=== PATIENT | male | born 1970 | race Caucasian/White ===

== ENCOUNTER 2016-09-15 01:56 | Inpatient (IN) | payer BC ==
[~2016-09-15] VITALS: Ht 177.8 cm; Wt 108.2 kg
[~2016-09-15 01:56] MED LIST: LISI1TAB5 PO; METF500T4 PO; OMEP20CA9 PO
[2016-09-15] MEDS ORDERED: FENTANYL PF 100 MCG/2 ML VIAL. IV PRN ×2 (02:30→05:15)
[2016-09-15] MEDS ORDERED: NITROGLYCERIN SUBLINGUAL 0.4 MG BOTTLE OF 25. SL PRN ×2 (02:30→05:15)
[2016-09-15 02:34] LABS: BASO # 0.1 x10^3/uL (0.0-0.2); BASO % 1 % (0-3); EOS % 3 % (0-3); HEMATOCRIT 46.3 % (39.0-53.0); HEMOGLOBIN 15.1 g/dL (13.0-17.5); LYMPH # 4.9 x10^3/uL (1.0-4.8); LYMPH % 37 % (24-48); MEAN CORPUSCULAR HEMOGLOBIN 28 pg (25-35); MEAN CORPUSCULAR HGB CONC 33 g/dL (31-37); MEAN CORPUSCULAR VOLUME 85 fL (79-100); MONO % 9 % (0-9); NEUT % 50 % (31-73); PLATELET COUNT 289 x10^3/uL (140-400); RED BLOOD COUNT 5.48 x10^6/uL (4.30-5.70); RED CELL DISTRIBUTION WIDTH 14.1 % (11.5-14.5); WHITE BLOOD COUNT 13.4 x10^3/uL (4.0-11.0)
[2016-09-15 02:46] LABS: CALCIUM 9.5 mg/dL (8.5-10.1); CREATININE 1.1 mg/dL (0.7-1.3); GFR 71.8; POTASSIUM 3.8 mmol/L (3.5-5.1)
[2016-09-15 02:47] LABS: INR 0.9 (0.8-1.1)
[2016-09-15] MEDS ORDERED: ASPIRIN 81 MG TAB.CHEW PO ONE (03:00)
[2016-09-15 04:13] LABS: BARBITURATES NEG (NEG); BENZODIAZEPINES NEG (NEG); CANNABINOIDS NEG (NEG); COCAINE NEG (NEG); METHADONE NEG (NEG); OPIATES NEG (NEG); PHENCYCLIDINE NEG (NEG)
[2016-09-15 04:19] LABS: ETHANOL, URINE NEG (NEG)
[2016-09-15] MEDS ORDERED: HEPARIN for IV BOLUS 10,000 UNIT/10 ML VIAL. IV ONE (05:00)
[2016-09-15] MEDS ORDERED: ONDANSETRON PF 4 MG/2 ML VIAL. IV PRN ×2 (05:15→10:30)
[2016-09-15] MEDS ORDERED: DEXTROSE 50% 25 GM / 50ML DISP.SYRIN. IV PRN (05:15)
[2016-09-15] MEDS ORDERED: ACETAMINOPHEN 325 MG TABLET. PO PRN ×2 (05:15→10:30)
[2016-09-15] MEDS: HEPARIN 25,000UTS/500ML PREMIX 500 ML IV PRN ×2 (05:17→23:29)
[2016-09-15 07:32] VITALS: BP 125/71
[2016-09-15] MEDS: INSULIN ASPART 300 UNITS/3 ML INSULN.PEN SQ SCH ×3 (07:38→18:11)
--- NOTE | 2016-09-15 07:48 | RAD ---
Exam: AP portable chest. History: Chest pain. Comparison: 03/20/2015. Findings: The heart and mediastinal structures are within normal limits for size. Lungs are without infiltrate. No pneumothorax or pleural effusion is appreciated. Impression: 1. No acute cardiopulmonary process.
--- NOTE | 2016-09-15 08:21 | ED.ADGEN ---
Past Medical History Past Medical History: Diabetes-Type II, GERD, High Cholesterol, Hypertension Past Surgical History: Other Additional Past Surgical Histo: SKIN GRAFT, KNEE SX, L5-S1 BACK SX Alcohol Use: None Drug Use: None Adult General Chief Complaint Chief Complaint: CHEST PAIN HPI HPI Patient is a 46 year old and, history of type 2 diabetes mellitus, hypertension , hyperlipidemia, GERD, who presents emergency Department with complaint of sudden onset of chest burning, with weakness in his bilateral upper extremities , that woke him from sleep this evening. Patient states he has been experiencing this burning sensation in the chest intermittently over the past several days, did not previously express his sensation, states he isn't having belching as well. Denies any radiation of the pain, states that he had weakness in both his upper extremities, which was very transient when he was woken from sleep tonight, which was a new sensation, he states the burning was intense, but does not describe it as a pain or pressure. He states that he has had no injuries, denies any drugs or alcohol, states he smokes cigarettes daily. No cough, no fevers, no chills, swelling extremities, no history of DVT or PE, no recent travel or surgery. Patient states he is compliant with his medications. He states he is a family history of heart disease, and his father, and his 60s. Has not previously had a cardiac evaluation. Patient states that the pain was subsiding by the time he arrived in the emergency department, and that began about an hour prior to his arrival. He is pain-free at this time, has received aspirin, and one nitroglycerin in the ED, Review of Systems Review of Systems Constitutional: Denies fever or chills. [] Eyes: Denies change in visual acuity. [] HENT: Denies nasal congestion or sore throat. [] Respiratory: Denies cough or shortness of breath. [] Cardiovascular: Burning chest pain, no edema. Associated with weakness in his bilateral upper extremities that was transient. Belching. GI: Denies abdominal pain, nausea, vomiting, bloody stools or diarrhea. [] : Denies dysuria. [] Musculoskeletal: Denies back pain or joint pain. [] Integument: Denies rash. [] Neurologic: Denies headache, focal weakness or sensory changes. [] Endocrine: Denies polyuria or polydipsia. [] Lymphatic: Denies swollen glands. [] Psychiatric: Denies depression or anxiety. [] Current Medications Current Medications Current Medications Medications (Trade) Dose Ordered Sig/Shiv Start Time Stop Time Status Last Admin Dose Admin Aspirin (Children'S Aspirin) 324 mg 1X ONCE 09/15/16 03:00 09/15/16 03:01 DC 09/15/16 02:36 324 MG Fentanyl Citrate 25 mcg 25 mcg PRN Q15MIN PRN 09/15/16 02:30 09/15/16 06:00 DC Heparin Sodium (Porcine) 2,850 unit PRN Q6HRS PRN 09/15/16 04:45 Heparin Sodium/ Dextrose 500 ml @ 0 mls/hr CONT PRN 09/15/16 04:45 09/15/16 05:17 20 MLS/HR Nitroglycerin (Nitrostat) 0.4 mg PRN Q5MIN PRN 09/15/16 02:30 09/15/16 05:18 DC 09/15/16 02:37 0.4 MG Allergies Allergies Allergies Coded Allergies Type Severity Reaction Last Updated Verified Iodinated Contrast Media - IV Dye Allergy Unknown 03/20/15 Yes Physical Exam Physical Exam Constitutional: Well developed, well nourished, no acute distress, non-toxic appearance. [] HENT: Normocephalic, atraumatic, bilateral external ears normal, oropharynx moist, no oral exudates, nose normal. [] Eyes: PERRLA, EOMI, conjunctiva normal, no discharge. [] Neck: Normal range of motion, no tenderness, supple, no stridor. [] Cardiovascular:Heart rate regular rhythm, no murmur [] Lungs & Thorax: Bilateral breath sounds clear to auscultation [] Abdomen: Bowel sounds normal, soft, no tenderness, no masses, no pulsatile masses. [] Skin: Warm, dry, no erythema, no rash. [] Back: No tenderness, no CVA tenderness. [] Extremities: No tenderness, no cyanosis, no clubbing, ROM intact, no edema. [] Neurologic: Alert and oriented X 3, normal motor function, normal sensory function, no focal deficits noted. [] Psychologic: Affect normal, judgement normal, mood normal. [] Current Patient Data Vital Signs Vital Signs Date Time Temp Pulse Resp B/P Pulse Ox O2 Delivery O2 Flow Rate FiO2 09/15/16 04:40 92 12 124/91 95 Room Air 09/15/16 02:22 97.9 97.9 Lab Values Laboratory Tests Test 09/15/16 02:20 09/15/16 04:01 09/15/16 04:11 White Blood Count 13.4x10^3/uL (4.0-11.0) H Red Blood Count 5.48x10^6/uL (4.30-5.70) Hemoglobin 15.1g/dL (13.0-17.5) Hematocrit 46.3% (39.0-53.0) Mean Corpuscular Volume 85fL (79-100) Mean Corpuscular Hemoglobin 28pg (25-35) Mean Corpuscular Hemoglobin Concent 33g/dL (31-37) Red Cell Distribution Width 14.1% (11.5-14.5) Platelet Count 289x10^3/uL (140-400) Neutrophils (%) (Auto) 50% (31-73) Lymphocytes (%) (Auto) 37% (24-48) Monocytes (%) (Auto) 9% (0-9) Eosinophils (%) (Auto) 3% (0-3) Basophils (%) (Auto) 1% (0-3) Neutrophils # (Auto) 6.7x10^3uL (1.8-7.7) Lymphocytes # (Auto) 4.9x10^3/uL (1.0-4.8) H Monocytes # (Auto) 1.2x10^3/uL (0.0-1.1) H Eosinophils # (Auto) 0.4x10^3/uL (0.0-0.7) Basophils # (Auto) 0.1x10^3/uL (0.0-0.2) Prothrombin Time 12.0SEC (11.7-14.0) Prothrombin Time INR 0.9 (0.8-1.1) PTT 27SEC (24-38) Sodium Level 140mmol/L (136-145) Potassium Level 3.8mmol/L (3.5-5.1) Chloride Level 101mmol/L (98-107) Carbon Dioxide Level 31mmol/L (21-32) Anion Gap 8 (6-14) Blood Urea Nitrogen 20mg/dL (8-26) Creatinine 1.1mg/dL (0.7-1.3) Estimated GFR (Cockcroft-Gault) 71.8 Glucose Level 184mg/dL (70-99) H Calcium Level 9.5mg/dL (8.5-10.1) Troponin I Quantitative 0.696ng/mL (0.000-0.055) HY-Ctf-Y-Type Natriuretic Peptide 190pg/mL (0-124) H Lipase 203U/L (73-393) Urine Opiates Screen Neg (NEG) Urine Methadone Screen Neg (NEG) Urine Barbiturates Neg (NEG) Urine Phencyclidine Screen Neg (NEG) Urine Amphetamine/Methamphetamine Neg (NEG) Urine Benzodiazepines Screen Neg (NEG) Urine Cocaine Screen Neg (NEG) Urine Cannabinoids Screen Neg (NEG) Urine Ethyl Alcohol Neg (NEG) POC Troponin I 0.47ng/ml (<0.08) Laboratory Tests 09/15/16 02:20 Laboratory Tests 09/15/16 02:20 EKG EKG EC: Sinus rhythm, heart rate 92 beats minute, left axis deviation, patient with [address] elevation noted in V2, no other ST elevations or depressions identified, QTC of 438, SC 170, QRS of 80, mild baseline artifact noted. This is a chest pain free ECG. As interpreted by me. No prior for comparison. EC: Sinus rhythm, heart rate 80 bpm, left axis deviation, QTC of 409, SC of 184, QRS of 80, contrary abnormalities noted in V1, with half millimeter elevation, and V2, with approximately 1 mm of elevation, no ST depressions, T- wave inversions noted in aVL which are consistent with patient's previous ECG. Baseline is improved. Abnormal ECG, does not meet STEMI criteria. As interpreted by me. Radiology/Procedures Radiology/Procedures Chest x-ray: One view: Normal cardiopulmonary silhouette, no infiltrates, no effusions, no pneumothorax, no soft tissue or bony abnormalities identified. As interpreted by me. [] Course & Med Decision Making Course & Med Decision Making Pertinent Labs and Imaging studies reviewed. (See chart for details) Patient's report is concerning for possible atypical chest pain, he is agreeable for receiving chest x-ray, ECG, and laboratory studies in the ED. X- rays unremarkable, ECG reveals 1 mm elevation in lateral leads, no significant reciprocal changes, no prior for comparison, and patient is chest pain-free in the emergency department recurrence of the symptoms which did resolve prior to his evaluation, the patient received aspirin and 1 nitroglycerin in the ED upon his arrival. Patient's troponin is positive at 0.96, did discuss these findings with the patient, he was agreeable for admission to the hospital, was initiated on heparin bolus and infusion. He remains asymptomatic in the emergency department, has not have recurrence of his symptoms during his ED course. Findings as above discussed with Dr. Uribe of cardiology, and evaluation is in place, he will evaluate the patient, with serial enzymes pending. Findings as above discussed with Dr. Carmona cardiology, patient accepted to his service as a full admission to the cardiac telemetry floor with plan for cardiac evaluation and close monitoring. Patient remained stable and comfortable , sinus rhythm on the monitor, without recurrence of symptoms, at time of transfer to the floor. Dragon Disclaimer Dragon Disclaimer This electronic medical record was generated, in whole or in part, using a voice recognition dictation system. Departure Impression: Primary Impression: NSTEMI (non-ST elevated myocardial infarction) Additional Impression: Chest pain Disposition: 09 ADMITTED INPATIENT Admitting Physician: Agus Carmona Condition: IMPROVED Problem Qualifiers Additional Impression: Chest pain Chest pain type: unspecified Qualified Code: R07.9 - Chest pain, unspecified AARON DAWSON DO Sep 15, 2016 08:20
[2016-09-15] MEDS ORDERED: METF10002 PO (09:18)
[2016-09-15] MEDS ORDERED: OMEP20TA PO (09:18)
[2016-09-15] MEDS ORDERED: GLIM2TAB2 PO (09:18)
[2016-09-15] MEDS ORDERED: ATOR10TA60 PO (09:18)
[2016-09-15] MEDS ORDERED: LOSA1TAB18 PO (09:18)
[2016-09-15 11:03] VITALS: BP 150/95
[2016-09-15 11:06] LABS: CHOLESTEROL/HDL RATIO 4.3
[2016-09-15] MEDS ORDERED: HYDROCHLOROTHIAZIDE 12.5 MG CAPSULE. PO SCH (11:30)
[2016-09-15] MEDS ORDERED: LOSARTAN POTASSIUM 50 MG TABLET. PO SCH (11:30)
[2016-09-15] MEDS: HEPARIN for IV BOLUS 10,000 UNIT/10 ML VIAL. IV PRN ×2 (12:20→18:22)
--- NOTE | 2016-09-15 12:39 | EKG ---
[facility] [address] [place] [address] Test Date: 2016-09-15 Test Time: 04:02:44 Pat Name: LIOR TONG Department: Room: Gender: [employer]: : 1970 Requested By: AARON DAWSON Order Number: [id number] Reading MD: Measurements Intervals [place] Rate: 80 P: 30 MS: 184 QRS: -21 QRSD: 80 T: 76 QT: 352 QTc: 409 Interpretive Statements SINUS RHYTHM LEFTWARD AXIS T ABNORMALITY IN HIGH LATERAL LEADS RI6.01 Unconfirmed report No previous ECG available for comparison
--- NOTE | 2016-09-15 12:39 | EKG ---
[facility] [address] [place] [address] Test Date: 2016-09-15 Test Time: 02:09:19 Pat Name: LIOR TONG Department: Room: Gender: M [employer]: : 1970 Requested By: AARON DAWSON Order Number: [id number] Reading MD: Measurements Intervals [place] Rate: 92 P: 60 ND: 178 QRS: -17 QRSD: 80 T: 62 QT: 350 QTc: 438 Interpretive Statements SINUS RHYTHM LEFT ATRIAL ABNORMALITY LEFTWARD AXIS T ABNORMALITY IN HIGH LATERAL LEADS RI6.01 Unconfirmed report No previous ECG available for comparison
--- NOTE | 2016-09-15 12:48 | PDOC1 ---
History and Physical Date of Admission Date of Admission 09/15/16 Identification/Chief Complaint Chief Complaint chest pain Problems: Source Source: Chart review, Patient History of Present Illness History of Present Illness HPI Patient is a 46 year old and, history of type 2 diabetes mellitus, hypertension , hyperlipidemia, GERD, who presents emergency Department with complaint of sudden onset of chest burning yesterday. He had similar pain intermittent for a few weeks. The pain was located substernal , radiating to bl shoulders, sharp like burning , with diphoresis, no N/V or sob. lasting 20-30min. mild chronic cough, no fevers, no chills, swelling extremities, no history of DVT or PE, no recent travel or surgery. Patient states he is compliant with his medications. He states he is a family history of heart disease, and his father, and his 60s. Has not previously had a cardiac evaluation. He is pain-free at this time, has received aspirin, and one nitroglycerin in the ED, high troponin, on heparin drip, EKG ok. Past Medical History Cardiovascular: HTN Endocrine: Diabetes Past Surgical History Past Surgical History: No pertinent history Family History Family History: Heart Disease Social History Smoke: 1 pack per day ALCOHOL: social Drugs: None Current Problem List Problem List Problems Medical Problems: (1) Chest pain Status: Acute (2) NSTEMI (non-ST elevated myocardial infarction) Status: Acute Current Medications Current Medications Current Medications Medications (Trade) Dose Ordered Sig/Shiv Start Time Stop Time Status Last Admin Dose Admin Acetaminophen (Tylenol) 650 mg PRN Q6HRS PRN 09/15/16 10:30 Aspirin (Children'S Aspirin) 324 mg 1X ONCE 09/15/16 03:00 09/15/16 03:01 DC 09/15/16 02:36 324 MG Atorvastatin Calcium (Lipitor) 20 mg QHS 09/15/16 21:00 Dextrose 12.5 gm PRN Q15MIN PRN 09/15/16 05:15 Fentanyl Citrate (Fentanyl 2ml Vial) 50 mcg PRN Q2HR PRN 09/15/16 05:15 09/16/16 05:14 Glimepiride (Amaryl) 2 mg DAILY 09/15/16 11:30 Heparin Sodium (Porcine) 2,850 unit PRN Q6HRS PRN 09/15/16 04:45 09/15/16 12:20 2,850 UNIT Heparin Sodium (Porcine) 4000 unit 4,000 unit 1X ONCE 09/15/16 05:00 09/15/16 05:02 DC 09/15/16 05:14 4,000 UNIT Heparin Sodium/ Dextrose 500 ml @ 0 mls/hr CONT PRN 09/15/16 04:45 09/15/16 05:17 20 MLS/HR Hydrochlorothiazide (Microzide) 12.5 mg DAILY 09/15/16 11:30 Info (Anti-Coagulation Monitoring By Pharmacy) 1 each PRN DAILY PRN 09/15/16 07:45 Insulin Aspart (Novolog) 0-5 UNITS TIDWMEALS 09/15/16 08:00 Losartan Potassium (Cozaar) 100 mg DAILY 09/15/16 11:30 Morphine Sulfate 4 mg PRN Q2HR PRN 09/15/16 10:30 Nitroglycerin (Nitrostat) 0.4 mg PRN Q5MIN PRN 09/15/16 05:15 09/16/16 05:14 Non-Formulary Medication 1 tab DAILY 09/16/16 09:00 UNV Ondansetron HCl (Zofran) 4 mg PRN Q6HRS PRN 09/15/16 10:30 Pantoprazole Sodium (Protonix) 40 mg DAILYAC 09/15/16 11:30 Allergies Allergies Allergies Coded Allergies Type Severity Reaction Last Updated Verified Iodinated Contrast Media - IV Dye Allergy Unknown 03/20/15 Yes ROS Review of System CONSTITUTIONAL: No fever or chills EYES: No recent changes SKIN: No rash or itching CARDIOVASCULAR: No chest pain, syncope, palpitations, or edema RESPIRATORY: No SOB or cough GASTROINTESTINAL: No nausea, vomiting or abdominal pain NEUROLOGICAL: No headaches or weakness ENDOCRINE: No cold or heat intolerance GENITOURINARY: No urgency or frequency of urination MUSCULOSKELETAL: No back pain or joint pain LYMPHATICS: No enlarged lymph nodes PSYCHIATRIC: No anxiety or depression Physical Exam Physical Exam GEN.: No apparent distress. Alert and oriented. HEENT: Head is normocephalic, atraumatic NECK: Supple. LUNGS: Clear to auscultation. HEART: RRR, S1, S2 present. Peripheral pulses intact ABDOMEN: Soft, nontender. Positive bowel sounds. EXTREMITIES: Without any cyanosis. NEUROLOGIC: Normal speech, normal tone PSYCHIATRIC: Normal affect, normal mood. SKIN: No ulcerations Vitals Vitals Vital Signs Date Time Temp Pulse Resp B/P Pulse Ox O2 Delivery O2 Flow Rate FiO2 09/15/16 11:03 98.1 84 18 150/95 98 Room Air 98.1 Labs Labs Laboratory Tests Test 09/15/16 02:20 09/15/16 04:01 09/15/16 04:11 09/15/16 08:05 White Blood Count 13.4x10^3/uL (4.0-11.0) Red Blood Count 5.48x10^6/uL (4.30-5.70) Hemoglobin 15.1g/dL (13.0-17.5) Hematocrit 46.3% (39.0-53.0) Mean Corpuscular Volume 85fL (79-100) Mean Corpuscular Hemoglobin 28pg (25-35) Mean Corpuscular Hemoglobin Concent 33g/dL (31-37) Red Cell Distribution Width 14.1% (11.5-14.5) Platelet Count 289x10^3/uL (140-400) Neutrophils (%) (Auto) 50% (31-73) Lymphocytes (%) (Auto) 37% (24-48) Monocytes (%) (Auto) 9% (0-9) Eosinophils (%) (Auto) 3% (0-3) Basophils (%) (Auto) 1% (0-3) Neutrophils # (Auto) 6.7x10^3uL (1.8-7.7) Lymphocytes # (Auto) 4.9x10^3/uL (1.0-4.8) Monocytes # (Auto) 1.2x10^3/uL (0.0-1.1) Eosinophils # (Auto) 0.4x10^3/uL (0.0-0.7) Basophils # (Auto) 0.1x10^3/uL (0.0-0.2) Prothrombin Time 12.0SEC (11.7-14.0) Prothromb Time International Ratio 0.9 (0.8-1.1) Activated Partial Thromboplast Time 27SEC (24-38) Sodium Level 140mmol/L (136-145) Potassium Level 3.8mmol/L (3.5-5.1) Chloride Level 101mmol/L (98-107) Carbon Dioxide Level 31mmol/L (21-32) Anion Gap 8 (6-14) Blood Urea Nitrogen 20mg/dL (8-26) Creatinine 1.1mg/dL (0.7-1.3) Estimated GFR (Cockcroft-Gault) 71.8 Glucose Level 184mg/dL (70-99) Calcium Level 9.5mg/dL (8.5-10.1) Troponin I Quantitative 0.696ng/mL (0.000-0.055) 1.251ng/mL (0.000-0.055) AM-Evx-D-Type Natriuretic Peptide 190pg/mL (0-124) Triglycerides Level 358mg/dL (0-150) Cholesterol Level 160mg/dL (0-200) LDL Cholesterol, Calculated 51mg/dL (0-100) VLDL Cholesterol, Calculated 72mg/dL (0-40) HDL Cholesterol 37mg/dL (40-60) Cholesterol/HDL Ratio 4.3 Lipase 203U/L (73-393) Thyroid Stimulating Hormone (TSH) 2.549uIU/mL (0.358-3.74) Urine Opiates Screen Neg (NEG) Urine Methadone Screen Neg (NEG) Urine Barbiturates Neg (NEG) Urine Phencyclidine Screen Neg (NEG) Urine Amphetamine/Methamphetamine Neg (NEG) Urine Benzodiazepines Screen Neg (NEG) Urine Cocaine Screen Neg (NEG) Urine Cannabinoids Screen Neg (NEG) Urine Ethyl Alcohol Neg (NEG) Bedside Troponin I 0.47ng/ml (<0.08) Test 09/15/16 11:30 Heparin Anti-Xa Act, Unfractionated < 0.10IU/mL (0.30-0.70) Laboratory Tests Test 09/15/16 02:20 09/15/16 04:01 09/15/16 04:11 09/15/16 08:05 White Blood Count 13.4x10^3/uL (4.0-11.0) Red Blood Count 5.48x10^6/uL (4.30-5.70) Hemoglobin 15.1g/dL (13.0-17.5) Hematocrit 46.3% (39.0-53.0) Mean Corpuscular Volume 85fL (79-100) Mean Corpuscular Hemoglobin 28pg (25-35) Mean Corpuscular Hemoglobin Concent 33g/dL (31-37) Red Cell Distribution Width 14.1% (11.5-14.5) Platelet Count 289x10^3/uL (140-400) Neutrophils (%) (Auto) 50% (31-73) Lymphocytes (%) (Auto) 37% (24-48) Monocytes (%) (Auto) 9% (0-9) Eosinophils (%) (Auto) 3% (0-3) Basophils (%) (Auto) 1% (0-3) Neutrophils # (Auto) 6.7x10^3uL (1.8-7.7) Lymphocytes # (Auto) 4.9x10^3/uL (1.0-4.8) Monocytes # (Auto) 1.2x10^3/uL (0.0-1.1) Eosinophils # (Auto) 0.4x10^3/uL (0.0-0.7) Basophils # (Auto) 0.1x10^3/uL (0.0-0.2) Prothrombin Time 12.0SEC (11.7-14.0) Prothromb Time International Ratio 0.9 (0.8-1.1) Activated Partial Thromboplast Time 27SEC (24-38) Sodium Level 140mmol/L (136-145) Potassium Level 3.8mmol/L (3.5-5.1) Chloride Level 101mmol/L (98-107) Carbon Dioxide Level 31mmol/L (21-32) Anion Gap 8 (6-14) Blood Urea Nitrogen 20mg/dL (8-26) Creatinine 1.1mg/dL (0.7-1.3) Estimated GFR (Cockcroft-Gault) 71.8 Glucose Level 184mg/dL (70-99) Calcium Level 9.5mg/dL (8.5-10.1) Troponin I Quantitative 0.696ng/mL (0.000-0.055) 1.251ng/mL (0.000-0.055) DY-Zgw-E-Type Natriuretic Peptide 190pg/mL (0-124) Triglycerides Level 358mg/dL (0-150) Cholesterol Level 160mg/dL (0-200) LDL Cholesterol, Calculated 51mg/dL (0-100) VLDL Cholesterol, Calculated 72mg/dL (0-40) HDL Cholesterol 37mg/dL (40-60) Cholesterol/HDL Ratio 4.3 Lipase 203U/L (73-393) Thyroid Stimulating Hormone (TSH) 2.549uIU/mL (0.358-3.74) Urine Opiates Screen Neg (NEG) Urine Methadone Screen Neg (NEG) Urine Barbiturates Neg (NEG) Urine Phencyclidine Screen Neg (NEG) Urine Amphetamine/Methamphetamine Neg (NEG) Urine Benzodiazepines Screen Neg (NEG) Urine Cocaine Screen Neg (NEG) Urine Cannabinoids Screen Neg (NEG) Urine Ethyl Alcohol Neg (NEG) Bedside Troponin I 0.47ng/ml (<0.08) Test 09/15/16 11:30 Heparin Anti-Xa Act, Unfractionated < 0.10IU/mL (0.30-0.70) VTE Prophylaxis Ordered VTE Prophylaxis Devices: Yes VTE Pharmacological Prophylaxi: No Assessment/Plan Assessment/Plan 1. chest pain, NSTEMI 2. hld 3. dm2 4. Htn 5. OBEsity 6. tobaccoism 7. SIRS wo infection plan: 1. fu with card 2. check echo tsh, lipid panel cycle CE 3. on heparin drip 4. check hba1c, cont glipizide, hold metformin, SSI 5. hold hctz gi ppx FABI BHATT MD Sep 15, 2016 12:48
[2016-09-15 14:38] VITALS: BP 125/74
[2016-09-15 14:55] LABS: CKMB INDEX 4.9 % (0-4); CKMB MASS 6.4 ng/mL (0.0-3.6)
[2016-09-15] MEDS: ANTI-COAG MONITOR BY PHARMACY. MC PRN (15:39)
--- NOTE | 2016-09-15 16:09 | PDOC2 ---
CONSULT Date of Consult Date of Consult DATE: 09/15/16 TIME: 16:02 Reason for Consult Reason for Consult: Chest pain Referring Physician Referring Physician: Dr. Hare Identification/Chief Complaint Chief Complaint Chest pain Source Source: Chart review, Patient History of Present Illness Reason for Visit: 46-year-old male without any previous cardiac history presented with sudden onset retrosternal chest pain that he described as burning and pressure-like sensation radiating to both arms, 7/10 severity. He stated that he had similar but milder pain a few times over the last few weeks. He is not sure about the exertional component to his pain. He did have mild shortness of breath during his recent episode. He denied any orthopnea/PND, palpitations or syncope. Past Medical History Cardiovascular: HTN Endocrine: Diabetes Past Surgical History Past Surgical History: No pertinent history Family History Family History: Heart Disease Social History 1 pack per day ALCOHOL: social Drugs: None Lives: Friends Current Problem List Problem List Problems Medical Problems: (1) Chest pain Status: Acute (2) NSTEMI (non-ST elevated myocardial infarction) Status: Acute Current Medications Current Medications Current Medications Aspirin (Children'S Aspirin) 324 mg 1X ONCE PO Last administered on at 02:36; Start 09/15/16 at 03:00; Stop 09/15/16 at 03:01; Status DC Nitroglycerin (Nitrostat) 0.4 mg PRN Q5MIN PRN SL CP RATING > 1/10 Last administered on 09/15/16at 02:37; Start 09/15/16 at 02:30; Stop 09/15/16 at 05 :18; Status DC Fentanyl Citrate (Fentanyl 2ml Vial) 25 mcg PRN Q15MIN PRN IV PAIN GREATER THAN 3/10; Start 09/15/16 at 02:30; Stop 09/15/16 at 06:00; Status DC Heparin Sodium (Porcine) 4000 unit 4,000 unit 1X ONCE IV Last administered on 09/15/16at 05:14; Start 09/15/16 at 05:00; Stop 09/15/16 at 05:02; Status DC Heparin Sodium/ Dextrose 500 ml @ 0 mls/hr CONT PRN IV SEE I/O RECORD Last administered on 09/15/16at 05:17; Start 09/15/16 at 04:45 Heparin Sodium (Porcine) 2,850 unit PRN Q6HRS PRN IV FOR UFH LEVEL LESS THAN 0.2 Last administered on 09/15/16at 12:20; Start 09/15/16 at 04:45 Ondansetron HCl (Zofran) 4 mg PRN Q8HRS PRN IV NAUSEA/VOMITING; Start at 05:15; Stop 09/16/16 at 05:14 Fentanyl Citrate (Fentanyl 2ml Vial) 50 mcg PRN Q2HR PRN IV SEVERE PAIN; Start 09/15/16 at 05:15; Stop 09/16/16 at 05:14 Acetaminophen (Tylenol) 650 mg PRN Q4HRS PRN PO FEVER; Start 09/15/16 at 05:15 ; Stop 09/16/16 at 05:14 Nitroglycerin (Nitrostat) 0.4 mg PRN Q5MIN PRN SL CHEST PAIN; Start 09/15/16 at 05:15; Stop 09/16/16 at 05:14 Insulin Aspart (Novolog) 0-5 UNITS TIDWMEALS SQ ; Start 09/15/16 at 08:00 Dextrose 12.5 gm PRN Q15MIN PRN IV SEE COMMENTS; Start 09/15/16 at 05:15 Info (Anti-Coagulation Monitoring By Pharmacy) 1 each PRN DAILY PRN MC SEE COMMENTS Last administered on 09/15/16at 15:39; Start 09/15/16 at 07:45 Atorvastatin Calcium (Lipitor) 20 mg QHS PO ; Start 09/15/16 at 21:00 Glimepiride (Amaryl) 2 mg DAILY PO ; Start 09/15/16 at 11:30 Non-Formulary Medication 1 tab DAILY PO ; Start 09/16/16 at 09:00; Status UNV Pantoprazole Sodium (Protonix) 40 mg DAILYAC PO ; Start 09/15/16 at 11:30 Acetaminophen (Tylenol) 650 mg PRN Q6HRS PRN PO MILD PAIN / TEMP; Start at 10:30 Ondansetron HCl (Zofran) 4 mg PRN Q6HRS PRN IV NAUSEA/VOMITING; Start at 10:30 Morphine Sulfate 2 mg PRN Q2HR PRN IV PAIN; Start 09/15/16 at 10:30 Morphine Sulfate 4 mg PRN Q2HR PRN IV PAIN; Start 09/15/16 at 10:30 Losartan Potassium (Cozaar) 100 mg DAILY PO ; Start 09/15/16 at 11:30; Stop at 12:48; Status DC Hydrochlorothiazide (Microzide) 12.5 mg DAILY PO ; Start 09/15/16 at 11:30; Stop 09/15/16 at 12:48; Status DC Active Scripts Active Reported Atorvastatin Calcium 10 Mg Tablet 1 Tab PO DAILY Losartan-Hctz 100-12.5 Mg Tab (Losartan/Hydrochlorothiazide) 1 Each Tablet 1 Tab PO DAILY Glimepiride 2 Mg Tablet 1 Tab PO DAILY Metformin Hcl 1,000 Mg Tablet 1 Tab PO BID Omeprazole 20 Mg Capsule.dr 1 Cap PO BID Allergies Allergies: Coded Allergies: Iodinated Contrast Media - IV Dye (Verified Allergy, Unknown, 03/20/15) ROS PSYCHOLOGICAL ROS: No: Hallucinations Eyes: No Loss of vision HEENT: No: Epistaxis Respiratory: YES: Shortness of breath, No: Hemoptysis Cardiovascular: yes Chest Pain, No Palpitations Gastrointestinal: No Nausea, No Vomiting Genitourinary: No Hematuria Neurological: No Seizures Skin: No Rash Physical Exam General: Alert, Oriented X3, No acute distress HEENT: PERRLA, Mucous membr. moist/pink Lungs: Clear to auscultation, Normal air movement Heart: Regular rate, Normal S1, Normal S2, No murmurs Abdomen: Normal bowel sounds, Soft, No tenderness, No hepatosplenomegaly, No masses Extremities: No clubbing, No edema Skin: No rashes, No breakdown Neuro: Normal gait, Normal speech, Normal tone Psych/Mental Status: Mental status NL, Mood NL Vitals VITALS Vital Signs Date Time Temp Pulse Resp B/P Pulse Ox O2 Delivery O2 Flow Rate FiO2 09/15/16 14:38 98.3 81 18 125/74 95 Room Air 98.3 Labs Labs Laboratory Tests Test 09/15/16 02:20 09/15/16 04:01 09/15/16 04:11 09/15/16 08:05 White Blood Count 13.4x10^3/uL (4.0-11.0) Red Blood Count 5.48x10^6/uL (4.30-5.70) Hemoglobin 15.1g/dL (13.0-17.5) Hematocrit 46.3% (39.0-53.0) Mean Corpuscular Volume 85fL (79-100) Mean Corpuscular Hemoglobin 28pg (25-35) Mean Corpuscular Hemoglobin Concent 33g/dL (31-37) Red Cell Distribution Width 14.1% (11.5-14.5) Platelet Count 289x10^3/uL (140-400) Neutrophils (%) (Auto) 50% (31-73) Lymphocytes (%) (Auto) 37% (24-48) Monocytes (%) (Auto) 9% (0-9) Eosinophils (%) (Auto) 3% (0-3) Basophils (%) (Auto) 1% (0-3) Neutrophils # (Auto) 6.7x10^3uL (1.8-7.7) Lymphocytes # (Auto) 4.9x10^3/uL (1.0-4.8) Monocytes # (Auto) 1.2x10^3/uL (0.0-1.1) Eosinophils # (Auto) 0.4x10^3/uL (0.0-0.7) Basophils # (Auto) 0.1x10^3/uL (0.0-0.2) Prothrombin Time 12.0SEC (11.7-14.0) Prothromb Time International Ratio 0.9 (0.8-1.1) Activated Partial Thromboplast Time 27SEC (24-38) Sodium Level 140mmol/L (136-145) Potassium Level 3.8mmol/L (3.5-5.1) Chloride Level 101mmol/L (98-107) Carbon Dioxide Level 31mmol/L (21-32) Anion Gap 8 (6-14) Blood Urea Nitrogen 20mg/dL (8-26) Creatinine 1.1mg/dL (0.7-1.3) Estimated GFR (Cockcroft-Gault) 71.8 Glucose Level 184mg/dL (70-99) Calcium Level 9.5mg/dL (8.5-10.1) Troponin I Quantitative 0.696ng/mL (0.000-0.055) 1.251ng/mL (0.000-0.055) EY-Qnl-S-Type Natriuretic Peptide 190pg/mL (0-124) Triglycerides Level 358mg/dL (0-150) Cholesterol Level 160mg/dL (0-200) LDL Cholesterol, Calculated 51mg/dL (0-100) VLDL Cholesterol, Calculated 72mg/dL (0-40) HDL Cholesterol 37mg/dL (40-60) Cholesterol/HDL Ratio 4.3 Lipase 203U/L (73-393) Thyroid Stimulating Hormone (TSH) 2.549uIU/mL (0.358-3.74) Urine Opiates Screen Neg (NEG) Urine Methadone Screen Neg (NEG) Urine Barbiturates Neg (NEG) Urine Phencyclidine Screen Neg (NEG) Urine Amphetamine/Methamphetamine Neg (NEG) Urine Benzodiazepines Screen Neg (NEG) Urine Cocaine Screen Neg (NEG) Urine Cannabinoids Screen Neg (NEG) Urine Ethyl Alcohol Neg (NEG) Bedside Troponin I 0.47ng/ml (<0.08) Test 09/15/16 11:01 09/15/16 11:30 09/15/16 13:45 Glucose (Fingerstick) 162mg/dL (70-99) Heparin Anti-Xa Act, Unfractionated < 0.10IU/mL (0.30-0.70) Creatine Kinase 131U/L (39-308) Creatine Kinase MB (Mass) 6.4ng/mL (0.0-3.6) Creatine Kinase MB Relative Index 4.9% (0-4) Troponin I Quantitative 1.754ng/mL (0.000-0.055) Laboratory Tests Test 09/15/16 02:20 09/15/16 04:01 09/15/16 04:11 09/15/16 08:05 White Blood Count 13.4x10^3/uL (4.0-11.0) Red Blood Count 5.48x10^6/uL (4.30-5.70) Hemoglobin 15.1g/dL (13.0-17.5) Hematocrit 46.3% (39.0-53.0) Mean Corpuscular Volume 85fL (79-100) Mean Corpuscular Hemoglobin 28pg (25-35) Mean Corpuscular Hemoglobin Concent 33g/dL (31-37) Red Cell Distribution Width 14.1% (11.5-14.5) Platelet Count 289x10^3/uL (140-400) Neutrophils (%) (Auto) 50% (31-73) Lymphocytes (%) (Auto) 37% (24-48) Monocytes (%) (Auto) 9% (0-9) Eosinophils (%) (Auto) 3% (0-3) Basophils (%) (Auto) 1% (0-3) Neutrophils # (Auto) 6.7x10^3uL (1.8-7.7) Lymphocytes # (Auto) 4.9x10^3/uL (1.0-4.8) Monocytes # (Auto) 1.2x10^3/uL (0.0-1.1) Eosinophils # (Auto) 0.4x10^3/uL (0.0-0.7) Basophils # (Auto) 0.1x10^3/uL (0.0-0.2) Prothrombin Time 12.0SEC (11.7-14.0) Prothromb Time International Ratio 0.9 (0.8-1.1) Activated Partial Thromboplast Time 27SEC (24-38) Sodium Level 140mmol/L (136-145) Potassium Level 3.8mmol/L (3.5-5.1) Chloride Level 101mmol/L (98-107) Carbon Dioxide Level 31mmol/L (21-32) Anion Gap 8 (6-14) Blood Urea Nitrogen 20mg/dL (8-26) Creatinine 1.1mg/dL (0.7-1.3) Estimated GFR (Cockcroft-Gault) 71.8 Glucose Level 184mg/dL (70-99) Calcium Level 9.5mg/dL (8.5-10.1) Troponin I Quantitative 0.696ng/mL (0.000-0.055) 1.251ng/mL (0.000-0.055) JO-Jks-N-Type Natriuretic Peptide 190pg/mL (0-124) Triglycerides Level 358mg/dL (0-150) Cholesterol Level 160mg/dL (0-200) LDL Cholesterol, Calculated 51mg/dL (0-100) VLDL Cholesterol, Calculated 72mg/dL (0-40) HDL Cholesterol 37mg/dL (40-60) Cholesterol/HDL Ratio 4.3 Lipase 203U/L (73-393) Thyroid Stimulating Hormone (TSH) 2.549uIU/mL (0.358-3.74) Urine Opiates Screen Neg (NEG) Urine Methadone Screen Neg (NEG) Urine Barbiturates Neg (NEG) Urine Phencyclidine Screen Neg (NEG) Urine Amphetamine/Methamphetamine Neg (NEG) Urine Benzodiazepines Screen Neg (NEG) Urine Cocaine Screen Neg (NEG) Urine Cannabinoids Screen Neg (NEG) Urine Ethyl Alcohol Neg (NEG) Bedside Troponin I 0.47ng/ml (<0.08) Test 09/15/16 11:01 09/15/16 11:30 09/15/16 13:45 Glucose (Fingerstick) 162mg/dL (70-99) Heparin Anti-Xa Act, Unfractionated < 0.10IU/mL (0.30-0.70) Creatine Kinase 131U/L (39-308) Creatine Kinase MB (Mass) 6.4ng/mL (0.0-3.6) Creatine Kinase MB Relative Index 4.9% (0-4) Troponin I Quantitative 1.754ng/mL (0.000-0.055) Assessment/Plan Assessment/Plan 1. Acute non-ST elevation myocardial infarction, based on clinical presentation and elevated troponin level. Patient presently chest pain-free. Continue heparin infusion per protocol and plan for cardiac catheterization possible angioplasty mon/. Risks and benefits were explained and he is agreeable. Start aspirin and beta blockers. 2. Hypertension: Well-controlled 3. Hyperlipidemia: Continue statin therapy 4. Diabetes mellitus type 2: Treat per IM Thank you for your consultation LOS DUNBAR MD Sep 15, 2016 16:09
[2016-09-15] MEDS: PANTOPRAZOLE 40 MG TABLET. PO SCH (18:05)
[2016-09-15] MEDS: GLIMEPIRIDE 2 MG TABLET PO SCH (18:05)
[2016-09-15 19:02] VITALS: BP 149/84
[2016-09-15] MEDS: ATORVASTATIN CALCIUM 20 MG TABLET PO SCH (20:47)
[2016-09-15] MEDS: METOPROLOL TART IMMED RELEASE 25 MG TABLET PO SCH (20:48)
[2016-09-15 22:27] VITALS: BP 146/96
[2016-09-15 22:35] VITALS: BP 142/74
[2016-09-16] VITALS (17 sets, daily range): BP systolic 114–165; BP diastolic 68–103
[2016-09-16] MEDS ORDERED: IOHEXOL 300 MG/ML 100ML VIAL. ONE (07:00)
[2016-09-16] MEDS ORDERED: LIDOCAINE 2% 20 ML VIAL. ONE (07:01)
[2016-09-16] MEDS: PANTOPRAZOLE 40 MG TABLET. PO SCH (07:22)
[2016-09-16] MEDS: ASPIRIN ENTERIC COATED 325 MG TABLET.DR. PO SCH (07:22)
[2016-09-16] MEDS: METOPROLOL TART IMMED RELEASE 25 MG TABLET PO SCH ×2 (07:23→21:00)
[2016-09-16] MEDS: INSULIN ASPART 300 UNITS/3 ML INSULN.PEN SQ SCH ×3 (07:30→17:26)
[2016-09-16] MEDS: GLIMEPIRIDE 2 MG TABLET PO SCH (07:31)
[2016-09-16] MEDS ORDERED: VERAPAMIL 5 MG/2 ML VIAL. ONE (07:45)
[2016-09-16] MEDS ORDERED: HEPARIN for IV BOLUS 10,000 UNIT/10 ML VIAL. ONE (07:45)
[2016-09-16] MEDS ORDERED: NITROGLYCERIN 200 MCG/2 ML SYRINGE FOR CATH/VASC LAB. ONE (07:45)
[2016-09-16] MEDS ORDERED: MIDAZOLAM HCL/PF 5 MG/5 ML VIAL ONE (07:45)
[2016-09-16] MEDS ORDERED: FENTANYL PF 250 MCG/5 ML VIAL. ONE (07:46)
--- NOTE | 2016-09-16 07:56 | PDOC ---
MODERATE SEDATION ASSESSMENT RISKS/ALTERNATIVES Risks/Alternatives Risks and alternatives of this type of sedation and procedure discussed with: RISK/ALTERNATIVES: Patient H & P ON CHART H & P H & P on chart and reviewed for co-morbid conditions and appropriate labs. H&P ON CHART: Yes STATUS PREG STATUS ASSESSED: N/A MEDS/ALLERGIES REVIEWED Meds/Allergies Reviewed Medications and Allergies including time and route of recently administered narcotics and sedatives. MEDS/ALLERGIES REVIEWED: Yes ASA RATING ASA RATING: II AIRWAY ASSESSMENT Airway Assessment Airway patency, oral function limitations, presence of caps, crowns, dentures, partials, and ability to extend neck assessed. AIRWAY ASSESSMENT: Yes MALLAMPATI SCORE MALLAMPATI SCORE: II PRE-SEDATION ASSESSMENT PRE-SEDATION ASSESSMENT: Yes LOS DUNBAR MD Sep 16, 2016 07:56
[2016-09-16] MEDS ORDERED: FAMOTIDINE 20 MG/2 ML VIAL IVP ONE (08:00)
[2016-09-16] MEDS ORDERED: DIPHENHYDRAMINE 50 MG/ML VIAL IVP ONE (08:00)
[2016-09-16] MEDS ORDERED: methylPREDNISolone SOD SUCC PF 125 MG/2 ML VIAL. IV ONE (08:00)
[2016-09-16] MEDS ORDERED: NITROGLYCERIN 200 MCG/2 ML SYRINGE FOR CATH/VASC LAB. IART ONE (08:15)
[2016-09-16] MEDS ORDERED: FENTANYL PF 250 MCG/5 ML VIAL. IV ONE (08:15)
[2016-09-16] MEDS ORDERED: VERAPAMIL 5 MG/2 ML VIAL. IART ONE (08:15)
[2016-09-16] MEDS ORDERED: IOHEXOL 300 MG/ML 100ML VIAL. IART ONE (08:15)
[2016-09-16] MEDS ORDERED: LIDOCAINE 2% 20 ML VIAL. IJ ONE (08:15)
[2016-09-16] MEDS ORDERED: HEPARIN for IV BOLUS 10,000 UNIT/10 ML VIAL. IART ONE (08:15)
[2016-09-16] MEDS ORDERED: MIDAZOLAM HCL/PF 5 MG/5 ML VIAL IV ONE (08:15)
[2016-09-16] MEDS ORDERED: CONTRAST GIVEN MC PRN (08:30)
--- NOTE | 2016-09-16 08:35 | CARD ---
APPROVED REPORT Procedure(s) performed: Left heart catheterization, selective coronary angiography and left ventricul ography via right transradial approach INDICATION The indication(s) include : non-STEMI . PROCEDURE NARRATIVE After explaining the risks, benefits and alternative options, informed consent was obtained from josesito ent. Patient was brought to the cardiac Junior Engineer and right wrist was prepped and draped in the usual fashion after confirming a positive modified Scott's test. Arterial access was obtained in the [facility] t radial artery and a 6 Uzbek sheath was inserted. 6 Uzbek Ahmet catheter was used to perform chloe ective angiography of the left and right coronary arteries. 6 Uzbek pigtail catheter was used to pe rform left ventriculography. Patient tolerated the procedure well. Hemostasis was achieved using TR band. There were no immediate complications. The following findings were noted. FINDINGS 1. Hemodynamics: Left ventricular end-diastolic pressure of 21 mmHg. No pullback gradient across th e aortic valve. 2. Left ventriculography: Normal left ventricle systolic function with ejection fraction estimated at 55-60%. No significant mitral regurgitation seen. 3. Coronary angiography: a. The left main coronary artery arose from the left sinus of Valsalva, gave rise to the left anteri or descending and left circumflex arteries and did not show any significant stenosis. b. The left anterior descending artery showed 90% stenosis in the midsegment. The first diagonal br anch showed 70% stenosis in the proximal segment. c. The left circumflex artery showed 40% stenosis in the midsegment. The second obtuse marginal bra nch which is a moderate caliber vessel showed 70% stenosis in the proximal to midsegment. d. The right coronary artery was a large and dominant vessel arising from the right sinus of Valsalv a that showed 90% stenosis in the proximal to midsegment, 90% stenosis in the midsegment and a critic al 95% stenosis in the distal segment. The posterior descending artery showed 60% stenosis in the pr oximal segment and the posterolateral branch showed 80% stenosis in the proximal to midsegment. Conclusion 1. Three-vessel coronary artery disease 2. Normal left ventricle systolic function with ejection fraction estimated at 55-60%. Recommendations Cardiothoracic surgery consultation for coronary artery bypass surgery.
[2016-09-16] MEDS ORDERED: IV 1/2 NORMAL SALINE 1,000 ML IV SCH (09:00)
[2016-09-16] MEDS ORDERED: DEXTROSE 50% 25 GM / 50ML DISP.SYRIN. IV PRN (09:00)
[2016-09-16] MEDS ORDERED: NON FORMULARY ITEM (Losartan/Hydrochlorothiazide (Losartan-Hctz 100-12.5 Mg Tab) 1 TAB) PO SCH (09:00)
[2016-09-16 10:15] LABS: BASO # 0.1 x10^3/uL (0.0-0.2); BASO % 1 % (0-3); EOS % 1 % (0-3); HEMATOCRIT 46.1 % (39.0-53.0); HEMOGLOBIN 15.1 g/dL (13.0-17.5); LYMPH # 1.4 x10^3/uL (1.0-4.8); LYMPH % 15 % (24-48); MEAN CORPUSCULAR HEMOGLOBIN 27 pg (25-35); MEAN CORPUSCULAR HGB CONC 33 g/dL (31-37); MEAN CORPUSCULAR VOLUME 83 fL (79-100); MONO % 3 % (0-9); NEUT % 81 % (31-73); PLATELET COUNT 294 x10^3/uL (140-400); RED BLOOD COUNT 5.56 x10^6/uL (4.30-5.70); RED CELL DISTRIBUTION WIDTH 14.1 % (11.5-14.5); WHITE BLOOD COUNT 9.8 x10^3/uL (4.0-11.0)
[2016-09-16 10:18] LABS: CALCIUM 9.3 mg/dL (8.5-10.1); CREATININE 1.2 mg/dL (0.7-1.3); GFR 64.9
--- NOTE | 2016-09-16 11:24 | PDOC ---
PROGRESS NOTES Chief Complaint Chief Complaint 1. 3 vessel dse by cardiac cath 09/16 2. hld 3. dm2 4. Htn 5. OBEsity 6. tobaccoism 7. SIRS wo infection History of Present Illness History of Present Illness No chest pain Disappointed that he needs CABG or at least TCVS consult VS stable Chart reviewed PLAN: TCVS consult [place] CPM Vitals Vitals Vital Signs Date Time Temp Pulse Resp B/P Pulse Ox O2 Delivery O2 Flow Rate FiO2 09/16/16 10:19 98.0 77 18 115/68 95 Nasal Cannula 2.0 98.0 Physical Exam General: Alert, Oriented X3, No acute distress Heart: Regular rate, Normal S1, Normal S2, No murmurs Abdomen: Normal bowel sounds, Soft, No tenderness, No hepatosplenomegaly, No masses Extremities: No clubbing, No edema Skin: No rashes, No breakdown Labs LABS Laboratory Tests Test 09/15/16 11:30 09/15/16 13:45 09/15/16 17:16 09/15/16 17:40 Heparin Anti-Xa Act, Unfractionated < 0.10IU/mL (0.30-0.70) 0.15IU/mL (0.30-0.70) Creatine Kinase 131U/L (39-308) Creatine Kinase MB (Mass) 6.4ng/mL (0.0-3.6) Creatine Kinase MB Relative Index 4.9% (0-4) Troponin I Quantitative 1.754ng/mL (0.000-0.055) Glucose (Fingerstick) 213mg/dL (70-99) Test 09/15/16 20:38 09/16/16 00:45 09/16/16 07:23 09/16/16 10:00 Glucose (Fingerstick) 242mg/dL (70-99) 187mg/dL (70-99) Heparin Anti-Xa Act, Unfractionated 0.26IU/mL (0.30-0.70) White Blood Count 9.8x10^3/uL (4.0-11.0) Red Blood Count 5.56x10^6/uL (4.30-5.70) Hemoglobin 15.1g/dL (13.0-17.5) Hematocrit 46.1% (39.0-53.0) Mean Corpuscular Volume 83fL (79-100) Mean Corpuscular Hemoglobin 27pg (25-35) Mean Corpuscular Hemoglobin Concent 33g/dL (31-37) Red Cell Distribution Width 14.1% (11.5-14.5) Platelet Count 294x10^3/uL (140-400) Neutrophils (%) (Auto) 81% (31-73) Lymphocytes (%) (Auto) 15% (24-48) Monocytes (%) (Auto) 3% (0-9) Eosinophils (%) (Auto) 1% (0-3) Basophils (%) (Auto) 1% (0-3) Neutrophils # (Auto) 8.0x10^3uL (1.8-7.7) Lymphocytes # (Auto) 1.4x10^3/uL (1.0-4.8) Monocytes # (Auto) 0.3x10^3/uL (0.0-1.1) Eosinophils # (Auto) 0.1x10^3/uL (0.0-0.7) Basophils # (Auto) 0.1x10^3/uL (0.0-0.2) Sodium Level 137mmol/L (136-145) Potassium Level 5.0mmol/L (3.5-5.1) Chloride Level 100mmol/L (98-107) Carbon Dioxide Level 26mmol/L (21-32) Anion Gap 11 (6-14) Blood Urea Nitrogen 19mg/dL (8-26) Creatinine 1.2mg/dL (0.7-1.3) Estimated GFR (Cockcroft-Gault) 64.9 Glucose Level 240mg/dL (70-99) Calcium Level 9.3mg/dL (8.5-10.1) Assessment and Plan Assessmemt and Plan Problems Medical Problems: (1) Chest pain Status: Acute (2) NSTEMI (non-ST elevated myocardial infarction) Status: Acute Problems: Comment Review of Relevant I have reviewed the following items amber (where applicable) has been applied. Labs Laboratory Tests Test 09/15/16 02:20 09/15/16 04:01 09/15/16 04:11 09/15/16 08:05 White Blood Count 13.4x10^3/uL (4.0-11.0) Red Blood Count 5.48x10^6/uL (4.30-5.70) Hemoglobin 15.1g/dL (13.0-17.5) Hematocrit 46.3% (39.0-53.0) Mean Corpuscular Volume 85fL (79-100) Mean Corpuscular Hemoglobin 28pg (25-35) Mean Corpuscular Hemoglobin Concent 33g/dL (31-37) Red Cell Distribution Width 14.1% (11.5-14.5) Platelet Count 289x10^3/uL (140-400) Neutrophils (%) (Auto) 50% (31-73) Lymphocytes (%) (Auto) 37% (24-48) Monocytes (%) (Auto) 9% (0-9) Eosinophils (%) (Auto) 3% (0-3) Basophils (%) (Auto) 1% (0-3) Neutrophils # (Auto) 6.7x10^3uL (1.8-7.7) Lymphocytes # (Auto) 4.9x10^3/uL (1.0-4.8) Monocytes # (Auto) 1.2x10^3/uL (0.0-1.1) Eosinophils # (Auto) 0.4x10^3/uL (0.0-0.7) Basophils # (Auto) 0.1x10^3/uL (0.0-0.2) Prothrombin Time 12.0SEC (11.7-14.0) Prothromb Time International Ratio 0.9 (0.8-1.1) Activated Partial Thromboplast Time 27SEC (24-38) Sodium Level 140mmol/L (136-145) Potassium Level 3.8mmol/L (3.5-5.1) Chloride Level 101mmol/L (98-107) Carbon Dioxide Level 31mmol/L (21-32) Anion Gap 8 (6-14) Blood Urea Nitrogen 20mg/dL (8-26) Creatinine 1.1mg/dL (0.7-1.3) Estimated GFR (Cockcroft-Gault) 71.8 Glucose Level 184mg/dL (70-99) Calcium Level 9.5mg/dL (8.5-10.1) Troponin I Quantitative 0.696ng/mL (0.000-0.055) 1.251ng/mL (0.000-0.055) YT-Wwm-J-Type Natriuretic Peptide 190pg/mL (0-124) Triglycerides Level 358mg/dL (0-150) Cholesterol Level 160mg/dL (0-200) LDL Cholesterol, Calculated 51mg/dL (0-100) VLDL Cholesterol, Calculated 72mg/dL (0-40) HDL Cholesterol 37mg/dL (40-60) Cholesterol/HDL Ratio 4.3 Lipase 203U/L (73-393) Thyroid Stimulating Hormone (TSH) 2.549uIU/mL (0.358-3.74) Urine Opiates Screen Neg (NEG) Urine Methadone Screen Neg (NEG) Urine Barbiturates Neg (NEG) Urine Phencyclidine Screen Neg (NEG) Urine Amphetamine/Methamphetamine Neg (NEG) Urine Benzodiazepines Screen Neg (NEG) Urine Cocaine Screen Neg (NEG) Urine Cannabinoids Screen Neg (NEG) Urine Ethyl Alcohol Neg (NEG) Bedside Troponin I 0.47ng/ml (<0.08) Test 09/15/16 11:01 09/15/16 11:30 09/15/16 13:45 09/15/16 17:16 Glucose (Fingerstick) 162mg/dL (70-99) 213mg/dL (70-99) Heparin Anti-Xa Act, Unfractionated < 0.10IU/mL (0.30-0.70) Creatine Kinase 131U/L (39-308) Creatine Kinase MB (Mass) 6.4ng/mL (0.0-3.6) Creatine Kinase MB Relative Index 4.9% (0-4) Troponin I Quantitative 1.754ng/mL (0.000-0.055) Test 09/15/16 17:40 09/15/16 20:38 09/16/16 00:45 09/16/16 07:23 Heparin Anti-Xa Act, Unfractionated 0.15IU/mL (0.30-0.70) 0.26IU/mL (0.30-0.70) Glucose (Fingerstick) 242mg/dL (70-99) 187mg/dL (70-99) Test 09/16/16 10:00 White Blood Count 9.8x10^3/uL (4.0-11.0) Red Blood Count 5.56x10^6/uL (4.30-5.70) Hemoglobin 15.1g/dL (13.0-17.5) Hematocrit 46.1% (39.0-53.0) Mean Corpuscular Volume 83fL (79-100) Mean Corpuscular Hemoglobin 27pg (25-35) Mean Corpuscular Hemoglobin Concent 33g/dL (31-37) Red Cell Distribution Width 14.1% (11.5-14.5) Platelet Count 294x10^3/uL (140-400) Neutrophils (%) (Auto) 81% (31-73) Lymphocytes (%) (Auto) 15% (24-48) Monocytes (%) (Auto) 3% (0-9) Eosinophils (%) (Auto) 1% (0-3) Basophils (%) (Auto) 1% (0-3) Neutrophils # (Auto) 8.0x10^3uL (1.8-7.7) Lymphocytes # (Auto) 1.4x10^3/uL (1.0-4.8) Monocytes # (Auto) 0.3x10^3/uL (0.0-1.1) Eosinophils # (Auto) 0.1x10^3/uL (0.0-0.7) Basophils # (Auto) 0.1x10^3/uL (0.0-0.2) Sodium Level 137mmol/L (136-145) Potassium Level 5.0mmol/L (3.5-5.1) Chloride Level 100mmol/L (98-107) Carbon Dioxide Level 26mmol/L (21-32) Anion Gap 11 (6-14) Blood Urea Nitrogen 19mg/dL (8-26) Creatinine 1.2mg/dL (0.7-1.3) Estimated GFR (Cockcroft-Gault) 64.9 Glucose Level 240mg/dL (70-99) Calcium Level 9.3mg/dL (8.5-10.1) Laboratory Tests Test 09/15/16 11:30 09/15/16 13:45 09/15/16 17:16 09/15/16 17:40 Heparin Anti-Xa Act, Unfractionated < 0.10IU/mL (0.30-0.70) 0.15IU/mL (0.30-0.70) Creatine Kinase 131U/L (39-308) Creatine Kinase MB (Mass) 6.4ng/mL (0.0-3.6) Creatine Kinase MB Relative Index 4.9% (0-4) Troponin I Quantitative 1.754ng/mL (0.000-0.055) Glucose (Fingerstick) 213mg/dL (70-99) Test 09/15/16 20:38 09/16/16 00:45 09/16/16 07:23 09/16/16 10:00 Glucose (Fingerstick) 242mg/dL (70-99) 187mg/dL (70-99) Heparin Anti-Xa Act, Unfractionated 0.26IU/mL (0.30-0.70) White Blood Count 9.8x10^3/uL (4.0-11.0) Red Blood Count 5.56x10^6/uL (4.30-5.70) Hemoglobin 15.1g/dL (13.0-17.5) Hematocrit 46.1% (39.0-53.0) Mean Corpuscular Volume 83fL (79-100) Mean Corpuscular Hemoglobin 27pg (25-35) Mean Corpuscular Hemoglobin Concent 33g/dL (31-37) Red Cell Distribution Width 14.1% (11.5-14.5) Platelet Count 294x10^3/uL (140-400) Neutrophils (%) (Auto) 81% (31-73) Lymphocytes (%) (Auto) 15% (24-48) Monocytes (%) (Auto) 3% (0-9) Eosinophils (%) (Auto) 1% (0-3) Basophils (%) (Auto) 1% (0-3) Neutrophils # (Auto) 8.0x10^3uL (1.8-7.7) Lymphocytes # (Auto) 1.4x10^3/uL (1.0-4.8) Monocytes # (Auto) 0.3x10^3/uL (0.0-1.1) Eosinophils # (Auto) 0.1x10^3/uL (0.0-0.7) Basophils # (Auto) 0.1x10^3/uL (0.0-0.2) Sodium Level 137mmol/L (136-145) Potassium Level 5.0mmol/L (3.5-5.1) Chloride Level 100mmol/L (98-107) Carbon Dioxide Level 26mmol/L (21-32) Anion Gap 11 (6-14) Blood Urea Nitrogen 19mg/dL (8-26) Creatinine 1.2mg/dL (0.7-1.3) Estimated GFR (Cockcroft-Gault) 64.9 Glucose Level 240mg/dL (70-99) Calcium Level 9.3mg/dL (8.5-10.1) Medications Current Medications Aspirin (Children'S Aspirin) 324 mg 1X ONCE PO Last administered on at 02:36; Start 09/15/16 at 03:00; Stop 09/15/16 at 03:01; Status DC Nitroglycerin (Nitrostat) 0.4 mg PRN Q5MIN PRN SL CP RATING > 1/10 Last administered on 09/15/16at 02:37; Start 09/15/16 at 02:30; Stop 09/15/16 at 05 :18; Status DC Fentanyl Citrate (Fentanyl 2ml Vial) 25 mcg PRN Q15MIN PRN IV PAIN GREATER THAN 3/10; Start 09/15/16 at 02:30; Stop 09/15/16 at 06:00; Status DC Heparin Sodium (Porcine) 4000 unit 4,000 unit 1X ONCE IV Last administered on 09/15/16at 05:14; Start 09/15/16 at 05:00; Stop 09/15/16 at 05:02; Status DC Heparin Sodium/ Dextrose 500 ml @ 0 mls/hr CONT PRN IV SEE I/O RECORD Last administered on 09/15/16at 23:29; Start 09/15/16 at 04:45 Heparin Sodium (Porcine) 2,850 unit PRN Q6HRS PRN IV FOR UFH LEVEL LESS THAN 0.2 Last administered on 09/15/16at 18:22; Start 09/15/16 at 04:45 Ondansetron HCl (Zofran) 4 mg PRN Q8HRS PRN IV NAUSEA/VOMITING; Start at 05:15; Stop 09/16/16 at 05:14; Status DC Fentanyl Citrate (Fentanyl 2ml Vial) 50 mcg PRN Q2HR PRN IV SEVERE PAIN; Start 09/15/16 at 05:15; Stop 09/16/16 at 05:14; Status DC Acetaminophen (Tylenol) 650 mg PRN Q4HRS PRN PO FEVER; Start 09/15/16 at 05:15 ; Stop 09/16/16 at 05:14; Status DC Nitroglycerin (Nitrostat) 0.4 mg PRN Q5MIN PRN SL CHEST PAIN; Start 09/15/16 at 05:15; Stop 09/16/16 at 05:14; Status DC Insulin Aspart (Novolog) 0-5 UNITS TIDWMEALS SQ Last administered on at 18:11; Start 09/15/16 at 08:00 Dextrose 12.5 gm PRN Q15MIN PRN IV SEE COMMENTS; Start 09/15/16 at 05:15 Info (Anti-Coagulation Monitoring By Pharmacy) 1 each PRN DAILY PRN MC SEE COMMENTS Last administered on 09/15/16at 15:39; Start 09/15/16 at 07:45 Atorvastatin Calcium (Lipitor) 20 mg QHS PO Last administered on 09/15/16at 20: 47; Start 09/15/16 at 21:00 Glimepiride (Amaryl) 2 mg DAILY PO Last administered on 09/15/16at 18:05; Start 09/15/16 at 11:30 Non-Formulary Medication 1 tab DAILY PO ; Start 09/16/16 at 09:00; Status UNV Pantoprazole Sodium (Protonix) 40 mg DAILYAC PO Last administered on at 07:22; Start 09/15/16 at 11:30 Acetaminophen (Tylenol) 650 mg PRN Q6HRS PRN PO MILD PAIN / TEMP; Start at 10:30 Ondansetron HCl (Zofran) 4 mg PRN Q6HRS PRN IV NAUSEA/VOMITING; Start at 10:30 Morphine Sulfate 2 mg PRN Q2HR PRN IV PAIN; Start 09/15/16 at 10:30 Morphine Sulfate 4 mg PRN Q2HR PRN IV PAIN; Start 09/15/16 at 10:30 Losartan Potassium (Cozaar) 100 mg DAILY PO ; Start 09/15/16 at 11:30; Stop at 12:48; Status DC Hydrochlorothiazide (Microzide) 12.5 mg DAILY PO ; Start 09/15/16 at 11:30; Stop 09/15/16 at 12:48; Status DC Aspirin (Ecotrin) 325 mg DAILYWBKFT PO Last administered on 09/16/16at 07:22; Start 09/16/16 at 08:00 Metoprolol Tartrate (Lopressor) 12.5 mg BID PO Last administered on 09/16/16at 07:23; Start 09/15/16 at 21:00 Influenza Virus Vaccine Quadrival (Fluarix Quad [id number] Syringe) 0.5 ml ONCE ONCE VAX IM ; Start 09/16/16 at 14:00; Stop 09/16/16 at 14:01 Pneumococcal Polyvalent Vaccine (Pneumovax 23) 0.5 ml ONCE ONCE VAX IM ; Start 09/16/16 at 14:00; Stop 09/16/16 at 14:01 Famotidine (Pepcid) 20 mg 1X ONCE IVP Last administered on 09/16/16at 07:24; Start 09/16/16 at 08:00; Stop 09/16/16 at 08:01; Status DC Diphenhydramine HCl (Benadryl) 25 mg 1X ONCE IVP Last administered on at 07:24; Start 09/16/16 at 08:00; Stop 09/16/16 at 08:01; Status DC Methylprednisolone Sodium Succinate (Solu-Medrol 125mg Vial) 125 mg 1X ONCE IV Last administered on 09/16/16at 07:24; Start 09/16/16 at 08:00; Stop at 08:01; Status DC Iohexol 100 ml 100 ml STK-MED ONCE .ROUTE ; Start 09/16/16 at 07:00; Stop at 07:01; Status DC Heparin Sodium/ Sodium Chloride 1,000 ml @ As Directed STK-MED ONCE .ROUTE ; Start 09/16/16 at 07:01; Stop 09/16/16 at 07:02; Status DC Lidocaine HCl 20 ml STK-MED ONCE .ROUTE ; Start 09/16/16 at 07:01; Stop at 07:02; Status DC Verapamil HCl (Verapamil) 5 mg STK-MED ONCE .ROUTE ; Start 09/16/16 at 07:45; Stop 09/16/16 at 07:46; Status DC Midazolam HCl (Versed) 5 mg STK-MED ONCE .ROUTE ; Start 09/16/16 at 07:45; Stop 09/16/16 at 07:46; Status DC Nitroglycerin (Nitroglycerin) 200 mcg STK-MED ONCE .ROUTE ; Start 09/16/16 at 07:45; Stop 09/16/16 at 07:46; Status DC Heparin Sodium (Porcine) 10,000 unit STK-MED ONCE .ROUTE ; Start 09/16/16 at 07 :45; Stop 09/16/16 at 07:46; Status DC Fentanyl Citrate (Fentanyl 5ml Vial) 250 mcg STK-MED ONCE .ROUTE ; Start at 07:46; Stop 09/16/16 at 07:47; Status DC Nitroglycerin (Nitroglycerin) 200 mcg 1X ONCE IART Last administered on at 08:21; Start 09/16/16 at 08:15; Stop 09/16/16 at 08:16; Status DC Verapamil HCl (Verapamil) 2.5 mg 1X ONCE IART Last administered on 09/16/16at 08:22; Start 09/16/16 at 08:15; Stop 09/16/16 at 08:16; Status DC Heparin Sodium (Porcine) 2,500 unit 1X ONCE IART Last administered on at 08:22; Start 09/16/16 at 08:15; Stop 09/16/16 at 08:16; Status DC Heparin Sodium/ Sodium Chloride 1,000 unit 1X ONCE IART Last administered on 09/16/16at 08:20; Start 09/16/16 at 08:15; Stop 09/16/16 at 08:16; Status DC Midazolam HCl (Versed) 2 mg 1X ONCE IV Last administered on 09/16/16at 08:21; Start 09/16/16 at 08:15; Stop 09/16/16 at 08:16; Status DC Fentanyl Citrate (Fentanyl 5ml Vial) 100 mcg 1X ONCE IV Last administered on 09/16/16at 08:22; Start 09/16/16 at 08:15; Stop 09/16/16 at 08:16; Status DC Iohexol (Omnipaque 300 Mg/ml) 131 ml 1X ONCE IART Last administered on at 08:21; Start 09/16/16 at 08:15; Stop 09/16/16 at 08:16; Status DC Lidocaine HCl 2 ml 1X ONCE IJ Last administered on 09/16/16at 08:21; Start at 08:15; Stop 09/16/16 at 08:16; Status DC Info 1 each 1 each PRN DAILY PRN MC SEE COMMENTS; Start 09/16/16 at 08:30; Stop 09/18/16 at 08:29 Sodium Chloride (Iv Sodium Chloride 0.45%) 1,000 ml @ 60 mls/hr [id number] IV ; Start 09/16/16 at 09:00 Insulin Aspart (Novolog) 0-9 UNITS TIDWMEALS SQ ; Start 09/16/16 at 12:00; Status UNV Dextrose 12.5 gm PRN Q15MIN PRN IV SEE COMMENTS; Start 09/16/16 at 09:00; Status UNV Active Scripts Active Reported Atorvastatin Calcium 10 Mg Tablet 1 Tab PO DAILY Losartan-Hctz 100-12.5 Mg Tab (Losartan/Hydrochlorothiazide) 1 Each Tablet 1 Tab PO DAILY Glimepiride 2 Mg Tablet 1 Tab PO DAILY Metformin Hcl 1,000 Mg Tablet 1 Tab PO BID Omeprazole 20 Mg Capsule. 1 Cap PO BID Vitals/I & O Vital Sign - Last 24 Hours 09/15/16 09/15/16 09/15/16 09/15/16 14:38 19:02 19:30 20:48 Temp 98.3 98.6 98.3 98.6 Pulse 81 96 96 Resp 18 18 B/P 125/74 149/84 149/84 Pulse Ox 95 95 O2 Delivery Room Air Room Air Room Air 09/15/16 09/16/16 09/16/16 09/16/16 22:27 03:05 07:20 07:23 Temp 98.1 98.4 97.8 98.1 98.4 97.8 Pulse 75 77 85 85 Resp 18 16 18 B/P 146/96 154/96 165/87 165/87 Pulse Ox 95 98 96 O2 Delivery Room Air Room Air Room Air 09/16/16 09/16/16 09/16/16 09/16/16 08:08 08:22 08:22 08:23 Pulse 99 88 Resp 9 9 Pulse Ox 99 99 O2 Delivery Room Air Nasal Cannula Nasal Cannula O2 Flow Rate 4.0 4.0 09/16/16 09/16/16 09/16/16 09/16/16 08:40 08:50 09:08 09:20 Pulse 82 74 72 72 Resp 16 16 B/P 151/92 149/95 132/95 114/85 O2 Delivery Room Air Nasal Cannula O2 Flow Rate 2.0 2.0 09/16/16 09/16/16 09:36 10:19 Temp 98.0 98.0 Pulse 86 77 Resp 18 18 B/P 146/93 115/68 Pulse Ox 95 O2 Delivery Nasal Cannula Nasal Cannula O2 Flow Rate 2.0 2.0 Intake and Output 09/15/16 09/15/16 09/16/16 14:59 22:59 06:59 Intake Total 263 ml 550 ml Output Total 500 ml 250 ml 1400 ml Balance -500 ml 13 ml -850 ml HO DELA CRUZ MD Sep 16, 2016 11:23
[2016-09-16] MEDS ORDERED: INSULIN ASPART 300 UNITS/3 ML INSULN.PEN SQ SCH (12:00)
--- NOTE | 2016-09-16 13:23 | PDOC ---
Provider Note Provider Note Will plan for CABG on , Decemebr 2015. Will obtain routine preoperative workup Full consult to follow NOHEMI WILSON MD Sep 16, 2016 13:23
[2016-09-16] MEDS ORDERED: PNEUMOC CONJ VACC 23-VALENT 0.5 ML VIAL. VAX IM ONE (14:00)
[2016-09-16] MEDS ORDERED: FLU VACC QUAD 2016-17 (36MOS+)/PF 0.5 ML SYRINGE. VAX IM ONE (14:00)
[2016-09-16] MEDS: MORPHINE SULFATE 2 MG/ML DISP.SYRIN. IV PRN (15:49)
[2016-09-16] MEDS ORDERED: NITROGLYCERIN PREMIX 250 ML IV PRN (16:00)
--- NOTE | 2016-09-16 17:33 | CARD ---
APPROVED REPORT EXAM: Two-dimensional and M-mode echocardiogram with Doppler and color Doppler. Other Information Quality : Fair Rhythm : NSRTechnically limited study due to smoking, body habitus. INDICATION CAD Non STEMI 2D DIMENSIONS RVDd2.9 (2.9-3.5cm)Left Atrium(2D)3.6 (1.6-4.0cm) IVSd1.2 (0.7-1.1cm)Aortic Root(2D)3.2 (2.0-3.7cm) LVDd5.3 (3.9-5.9cm)LVOT Diameter2.2 (1.8-2.4cm) PWd1.3 (0.7-1.1cm)LVDs3.4 (2.5-4.0cm) FS (%) 35.4 %SV87.2 ml LVEF(%)60.0 (>50%) Aortic Valve AoV Peak Marvin.127.9cm/sAoV VTI20.8cm AO Peak GR.6.5mmHgLVOT VTI 22.37cm AO Mean GR.3mmHg Mitral Valve MV E Ynugwcmw05.4cm/sMV E Peak Gr.3mmHg MV DECEL [id number] A Ytedhopd20.2cm/s MV E Mean Gr.1mmHgMV [id number] E/A Ratio1.0MV A [id number] MVA (PHT)4.58cm2 TDI Lateral E' P. V10.66cm/sMedial E' P. V5.33cm/s E/Lateral E'6.7E/Medial E'13.4 Pulmonary Vein S1 Dehexroe54.9cm/sS2 Tdhlthum18.49cm/s D2 Jffuissu77.5cm/s LEFT VENTRICLE The left ventricle is normal size. There is mild concentric left ventricular hypertrophy. The left ve ntricular systolic function is normal. The Ejection Fraction is 55-60%. There is normal LV segmental wall motion. Tissue Doppler imaging reveals mild left ventricular diastolic dysfunction. RIGHT VENTRICLE The right ventricle is normal size. The right ventricular systolic function is normal. ATRIA The left atrium size is normal. The right atrium size is normal. The interatrial septum is intact wit h no evidence for an atrial septal defect or patent foramen ovale as noted on 2-D or Doppler imaging. AORTIC VALVE The aortic valve is normal in structure and function. Doppler and Color Flow revealed no significant aortic regurgitation. There is no significant aortic valvular stenosis. MITRAL VALVE The mitral valve is normal in structure and function. There is no mitral valve stenosis. Doppler and Color Flow revealed trace mitral regurgitation. TRICUSPID VALVE The tricuspid valve is normal in structure and function. Doppler and Color Flow revealed no tricuspid valve regurgitation noted. There is no tricuspid valve stenosis. PULMONIC VALVE The pulmonic valve is not well visualized. Doppler and Color Flow revealed no pulmonic valvular regur gitation. There is no pulmonic valvular stenosis. GREAT VESSELS The aortic root is normal in size. Normal pulmonary venous flow (Doppler). The IVC is normal in size and collapses >50% with inspiration. PERICARDIAL EFFUSION There is no evidence of significant pericardial effusion. Critical Notification Critical Value: No <Conclusion> The left ventricular systolic function is normal. The Ejection Fraction is 55-60%. There is normal LV segmental wall motion. Trace mitral regurgitation. There is no evidence of significant pericardial effusion.
[2016-09-16] MEDS ORDERED: MAG HYDROX/AL HYDROX/SIMETH 30 ML ORAL.SUSP PO PRN (22:45)
[2016-09-16] MEDS: ATORVASTATIN CALCIUM 20 MG TABLET PO SCH (23:20)
[2016-09-16] MEDS: HEPARIN 25,000UTS/500ML PREMIX 500 ML IV PRN (23:25)
[2016-09-17 03:16] VITALS: BP 133/78
--- NOTE | 2016-09-17 06:28 | EKG ---
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
[2016-09-17 07:00] VITALS: BP 112/71
[2016-09-17] MEDS: ASPIRIN ENTERIC COATED 325 MG TABLET.DR. PO SCH (08:00)
[2016-09-17] MEDS ORDERED: DEXTROSE 50% 25 GM / 50ML DISP.SYRIN. IV PRN (08:30)
[2016-09-17] MEDS: PANTOPRAZOLE 40 MG TABLET. PO SCH (08:54)
[2016-09-17] MEDS: GLIMEPIRIDE 2 MG TABLET PO SCH (08:54)
[2016-09-17] MEDS: INSULIN ASPART 300 UNITS/3 ML INSULN.PEN SQ SCH ×3 (09:00→17:00)
[2016-09-17] MEDS: METOPROLOL TART IMMED RELEASE 25 MG TABLET PO SCH ×2 (09:00→21:39)
--- NOTE | 2016-09-17 09:33 | RAD ---
Chest, 2 views, 09/17/2016: History: Preop evaluation Comparison is made to a study from 09/15/2016. The heart size and pulmonary vascularity are normal. No pulmonary infiltrates are seen. There is no evidence of pleural fluid. Mild spurring is present in the spine. IMPRESSION: No acute cardiopulmonary abnormality is detected.
--- NOTE | 2016-09-17 10:08 | PDOC ---
PROGRESS NOTES Chief Complaint Chief Complaint 1. 3 vessel dse by cardiac cath 09/16 2. hld 3. dm2 with hgba1c 8 4. Htn 5. OBEsity 6. tobaccoism 7. SIRS wo infection History of Present Illness History of Present Illness No chest pain Planned for CABG 07/20 BS running high Hgba1c is 8, he claims few weeks ago was 7 Per family, last time he was in burn unit he also needed to be on some insulin in hospital PLAN: LEvemir 10 units daily first dose now SSI ACHS, high dose CABG 09/19 Dw RN and family Vitals Vitals Vital Signs Date Time Temp Pulse Resp B/P Pulse Ox O2 Delivery O2 Flow Rate FiO2 09/17/16 09:00 85 112/71 09/17/16 07:00 97.8 18 95 Room Air 97.8 09/16/16 16:38 2.0 Physical Exam General: Alert, Oriented X3, No acute distress Heart: Regular rate, Normal S1, Normal S2, No murmurs Abdomen: Normal bowel sounds, Soft, No tenderness, No hepatosplenomegaly, No masses Extremities: No clubbing, No edema Skin: No rashes, No breakdown Labs LABS Laboratory Tests Test 09/16/16 11:56 09/16/16 16:39 09/16/16 21:01 09/16/16 21:45 Glucose (Fingerstick) 265mg/dL (70-99) 308mg/dL (70-99) 312mg/dL (70-99) Heparin Anti-Xa Act, Unfractionated 0.31IU/mL (0.30-0.70) Test 09/17/16 04:05 09/17/16 07:19 Heparin Anti-Xa Act, Unfractionated 0.32IU/mL (0.30-0.70) Glucose (Fingerstick) 239mg/dL (70-99) Assessment and Plan Assessmemt and Plan Problems Medical Problems: (1) Chest pain Status: Acute (2) NSTEMI (non-ST elevated myocardial infarction) Status: Acute Problems: Comment Review of Relevant I have reviewed the following items amber (where applicable) has been applied. Labs Laboratory Tests Test 09/15/16 11:01 09/15/16 11:30 09/15/16 13:45 09/15/16 17:16 Glucose (Fingerstick) 162mg/dL (70-99) 213mg/dL (70-99) Heparin Anti-Xa Act, Unfractionated < 0.10IU/mL (0.30-0.70) Creatine Kinase 131U/L (39-308) Creatine Kinase MB (Mass) 6.4ng/mL (0.0-3.6) Creatine Kinase MB Relative Index 4.9% (0-4) Troponin I Quantitative 1.754ng/mL (0.000-0.055) Test 09/15/16 17:40 09/15/16 20:38 09/16/16 00:45 09/16/16 07:23 Heparin Anti-Xa Act, Unfractionated 0.15IU/mL (0.30-0.70) 0.26IU/mL (0.30-0.70) Glucose (Fingerstick) 242mg/dL (70-99) 187mg/dL (70-99) Test 09/16/16 10:00 09/16/16 11:56 09/16/16 16:39 09/16/16 21:01 White Blood Count 9.8x10^3/uL (4.0-11.0) Red Blood Count 5.56x10^6/uL (4.30-5.70) Hemoglobin 15.1g/dL (13.0-17.5) Hematocrit 46.1% (39.0-53.0) Mean Corpuscular Volume 83fL (79-100) Mean Corpuscular Hemoglobin 27pg (25-35) Mean Corpuscular Hemoglobin Concent 33g/dL (31-37) Red Cell Distribution Width 14.1% (11.5-14.5) Platelet Count 294x10^3/uL (140-400) Neutrophils (%) (Auto) 81% (31-73) Lymphocytes (%) (Auto) 15% (24-48) Monocytes (%) (Auto) 3% (0-9) Eosinophils (%) (Auto) 1% (0-3) Basophils (%) (Auto) 1% (0-3) Neutrophils # (Auto) 8.0x10^3uL (1.8-7.7) Lymphocytes # (Auto) 1.4x10^3/uL (1.0-4.8) Monocytes # (Auto) 0.3x10^3/uL (0.0-1.1) Eosinophils # (Auto) 0.1x10^3/uL (0.0-0.7) Basophils # (Auto) 0.1x10^3/uL (0.0-0.2) Sodium Level 137mmol/L (136-145) Potassium Level 5.0mmol/L (3.5-5.1) Chloride Level 100mmol/L (98-107) Carbon Dioxide Level 26mmol/L (21-32) Anion Gap 11 (6-14) Blood Urea Nitrogen 19mg/dL (8-26) Creatinine 1.2mg/dL (0.7-1.3) Estimated GFR (Cockcroft-Gault) 64.9 Glucose Level 240mg/dL (70-99) Hemoglobin A1c 8.2% (4.8-5.6) Calcium Level 9.3mg/dL (8.5-10.1) Glucose (Fingerstick) 265mg/dL (70-99) 308mg/dL (70-99) 312mg/dL (70-99) Test 09/16/16 21:45 09/17/16 04:05 09/17/16 07:19 Heparin Anti-Xa Act, Unfractionated 0.31IU/mL (0.30-0.70) 0.32IU/mL (0.30-0.70) Glucose (Fingerstick) 239mg/dL (70-99) Laboratory Tests Test 09/16/16 11:56 09/16/16 16:39 09/16/16 21:01 09/16/16 21:45 Glucose (Fingerstick) 265mg/dL (70-99) 308mg/dL (70-99) 312mg/dL (70-99) Heparin Anti-Xa Act, Unfractionated 0.31IU/mL (0.30-0.70) Test 09/17/16 04:05 09/17/16 07:19 Heparin Anti-Xa Act, Unfractionated 0.32IU/mL (0.30-0.70) Glucose (Fingerstick) 239mg/dL (70-99) Medications Current Medications Aspirin (Children'S Aspirin) 324 mg 1X ONCE PO Last administered on at 02:36; Start 09/15/16 at 03:00; Stop 09/15/16 at 03:01; Status DC Nitroglycerin (Nitrostat) 0.4 mg PRN Q5MIN PRN SL CP RATING > 1/10 Last administered on 09/15/16at 02:37; Start 09/15/16 at 02:30; Stop 09/15/16 at 05 :18; Status DC Fentanyl Citrate (Fentanyl 2ml Vial) 25 mcg PRN Q15MIN PRN IV PAIN GREATER THAN 3/10; Start 09/15/16 at 02:30; Stop 09/15/16 at 06:00; Status DC Heparin Sodium (Porcine) 4000 unit 4,000 unit 1X ONCE IV Last administered on 09/15/16at 05:14; Start 09/15/16 at 05:00; Stop 09/15/16 at 05:02; Status DC Heparin Sodium/ Dextrose 500 ml @ 0 mls/hr CONT PRN IV SEE I/O RECORD Last administered on 09/16/16at 23:25; Start 09/15/16 at 04:45 Heparin Sodium (Porcine) 2,850 unit PRN Q6HRS PRN IV FOR UFH LEVEL LESS THAN 0.2 Last administered on 09/15/16at 18:22; Start 09/15/16 at 04:45 Ondansetron HCl (Zofran) 4 mg PRN Q8HRS PRN IV NAUSEA/VOMITING; Start at 05:15; Stop 09/16/16 at 05:14; Status DC Fentanyl Citrate (Fentanyl 2ml Vial) 50 mcg PRN Q2HR PRN IV SEVERE PAIN; Start 09/15/16 at 05:15; Stop 09/16/16 at 05:14; Status DC Acetaminophen (Tylenol) 650 mg PRN Q4HRS PRN PO FEVER; Start 09/15/16 at 05:15 ; Stop 09/16/16 at 05:14; Status DC Nitroglycerin (Nitrostat) 0.4 mg PRN Q5MIN PRN SL CHEST PAIN; Start 09/15/16 at 05:15; Stop 09/16/16 at 05:14; Status DC Insulin Aspart (Novolog) 0-5 UNITS TIDWMEALS SQ Last administered on at 17:26; Start 09/15/16 at 08:00; Stop 09/17/16 at 08:23; Status DC Dextrose 12.5 gm PRN Q15MIN PRN IV SEE COMMENTS; Start 09/15/16 at 05:15; Status Cancel Info (Anti-Coagulation Monitoring By Pharmacy) 1 each PRN DAILY PRN MC SEE COMMENTS Last administered on 09/15/16at 15:39; Start 09/15/16 at 07:45 Atorvastatin Calcium (Lipitor) 20 mg QHS PO Last administered on 09/16/16at 23: 20; Start 09/15/16 at 21:00 Glimepiride (Amaryl) 2 mg DAILY PO Last administered on 09/17/16at 08:54; Start 09/15/16 at 11:30 Non-Formulary Medication 1 tab DAILY PO ; Start 09/16/16 at 09:00; Status UNV Pantoprazole Sodium (Protonix) 40 mg DAILYAC PO Last administered on at 08:54; Start 09/15/16 at 11:30 Acetaminophen (Tylenol) 650 mg PRN Q6HRS PRN PO MILD PAIN / TEMP; Start at 10:30 Ondansetron HCl (Zofran) 4 mg PRN Q6HRS PRN IV NAUSEA/VOMITING Last administered on 09/16/16at 15:49; Start 09/15/16 at 10:30 Morphine Sulfate 2 mg PRN Q2HR PRN IV PAIN Last administered on 09/16/16at 15: 49; Start 09/15/16 at 10:30 Morphine Sulfate 4 mg PRN Q2HR PRN IV PAIN; Start 09/15/16 at 10:30 Losartan Potassium (Cozaar) 100 mg DAILY PO ; Start 09/15/16 at 11:30; Stop at 12:48; Status DC Hydrochlorothiazide (Microzide) 12.5 mg DAILY PO ; Start 09/15/16 at 11:30; Stop 09/15/16 at 12:48; Status DC Aspirin (Ecotrin) 325 mg DAILYWBKFT PO Last administered on 09/16/16at 07:22; Start 09/16/16 at 08:00 Metoprolol Tartrate (Lopressor) 12.5 mg BID PO Last administered on 09/17/16at 09:00; Start 09/15/16 at 21:00 Influenza Virus Vaccine Quadrival (Fluarix Quad 1260-7562 Syringe) 0.5 ml ONCE ONCE VAX IM ; Start 09/16/16 at 14:00; Stop 09/16/16 at 14:01; Status DC Pneumococcal Polyvalent Vaccine (Pneumovax 23) 0.5 ml ONCE ONCE VAX IM ; Start 09/16/16 at 14:00; Stop 09/16/16 at 14:01; Status DC Famotidine (Pepcid) 20 mg 1X ONCE IVP Last administered on 09/16/16at 07:24; Start 09/16/16 at 08:00; Stop 09/16/16 at 08:01; Status DC Diphenhydramine HCl (Benadryl) 25 mg 1X ONCE IVP Last administered on at 07:24; Start 09/16/16 at 08:00; Stop 09/16/16 at 08:01; Status DC Methylprednisolone Sodium Succinate (Solu-Medrol 125mg Vial) 125 mg 1X ONCE IV Last administered on 09/16/16at 07:24; Start 09/16/16 at 08:00; Stop at 08:01; Status DC Iohexol 100 ml 100 ml STK-MED ONCE .ROUTE ; Start 09/16/16 at 07:00; Stop at 07:01; Status DC Heparin Sodium/ Sodium Chloride 1,000 ml @ As Directed STK-MED ONCE .ROUTE ; Start 09/16/16 at 07:01; Stop 09/16/16 at 07:02; Status DC Lidocaine HCl 20 ml STK-MED ONCE .ROUTE ; Start 09/16/16 at 07:01; Stop at 07:02; Status DC Verapamil HCl (Verapamil) 5 mg STK-MED ONCE .ROUTE ; Start 09/16/16 at 07:45; Stop 09/16/16 at 07:46; Status DC Midazolam HCl (Versed) 5 mg STK-MED ONCE .ROUTE ; Start 09/16/16 at 07:45; Stop 09/16/16 at 07:46; Status DC Nitroglycerin (Nitroglycerin) 200 mcg STK-MED ONCE .ROUTE ; Start 09/16/16 at 07:45; Stop 09/16/16 at 07:46; Status DC Heparin Sodium (Porcine) 10,000 unit STK-MED ONCE .ROUTE ; Start 09/16/16 at 07 :45; Stop 09/16/16 at 07:46; Status DC Fentanyl Citrate (Fentanyl 5ml Vial) 250 mcg STK-MED ONCE .ROUTE ; Start at 07:46; Stop 09/16/16 at 07:47; Status DC Nitroglycerin (Nitroglycerin) 200 mcg 1X ONCE IART Last administered on at 08:21; Start 09/16/16 at 08:15; Stop 09/16/16 at 08:16; Status DC Verapamil HCl (Verapamil) 2.5 mg 1X ONCE IART Last administered on 09/16/16at 08:22; Start 09/16/16 at 08:15; Stop 09/16/16 at 08:16; Status DC Heparin Sodium (Porcine) 2,500 unit 1X ONCE IART Last administered on at 08:22; Start 09/16/16 at 08:15; Stop 09/16/16 at 08:16; Status DC Heparin Sodium/ Sodium Chloride 1,000 unit 1X ONCE IART Last administered on 09/16/16at 08:20; Start 09/16/16 at 08:15; Stop 09/16/16 at 08:16; Status DC Midazolam HCl (Versed) 2 mg 1X ONCE IV Last administered on 09/16/16at 08:21; Start 09/16/16 at 08:15; Stop 09/16/16 at 08:16; Status DC Fentanyl Citrate (Fentanyl 5ml Vial) 100 mcg 1X ONCE IV Last administered on 09/16/16at 08:22; Start 09/16/16 at 08:15; Stop 09/16/16 at 08:16; Status DC Iohexol (Omnipaque 300 Mg/ml) 131 ml 1X ONCE IART Last administered on at 08:21; Start 09/16/16 at 08:15; Stop 09/16/16 at 08:16; Status DC Lidocaine HCl 2 ml 1X ONCE IJ Last administered on 09/16/16at 08:21; Start at 08:15; Stop 09/16/16 at 08:16; Status DC Info 1 each 1 each PRN DAILY PRN MC SEE COMMENTS; Start 09/16/16 at 08:30; Stop 09/18/16 at 08:29 Sodium Chloride (Iv Sodium Chloride 0.45%) 1,000 ml @ 60 mls/hr [id number] IV Last administered on 09/16/16at 09:00; Start 09/16/16 at 09:00 Insulin Aspart (Novolog) 0-9 UNITS TIDWMEALS SQ ; Start 09/16/16 at 12:00; Status UNV Dextrose 12.5 gm 12.5 gm PRN Q15MIN PRN IV SEE COMMENTS; Start 09/16/16 at 09: 00; Status UNV Nitroglycerin/ Dextrose (Nitroglycerin Drip) 250 ml @ 0 mls/hr CONT PRN IV SEE I/O RECORD Last administered on 09/16/16at 16:18; Start 09/16/16 at 16:00 Al Hydroxide/Mg Hydroxide (Mylanta Plus Xs) 30 ml PRN Q6HRS PRN PO DYSPEPSIA Last administered on 09/16/16at 23:20; Start 09/16/16 at 22:45 Insulin Aspart (Novolog) 0-9 UNITS TIDWMEALS SQ Last administered on at 09:00; Start 09/17/16 at 09:00 Dextrose 12.5 gm 12.5 gm PRN Q15MIN PRN IV SEE COMMENTS; Start 09/17/16 at 08: 30 Cefazolin Sodium/ Dextrose (Ancef 2gm Premix) 50 ml @ 100 mls/hr 1X ONCE IV ; Start 09/19/16 at 06:00; Stop 09/19/16 at 06:29 Insulin Detemir (Levemir) 10 units DAILY SQ ; Start 09/17/16 at 10:15; Status UNV Active Scripts Active Reported Atorvastatin Calcium 10 Mg Tablet 1 Tab PO DAILY Losartan-Hctz 100-12.5 Mg Tab (Losartan/Hydrochlorothiazide) 1 Each Tablet 1 Tab PO DAILY Glimepiride 2 Mg Tablet 1 Tab PO DAILY Metformin Hcl 1,000 Mg Tablet 1 Tab PO BID Omeprazole 20 Mg Capsule.dr 1 Cap PO BID Vitals/I & O Vital Sign - Last 24 Hours 09/16/16 09/16/16 09/16/16 09/16/16 10:19 11:00 12:00 12:36 Temp 98.0 98.0 Pulse 77 76 79 Resp 18 B/P 115/68 132/80 129/74 Pulse Ox 95 O2 Delivery Nasal Cannula Nasal Cannula O2 Flow Rate 2.0 2.0 09/16/16 09/16/16 09/16/16 09/16/16 13:00 14:30 15:49 16:00 Temp 98.8 98.8 Pulse 90 94 107 Resp 18 18 B/P 126/80 123/83 160/85 Pulse Ox 94 O2 Delivery Nasal Cannula Room Air O2 Flow Rate 2.0 2.0 09/16/16 09/16/16 09/16/16 09/16/16 16:38 17:00 19:28 20:00 Temp 97.9 97.9 Pulse 108 112 Resp 18 18 B/P 152/83 140/74 Pulse Ox 92 O2 Delivery Room Air Room Air O2 Flow Rate 2.0 09/16/16 09/16/16 09/17/16 09/17/16 23:20 23:27 03:16 07:00 Temp 97.8 98.7 97.8 97.8 98.7 97.8 Pulse 104 88 85 Resp 22 18 B/P 129/70 133/78 112/71 Pulse Ox 91 96 95 O2 Delivery Room Air Room Air Room Air Room Air 09/17/16 09:00 Pulse 85 B/P 112/71 Intake and Output 09/16/16 09/16/16 09/17/16 14:59 22:59 06:59 Intake Total 720.4 ml Output Total 2100 ml 300 ml Balance -1379.6 ml -300 ml HO DELA CRUZ MD Sep 17, 2016 10:08
[2016-09-17] MEDS: INSULIN DETEMIR 300 UNITS/3 ML INSULN.PEN. SQ SCH (10:30)
[2016-09-17 11:00] VITALS: BP 139/87
--- NOTE | 2016-09-17 12:24 | PDOC ---
SANCHEZSATNAM Madeleine OCEAN FREIGHT MANAGER 09/17/16 1224: CARDIO Progress Notes Date and Time Date of Service 09/17/2016 Time of Evaluation 1223 Subjective Subjective: No shortness of breath, No Palpitations, No Dizziness, Other ( episode of CP yesterday with initiation of NTG gtt) Vitals Vitals Vital Signs Date Time Temp Pulse Resp B/P Pulse Ox O2 Delivery O2 Flow Rate FiO2 09/17/16 11:00 97.8 88 18 139/87 95 Room Air 97.8 09/17/16 08:00 4.0 Weight Weight [ ] Input and Output Intake and Output Intake and Output 09/17/16 06:59 Intake Total 720.4 ml Output Total 2400 ml Balance -1679.6 ml Intake Oral 680 ml IV Total 40.4 ml Output Urine Total 2400 ml Laboratory Labs Laboratory Tests Test 09/16/16 16:39 09/16/16 21:01 09/16/16 21:45 09/17/16 04:05 Glucose (Fingerstick) 308mg/dL (70-99) 312mg/dL (70-99) Heparin Anti-Xa Act, Unfractionated 0.31IU/mL (0.30-0.70) 0.32IU/mL (0.30-0.70) Test 09/17/16 07:19 09/17/16 11:05 Glucose (Fingerstick) 239mg/dL (70-99) 195mg/dL (70-99) Physical Exam HEENT: NO Carotid Bruit Chest: Symmetric LUNGS: Clear to Auscultation Heart: S1S2, RRR, no murmurs, other (tele: SR) Abdomen: Soft N/T Extremities: No Edema, Other (right radial puncture site C/D/I; radial pulse 2 + with 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 NSTEMI troponin peaked at 1.754 cardiac cath with 3 v disease -- LAD 90% in midsegment with proximal 70% D1; RCA with 90% prox to mid; 90% mid and 95% distal seg; PDA prox 60%; PLB 80% prox to midsegment circ 40% mid with no significant stenosis in LM angina yesterday ~ 1600 resolved with IV NTG gtt which continues; no recurrence also remains on heparin gtt CTS evaluation in progress will remain hospitalized until CABG 09/19/2016 due to proximal lesions and CP continue ASA, beta-blockers and statin therapy 2. HTN, benign essential controlled with med 3. mixed hyperlipidemia TG = 358; HDLs = 37 continue statin therapy lifestyle modification and improved control of DM to address TG 4. DM, type II A1C= 8.2 defer management to primary service 5. tobacco abuse smokes and chews LOS DUNBAR MD 09/17/16 1615: CARDIO Progress Notes Assessment Assessment Patient seen and examined. Agree with SHEET METAL CONTRACTOR's assessment and plan. Patient presently chest pain-free and telemetry did not show any significant arrhythmias. Continue current medications including heparin infusion per protocol. Plan for coronary artery bypass surgery on 09/[address] surgery[address] SATNAM BRADFORD APRN Sep 17, 2016 12:24 LOS DUNBAR MD Sep 17, 2016 16:15
--- NOTE | 2016-09-17 12:39 | RAD ---
CT of the chest without contrast, 09/17/2016: History: Coronary artery disease, preop evaluation Noncontrast scans were obtained as requested. The thoracic aorta measures approximately 3.8 cm in width just proximal to the level of the take off the of the innominate artery. There are only minimal aortic and coronary artery calcifications evident. There are calcified lymph nodes along the left lateral aspect of the AP window compatible with old granulomatous disease. No mediastinal or hilar adenopathy is seen. No significant pulmonary infiltrate or mass is identified. There is no evidence of pleural fluid. There are mild scattered spurs in the spine. IMPRESSION: No acute abnormality is detected. PQRS Compliance Statement: One or more of the following individualized dose reduction techniques were utilized for this examination: 1. Automated exposure control 2. Adjustment of the mA and/or kV according to patient size 3. Use of iterative reconstruction technique
[2016-09-17] MEDS: ANTI-COAG MONITOR BY PHARMACY. MC PRN (13:25)
--- NOTE | 2016-09-17 14:24 | RAD ---
APPROVED REPORT Patient Location: IN-PATIENT Laterality:Bilateral Indications pre op bypass, htn, dm, smoker Doppler Spectral Velocity Analysis Right Left mCCA 64/15 cm/smCCA 44/11 cm/s ECA 149/ cm/sECA 153/ cm/s pICA 53/16 cm/spICA 48/19 cm/s Laurent 66/27 cm/smICA 36/11 cm/s dICA 57/19 cm/sdICA 61/23 cm/s ICA/CCA 1.03ICA/CCA 0.00 Findings On grayscale images of the bilateral common carotid artery there is mild intimal plaque without any s ignificant obstructive disease. The bilateral external carotid arteries did not reveal any objective disease but do demonstrate elevated velocities of approximately 150 cm/s. The right internal carotid artery does not have any significant objective disease. Normal velocities and spectral tracings are noted. Similarly on the left the internal carotid artery does not have an y significant obstructive disease with normal spectral waveforms and velocity profiles. Right ICA/CC A ratio 1.03, left ICA/CCA ratio 1.39. Critical Notification Critical Value: No <Conclusion> No evidence of significant obstructive carotid disease bilaterally.
--- NOTE | 2016-09-17 14:26 | RAD ---
APPROVED REPORT Patient Location: IN-PATIENT Indications pre op bypass, htn, dm, smoker Vein Measurements Great Saphenous Small Saphenous RightLeft RightLeft Saph-Fem. Junction 6.90mm5.80mmProximal 4.00mm2.60mm Mid Thigh 5.20mm4.90mmMid 2.90mm2.10mm Distal Thigh 4.60mm4.40mmDistal 3.40mm2.00mm Proximal Calf 3.10mm3.60mm Mid Calf 2.60mm3.40mm Distal Calf 2.80mm3.20mm Findings Bilateral grayscale images of the greater and lesser saphenous veins were obtained with measurements made as noted above. The great saphenous veins appear to be excellent conduits for vein grafting. T he right lesser saphenous vein is of adequate size. The left lesser saphenous vein is smaller in siz e measuring approximately 2-2.5 mm. Critical Notification Critical Value: No <Conclusion> Adequate conduit in the bilateral greater saphenous veins by ultrasonography.
[2016-09-17 15:00] VITALS: BP 158/97
[2016-09-17] MEDS: HEPARIN 25,000UTS/500ML PREMIX 500 ML IV PRN (15:00)
--- NOTE | 2016-09-17 16:48 | PDOC2 ---
CONSULT Date of Consult Date of Consult DATE: 09/17/16 TIME: 16:38 Reason for Consult Reason for Consult: Severe 3 vessel coronary artery disease Referring Physician Referring Physician: Dr Uribe Identification/Chief Complaint Chief Complaint Chest pain Source Source: Chart review, Patient History of Present Illness Reason for Visit: 46-year-old male without any previous cardiac history presented with sudden onset retrosternal chest pain that he described as burning and pressure-like sensation radiating to both arms, 7/10 severity. He stated that he had similar but milder pain a few times over the last few weeks. He is not sure about the exertional component to his pain. He did have mild shortness of breath during his recent episode. He denied any orthopnea/PND, palpitations or syncope. Upon admission he had a small troponin leak. This prompted a coronary angiogram, which demonstrated a proximal 90% LAD stenosis, a 70% stenosis of a large first diagonal, a 70% lesion stenosis of a modest sized obtuse marginal, a 90% mid RCA lesion with an additional ostial PDA lesion. The LV gram was normal. His echo showed normal LV function with no valvular disease. I was consulted to consider the patient for surgical coronary revascularization. Past Medical History Cardiovascular: HTN Endocrine: Diabetes Past Surgical History Past Surgical History: No pertinent history Family History Family History: Heart Disease Social History 1 pack per day ALCOHOL: social Drugs: None Lives: Friends Current Problem List Problem List Problems Medical Problems: (1) Chest pain Status: Acute (2) NSTEMI (non-ST elevated myocardial infarction) Status: Acute Current Medications Current Medications Current Medications Aspirin (Children'S Aspirin) 324 mg 1X ONCE PO Last administered on at 02:36; Start 09/15/16 at 03:00; Stop 09/15/16 at 03:01; Status DC Nitroglycerin (Nitrostat) 0.4 mg PRN Q5MIN PRN SL CP RATING > 1/10 Last administered on 09/15/16at 02:37; Start 09/15/16 at 02:30; Stop 09/15/16 at 05 :18; Status DC Fentanyl Citrate (Fentanyl 2ml Vial) 25 mcg PRN Q15MIN PRN IV PAIN GREATER THAN 3/10; Start 09/15/16 at 02:30; Stop 09/15/16 at 06:00; Status DC Heparin Sodium (Porcine) 4000 unit 4,000 unit 1X ONCE IV Last administered on 09/15/16at 05:14; Start 09/15/16 at 05:00; Stop 09/15/16 at 05:02; Status DC Heparin Sodium/ Dextrose 500 ml @ 0 mls/hr CONT PRN IV SEE I/O RECORD Last administered on 09/17/16at 15:00; Start 09/15/16 at 04:45 Heparin Sodium (Porcine) 2,850 unit PRN Q6HRS PRN IV FOR UFH LEVEL LESS THAN 0.2 Last administered on 09/15/16at 18:22; Start 09/15/16 at 04:45 Ondansetron HCl (Zofran) 4 mg PRN Q8HRS PRN IV NAUSEA/VOMITING; Start at 05:15; Stop 09/16/16 at 05:14; Status DC Fentanyl Citrate (Fentanyl 2ml Vial) 50 mcg PRN Q2HR PRN IV SEVERE PAIN; Start 09/15/16 at 05:15; Stop 09/16/16 at 05:14; Status DC Acetaminophen (Tylenol) 650 mg PRN Q4HRS PRN PO FEVER; Start 09/15/16 at 05:15 ; Stop 09/16/16 at 05:14; Status DC Nitroglycerin (Nitrostat) 0.4 mg PRN Q5MIN PRN SL CHEST PAIN; Start 09/15/16 at 05:15; Stop 09/16/16 at 05:14; Status DC Insulin Aspart (Novolog) 0-5 UNITS TIDWMEALS SQ Last administered on at 17:26; Start 09/15/16 at 08:00; Stop 09/17/16 at 08:23; Status DC Dextrose 12.5 gm PRN Q15MIN PRN IV SEE COMMENTS; Start 09/15/16 at 05:15; Status Cancel Info (Anti-Coagulation Monitoring By Pharmacy) 1 each PRN DAILY PRN MC SEE COMMENTS Last administered on 09/17/16at 13:25; Start 09/15/16 at 07:45 Atorvastatin Calcium (Lipitor) 20 mg QHS PO Last administered on 09/16/16at 23: 20; Start 09/15/16 at 21:00 Glimepiride (Amaryl) 2 mg DAILY PO Last administered on 09/17/16at 08:54; Start 09/15/16 at 11:30 Non-Formulary Medication 1 tab DAILY PO ; Start 09/16/16 at 09:00; Status UNV Pantoprazole Sodium (Protonix) 40 mg DAILYAC PO Last administered on at 08:54; Start 09/15/16 at 11:30 Acetaminophen (Tylenol) 650 mg PRN Q6HRS PRN PO MILD PAIN / TEMP; Start at 10:30 Ondansetron HCl (Zofran) 4 mg PRN Q6HRS PRN IV NAUSEA/VOMITING Last administered on 09/16/16at 15:49; Start 09/15/16 at 10:30 Morphine Sulfate 2 mg PRN Q2HR PRN IV PAIN Last administered on 09/16/16at 15: 49; Start 09/15/16 at 10:30 Morphine Sulfate 4 mg PRN Q2HR PRN IV PAIN; Start 09/15/16 at 10:30 Losartan Potassium (Cozaar) 100 mg DAILY PO ; Start 09/15/16 at 11:30; Stop at 12:48; Status DC Hydrochlorothiazide (Microzide) 12.5 mg DAILY PO ; Start 09/15/16 at 11:30; Stop 09/15/16 at 12:48; Status DC Aspirin (Ecotrin) 325 mg DAILYWBKFT PO Last administered on 09/16/16at 07:22; Start 09/16/16 at 08:00 Metoprolol Tartrate (Lopressor) 12.5 mg BID PO Last administered on 09/17/16at 09:00; Start 09/15/16 at 21:00 Influenza Virus Vaccine Quadrival (Fluarix Quad [id number] Syringe) 0.5 ml ONCE ONCE VAX IM ; Start 09/16/16 at 14:00; Stop 09/16/16 at 14:01; Status DC Pneumococcal Polyvalent Vaccine (Pneumovax 23) 0.5 ml ONCE ONCE VAX IM ; Start 09/16/16 at 14:00; Stop 09/16/16 at 14:01; Status DC Famotidine (Pepcid) 20 mg 1X ONCE IVP Last administered on 09/16/16at 07:24; Start 09/16/16 at 08:00; Stop 09/16/16 at 08:01; Status DC Diphenhydramine HCl (Benadryl) 25 mg 1X ONCE IVP Last administered on at 07:24; Start 09/16/16 at 08:00; Stop 09/16/16 at 08:01; Status DC Methylprednisolone Sodium Succinate (Solu-Medrol 125mg Vial) 125 mg 1X ONCE IV Last administered on 09/16/16at 07:24; Start 09/16/16 at 08:00; Stop at 08:01; Status DC Iohexol 100 ml 100 ml STK-MED ONCE .ROUTE ; Start 09/16/16 at 07:00; Stop at 07:01; Status DC Heparin Sodium/ Sodium Chloride 1,000 ml @ As Directed STK-MED ONCE .ROUTE ; Start 09/16/16 at 07:01; Stop 09/16/16 at 07:02; Status DC Lidocaine HCl 20 ml STK-MED ONCE .ROUTE ; Start 09/16/16 at 07:01; Stop at 07:02; Status DC Verapamil HCl (Verapamil) 5 mg STK-MED ONCE .ROUTE ; Start 09/16/16 at 07:45; Stop 09/16/16 at 07:46; Status DC Midazolam HCl (Versed) 5 mg STK-MED ONCE .ROUTE ; Start 09/16/16 at 07:45; Stop 09/16/16 at 07:46; Status DC Nitroglycerin (Nitroglycerin) 200 mcg STK-MED ONCE .ROUTE ; Start 09/16/16 at 07:45; Stop 09/16/16 at 07:46; Status DC Heparin Sodium (Porcine) 10,000 unit STK-MED ONCE .ROUTE ; Start 09/16/16 at 07 :45; Stop 09/16/16 at 07:46; Status DC Fentanyl Citrate (Fentanyl 5ml Vial) 250 mcg STK-MED ONCE .ROUTE ; Start at 07:46; Stop 09/16/16 at 07:47; Status DC Nitroglycerin (Nitroglycerin) 200 mcg 1X ONCE IART Last administered on at 08:21; Start 09/16/16 at 08:15; Stop 09/16/16 at 08:16; Status DC Verapamil HCl (Verapamil) 2.5 mg 1X ONCE IART Last administered on 09/16/16at 08:22; Start 09/16/16 at 08:15; Stop 09/16/16 at 08:16; Status DC Heparin Sodium (Porcine) 2,500 unit 1X ONCE IART Last administered on at 08:22; Start 09/16/16 at 08:15; Stop 09/16/16 at 08:16; Status DC Heparin Sodium/ Sodium Chloride 1,000 unit 1X ONCE IART Last administered on 09/16/16at 08:20; Start 09/16/16 at 08:15; Stop 09/16/16 at 08:16; Status DC Midazolam HCl (Versed) 2 mg 1X ONCE IV Last administered on 09/16/16at 08:21; Start 09/16/16 at 08:15; Stop 09/16/16 at 08:16; Status DC Fentanyl Citrate (Fentanyl 5ml Vial) 100 mcg 1X ONCE IV Last administered on 09/16/16at 08:22; Start 09/16/16 at 08:15; Stop 09/16/16 at 08:16; Status DC Iohexol (Omnipaque 300 Mg/ml) 131 ml 1X ONCE IART Last administered on at 08:21; Start 09/16/16 at 08:15; Stop 09/16/16 at 08:16; Status DC Lidocaine HCl 2 ml 1X ONCE IJ Last administered on 09/16/16at 08:21; Start at 08:15; Stop 09/16/16 at 08:16; Status DC Info 1 each 1 each PRN DAILY PRN MC SEE COMMENTS; Start 09/16/16 at 08:30; Stop 09/18/16 at 08:29 Sodium Chloride (Iv Sodium Chloride 0.45%) 1,000 ml @ 60 mls/hr [id number] IV Last administered on 09/16/16at 09:00; Start 09/16/16 at 09:00; Stop 09/17/16 at 12:32; Status DC Insulin Aspart (Novolog) 0-9 UNITS TIDWMEALS SQ ; Start 09/16/16 at 12:00; Status UNV Dextrose 12.5 gm 12.5 gm PRN Q15MIN PRN IV SEE COMMENTS; Start 09/16/16 at 09: 00; Status UNV Nitroglycerin/ Dextrose (Nitroglycerin Drip) 250 ml @ 0 mls/hr CONT PRN IV SEE I/O RECORD Last administered on 09/16/16at 16:18; Start 09/16/16 at 16:00 Al Hydroxide/Mg Hydroxide (Mylanta Plus Xs) 30 ml PRN Q6HRS PRN PO DYSPEPSIA Last administered on 09/16/16at 23:20; Start 09/16/16 at 22:45 Insulin Aspart (Novolog) 0-9 UNITS TIDWMEALS SQ Last administered on at 12:36; Start 09/17/16 at 09:00 Dextrose 12.5 gm 12.5 gm PRN Q15MIN PRN IV SEE COMMENTS; Start 09/17/16 at 08: 30 Cefazolin Sodium/ Dextrose (Ancef 2gm Premix) 50 ml @ 100 mls/hr 1X ONCE IV ; Start 09/19/16 at 06:00; Stop 09/19/16 at 06:29 Insulin Detemir (Levemir) 10 units DAILY SQ Last administered on 09/17/16at 10: 30; Start 09/17/16 at 10:30 Active Scripts Active Reported Atorvastatin Calcium 10 Mg Tablet 1 Tab PO DAILY Losartan-Hctz 100-12.5 Mg Tab (Losartan/Hydrochlorothiazide) 1 Each Tablet 1 Tab PO DAILY Glimepiride 2 Mg Tablet 1 Tab PO DAILY Metformin Hcl 1,000 Mg Tablet 1 Tab PO BID Omeprazole 20 Mg Capsule.dr 1 Cap PO BID Allergies Allergies: Coded Allergies: Iodinated Contrast Media - Oral and (Verified Allergy, Intermediate, 09/16) ROS General: No: Appetite, Chills, Fatigue, Malaise, Night Sweats PSYCHOLOGICAL ROS: No: Anxiety, Behavioral Disorder, Concentration difficultie , Decreased libido, Depression, Disorientation, Hallucinations, Hostility, Irritablity, Memory difficulties, Mood Swings, Obsessive thoughts, Physical abuse, Sexual abuse, Sleep disturbances, Suicidal ideation Eyes: No Blurry vision, No Decreased vision, No Double vision, No Dry eyes, No Excessive tearing, No Eye Pain, No Itchy Eyes, No Loss of vision, No Photophobia , No Scotomata, No Uses contacts, No Uses glasses HEENT: No: Epistaxis, Heacaches, Hearing change, Nasal congestion, Nasal discharge, Oral lesions, Sinus pain, Sneezing, Snoring, Sore Throat, Tinnitus, Vertigo, Visual Changes, Vocal changes ALLERGY AND IMMUNOLOGY: No: Hives, Insect Bite Sensitivity, Itchy/Watery Eyes, Nasal Congestion, Post Nasal Drip, Seasonal Allergies Hematological and Lymphatic: No: Bleeding Problems, Blood Clots, Blood Transfusions, Brusing, Night Sweats, Pallor, Swollen Lymph Nodes ENDOCRINE: No: Breast Changes, Galactorrhea, Hair Pattern Changes, Hot Flashes , Malaise/lethargy, Mood Swings, Palpitations, Polydipsia/polyuria, Skin Changes , Temperature Intolerance, Unexpected Weight Changes Respiratory: No: Cough, Hemoptysis, Orthopnea, Pleuritic Pain, SOB with excertion, Shortness of breath, Sputum Changes, Stridor, Tachypnea, Wheezing Cardiovascular: yes Chest Pain, No Edema, No Lt Headedness, No Orthopnea, No Palpitations, No Paroxysmal Noc. Dyspnea Gastrointestinal: No Abdominal Pain, No Constipation, No Diarrhea, No Hematochezia, No Melena, No Nausea, No Vomiting Genitourinary: No Discharge, No Dysuria, No Flank Pain, No Frequency, No Hematuria, No Incontinence, No Pain, No Retention, No Urgency Musculoskeletal: No Gait Disturbance, No Joint Pain, No Joint Stiffness, No Joint Swelling, No Muscle Pain, No Muscular Weakness, No Pain In:, No Swelling In: Neurological: No Behavorial Changes, No Bowel/Bladder ControlChng, No Confusion , No Dizziness, No Gait Disturbance, No Headaches, No Impaired Coord/balance, No Memory Loss, No Numbness/Tingling, No Seizures, No Speech Problems, No Tremors, No Visual Changes, No Weakness Skin: No Acne, No Dry Skin, No Eczema, No Hair Changes, No Lumps, No Mole Changes, No Mottling, No Nail Changes, No Pruritus, No Rash, No Skin Lesion Changes Physical Exam General: Alert, Oriented X3, No acute distress HEENT: Atraumatic, PERRLA Lungs: Clear to auscultation, Normal air movement Heart: Regular rate, Normal S1, Normal S2, No murmurs, Gallops Abdomen: Soft, No tenderness, No masses Extremities: Normal pulses Skin: No significant lesion Neuro: Normal gait, Normal speech, Strength at 5/5 X4 ext, Normal tone, Sensation intact, Cranial nerves 3-12 NL Psych/Mental Status: Mental status NL MUSCULOSKELETAL: No deformity Vitals VITALS Vital Signs Date Time Temp Pulse Resp B/P Pulse Ox O2 Delivery O2 Flow Rate FiO2 09/17/16 11:00 97.8 88 18 139/87 95 Room Air 97.8 09/17/16 08:00 4.0 Labs Labs Laboratory Tests Test 09/15/16 17:16 09/15/16 17:40 09/15/16 20:38 09/16/16 00:45 Glucose (Fingerstick) 213mg/dL (70-99) 242mg/dL (70-99) Heparin Anti-Xa Act, Unfractionated 0.15IU/mL (0.30-0.70) 0.26IU/mL (0.30-0.70) Test 09/16/16 07:23 09/16/16 10:00 09/16/16 11:56 09/16/16 16:39 Glucose (Fingerstick) 187mg/dL (70-99) 265mg/dL (70-99) 308mg/dL (70-99) White Blood Count 9.8x10^3/uL (4.0-11.0) Red Blood Count 5.56x10^6/uL (4.30-5.70) Hemoglobin 15.1g/dL (13.0-17.5) Hematocrit 46.1% (39.0-53.0) Mean Corpuscular Volume 83fL (79-100) Mean Corpuscular Hemoglobin 27pg (25-35) Mean Corpuscular Hemoglobin Concent 33g/dL (31-37) Red Cell Distribution Width 14.1% (11.5-14.5) Platelet Count 294x10^3/uL (140-400) Neutrophils (%) (Auto) 81% (31-73) Lymphocytes (%) (Auto) 15% (24-48) Monocytes (%) (Auto) 3% (0-9) Eosinophils (%) (Auto) 1% (0-3) Basophils (%) (Auto) 1% (0-3) Neutrophils # (Auto) 8.0x10^3uL (1.8-7.7) Lymphocytes # (Auto) 1.4x10^3/uL (1.0-4.8) Monocytes # (Auto) 0.3x10^3/uL (0.0-1.1) Eosinophils # (Auto) 0.1x10^3/uL (0.0-0.7) Basophils # (Auto) 0.1x10^3/uL (0.0-0.2) Sodium Level 137mmol/L (136-145) Potassium Level 5.0mmol/L (3.5-5.1) Chloride Level 100mmol/L (98-107) Carbon Dioxide Level 26mmol/L (21-32) Anion Gap 11 (6-14) Blood Urea Nitrogen 19mg/dL (8-26) Creatinine 1.2mg/dL (0.7-1.3) Estimated GFR (Cockcroft-Gault) 64.9 Glucose Level 240mg/dL (70-99) Hemoglobin A1c 8.2% (4.8-5.6) Calcium Level 9.3mg/dL (8.5-10.1) Test 09/16/16 21:01 09/16/16 21:45 09/17/16 04:05 09/17/16 07:19 Glucose (Fingerstick) 312mg/dL (70-99) 239mg/dL (70-99) Heparin Anti-Xa Act, Unfractionated 0.31IU/mL (0.30-0.70) 0.32IU/mL (0.30-0.70) Test 09/17/16 11:05 09/17/16 16:30 Glucose (Fingerstick) 195mg/dL (70-99) 144mg/dL (70-99) Laboratory Tests Test 09/16/16 16:39 09/16/16 21:01 09/16/16 21:45 09/17/16 04:05 Glucose (Fingerstick) 308mg/dL (70-99) 312mg/dL (70-99) Heparin Anti-Xa Act, Unfractionated 0.31IU/mL (0.30-0.70) 0.32IU/mL (0.30-0.70) Test 09/17/16 07:19 09/17/16 11:05 09/17/16 16:30 Glucose (Fingerstick) 239mg/dL (70-99) 195mg/dL (70-99) 144mg/dL (70-99) Assessment/Plan Assessment/Plan 46-year-old male with diabetes, severe three-vessel coronary artery disease and preserved LV function presented with non-STEMI. Coronary angiogram demonstrated a proximal 90% LAD stenosis, a 70% stenosis of a large first diagonal, a 70% lesion stenosis of a modest sized obtuse marginal, a 90% mid RCA lesion with an additional ostial PDA lesion. The LV gram was normal. His echo showed normal LV function with no valvular disease. The patient is an excellent candidate for CABG. He will need 3 or 4 grafts, and CHUA to the LAD, SVG to RPDA, SVG to D1 and possible SVG to OM depending on its size. I had a long discussion with the patient and his . I explained the benefits and limitations of a CABG. I quoted a mortality risk of 1-2%. I has explained that there is a 1-2% risk of stroke, myocardial infarction, wound infection, renal failure, pneumonia, VDRF, a 5% risk of re-sternotomy for hemorrhage and a 20-30% risk of arrhythmia. The patient accepts these risks and agrees to proceed. CABG on August. His preoperative workup is complete. He has normal carotid arteries, excellent greater saphenous veins, and a normal-looking CT of the chest. PFTs pending owing to the patient's chronic heavy smoking history. NOHEMI WILSON MD Sep 17, 2016 16:47
[2016-09-17 19:43] VITALS: BP 134/78
[2016-09-17] MEDS: ATORVASTATIN CALCIUM 20 MG TABLET PO SCH (21:38)
[2016-09-17 22:33] VITALS: BP 140/76
[2016-09-18 00:16] LABS: BILIRUBIN,URINE NEGATIVE (NEG); GLUCOSE,URINE NEGATIVE (NEG); NITRITE,URINE NEGATIVE (NEG); PROTEIN,URINE 100 mg/dL (NEG-TRACE); UROBILINOGEN,URINE 0.2 mg/dL (0.2 mg/dL)
[2016-09-18 00:48] LABS: BACTERIA,URINE 0 /HPF (0-FEW); SQUAMOUS EPITHELIAL CELL,UR FEW /LPF; WBC,URINE 0 /HPF (0-4)
[2016-09-18 02:45] VITALS: BP 146/87
[2016-09-18] MEDS: HEPARIN 25,000UTS/500ML PREMIX 500 ML IV PRN (04:00)
[2016-09-18 07:20] LABS: BASO # 0.1 x10^3/uL (0.0-0.2); BASO % 1 % (0-3); EOS % 1 % (0-3); HEMATOCRIT 42.2 % (39.0-53.0); HEMOGLOBIN 13.8 g/dL (13.0-17.5); LYMPH % 45 % (24-48); MEAN CORPUSCULAR HEMOGLOBIN 27 pg (25-35); MEAN CORPUSCULAR HGB CONC 33 g/dL (31-37); MEAN CORPUSCULAR VOLUME 84 fL (79-100); MONO % 7 % (0-9); NEUT % 46 % (31-73); PLATELET COUNT 277 x10^3/uL (140-400); RED BLOOD COUNT 5.04 x10^6/uL (4.30-5.70); RED CELL DISTRIBUTION WIDTH 14.1 % (11.5-14.5); WHITE BLOOD COUNT 13.4 x10^3/uL (4.0-11.0)
[2016-09-18 07:26] VITALS: BP 138/83
[2016-09-18 07:26] LABS: ALBUMIN 3.3 g/dL (3.4-5.0); CALCIUM 8.7 mg/dL (8.5-10.1); CREATININE 1.1 mg/dL (0.7-1.3); GFR 71.8; POTASSIUM 4.3 mmol/L (3.5-5.1); TOTAL BILIRUBIN 0.3 mg/dL (0.2-1.0); TOTAL PROTEIN 6.5 g/dL (6.4-8.2)
[2016-09-18 07:42] LABS: PROTHROMBIN TIME PATIENT 12.9 SEC (11.7-14.0)
[2016-09-18] MEDS: INSULIN ASPART 300 UNITS/3 ML INSULN.PEN SQ SCH ×3 (07:46→17:00)
[2016-09-18] MEDS: ASPIRIN ENTERIC COATED 325 MG TABLET.DR. PO SCH (09:01)
[2016-09-18] MEDS: METOPROLOL TART IMMED RELEASE 25 MG TABLET PO SCH ×2 (09:01→20:40)
[2016-09-18] MEDS: GLIMEPIRIDE 2 MG TABLET PO SCH (09:01)
[2016-09-18] MEDS: PANTOPRAZOLE 40 MG TABLET. PO SCH (09:01)
[2016-09-18] MEDS: INSULIN DETEMIR 300 UNITS/3 ML INSULN.PEN. SQ SCH (09:08)
[2016-09-18] MEDS: ANTI-COAG MONITOR BY PHARMACY. MC PRN (10:20)
[2016-09-18 10:25] VITALS: BP 154/95
--- NOTE | 2016-09-18 11:00 | PDOC ---
PROGRESS NOTES Chief Complaint Chief Complaint 1. 3 vessel dse by cardiac cath 09/16 2. hld 3. dm2 with hgba1c 8 4. Htn 5. OBEsity 6. tobaccoism 7. SIRS wo infection History of Present Illness History of Present Illness BS better since started on levemir 10 units SQ daily No inc in soa or cp PLanned for CABG renetta Plan: CABG renetta CPM NPO post mN Vitals Vitals Vital Signs Date Time Temp Pulse Resp B/P Pulse Ox O2 Delivery O2 Flow Rate FiO2 09/18/16 10:25 98.1 78 20 154/95 96 Room Air 98.1 09/17/16 08:00 4.0 Physical Exam General: Alert, Oriented X3, No acute distress Heart: Regular rate, Normal S1, Normal S2, No murmurs, Gallops Abdomen: Soft, No tenderness, No masses Extremities: Normal pulses Skin: No significant lesion Labs LABS Laboratory Tests Test 09/17/16 11:05 09/17/16 16:30 09/17/16 19:45 09/17/16 20:41 Glucose (Fingerstick) 195mg/dL (70-99) 144mg/dL (70-99) 208mg/dL (70-99) Urine Collection Type Unknown Urine Color Yellow Urine Clarity Clear Urine pH 6.0 Urine Specific [place] 1.025 Urine Protein 100mg/dL (NEG-TRACE) Urine Glucose (UA) Negativemg/dL (NEG) Urine Ketones (Stick) Negativemg/dL (NEG) Urine Blood Negative (NEG) Urine Nitrite Negative (NEG) Urine Bilirubin Negative (NEG) Urine Urobilinogen Dipstick 0.2mg/dL (0.2 mg/dL) Urine Leukocyte Esterase Negative (NEG) Urine RBC 3-5/HPF (0-2) Urine WBC 0/HPF (0-4) Urine Squamous Epithelial Cells Few/LPF Urine Bacteria 0/HPF (0-FEW) Urine Hyaline Casts Few/HPF Urine Mucus Slight/LPF Test 09/18/16 06:00 09/18/16 07:43 White Blood Count 13.4x10^3/uL (4.0-11.0) Red Blood Count 5.04x10^6/uL (4.30-5.70) Hemoglobin 13.8g/dL (13.0-17.5) Hematocrit 42.2% (39.0-53.0) Mean Corpuscular Volume 84fL (79-100) Mean Corpuscular Hemoglobin 27pg (25-35) Mean Corpuscular Hemoglobin Concent 33g/dL (31-37) Red Cell Distribution Width 14.1% (11.5-14.5) Platelet Count 277x10^3/uL (140-400) Neutrophils (%) (Auto) 46% (31-73) Lymphocytes (%) (Auto) 45% (24-48) Monocytes (%) (Auto) 7% (0-9) Eosinophils (%) (Auto) 1% (0-3) Basophils (%) (Auto) 1% (0-3) Neutrophils # (Auto) 6.2x10^3uL (1.8-7.7) Lymphocytes # (Auto) 6.0x10^3/uL (1.0-4.8) Monocytes # (Auto) 0.9x10^3/uL (0.0-1.1) Eosinophils # (Auto) 0.2x10^3/uL (0.0-0.7) Basophils # (Auto) 0.1x10^3/uL (0.0-0.2) Prothrombin Time 12.9SEC (11.7-14.0) Prothromb Time International Ratio 1.0 (0.8-1.1) Activated Partial Thromboplast Time 69SEC (24-38) Heparin Anti-Xa Act, Unfractionated 0.44IU/mL (0.30-0.70) Sodium Level 143mmol/L (136-145) Potassium Level 4.3mmol/L (3.5-5.1) Chloride Level 106mmol/L (98-107) Carbon Dioxide Level 29mmol/L (21-32) Anion Gap 8 (6-14) Blood Urea Nitrogen 22mg/dL (8-26) Creatinine 1.1mg/dL (0.7-1.3) Estimated GFR (Cockcroft-Gault) 71.8 BUN/Creatinine Ratio 20 (6-20) Glucose Level 138mg/dL (70-99) Calcium Level 8.7mg/dL (8.5-10.1) Total Bilirubin 0.3mg/dL (0.2-1.0) Aspartate Amino Transf (AST/SGOT) 22U/L (15-37) Alanine Aminotransferase (ALT/SGPT) 57U/L (16-63) Alkaline Phosphatase 67U/L (46-116) Total Protein 6.5g/dL (6.4-8.2) Albumin 3.3g/dL (3.4-5.0) Albumin/Globulin Ratio 1.0 (1.0-1.7) Glucose (Fingerstick) 146mg/dL (70-99) Assessment and Plan Assessmemt and Plan Problems Medical Problems: (1) Chest pain Status: Acute (2) NSTEMI (non-ST elevated myocardial infarction) Status: Acute Problems: Comment Review of Relevant I have reviewed the following items amber (where applicable) has been applied. Labs Laboratory Tests Test 09/16/16 11:56 09/16/16 16:39 09/16/16 21:01 09/16/16 21:45 Glucose (Fingerstick) 265mg/dL (70-99) 308mg/dL (70-99) 312mg/dL (70-99) Heparin Anti-Xa Act, Unfractionated 0.31IU/mL (0.30-0.70) Test 09/17/16 04:05 09/17/16 07:19 09/17/16 11:05 09/17/16 16:30 Heparin Anti-Xa Act, Unfractionated 0.32IU/mL (0.30-0.70) Glucose (Fingerstick) 239mg/dL (70-99) 195mg/dL (70-99) 144mg/dL (70-99) Test 09/17/16 19:45 09/17/16 20:41 09/18/16 06:00 09/18/16 07:43 Urine Collection Type Unknown Urine Color Yellow Urine Clarity Clear Urine pH 6.0 Urine Specific [place] 1.025 Urine Protein 100mg/dL (NEG-TRACE) Urine Glucose (UA) Negativemg/dL (NEG) Urine Ketones (Stick) Negativemg/dL (NEG) Urine Blood Negative (NEG) Urine Nitrite Negative (NEG) Urine Bilirubin Negative (NEG) Urine Urobilinogen Dipstick 0.2mg/dL (0.2 mg/dL) Urine Leukocyte Esterase Negative (NEG) Urine RBC 3-5/HPF (0-2) Urine WBC 0/HPF (0-4) Urine Squamous Epithelial Cells Few/LPF Urine Bacteria 0/HPF (0-FEW) Urine Hyaline Casts Few/HPF Urine Mucus Slight/LPF Glucose (Fingerstick) 208mg/dL (70-99) 146mg/dL (70-99) White Blood Count 13.4x10^3/uL (4.0-11.0) Red Blood Count 5.04x10^6/uL (4.30-5.70) Hemoglobin 13.8g/dL (13.0-17.5) Hematocrit 42.2% (39.0-53.0) Mean Corpuscular Volume 84fL (79-100) Mean Corpuscular Hemoglobin 27pg (25-35) Mean Corpuscular Hemoglobin Concent 33g/dL (31-37) Red Cell Distribution Width 14.1% (11.5-14.5) Platelet Count 277x10^3/uL (140-400) Neutrophils (%) (Auto) 46% (31-73) Lymphocytes (%) (Auto) 45% (24-48) Monocytes (%) (Auto) 7% (0-9) Eosinophils (%) (Auto) 1% (0-3) Basophils (%) (Auto) 1% (0-3) Neutrophils # (Auto) 6.2x10^3uL (1.8-7.7) Lymphocytes # (Auto) 6.0x10^3/uL (1.0-4.8) Monocytes # (Auto) 0.9x10^3/uL (0.0-1.1) Eosinophils # (Auto) 0.2x10^3/uL (0.0-0.7) Basophils # (Auto) 0.1x10^3/uL (0.0-0.2) Prothrombin Time 12.9SEC (11.7-14.0) Prothromb Time International Ratio 1.0 (0.8-1.1) Activated Partial Thromboplast Time 69SEC (24-38) Heparin Anti-Xa Act, Unfractionated 0.44IU/mL (0.30-0.70) Sodium Level 143mmol/L (136-145) Potassium Level 4.3mmol/L (3.5-5.1) Chloride Level 106mmol/L (98-107) Carbon Dioxide Level 29mmol/L (21-32) Anion Gap 8 (6-14) Blood Urea Nitrogen 22mg/dL (8-26) Creatinine 1.1mg/dL (0.7-1.3) Estimated GFR (Cockcroft-Gault) 71.8 BUN/Creatinine Ratio 20 (6-20) Glucose Level 138mg/dL (70-99) Calcium Level 8.7mg/dL (8.5-10.1) Total Bilirubin 0.3mg/dL (0.2-1.0) Aspartate Amino Transf (AST/SGOT) 22U/L (15-37) Alanine Aminotransferase (ALT/SGPT) 57U/L (16-63) Alkaline Phosphatase 67U/L (46-116) Total Protein 6.5g/dL (6.4-8.2) Albumin 3.3g/dL (3.4-5.0) Albumin/Globulin Ratio 1.0 (1.0-1.7) Laboratory Tests Test 09/17/16 11:05 09/17/16 16:30 09/17/16 19:45 09/17/16 20:41 Glucose (Fingerstick) 195mg/dL (70-99) 144mg/dL (70-99) 208mg/dL (70-99) Urine Collection Type Unknown Urine Color Yellow Urine Clarity Clear Urine pH 6.0 Urine Specific [place] 1.025 Urine Protein 100mg/dL (NEG-TRACE) Urine Glucose (UA) Negativemg/dL (NEG) Urine Ketones (Stick) Negativemg/dL (NEG) Urine Blood Negative (NEG) Urine Nitrite Negative (NEG) Urine Bilirubin Negative (NEG) Urine Urobilinogen Dipstick 0.2mg/dL (0.2 mg/dL) Urine Leukocyte Esterase Negative (NEG) Urine RBC 3-5/HPF (0-2) Urine WBC 0/HPF (0-4) Urine Squamous Epithelial Cells Few/LPF Urine Bacteria 0/HPF (0-FEW) Urine Hyaline Casts Few/HPF Urine Mucus Slight/LPF Test 09/18/16 06:00 09/18/16 07:43 White Blood Count 13.4x10^3/uL (4.0-11.0) Red Blood Count 5.04x10^6/uL (4.30-5.70) Hemoglobin 13.8g/dL (13.0-17.5) Hematocrit 42.2% (39.0-53.0) Mean Corpuscular Volume 84fL (79-100) Mean Corpuscular Hemoglobin 27pg (25-35) Mean Corpuscular Hemoglobin Concent 33g/dL (31-37) Red Cell Distribution Width 14.1% (11.5-14.5) Platelet Count 277x10^3/uL (140-400) Neutrophils (%) (Auto) 46% (31-73) Lymphocytes (%) (Auto) 45% (24-48) Monocytes (%) (Auto) 7% (0-9) Eosinophils (%) (Auto) 1% (0-3) Basophils (%) (Auto) 1% (0-3) Neutrophils # (Auto) 6.2x10^3uL (1.8-7.7) Lymphocytes # (Auto) 6.0x10^3/uL (1.0-4.8) Monocytes # (Auto) 0.9x10^3/uL (0.0-1.1) Eosinophils # (Auto) 0.2x10^3/uL (0.0-0.7) Basophils # (Auto) 0.1x10^3/uL (0.0-0.2) Prothrombin Time 12.9SEC (11.7-14.0) Prothromb Time International Ratio 1.0 (0.8-1.1) Activated Partial Thromboplast Time 69SEC (24-38) Heparin Anti-Xa Act, Unfractionated 0.44IU/mL (0.30-0.70) Sodium Level 143mmol/L (136-145) Potassium Level 4.3mmol/L (3.5-5.1) Chloride Level 106mmol/L (98-107) Carbon Dioxide Level 29mmol/L (21-32) Anion Gap 8 (6-14) Blood Urea Nitrogen 22mg/dL (8-26) Creatinine 1.1mg/dL (0.7-1.3) Estimated GFR (Cockcroft-Gault) 71.8 BUN/Creatinine Ratio 20 (6-20) Glucose Level 138mg/dL (70-99) Calcium Level 8.7mg/dL (8.5-10.1) Total Bilirubin 0.3mg/dL (0.2-1.0) Aspartate Amino Transf (AST/SGOT) 22U/L (15-37) Alanine Aminotransferase (ALT/SGPT) 57U/L (16-63) Alkaline Phosphatase 67U/L (46-116) Total Protein 6.5g/dL (6.4-8.2) Albumin 3.3g/dL (3.4-5.0) Albumin/Globulin Ratio 1.0 (1.0-1.7) Glucose (Fingerstick) 146mg/dL (70-99) Medications Current Medications Aspirin (Children'S Aspirin) 324 mg 1X ONCE PO Last administered on at 02:36; Start 09/15/16 at 03:00; Stop 09/15/16 at 03:01; Status DC Nitroglycerin (Nitrostat) 0.4 mg PRN Q5MIN PRN SL CP RATING > 1/10 Last administered on 09/15/16at 02:37; Start 09/15/16 at 02:30; Stop 09/15/16 at 05 :18; Status DC Fentanyl Citrate (Fentanyl 2ml Vial) 25 mcg PRN Q15MIN PRN IV PAIN GREATER THAN 3/10; Start 09/15/16 at 02:30; Stop 09/15/16 at 06:00; Status DC Heparin Sodium (Porcine) 4000 unit 4,000 unit 1X ONCE IV Last administered on 09/15/16at 05:14; Start 09/15/16 at 05:00; Stop 09/15/16 at 05:02; Status DC Heparin Sodium/ Dextrose 500 ml @ 0 mls/hr CONT PRN IV SEE I/O RECORD Last administered on 09/18/16at 04:00; Start 09/15/16 at 04:45 Heparin Sodium (Porcine) 2,850 unit PRN Q6HRS PRN IV FOR UFH LEVEL LESS THAN 0.2 Last administered on 09/15/16at 18:22; Start 09/15/16 at 04:45 Ondansetron HCl (Zofran) 4 mg PRN Q8HRS PRN IV NAUSEA/VOMITING; Start at 05:15; Stop 09/16/16 at 05:14; Status DC Fentanyl Citrate (Fentanyl 2ml Vial) 50 mcg PRN Q2HR PRN IV SEVERE PAIN; Start 09/15/16 at 05:15; Stop 09/16/16 at 05:14; Status DC Acetaminophen (Tylenol) 650 mg PRN Q4HRS PRN PO FEVER; Start 09/15/16 at 05:15 ; Stop 09/16/16 at 05:14; Status DC Nitroglycerin (Nitrostat) 0.4 mg PRN Q5MIN PRN SL CHEST PAIN; Start 09/15/16 at 05:15; Stop 09/16/16 at 05:14; Status DC Insulin Aspart (Novolog) 0-5 UNITS TIDWMEALS SQ Last administered on at 17:26; Start 09/15/16 at 08:00; Stop 09/17/16 at 08:23; Status DC Dextrose 12.5 gm PRN Q15MIN PRN IV SEE COMMENTS; Start 09/15/16 at 05:15; Status Cancel Info (Anti-Coagulation Monitoring By Pharmacy) 1 each PRN DAILY PRN MC SEE COMMENTS Last administered on 09/18/16at 10:20; Start 09/15/16 at 07:45 Atorvastatin Calcium (Lipitor) 20 mg QHS PO Last administered on 09/17/16at 21: 38; Start 09/15/16 at 21:00 Glimepiride (Amaryl) 2 mg DAILY PO Last administered on 09/18/16at 09:01; Start 09/15/16 at 11:30 Non-Formulary Medication 1 tab DAILY PO ; Start 09/16/16 at 09:00; Status UNV Pantoprazole Sodium (Protonix) 40 mg DAILYAC PO Last administered on at 09:01; Start 09/15/16 at 11:30 Acetaminophen (Tylenol) 650 mg PRN Q6HRS PRN PO MILD PAIN / TEMP; Start at 10:30 Ondansetron HCl (Zofran) 4 mg PRN Q6HRS PRN IV NAUSEA/VOMITING Last administered on 09/16/16at 15:49; Start 09/15/16 at 10:30 Morphine Sulfate 2 mg PRN Q2HR PRN IV PAIN Last administered on 09/16/16at 15: 49; Start 09/15/16 at 10:30 Morphine Sulfate 4 mg PRN Q2HR PRN IV PAIN; Start 09/15/16 at 10:30 Losartan Potassium (Cozaar) 100 mg DAILY PO ; Start 09/15/16 at 11:30; Stop at 12:48; Status DC Hydrochlorothiazide (Microzide) 12.5 mg DAILY PO ; Start 09/15/16 at 11:30; Stop 09/15/16 at 12:48; Status DC Aspirin (Ecotrin) 325 mg DAILYWBKFT PO Last administered on 09/18/16at 09:01; Start 09/16/16 at 08:00 Metoprolol Tartrate (Lopressor) 12.5 mg BID PO Last administered on 09/18/16at 09:01; Start 09/15/16 at 21:00 Influenza Virus Vaccine Quadrival (Fluarix Quad 3531-8440 Syringe) 0.5 ml ONCE ONCE VAX IM ; Start 09/16/16 at 14:00; Stop 09/16/16 at 14:01; Status DC Pneumococcal Polyvalent Vaccine (Pneumovax 23) 0.5 ml ONCE ONCE VAX IM ; Start 09/16/16 at 14:00; Stop 09/16/16 at 14:01; Status DC Famotidine (Pepcid) 20 mg 1X ONCE IVP Last administered on 09/16/16at 07:24; Start 09/16/16 at 08:00; Stop 09/16/16 at 08:01; Status DC Diphenhydramine HCl (Benadryl) 25 mg 1X ONCE IVP Last administered on at 07:24; Start 09/16/16 at 08:00; Stop 09/16/16 at 08:01; Status DC Methylprednisolone Sodium Succinate (Solu-Medrol 125mg Vial) 125 mg 1X ONCE IV Last administered on 09/16/16at 07:24; Start 09/16/16 at 08:00; Stop at 08:01; Status DC Iohexol 100 ml 100 ml STK-MED ONCE .ROUTE ; Start 09/16/16 at 07:00; Stop at 07:01; Status DC Heparin Sodium/ Sodium Chloride 1,000 ml @ As Directed STK-MED ONCE .ROUTE ; Start 09/16/16 at 07:01; Stop 09/16/16 at 07:02; Status DC Lidocaine HCl 20 ml STK-MED ONCE .ROUTE ; Start 09/16/16 at 07:01; Stop at 07:02; Status DC Verapamil HCl (Verapamil) 5 mg STK-MED ONCE .ROUTE ; Start 09/16/16 at 07:45; Stop 09/16/16 at 07:46; Status DC Midazolam HCl (Versed) 5 mg STK-MED ONCE .ROUTE ; Start 09/16/16 at 07:45; Stop 09/16/16 at 07:46; Status DC Nitroglycerin (Nitroglycerin) 200 mcg STK-MED ONCE .ROUTE ; Start 09/16/16 at 07:45; Stop 09/16/16 at 07:46; Status DC Heparin Sodium (Porcine) 10,000 unit STK-MED ONCE .ROUTE ; Start 09/16/16 at 07 :45; Stop 09/16/16 at 07:46; Status DC Fentanyl Citrate (Fentanyl 5ml Vial) 250 mcg STK-MED ONCE .ROUTE ; Start at 07:46; Stop 09/16/16 at 07:47; Status DC Nitroglycerin (Nitroglycerin) 200 mcg 1X ONCE IART Last administered on at 08:21; Start 09/16/16 at 08:15; Stop 09/16/16 at 08:16; Status DC Verapamil HCl (Verapamil) 2.5 mg 1X ONCE IART Last administered on 09/16/16at 08:22; Start 09/16/16 at 08:15; Stop 09/16/16 at 08:16; Status DC Heparin Sodium (Porcine) 2,500 unit 1X ONCE IART Last administered on at 08:22; Start 09/16/16 at 08:15; Stop 09/16/16 at 08:16; Status DC Heparin Sodium/ Sodium Chloride 1,000 unit 1X ONCE IART Last administered on 09/16/16at 08:20; Start 09/16/16 at 08:15; Stop 09/16/16 at 08:16; Status DC Midazolam HCl (Versed) 2 mg 1X ONCE IV Last administered on 09/16/16at 08:21; Start 09/16/16 at 08:15; Stop 09/16/16 at 08:16; Status DC Fentanyl Citrate (Fentanyl 5ml Vial) 100 mcg 1X ONCE IV Last administered on 09/16/16at 08:22; Start 09/16/16 at 08:15; Stop 09/16/16 at 08:16; Status DC Iohexol (Omnipaque 300 Mg/ml) 131 ml 1X ONCE IART Last administered on at 08:21; Start 09/16/16 at 08:15; Stop 09/16/16 at 08:16; Status DC Lidocaine HCl 2 ml 1X ONCE IJ Last administered on 09/16/16at 08:21; Start at 08:15; Stop 09/16/16 at 08:16; Status DC Info 1 each 1 each PRN DAILY PRN MC SEE COMMENTS; Start 09/16/16 at 08:30; Stop 09/18/16 at 08:29; Status DC Sodium Chloride (Iv Sodium Chloride 0.45%) 1,000 ml @ 60 mls/hr [id number] IV Last administered on 09/16/16at 09:00; Start 09/16/16 at 09:00; Stop 09/17/16 at 12:32; Status DC Insulin Aspart (Novolog) 0-9 UNITS TIDWMEALS SQ ; Start 09/16/16 at 12:00; Status UNV Dextrose 12.5 gm 12.5 gm PRN Q15MIN PRN IV SEE COMMENTS; Start 09/16/16 at 09: 00; Status UNV Nitroglycerin/ Dextrose (Nitroglycerin Drip) 250 ml @ 0 mls/hr CONT PRN IV SEE I/O RECORD Last administered on 09/16/16at 16:18; Start 09/16/16 at 16:00 Al Hydroxide/Mg Hydroxide (Mylanta Plus Xs) 30 ml PRN Q6HRS PRN PO DYSPEPSIA Last administered on 09/16/16at 23:20; Start 09/16/16 at 22:45 Insulin Aspart (Novolog) 0-9 UNITS TIDWMEALS SQ Last administered on at 12:36; Start 09/17/16 at 09:00 Dextrose 12.5 gm 12.5 gm PRN Q15MIN PRN IV SEE COMMENTS; Start 09/17/16 at 08: 30 Cefazolin Sodium/ Dextrose (Ancef 2gm Premix) 50 ml @ 100 mls/hr 1X ONCE IV ; Start 09/19/16 at 06:00; Stop 09/19/16 at 06:29 Insulin Detemir (Levemir) 10 units DAILY SQ Last administered on 09/18/16at 09: 08; Start 09/17/16 at 10:30 Active Scripts Active Reported Atorvastatin Calcium 10 Mg Tablet 1 Tab PO DAILY Losartan-Hctz 100-12.5 Mg Tab (Losartan/Hydrochlorothiazide) 1 Each Tablet 1 Tab PO DAILY Glimepiride 2 Mg Tablet 1 Tab PO DAILY Metformin Hcl 1,000 Mg Tablet 1 Tab PO BID Omeprazole 20 Mg Capsule. 1 Cap PO BID Vitals/I & O Vital Sign - Last 24 Hours 09/17/16 09/17/16 09/17/16 09/17/16 11:00 15:00 19:43 20:00 Temp 97.8 97.9 98.2 97.8 97.9 98.2 Pulse 88 89 88 Resp 18 18 18 B/P 139/87 158/97 134/78 Pulse Ox 95 97 96 O2 Delivery Room Air Room Air Room Air Room Air 09/17/16 09/17/16 09/18/16 09/18/16 21:39 22:33 02:45 07:26 Temp 97.7 97.3 97.4 97.7 97.3 97.4 Pulse 89 85 70 79 Resp 20 20 18 B/P 134/78 140/76 146/87 138/83 Pulse Ox 96 96 97 O2 Delivery Room Air Room Air Nasal Cannula 09/18/16 09/18/16 09/18/16 07:43 09:01 10:25 Temp 98.1 98.1 Pulse 79 78 Resp 20 B/P 138/83 154/95 Pulse Ox 96 O2 Delivery Room Air Room Air Intake and Output 09/17/16 09/17/16 09/18/16 14:59 22:59 06:59 Intake Total 200 ml 0 ml Output Total 725 ml 575 ml Balance -525 ml -575 ml HO DELA CRUZ MD Sep 18, 2016 11:00
[2016-09-18] MEDS ORDERED: HEPARIN 25,000UTS/500ML PREMIX 500 ML IV PRN (11:30)
--- NOTE | 2016-09-18 11:40 | PDOC ---
SANCHEZSATNAM Madeleine CAR HOSTLER 09/18/16 1140: CARDIO Progress Notes Date and Time Date of Service 09/18/2016 Time of Evaluation 1137 Subjective Subjective: No Chest Pain, No shortness of breath, No Palpitations, No Dizziness, Other (episode of CP yesterday with initiation of NTG gtt) Vitals Vitals Vital Signs Date Time Temp Pulse Resp B/P Pulse Ox O2 Delivery O2 Flow Rate FiO2 09/18/16 10:25 98.1 78 20 154/95 96 Room Air 98.1 09/17/16 08:00 4.0 Weight Weight [ ] Input and Output Intake and Output Intake and Output 09/18/16 06:59 Intake Total 200 ml Output Total 1300 ml Balance -1100 ml Intake Oral 200 ml Output Urine Total 1300 ml Laboratory Labs Laboratory Tests Test 09/17/16 16:30 09/17/16 19:45 09/17/16 20:41 09/18/16 06:00 Glucose (Fingerstick) 144mg/dL (70-99) 208mg/dL (70-99) Urine Collection Type Unknown Urine Color Yellow Urine Clarity Clear Urine pH 6.0 Urine Specific [place] 1.025 Urine Protein 100mg/dL (NEG-TRACE) Urine Glucose (UA) Negativemg/dL (NEG) Urine Ketones (Stick) Negativemg/dL (NEG) Urine Blood Negative (NEG) Urine Nitrite Negative (NEG) Urine Bilirubin Negative (NEG) Urine Urobilinogen Dipstick 0.2mg/dL (0.2 mg/dL) Urine Leukocyte Esterase Negative (NEG) Urine RBC 3-5/HPF (0-2) Urine WBC 0/HPF (0-4) Urine Squamous Epithelial Cells Few/LPF Urine Bacteria 0/HPF (0-FEW) Urine Hyaline Casts Few/HPF Urine Mucus Slight/LPF White Blood Count 13.4x10^3/uL (4.0-11.0) Red Blood Count 5.04x10^6/uL (4.30-5.70) Hemoglobin 13.8g/dL (13.0-17.5) Hematocrit 42.2% (39.0-53.0) Mean Corpuscular Volume 84fL (79-100) Mean Corpuscular Hemoglobin 27pg (25-35) Mean Corpuscular Hemoglobin Concent 33g/dL (31-37) Red Cell Distribution Width 14.1% (11.5-14.5) Platelet Count 277x10^3/uL (140-400) Neutrophils (%) (Auto) 46% (31-73) Lymphocytes (%) (Auto) 45% (24-48) Monocytes (%) (Auto) 7% (0-9) Eosinophils (%) (Auto) 1% (0-3) Basophils (%) (Auto) 1% (0-3) Neutrophils # (Auto) 6.2x10^3uL (1.8-7.7) Lymphocytes # (Auto) 6.0x10^3/uL (1.0-4.8) Monocytes # (Auto) 0.9x10^3/uL (0.0-1.1) Eosinophils # (Auto) 0.2x10^3/uL (0.0-0.7) Basophils # (Auto) 0.1x10^3/uL (0.0-0.2) Prothrombin Time 12.9SEC (11.7-14.0) Prothromb Time International Ratio 1.0 (0.8-1.1) Activated Partial Thromboplast Time 69SEC (24-38) Heparin Anti-Xa Act, Unfractionated 0.44IU/mL (0.30-0.70) Sodium Level 143mmol/L (136-145) Potassium Level 4.3mmol/L (3.5-5.1) Chloride Level 106mmol/L (98-107) Carbon Dioxide Level 29mmol/L (21-32) Anion Gap 8 (6-14) Blood Urea Nitrogen 22mg/dL (8-26) Creatinine 1.1mg/dL (0.7-1.3) Estimated GFR (Cockcroft-Gault) 71.8 BUN/Creatinine Ratio 20 (6-20) Glucose Level 138mg/dL (70-99) Calcium Level 8.7mg/dL (8.5-10.1) Total Bilirubin 0.3mg/dL (0.2-1.0) Aspartate Amino Transf (AST/SGOT) 22U/L (15-37) Alanine Aminotransferase (ALT/SGPT) 57U/L (16-63) Alkaline Phosphatase 67U/L (46-116) Total Protein 6.5g/dL (6.4-8.2) Albumin 3.3g/dL (3.4-5.0) Albumin/Globulin Ratio 1.0 (1.0-1.7) Test 09/18/16 07:43 Glucose (Fingerstick) 146mg/dL (70-99) Physical Exam HEENT: NO Carotid Bruit, Neck Supple W Full Motion Chest: Symmetric LUNGS: Clear to Auscultation Heart: S1S2, RRR, no murmurs, other (tele: SR) Abdomen: Soft N/T Extremities: No Edema Neurology: alert, oriented, follow commands Assessment Assessment 1. NSTEMI troponin peaked at 1.754 cardiac cath with 3 v disease -- LAD 90% in midsegment with proximal 70% D1; RCA with 90% prox to mid; 90% mid and 95% distal seg; PDA prox 60%; PLB 80% prox to midsegment circ 40% mid with no significant stenosis in LM no further angina on NTG gtt - will continue also remains on heparin gtt which is to stop at [place] per CTS will remain hospitalized until CABG 09/19/2016 due to proximal lesions and CP continue ASA, beta-blockers and statin therapy 2. HTN, benign essential elevated at times will increase metoprolol to 25 mg BID 3. mixed hyperlipidemia TG = 358; HDLs = 37 continue statin therapy lifestyle modification and improved control of DM to address TG 4. DM, type II A1C= 8.2 improving CBG with insulin adjustments per IPC defer management to primary service 5. tobacco abuse smokes and chews DEMI REVELES MD 09/18/162056: CARDIO Progress Notes Plan Plan Patient seen and examined. Agree with above nurse practitioner note. No acute events overnight. No chest pain. On exam he has normal heart tones. Lung samson are clear. No edema present. Reviewed coronary angiography films with CT surgery. Discussed operative intervention plans with patient and family as per CT surgery recommendations. We will follow along closely after his operative intervention tomorrow. Continue supportive care from a cardiovascular perspective. SATNAM BRADFORD APRN Sep 18, 2016 11:40 DEMI REVELES MD Sep 18, 2016 20:57
[2016-09-18 14:31] VITALS: BP_SYST 152; BP_SYST 153; BP_DIAS 82; BP_DIAS 95
[2016-09-18] MEDS ORDERED: ZOLPIDEM 5 MG TABLET. PO PRN (17:00)
[2016-09-18 19:10] VITALS: BP 139/86
[2016-09-18] MEDS: ATORVASTATIN CALCIUM 20 MG TABLET PO SCH (20:38)
[2016-09-18 23:21] VITALS: BP 156/77
[2016-09-19] VITALS (16 sets, daily range): BP systolic 72–163; BP diastolic 43–94
[2016-09-19] MEDS: METOPROLOL TART IMMED RELEASE 25 MG TABLET PO SCH ×2 (05:59→21:00)
[2016-09-19] MEDS ORDERED: POTASSIUM CHLORIDE 15 MEQ, SODIUM BICARBONATE VIAL 12.5 MEQ in IV ELECTROLYTE-S (PH 7.4... IRR ONE (06:00)
[2016-09-19] MEDS ORDERED: HEPARIN 20,000 UNIT in IV RINGERS,LACTATED 1000ML 1,000 ML IRR ONE (06:00)
[2016-09-19] MEDS ORDERED: CEFAZOLIN SODIUM 1 GM in IV NORMAL SALINE 500ML BAG 500 ML IRR ONE (06:00)
[2016-09-19] MEDS ORDERED: POTASSIUM CHLORIDE 70 MEQ, SODIUM BICARBONATE VIAL 12.5 MEQ, LIDOCAINE 2% 24 ML in IV E... IRR ONE (06:00)
[2016-09-19] MEDS ORDERED: CEFAZOLIN 2GM PREMIX 50 ML IV ONE (06:00)
[2016-09-19 06:24] LABS: BASO # 0.1 x10^3/uL (0.0-0.2); BASO % 1 % (0-3); EOS % 2 % (0-3); HEMATOCRIT 42.7 % (39.0-53.0); HEMOGLOBIN 13.9 g/dL (13.0-17.5); LYMPH # 3.9 x10^3/uL (1.0-4.8); LYMPH % 36 % (24-48); MEAN CORPUSCULAR HEMOGLOBIN 28 pg (25-35); MEAN CORPUSCULAR HGB CONC 33 g/dL (31-37); MEAN CORPUSCULAR VOLUME 85 fL (79-100); MONO % 10 % (0-9); NEUT % 52 % (31-73); PLATELET COUNT 288 x10^3/uL (140-400); RED BLOOD COUNT 5.03 x10^6/uL (4.30-5.70); RED CELL DISTRIBUTION WIDTH 14.4 % (11.5-14.5); WHITE BLOOD COUNT 10.8 x10^3/uL (4.0-11.0)
[2016-09-19 06:26] LABS: PROTHROMBIN TIME PATIENT 12.1 SEC (11.7-14.0)
[2016-09-19 06:37] LABS: CALCIUM 8.9 mg/dL (8.5-10.1); CREATININE 1.1 mg/dL (0.7-1.3); GFR 71.8; POTASSIUM 4.1 mmol/L (3.5-5.1)
[2016-09-19] MEDS ORDERED: ONDANSETRON PF 4 MG/2 ML VIAL. IV PRN (07:00)
[2016-09-19] MEDS ORDERED: HYDROMORPHONE 2 MG/ML VIAL. IV PRN (07:00)
[2016-09-19] MEDS ORDERED: MORPHINE SULFATE 2 MG/ML DISP.SYRIN. IV PRN (07:00)
[2016-09-19] MEDS ORDERED: PROCHLORPERAZINE 10 MG/2 ML VIAL. IV PRN (07:00)
[2016-09-19] MEDS ORDERED: IV RINGERS,LACTATED 1000ML 1,000 ML IV SCH (07:00)
[2016-09-19] MEDS ORDERED: FENTANYL PF 100 MCG/2 ML VIAL. IV PRN ×2 (07:00)
[2016-09-19] MEDS ORDERED: LIDOCAINE 1% 1 ML SYRINGE. ID PRN (07:00)
[2016-09-19] MEDS ORDERED: ETOMIDATE 20 MG/10 ML VIAL. IV ONE (07:03)
[2016-09-19] MEDS ORDERED: NICARDIPINE HCL 25 MG/10 ML VIAL. IV ONE (07:03)
[2016-09-19] MEDS ORDERED: HEPARIN for IV BOLUS 10,000 UNIT/10 ML VIAL. ONE ×3 (07:03→13:54)
[2016-09-19] MEDS ORDERED: SUFentanil 100 MCG/2 ML AMPUL. ONE (07:03)
[2016-09-19] MEDS ORDERED: PHENYLEPHRINE 10 MG/ML VIAL. ONE (07:03)
[2016-09-19] MEDS ORDERED: MIDAZOLAM HCL 2 MG/2 ML VIAL. ONE ×3 (07:03→12:22)
[2016-09-19] MEDS ORDERED: ROCURONIUM 50 MG/5 ML VIAL. ONE ×2 (07:03→14:46)
[2016-09-19] MEDS ORDERED: AMINOCAPROIC ACID 5,000 MG/20 ML VIAL IV ONE ×2 (07:03→09:16)
[2016-09-19] MEDS ORDERED: LIDOCAINE 2% 100 MG/5 ML DISP.SYRIN. ONE ×2 (07:03→13:54)
[2016-09-19] MEDS ORDERED: SUCCINYLCHOLINE 200 MG/10 ML VIAL. ONE (07:04)
[2016-09-19] MEDS ORDERED: ASPIRIN 300 MG SUPP.RECT ONE (07:10)
[2016-09-19] MEDS ORDERED: SURGICEL HEMOSTAT 4X8 EACH. ONE (07:10)
[2016-09-19] MEDS ORDERED: 0.9 % SODIUM CHLORIDE 50 ML VIAL. IJ ONE (07:10)
[2016-09-19] MEDS ORDERED: PAPAVERINE 60 MG/2 ML VIAL FOR OR ONLY. ONE (07:10)
[2016-09-19] MEDS ORDERED: VANCOMYCIN 10GM VIAL for OR. CEMENT ONE (07:15)
[2016-09-19] MEDS: INSULIN ASPART 300 UNITS/3 ML INSULN.PEN SQ SCH ×3 (08:00→17:00)
[2016-09-19] MEDS ORDERED: ISOFLURANE > 120 MINUTES. IH ONE (08:16)
[2016-09-19] MEDS: INSULIN DETEMIR 300 UNITS/3 ML INSULN.PEN. SQ SCH (09:00)
[2016-09-19] MEDS: GLIMEPIRIDE 2 MG TABLET PO SCH (09:00)
[2016-09-19] MEDS ORDERED: PROTAMINE 250 MG/25 ML VIAL IV ONE ×2 (10:36→12:49)
--- NOTE | 2016-09-19 10:40 | PDOC ---
PROGRESS NOTES Chief Complaint Chief Complaint 1. 3 vessel dse by cardiac cath 09/16 2. hld 3. dm2 with hgba1c 8 4. Htn 5. OBEsity 6. tobaccoism 7. SIRS wo infection History of Present Illness History of Present Illness Out having sx- CABG EARLIER ENTRY: BS better since started on levemir 10 units SQ daily No inc in soa or cp PLanned for CABG renetta Plan: Will await form CABG ICU after CABG Vitals Vitals Vital Signs Date Time Temp Pulse Resp B/P Pulse Ox O2 Delivery O2 Flow Rate FiO2 09/19/16 07:57 97.4 74 15 149/86 97 Room Air 97.4 Physical Exam General: Alert, Oriented X3, No acute distress Heart: Regular rate, Normal S1, Normal S2, No murmurs, Gallops Abdomen: Soft, No tenderness, No masses Extremities: Normal pulses Skin: No significant lesion Labs LABS Laboratory Tests Test 09/18/16 11:44 09/18/16 17:15 09/18/16 20:41 09/19/16 04:08 Glucose (Fingerstick) 150mg/dL (70-99) 101mg/dL (70-99) 146mg/dL (70-99) 133mg/dL (70-99) Test 09/19/16 04:47 White Blood Count 10.8x10^3/uL (4.0-11.0) Red Blood Count 5.03x10^6/uL (4.30-5.70) Hemoglobin 13.9g/dL (13.0-17.5) Hematocrit 42.7% (39.0-53.0) Mean Corpuscular Volume 85fL (79-100) Mean Corpuscular Hemoglobin 28pg (25-35) Mean Corpuscular Hemoglobin Concent 33g/dL (31-37) Red Cell Distribution Width 14.4% (11.5-14.5) Platelet Count 288x10^3/uL (140-400) Neutrophils (%) (Auto) 52% (31-73) Lymphocytes (%) (Auto) 36% (24-48) Monocytes (%) (Auto) 10% (0-9) Eosinophils (%) (Auto) 2% (0-3) Basophils (%) (Auto) 1% (0-3) Neutrophils # (Auto) 5.6x10^3uL (1.8-7.7) Lymphocytes # (Auto) 3.9x10^3/uL (1.0-4.8) Monocytes # (Auto) 1.0x10^3/uL (0.0-1.1) Eosinophils # (Auto) 0.2x10^3/uL (0.0-0.7) Basophils # (Auto) 0.1x10^3/uL (0.0-0.2) Prothrombin Time 12.1SEC (11.7-14.0) Prothromb Time International Ratio 1.0 (0.8-1.1) Heparin Anti-Xa Act, Unfractionated < 0.10IU/mL (0.30-0.70) Sodium Level 141mmol/L (136-145) Potassium Level 4.1mmol/L (3.5-5.1) Chloride Level 104mmol/L (98-107) Carbon Dioxide Level 29mmol/L (21-32) Anion Gap 8 (6-14) Blood Urea Nitrogen 19mg/dL (8-26) Creatinine 1.1mg/dL (0.7-1.3) Estimated GFR (Cockcroft-Gault) 71.8 Glucose Level 147mg/dL (70-99) Calcium Level 8.9mg/dL (8.5-10.1) Assessment and Plan Assessmemt and Plan Problems Medical Problems: (1) Chest pain Status: Acute (2) NSTEMI (non-ST elevated myocardial infarction) Status: Acute Problems: Comment Review of Relevant I have reviewed the following items amber (where applicable) has been applied. Labs Laboratory Tests Test 09/17/16 11:05 09/17/16 16:30 09/17/16 19:45 09/17/16 20:41 Glucose (Fingerstick) 195mg/dL (70-99) 144mg/dL (70-99) 208mg/dL (70-99) Urine Collection Type Unknown Urine Color Yellow Urine Clarity Clear Urine pH 6.0 Urine Specific [place] 1.025 Urine Protein 100mg/dL (NEG-TRACE) Urine Glucose (UA) Negativemg/dL (NEG) Urine Ketones (Stick) Negativemg/dL (NEG) Urine Blood Negative (NEG) Urine Nitrite Negative (NEG) Urine Bilirubin Negative (NEG) Urine Urobilinogen Dipstick 0.2mg/dL (0.2 mg/dL) Urine Leukocyte Esterase Negative (NEG) Urine RBC 3-5/HPF (0-2) Urine WBC 0/HPF (0-4) Urine Squamous Epithelial Cells Few/LPF Urine Bacteria 0/HPF (0-FEW) Urine Hyaline Casts Few/HPF Urine Mucus Slight/LPF Test 09/18/16 06:00 09/18/16 07:43 09/18/16 11:44 09/18/16 17:15 White Blood Count 13.4x10^3/uL (4.0-11.0) Red Blood Count 5.04x10^6/uL (4.30-5.70) Hemoglobin 13.8g/dL (13.0-17.5) Hematocrit 42.2% (39.0-53.0) Mean Corpuscular Volume 84fL (79-100) Mean Corpuscular Hemoglobin 27pg (25-35) Mean Corpuscular Hemoglobin Concent 33g/dL (31-37) Red Cell Distribution Width 14.1% (11.5-14.5) Platelet Count 277x10^3/uL (140-400) Neutrophils (%) (Auto) 46% (31-73) Lymphocytes (%) (Auto) 45% (24-48) Monocytes (%) (Auto) 7% (0-9) Eosinophils (%) (Auto) 1% (0-3) Basophils (%) (Auto) 1% (0-3) Neutrophils # (Auto) 6.2x10^3uL (1.8-7.7) Lymphocytes # (Auto) 6.0x10^3/uL (1.0-4.8) Monocytes # (Auto) 0.9x10^3/uL (0.0-1.1) Eosinophils # (Auto) 0.2x10^3/uL (0.0-0.7) Basophils # (Auto) 0.1x10^3/uL (0.0-0.2) Prothrombin Time 12.9SEC (11.7-14.0) Prothromb Time International Ratio 1.0 (0.8-1.1) Activated Partial Thromboplast Time 69SEC (24-38) Heparin Anti-Xa Act, Unfractionated 0.44IU/mL (0.30-0.70) Sodium Level 143mmol/L (136-145) Potassium Level 4.3mmol/L (3.5-5.1) Chloride Level 106mmol/L (98-107) Carbon Dioxide Level 29mmol/L (21-32) Anion Gap 8 (6-14) Blood Urea Nitrogen 22mg/dL (8-26) Creatinine 1.1mg/dL (0.7-1.3) Estimated GFR (Cockcroft-Gault) 71.8 BUN/Creatinine Ratio 20 (6-20) Glucose Level 138mg/dL (70-99) Calcium Level 8.7mg/dL (8.5-10.1) Total Bilirubin 0.3mg/dL (0.2-1.0) Aspartate Amino Transf (AST/SGOT) 22U/L (15-37) Alanine Aminotransferase (ALT/SGPT) 57U/L (16-63) Alkaline Phosphatase 67U/L (46-116) Total Protein 6.5g/dL (6.4-8.2) Albumin 3.3g/dL (3.4-5.0) Albumin/Globulin Ratio 1.0 (1.0-1.7) Glucose (Fingerstick) 146mg/dL (70-99) 150mg/dL (70-99) 101mg/dL (70-99) Test 09/18/16 20:41 09/19/16 04:08 09/19/16 04:47 Glucose (Fingerstick) 146mg/dL (70-99) 133mg/dL (70-99) White Blood Count 10.8x10^3/uL (4.0-11.0) Red Blood Count 5.03x10^6/uL (4.30-5.70) Hemoglobin 13.9g/dL (13.0-17.5) Hematocrit 42.7% (39.0-53.0) Mean Corpuscular Volume 85fL (79-100) Mean Corpuscular Hemoglobin 28pg (25-35) Mean Corpuscular Hemoglobin Concent 33g/dL (31-37) Red Cell Distribution Width 14.4% (11.5-14.5) Platelet Count 288x10^3/uL (140-400) Neutrophils (%) (Auto) 52% (31-73) Lymphocytes (%) (Auto) 36% (24-48) Monocytes (%) (Auto) 10% (0-9) Eosinophils (%) (Auto) 2% (0-3) Basophils (%) (Auto) 1% (0-3) Neutrophils # (Auto) 5.6x10^3uL (1.8-7.7) Lymphocytes # (Auto) 3.9x10^3/uL (1.0-4.8) Monocytes # (Auto) 1.0x10^3/uL (0.0-1.1) Eosinophils # (Auto) 0.2x10^3/uL (0.0-0.7) Basophils # (Auto) 0.1x10^3/uL (0.0-0.2) Prothrombin Time 12.1SEC (11.7-14.0) Prothromb Time International Ratio 1.0 (0.8-1.1) Heparin Anti-Xa Act, Unfractionated < 0.10IU/mL (0.30-0.70) Sodium Level 141mmol/L (136-145) Potassium Level 4.1mmol/L (3.5-5.1) Chloride Level 104mmol/L (98-107) Carbon Dioxide Level 29mmol/L (21-32) Anion Gap 8 (6-14) Blood Urea Nitrogen 19mg/dL (8-26) Creatinine 1.1mg/dL (0.7-1.3) Estimated GFR (Cockcroft-Gault) 71.8 Glucose Level 147mg/dL (70-99) Calcium Level 8.9mg/dL (8.5-10.1) Laboratory Tests Test 09/18/16 11:44 09/18/16 17:15 09/18/16 20:41 09/19/16 04:08 Glucose (Fingerstick) 150mg/dL (70-99) 101mg/dL (70-99) 146mg/dL (70-99) 133mg/dL (70-99) Test 09/19/16 04:47 White Blood Count 10.8x10^3/uL (4.0-11.0) Red Blood Count 5.03x10^6/uL (4.30-5.70) Hemoglobin 13.9g/dL (13.0-17.5) Hematocrit 42.7% (39.0-53.0) Mean Corpuscular Volume 85fL (79-100) Mean Corpuscular Hemoglobin 28pg (25-35) Mean Corpuscular Hemoglobin Concent 33g/dL (31-37) Red Cell Distribution Width 14.4% (11.5-14.5) Platelet Count 288x10^3/uL (140-400) Neutrophils (%) (Auto) 52% (31-73) Lymphocytes (%) (Auto) 36% (24-48) Monocytes (%) (Auto) 10% (0-9) Eosinophils (%) (Auto) 2% (0-3) Basophils (%) (Auto) 1% (0-3) Neutrophils # (Auto) 5.6x10^3uL (1.8-7.7) Lymphocytes # (Auto) 3.9x10^3/uL (1.0-4.8) Monocytes # (Auto) 1.0x10^3/uL (0.0-1.1) Eosinophils # (Auto) 0.2x10^3/uL (0.0-0.7) Basophils # (Auto) 0.1x10^3/uL (0.0-0.2) Prothrombin Time 12.1SEC (11.7-14.0) Prothromb Time International Ratio 1.0 (0.8-1.1) Heparin Anti-Xa Act, Unfractionated < 0.10IU/mL (0.30-0.70) Sodium Level 141mmol/L (136-145) Potassium Level 4.1mmol/L (3.5-5.1) Chloride Level 104mmol/L (98-107) Carbon Dioxide Level 29mmol/L (21-32) Anion Gap 8 (6-14) Blood Urea Nitrogen 19mg/dL (8-26) Creatinine 1.1mg/dL (0.7-1.3) Estimated GFR (Cockcroft-Gault) 71.8 Glucose Level 147mg/dL (70-99) Calcium Level 8.9mg/dL (8.5-10.1) Medications Current Medications Aspirin (Children'S Aspirin) 324 mg 1X ONCE PO Last administered on at 02:36; Start 09/15/16 at 03:00; Stop 09/15/16 at 03:01; Status DC Nitroglycerin (Nitrostat) 0.4 mg PRN Q5MIN PRN SL CP RATING > 1/10 Last administered on 09/15/16at 02:37; Start 09/15/16 at 02:30; Stop 09/15/16 at 05 :18; Status DC Fentanyl Citrate (Fentanyl 2ml Vial) 25 mcg PRN Q15MIN PRN IV PAIN GREATER THAN 3/10; Start 09/15/16 at 02:30; Stop 09/15/16 at 06:00; Status DC Heparin Sodium (Porcine) 4000 unit 4,000 unit 1X ONCE IV Last administered on 09/15/16at 05:14; Start 09/15/16 at 05:00; Stop 09/15/16 at 05:02; Status DC Heparin Sodium/ Dextrose 500 ml @ 0 mls/hr CONT PRN IV SEE I/O RECORD Last administered on 09/18/16at 04:00; Start 09/15/16 at 04:45; Stop 09/18/16 at 11 :33; Status DC Heparin Sodium (Porcine) 2,850 unit PRN Q6HRS PRN IV FOR UFH LEVEL LESS THAN 0.2 Last administered on 09/15/16at 18:22; Start 09/15/16 at 04:45 Ondansetron HCl (Zofran) 4 mg PRN Q8HRS PRN IV NAUSEA/VOMITING; Start at 05:15; Stop 09/16/16 at 05:14; Status DC Fentanyl Citrate (Fentanyl 2ml Vial) 50 mcg PRN Q2HR PRN IV SEVERE PAIN; Start 09/15/16 at 05:15; Stop 09/16/16 at 05:14; Status DC Acetaminophen (Tylenol) 650 mg PRN Q4HRS PRN PO FEVER; Start 09/15/16 at 05:15 ; Stop 09/16/16 at 05:14; Status DC Nitroglycerin (Nitrostat) 0.4 mg PRN Q5MIN PRN SL CHEST PAIN; Start 09/15/16 at 05:15; Stop 09/16/16 at 05:14; Status DC Insulin Aspart (Novolog) 0-5 UNITS TIDWMEALS SQ Last administered on at 17:26; Start 09/15/16 at 08:00; Stop 09/17/16 at 08:23; Status DC Dextrose 12.5 gm PRN Q15MIN PRN IV SEE COMMENTS; Start 09/15/16 at 05:15; Status Cancel Info (Anti-Coagulation Monitoring By Pharmacy) 1 each PRN DAILY PRN MC SEE COMMENTS Last administered on 09/18/16at 10:20; Start 09/15/16 at 07:45 Atorvastatin Calcium (Lipitor) 20 mg QHS PO Last administered on 09/18/16at 20: 38; Start 09/15/16 at 21:00 Glimepiride (Amaryl) 2 mg DAILY PO Last administered on 09/18/16 09:01; Start 09/15/16 at 11:30 Non-Formulary Medication 1 tab DAILY PO ; Start 09/16/16 at 09:00; Status UNV Pantoprazole Sodium (Protonix) 40 mg DAILYAC PO Last administered on 09:01; Start 09/15/16 at 11:30 Acetaminophen (Tylenol) 650 mg PRN Q6HRS PRN PO MILD PAIN / TEMP; Start at 10:30 Ondansetron HCl (Zofran) 4 mg PRN Q6HRS PRN IV NAUSEA/VOMITING Last administered on 09/16/16at 15:49; Start 09/15/16 at 10:30 Morphine Sulfate 2 mg PRN Q2HR PRN IV PAIN Last administered on 09/16/16at 15: 49; Start 09/15/16 at 10:30 Morphine Sulfate 4 mg PRN Q2HR PRN IV PAIN; Start 09/15/16 at 10:30 Losartan Potassium (Cozaar) 100 mg DAILY PO ; Start 09/15/16 at 11:30; Stop at 12:48; Status DC Hydrochlorothiazide (Microzide) 12.5 mg DAILY PO ; Start 09/15/16 at 11:30; Stop 09/15/16 at 12:48; Status DC Aspirin (Ecotrin) 325 mg DAILYWBKFT PO Last administered on 09/18/16at 09:01; Start 09/16/16 at 08:00 Metoprolol Tartrate (Lopressor) 12.5 mg BID PO Last administered on 12/28/16at 09:01; Start 09/15/16 at 21:00; Stop 09/18/16 at 11:41; Status DC Influenza Virus Vaccine Quadrival (Fluarix Quad 8042-3333 Syringe) 0.5 ml ONCE ONCE VAX IM ; Start 09/16/16 at 14:00; Stop 09/16/16 at 14:01; Status DC Pneumococcal Polyvalent Vaccine (Pneumovax 23) 0.5 ml ONCE ONCE VAX IM ; Start 09/16/16 at 14:00; Stop 09/16/16 at 14:01; Status DC Famotidine (Pepcid) 20 mg 1X ONCE IVP Last administered on 09/16/16at 07:24; Start 09/16/16 at 08:00; Stop 09/16/16 at 08:01; Status DC Diphenhydramine HCl (Benadryl) 25 mg 1X ONCE IVP Last administered on at 07:24; Start 09/16/16 at 08:00; Stop 09/16/16 at 08:01; Status DC Methylprednisolone Sodium Succinate (Solu-Medrol 125mg Vial) 125 mg 1X ONCE IV Last administered on 09/16/16at 07:24; Start 09/16/16 at 08:00; Stop at 08:01; Status DC Iohexol 100 ml 100 ml STK-MED ONCE .ROUTE ; Start 09/16/16 at 07:00; Stop at 07:01; Status DC Heparin Sodium/ Sodium Chloride 1,000 ml @ As Directed STK-MED ONCE .ROUTE ; Start 09/16/16 at 07:01; Stop 09/16/16 at 07:02; Status DC Lidocaine HCl 20 ml STK-MED ONCE .ROUTE ; Start 09/16/16 at 07:01; Stop at 07:02; Status DC Verapamil HCl (Verapamil) 5 mg STK-MED ONCE .ROUTE ; Start 09/16/16 at 07:45; Stop 09/16/16 at 07:46; Status DC Midazolam HCl (Versed) 5 mg STK-MED ONCE .ROUTE ; Start 09/16/16 at 07:45; Stop 09/16/16 at 07:46; Status DC Nitroglycerin (Nitroglycerin) 200 mcg STK-MED ONCE .ROUTE ; Start 09/16/16 at 07:45; Stop 09/16/16 at 07:46; Status DC Heparin Sodium (Porcine) 10,000 unit STK-MED ONCE .ROUTE ; Start 09/16/16 at 07 :45; Stop 09/16/16 at 07:46; Status DC Fentanyl Citrate (Fentanyl 5ml Vial) 250 mcg STK-MED ONCE .ROUTE ; Start at 07:46; Stop 09/16/16 at 07:47; Status DC Nitroglycerin (Nitroglycerin) 200 mcg 1X ONCE IART Last administered on at 08:21; Start 09/16/16 at 08:15; Stop 09/16/16 at 08:16; Status DC Verapamil HCl (Verapamil) 2.5 mg 1X ONCE IART Last administered on 09/16/16at 08:22; Start 09/16/16 at 08:15; Stop 09/16/16 at 08:16; Status DC Heparin Sodium (Porcine) 2,500 unit 1X ONCE IART Last administered on at 08:22; Start 09/16/16 at 08:15; Stop 09/16/16 at 08:16; Status DC Heparin Sodium/ Sodium Chloride 1,000 unit 1X ONCE IART Last administered on 09/16/16at 08:20; Start 09/16/16 at 08:15; Stop 09/16/16 at 08:16; Status DC Midazolam HCl (Versed) 2 mg 1X ONCE IV Last administered on 09/16/16at 08:21; Start 09/16/16 at 08:15; Stop 09/16/16 at 08:16; Status DC Fentanyl Citrate (Fentanyl 5ml Vial) 100 mcg 1X ONCE IV Last administered on 09/16/16at 08:22; Start 09/16/16 at 08:15; Stop 09/16/16 at 08:16; Status DC Iohexol (Omnipaque 300 Mg/ml) 131 ml 1X ONCE IART Last administered on at 08:21; Start 09/16/16 at 08:15; Stop 09/16/16 at 08:16; Status DC Lidocaine HCl 2 ml 1X ONCE IJ Last administered on 09/16/16at 08:21; Start at 08:15; Stop 09/16/16 at 08:16; Status DC Info 1 each 1 each PRN DAILY PRN MC SEE COMMENTS; Start 09/16/16 at 08:30; Stop 09/18/16 at 08:29; Status DC Sodium Chloride (Iv Sodium Chloride 0.45%) 1,000 ml @ 60 mls/hr [id number] IV Last administered on 09/16/16at 09:00; Start 09/16/16 at 09:00; Stop 09/17/16 at 12:32; Status DC Insulin Aspart (Novolog) 0-9 UNITS TIDWMEALS SQ ; Start 09/16/16 at 12:00; Status UNV Dextrose 12.5 gm 12.5 gm PRN Q15MIN PRN IV SEE COMMENTS; Start 09/16/16 at 09: 00; Status UNV Nitroglycerin/ Dextrose (Nitroglycerin Drip) 250 ml @ 0 mls/hr CONT PRN IV SEE I/O RECORD Last administered on 09/16/16at 16:18; Start 09/16/16 at 16:00 Al Hydroxide/Mg Hydroxide (Mylanta Plus Xs) 30 ml PRN Q6HRS PRN PO DYSPEPSIA Last administered on 09/16/16at 23:20; Start 09/16/16 at 22:45 Insulin Aspart (Novolog) 0-9 UNITS TIDWMEALS SQ Last administered on at 12:36; Start 09/17/16 at 09:00 Dextrose 12.5 gm 12.5 gm PRN Q15MIN PRN IV SEE COMMENTS; Start 09/17/16 at 08: 30 Cefazolin Sodium/ Dextrose (Ancef 2gm Premix) 50 ml @ 100 mls/hr 1X ONCE IV Last administered on 09/19/16at 08:00; Start 09/19/16 at 06:00; Stop 09/19/16 at 06:29; Status DC Insulin Detemir 10 units 10 units DAILY SQ Last administered on 09/18/16at 09: 08; Start 09/17/16 at 10:30 Heparin Sodium/ Dextrose 500 ml @ 0 mls/hr CONT PRN IV SEE I/O RECORD; Start 09/18/16 at 11:30; Stop 09/18/16 at 23:55; Status DC Metoprolol Tartrate 25 mg 25 mg BID PO Last administered on 09/19/16at 05:59; Start 09/18/16 at 21:00 Cefazolin Sodium 1 gm/Sodium Chloride 500 ml @ 500 mls/hr 1X PERIOP ONCE IRR ; Start 09/19/16 at 06:00; Stop 09/19/16 at 06:59; Status DC Heparin Sodium (Porcine) 79831 unit/Lactated Ringer's 1,020 ml @ 1,020 mls/hr 1X PERIOP ONCE IRR ; Start 09/19/16 at 06:00; Stop 09/19/16 at 06:59; Status DC Potassium Chloride 70 meq/ Sodium Bicarbonate 12.5 meq/Lidocaine HCl 24 ml/ Parenteral Electrolytes 571.5 ml @ 571.5 mls/ hr 1X PERIOP ONCE IRR ; Start 09/19/16 at 06:00; Stop 09/19/16 at 06:59; Status DC Potassium Chloride/Sodium Bicarbonate/ Parenteral Electrolytes (Isolyte S) 520 ml @ 520 mls/hr 1X PERIOP ONCE IRR ; Start 09/19/16 at 06:00; Stop 09/19/16 at 06:59; Status DC Ondansetron HCl (Zofran) 4 mg PRN Q6HRS PRN IV Nausea; Start 09/19/16 at 07:00 ; Stop 09/19/16 at 19:00 Fentanyl Citrate (Fentanyl 2ml Vial) 25 mcg PRN Q5MIN PRN IV MILD PAIN; Start 09/19/16 at 07:00; Stop 09/19/16 at 19:00 Fentanyl Citrate (Fentanyl 2ml Vial) 50 mcg PRN Q5MIN PRN IV MODERATE PAIN; Start 09/19/16 at 07:00; Stop 09/19/16 at 19:00 Morphine Sulfate 1 mg 1 mg PRN Q10MIN PRN IV SEVERE PAIN; Start 09/19/16 at 07 :00; Stop 09/19/16 at 19:00 Lactated Ringer's (Iv Lactated Ringers) 1,000 ml @ 30 mls/hr Q24H IV ; Start 09/19/16 at 07:00; Stop 09/19/16 at 18:59 Lidocaine HCl 2 ml 1X PRN PRN ID IV START; Start 09/19/16 at 07:00; Stop at 19:00 Hydromorphone HCl (Dilaudid) 0.5 mg PRN Q10MIN PRN IV SEVERE PAIN, Second choice; Start 09/19/16 at 07:00; Stop 09/19/16 at 19:00 Prochlorperazine Edisylate (Compazine) 5 mg PACU PRN PRN IV NAUSEA; Start at 07:00; Stop 09/19/16 at 19:00 Zolpidem Tartrate (Ambien) 5 mg PRN QHS PRN PO INSOMNIA; Start 09/18/16 at 17: 00; Stop 09/18/16 at 23:55; Status DC Etomidate (Amidate) 20 mg STK-MED ONCE IV ; Start 09/19/16 at 07:03; Stop at 07:04; Status DC Heparin Sodium (Porcine) 10,000 unit STK-MED ONCE .ROUTE ; Start 09/19/16 at 07 :03; Stop 09/19/16 at 07:04; Status DC Nicardipine HCl (Cardene) 25 mg STK-MED ONCE IV ; Start 09/19/16 at 07:03; Stop 09/19/16 at 07:04; Status DC Phenylephrine HCl (Joseph-Synephrine Inj) 10 mg STK-MED ONCE .ROUTE ; Start at 07:03; Stop 09/19/16 at 07:04; Status DC Rocuronium Mccormick (Zemuron) 50 mg STK-MED ONCE .ROUTE ; Start 09/19/16 at 07: 03; Stop 09/19/16 at 07:04; Status DC Lidocaine HCl 100 mg STK-MED ONCE .ROUTE ; Start 09/19/16 at 07:03; Stop 09/19 at 07:04; Status DC Aminocaproic Acid (Amicar) 5,000 mg STK-MED ONCE IV ; Start 09/19/16 at 07:03; Stop 09/19/16 at 07:04; Status DC Midazolam HCl (Versed) 2 mg STK-MED ONCE .ROUTE ; Start 09/19/16 at 07:03; Stop 09/19/16 at 07:04; Status DC Sufentanil Citrate (Sufenta) 100 mcg STK-MED ONCE .ROUTE ; Start 09/19/16 at 07 :03; Stop 09/19/16 at 07:04; Status DC Succinylcholine Chloride (Anectine) 200 mg STK-MED ONCE .ROUTE ; Start at 07:04; Stop 09/19/16 at 07:05; Status DC Vancomycin HCl (Vanco) 10 gm 1X ONCE CEMENT Last administered on 09/19/16at 08 :45; Start 09/19/16 at 07:15; Stop 09/19/16 at 07:16; Status DC Cellulose 1 each STK-MED ONCE .ROUTE Last administered on 09/19/16at 08:45; Start 09/19/16 at 07:10; Stop 09/19/16 at 07:11; Status DC Papaverine HCl 60 mg STK-MED ONCE .ROUTE Last administered on 09/19/16at 08:45 ; Start 09/19/16 at 07:10; Stop 09/19/16 at 07:11; Status DC Aspirin (Aspirin) 300 mg STK-MED ONCE .ROUTE Last administered on 09/19/16at 09 :44; Start 09/19/16 at 07:10; Stop 09/19/16 at 07:11; Status DC Sodium Chloride (Sodium Chloride) 50 ml STK-MED ONCE IJ Last administered on at 08:45; Start 09/19/16 at 07:10; Stop 09/19/16 at 07:11; Status DC Midazolam HCl (Versed) 2 mg STK-MED ONCE .ROUTE ; Start 09/19/16 at 07:26; Stop 09/19/16 at 07:27; Status DC Isoflurane (Isoflurane) 90 ml STK-MED ONCE IH ; Start 09/19/16 at 08:16; Stop 09/19/16 at 08:17; Status DC Heparin Sodium (Porcine) 10,000 unit STK-MED ONCE .ROUTE ; Start 09/19/16 at 08 :17; Stop 09/19/16 at 08:18; Status DC Aminocaproic Acid (Amicar) 5,000 mg STK-MED ONCE IV ; Start 09/19/16 at 09:16; Stop 09/19/16 at 09:17; Status DC Protamine Sulfate 250 mg STK-MED ONCE IV ; Start 09/19/16 at 10:36; Stop 09/19 at 10:37; Status DC Active Scripts Active Reported Atorvastatin Calcium 10 Mg Tablet 1 Tab PO DAILY Losartan-Hctz 100-12.5 Mg Tab (Losartan/Hydrochlorothiazide) 1 Each Tablet 1 Tab PO DAILY Glimepiride 2 Mg Tablet 1 Tab PO DAILY Metformin Hcl 1,000 Mg Tablet 1 Tab PO BID Omeprazole 20 Mg Capsule. 1 Cap PO BID Vitals/I & O Vital Sign - Last 24 Hours 09/18/16 09/18/16 09/18/16 09/18/16 14:31 19:10 20:00 20:40 Temp 97.9 98.0 97.9 98.0 Pulse 84 85 88 Resp 18 18 B/P 153/82 139/86 139/86 152/95 Pulse Ox 97 98 O2 Delivery Room Air Room Air 09/18/16 09/19/16 09/19/16 09/19/16 23:21 04:15 05:59 07:57 Temp 98.2 97.9 97.4 98.2 97.9 97.4 Pulse 73 74 74 Resp 16 15 B/P 156/77 161/91 149/86 149/86 152/94 Pulse Ox 96 97 97 O2 Delivery Room Air Room Air Room Air Intake and Output 09/18/16 09/18/16 09/19/16 14:59 22:59 06:59 Intake Total 120 ml 1200 ml 468 ml Output Total 700 ml 350 ml 850 ml Balance -580 ml 850 ml -382 ml HO DELA CRUZ MD Sep 19, 2016 10:40
[2016-09-19] MEDS ORDERED: INSULIN REGULAR VIAL 150 UNIT in 0.9 % SODIUM CHLORIDE 150ML 150 ML IV PRN ×2 (11:45→15:00)
[2016-09-19] MEDS ORDERED: CEFAZOLIN PREMIX 2 GM/50 ML BAG. IV ONE (12:00)
[2016-09-19] MEDS ORDERED: CLEVIDIPINE BUTYRATE 100 ML IV PRN ×2 (13:30→15:00)
[2016-09-19] MEDS ORDERED: SODIUM BICARB ADULT 8.4% 50 MEQ/50 ML DISP.SYRIN. ONE (13:54)
[2016-09-19] MEDS ORDERED: ALBUMIN HUMAN 25% 100 ML IV ONE (13:54)
[2016-09-19] MEDS ORDERED: HEPARIN 30,000 UNIT/30 ML VIAL. ONE (13:54)
[2016-09-19] MEDS ORDERED: CALCIUM CHLORIDE 1,000 MG/10 ML DISP.SYRIN IV ONE (13:54)
[2016-09-19] MEDS ORDERED: MAGNESIUM SULFATE 5 GM/10 ML VIAL. ONE (13:54)
[2016-09-19] MEDS ORDERED: MANNITOL 25% 12.5 G/50 ML VIAL FOR OR. ONE (13:54)
[2016-09-19 14:20] LABS: HEMATOCRIT 32.7 % (39.0-53.0); HEMOGLOBIN 10.7 g/dL (13.0-17.5)
[2016-09-19 14:24] LABS: WHITE BLOOD COUNT 16.3 x10^3/uL (4.0-11.0)
[2016-09-19 14:26] LABS: INR 1.4 (0.8-1.1)
[2016-09-19 14:28] LABS: PROTHROMBIN TIME PATIENT 16.4 SEC (11.7-14.0)
[2016-09-19 14:50] LABS: ART BE ISTAT 0 mmol/L (0-3); ART GLUC ISTAT 208 mg/dL (70-99); ART HCO3 ISTAT 25 mmol/L (21-28); ART HCT ISTAT 31 % (37-52); ART HGB ISTAT 10.5 g/dL (14-18); ART ION CA ISTAT 1.06 mmol/L (1.13-1.32); ART K ISTAT 4.4 mmol/L (3.5-5.0); ART NA ISTAT 141 mmol/L (135-145); ART PCO2 ISTAT 43 mmHg (35-45); ART PH ISTAT 7.37 (7.35-7.45); ART PO2 ISTAT 202 mmHg (75-100); ART SAT O2 SAT 100 % (95-99); ART TCO2 ISTAT 26 mmol/L (21-32); TOSPEC ART
[2016-09-19 14:50] LABS: ART BE ISTAT -2 mmol/L (0-3); ART GLUC ISTAT 200 mg/dL (70-99); ART HCO3 ISTAT 24 mmol/L (21-28); ART HCT ISTAT 31 % (37-52); ART HGB ISTAT 10.5 g/dL (14-18); ART ION CA ISTAT 1.06 mmol/L (1.13-1.32); ART K ISTAT 4.3 mmol/L (3.5-5.0); ART NA ISTAT 141 mmol/L (135-145); ART PCO2 ISTAT 42 mmHg (35-45); ART PH ISTAT 7.36 (7.35-7.45); ART PO2 ISTAT 206 mmHg (75-100); ART SAT O2 SAT 100 % (95-99); ART TCO2 ISTAT 25 mmol/L (21-32); TOSPEC ART
[2016-09-19 14:50] LABS: ART BE ISTAT 1 mmol/L (0-3); ART GLUC ISTAT 176 mg/dL (70-99); ART HCO3 ISTAT 26 mmol/L (21-28); ART HCT ISTAT 28 % (37-52); ART HGB ISTAT 9.5 g/dL (14-18); ART ION CA ISTAT 1.36 mmol/L (1.13-1.32); ART K ISTAT 4.2 mmol/L (3.5-5.0); ART NA ISTAT 140 mmol/L (135-145); ART PCO2 ISTAT 42 mmHg (35-45); ART PH ISTAT 7.39 (7.35-7.45); ART PO2 ISTAT 229 mmHg (75-100); ART SAT O2 SAT 100 % (95-99); ART TCO2 ISTAT 27 mmol/L (21-32); TOSPEC ART
[2016-09-19 14:50] LABS: ART BE ISTAT 1 mmol/L (0-3); ART GLUC ISTAT 166 mg/dL (70-99); ART HCO3 ISTAT 26 mmol/L (21-28); ART HCT ISTAT 28 % (37-52); ART HGB ISTAT 9.5 g/dL (14-18); ART ION CA ISTAT 1.61 mmol/L (1.13-1.32); ART K ISTAT 4.1 mmol/L (3.5-5.0); ART NA ISTAT 141 mmol/L (135-145); ART PCO2 ISTAT 45 mmHg (35-45); ART PH ISTAT 7.37 (7.35-7.45); ART PO2 ISTAT 213 mmHg (75-100); ART SAT O2 SAT 100 % (95-99); ART TCO2 ISTAT 27 mmol/L (21-32); TOSPEC ART
[2016-09-19 14:50] LABS: ART BE ISTAT -2 mmol/L (0-3); ART GLUC ISTAT 151 mg/dL (70-99); ART HCO3 ISTAT 24 mmol/L (21-28); ART HCT ISTAT 29 % (37-52); ART HGB ISTAT 9.9 g/dL (14-18); ART ION CA ISTAT 1.48 mmol/L (1.13-1.32); ART K ISTAT 3.7 mmol/L (3.5-5.0); ART NA ISTAT 142 mmol/L (135-145); ART PCO2 ISTAT 44 mmHg (35-45); ART PH ISTAT 7.34 (7.35-7.45); ART PO2 ISTAT 55 mmHg (75-100); ART SAT O2 SAT 86 % (95-99); ART TCO2 ISTAT 25 mmol/L (21-32); TOSPEC ART
[2016-09-19 14:50] LABS: ART BE ISTAT -3 mmol/L (0-3); ART GLUC ISTAT 194 mg/dL (70-99); ART HCO3 ISTAT 24 mmol/L (21-28); ART HCT ISTAT 31 % (37-52); ART HGB ISTAT 10.5 g/dL (14-18); ART ION CA ISTAT 1.05 mmol/L (1.13-1.32); ART K ISTAT 5.8 mmol/L (3.5-5.0); ART NA ISTAT 138 mmol/L (135-145); ART PCO2 ISTAT 46 mmHg (35-45); ART PH ISTAT 7.32 (7.35-7.45); ART PO2 ISTAT 156 mmHg (75-100); ART SAT O2 SAT 99 % (95-99); ART TCO2 ISTAT 25 mmol/L (21-32); TOSPEC ART
[2016-09-19 14:50] LABS: FIO2 ISTAT 100; TOSPEC VEN; VEN BASE EXCESS ISTAT -1 mmol/L (0-3); VEN GLUC ISTAT 176 mg/dL (70-99); VEN HCO3 ISTAT 25 mmol/L (24-28); VEN HCT ISTAT 36 % (37-52); VEN HGB ISTAT 12.2 g/dL (14-18); VEN ION CA ISTAT 1.12 mmol/L (1.13-1.32); VEN K ISTAT 4.8 mmol/L (3.5-5.0); VEN NA ISTAT 140 mmol/L (135-145); VEN O2 ISTAT 36 mmHg (20-40); VEN PCO2 ISTAT 49 mmHg (41-51); VEN PH ISTAT 7.32 (7.32-7.42); VEN SO2 ISTAT 63 %; VEN TCO2 ISTAT 26 mmol/L (21-32)
[2016-09-19 14:50] LABS: ART BE ISTAT 2 mmol/L (0-3); ART GLUC ISTAT 166 mg/dL (70-99); ART HCO3 ISTAT 27 mmol/L (21-28); ART HCT ISTAT 38 % (37-52); ART HGB ISTAT 12.9 g/dL (14-18); ART ION CA ISTAT 1.19 mmol/L (1.13-1.32); ART K ISTAT 4.5 mmol/L (3.5-5.0); ART NA ISTAT 140 mmol/L (135-145); ART PCO2 ISTAT 43 mmHg (35-45); ART PO2 ISTAT 197 mmHg (75-100); ART SAT O2 SAT 100 % (95-99); ART TCO2 ISTAT 28 mmol/L (21-32); TOSPEC ART
[2016-09-19] MEDS ORDERED: ACETAMINOPHEN 650 MG SUPP.RECT. PR PRN (15:00)
[2016-09-19] MEDS ORDERED: KCL PER PROTOCOL MC PRN (15:00)
[2016-09-19] MEDS ORDERED: MAGNESIUM SULFATE 1GM 100 ML IV PRN (15:00)
[2016-09-19] MEDS ORDERED: AMIODARONE 150 MG in IV DEXTROSE 5% 100 ML IV ONE ×4 (15:00)
[2016-09-19] MEDS ORDERED: ACETAMINOPHEN 325 MG TABLET. PO PRN (15:00)
[2016-09-19] MEDS ORDERED: METOCLOPRAMIDE HCL 10 MG/2 ML VIAL. IV PRN (15:00)
[2016-09-19] MEDS ORDERED: DEXTROSE 50% 25 GM / 50ML DISP.SYRIN. IV PRN (15:00)
[2016-09-19] MEDS ORDERED: 0.9 % SODIUM CHLORIDE 10 ML DISP.SYRIN. IV PRN (15:00)
[2016-09-19] MEDS ORDERED: PROPOFOL 100 ML IV PRN (15:00)
[2016-09-19] MEDS ORDERED: ELECTROLYTE (ICU) PROTOCOL. MC PRN (15:00)
[2016-09-19] MEDS ORDERED: OXYCODONE/APAP 5/325 TABLET. PO PRN (15:00)
[2016-09-19] MEDS ORDERED: MEPERIDINE PF 25 MG/ML VIAL. IV PRN (15:00)
[2016-09-19] MEDS ORDERED: AMIODARONE 900 MG in IV DEXTROSE 5% 500 ML IV PRN ×4 (15:00)
[2016-09-19] MEDS ORDERED: EPINEPHRINE VIAL 4 MG in IV NORMAL SALINE 250ML 250 ML IV PRN (15:00)
--- NOTE | 2016-09-19 15:12 | PDOC ---
BRIEF OPERATIVE NOTE Date: Sep 19, 2016 Pre-Op Diagnosis NSTEMI Coronary artery disease Diabetes type 2 Hypertension Hyperlipidemia Morbid obesity Post-Op Diagnosis NSTEMI Coronary artery disease Diabetes type 2 Hypertension Hyperlipidemia Morbid obesity Procedure Performed CABG 3 (CHUA to LAD, SVG to RPDA, SVG to OM 2) Endoscopic left greater saphenous vein harvesting Surgeon Nohemi Roach MD Gleason Operator HUANG Muniz Anesthesia Type: General Blood Loss Cellsaver IV Fluid 3000 mls Cellsaver: 795 mls Urine Output 1000 mls Specimens Obtained None Findings Moderate size 1.5 mm LAD target, small 1-1.5 mm OM 2 target, good 2 mm RPDA target The OM 2 and had significant backbleeding, consistent with moderate disease which was my preoperative assessment rather than 80% proximal OM 2. The first diagonal was not grafted, as this disease was only mild approximately 50%. The right posterolateral branch was small and very calcified and was not grafted. Complications None Additional Remarks Cardiopulmonary bypass time: 129 min x clamp time: 64 min NOHEMI ROACH MD Sep 19, 2016 15:12
--- NOTE | 2016-09-19 15:14 | PDOC4 ---
Operative Note Operative Note Date: Sep 19, 2016 Preoperative diagnosis NSTEMI Coronary artery disease Diabetes type 2 Hypertension Hyperlipidemia Morbid obesity Postoperative Diagnosis NSTEMI Coronary artery disease Diabetes type 2 Hypertension Hyperlipidemia Morbid obesity Procedure Coronary artery bypass grafting 3 (left internal mammary arteries to left anterior descending artery, saphenous vein graft to right posterior descending artery, saphenous vein graft to obtuse marginal 2 artery) Endoscopic left greater saphenous vein harvesting Surgeon Nohemi Wilson MD Med Aide HUANG Muniz Anesthesia Type: General Blood Loss Cellsaver IV Fluid 3000 mls Cellsaver: 795 mls Urine Output 1000 mls Specimens Obtained None Findings Moderate size 1.5 mm LAD target, small 1-1.5 mm OM 2 target, good 2 mm RPDA target The OM 2 and had significant backbleeding, consistent with moderate disease which was my preoperative assessment rather than 80% proximal OM 2. The first diagonal was not grafted, as this disease was only mild approximately 50%. The right posterolateral branch was small and very calcified and was not grafted. Complications None Additional Remarks Cardiopulmonary bypass time: 129 min x clamp time: 64 min Indication 46-year-old male without any previous cardiac history presented with sudden onset retrosternal chest pain that he described as burning and pressure-like sensation radiating to both arms, 7/10 severity. He stated that he had similar but milder pain a few times over the last few weeks. He is not sure about the exertional component to his pain. He did have mild shortness of breath during his recent episode. He denied any orthopnea/PND, palpitations or syncope. Upon admission he had a small troponin leak. This prompted a coronary angiogram, which demonstrated a proximal 90% LAD stenosis, a 50% stenosis of a irst diagonal, a 70% lesion stenosis of a modest sized obtuse marginal, a 90% mid RCA lesion with an additional ostial PDA lesion. The LV gram was normal. His echo showed normal LV function with no valvular disease. CABG was indicated. The risks, benefits and limitations of procedure explained to the patient who agreed to proceed. Informed consent was obtained. Operation After appropriate identification the patient was brought to the operating room and placed supine on the operating table. Anesthesia was induced and the airway was secured with an endotracheal tube. Monitoring lines were placed with a significant difficulty. It was difficult to insert the [place]-Kate catheter was likely from the patient's previous central venous cannulation when he sustained extensive full-thickness pate. Placing an arterial line was even more challenging. We eventually managed to place an arterial line in the right radial artery, but this failed as prior to commencing cardiopulmonary bypass. As result attempts were made to insert a an arterial line in the femoral artery. I managed to cannulate the femoral artery and then advanced the wire but was not able to advance the arterial line over the guidewire. The catheter appeared to get caught in the thick groin tissue. After attempting for list and now to place an arterial line A then did a femoral cutdown with a small 2 cm transverse groin incision. The patient is a morbid obesity and the groin layers were extremely thick. I was unable to clearly palpate the artery which I think went to spasm. After long attempts anesthesia did manage to place a functioning arterial line in the left radial artery. Antibiotics were delivered and the patient was preped in the usual standard sterile surgical fashion. A timeout was then performed. A median sternotomy was performed and the internal mammary artery was harvested. Simultaneously the left greater saphenous vein was harvested endoscopically. Both conduits were of moderate caliber. The pericardium was incised. The patient was heparinized. Cardiopulmonary bypass was established through the ascending aorta and the right atrium. The patient was cooled to 32 . Myocardial protection was achieved with antegrade blood cardioplegia. The cross-clamp was applied and diastolic arrest was achieved. Intermittent dosages of cardioplegia were given. The OM 2 and had significant backbleeding, consistent with moderate disease which was my preoperative assessment rather than 80% proximal OM 2. The first diagonal was not grafted, as this disease was only mild approximately 50%. The right posterolateral branch was small and very calcified and was not grafted. Grafts: Saphenous vein graft to right posterior descending coronary artery, end to side anastomosis with 7-0 Prolene. 2 mm vessel. Saphenous vein graft to obtuse marginal 2 coronary artery, end to side anastomosis with 7-0 Prolene. small 1-1.5 mm vessel Left internal mammary artery to left anterior descending cparonary artery, end to side anastomosis with 7-0 Prolene. 1.5 mm vessel. The cross-clamp was removed. The heart was allowed to rewarm and reperfuse. A side biting clamp was then applied to the ascending aorta. Two proximal were performed using a 6-0 Prolene running suture. The grafts were de-aired. I brought the marginal graft anterior to the pulmonary artery and posterior to the CHUA. The RPDA graft traveled anterior to the right ventricle. Ventricular pacing wire was placed. The patient recovered sinus rhythm. He was from cardiopulmonary bypass without inotropic support. Heparin was reversed with protamine. An angled 32 [place] chest tube was placed in the left pleural space, a 32Fr angled in the posterior pericardium and a 32 straight in the anterior pericardium. Hemostasis was achieved and confirmed. The sternotomy was closed with #7 steel wires. The incision was closed with a layer of 0 Vicryl followed by 2-0 Vicryl and then 4-0 Monocryl for the epidermis. The groin incision was closed with 2 layers of 2-0 Vicryl, and 4-0 Monocryl for the epidermis. Sterile dressings were applied. The instrument, sponge and needle counts were correct. The patient was then transferred to the ICU in critical condition. NOHEMI WILSON MD Sep 19, 2016 15:14
[2016-09-19] MEDS: IV RINGERS,LACTATED 1000ML 1,000 ML IV SCH (15:30)
--- NOTE | 2016-09-19 15:44 | RAD ---
Indication post open heart. A single view of the chest was obtained and is compared to an examination 2 days previously. The patient is now postoperative. There is some minimal volume loss in the upper lobes likely reflecting atelectasis. Mediastinal and chest tubes are noted. [place]-Kate catheter has its tip in the pulmonary outflow tract. Endotracheal tube is appropriately positioned above the soheila. IMPRESSION: Postoperative chest. Minimal volume loss in the upper lobes likely reflecting atelectasis.. Various tubes and catheter appear appropriately positioned
[2016-09-19 15:57] LABS: BASE EXCESS COOX -1 mmol/L (-3-3); CARBON MONOXIDE 0.3 % (0.0-1.9); HCO3 COOX 25 mmol/L (21-28); METHEMOGLOBIN 0.3 % (0.0-1.9); OXYHEMOGLOBIN 95.9 %; PCO2 COOX 49 mmHg (35-46); PH COOX 7.33 (7.35-7.45); PO2 COOX 97 mmHg (75-108); SAT O2 COOX 97 % (92-99); TOTAL HEMOGLOBIN 12.7 g/dL
[2016-09-19 15:58] LABS: FIO2 COOX 100
[2016-09-19] MEDS ORDERED: NOREPINEPHRINE PREMIX 8 MG/250 ML BAG. IV ONE (16:00)
[2016-09-19] MEDS: MORPHINE SULFATE 2 MG/ML DISP.SYRIN. IV PRN ×2 (16:00→17:27)
[2016-09-19 16:01] LABS: HEMOGLOBIN 11.8 g/dL (13.0-17.5); RED BLOOD COUNT 4.27 x10^6/uL (4.30-5.70); RED CELL DISTRIBUTION WIDTH 14.3 % (11.5-14.5); WHITE BLOOD COUNT 17.6 x10^3/uL (4.0-11.0)
[2016-09-19 16:10] LABS: CALCIUM 9.1 mg/dL (8.5-10.1); CREATININE 1.2 mg/dL (0.7-1.3); GFR 64.9
[2016-09-19 16:11] LABS: INR 1.3 (0.8-1.1); MAGNESIUM 2.2 mg/dL (1.8-2.4); PROTHROMBIN TIME PATIENT 15.4 SEC (11.7-14.0)
[2016-09-19] MEDS: ALBUMIN HUMAN 5% 250 ML IV PRN ×4 (16:12→20:34)
[2016-09-19] MEDS ORDERED: NOREPINEPHRIN PREMIX 250 ML IV ONE (16:19)
--- NOTE | 2016-09-19 16:20 | EKG ---
[facility] [address] [place] [address] Test Date: 2016-09-19 Test Time: 16:19:26 Pat Name: LIOR TONG Department: Room: 103 1 Gender: M Rn Placement: FLORA : 1970 Requested By: SATNAM BRADFORD Order Number: [id number] Reading MD: Measurements Intervals Wilson Rate: 91 P: 56 ME: 196 QRS: -11 QRSD: 88 T: -13 QT: 348 QTc: 430 Interpretive Statements SINUS RHYTHM LEFTWARD AXIS INCOMPLETE RIGHT BUNDLE BRANCH BLOCK T ABNORMALITY IN INFERIOR LEADS ABNORMAL ECG RI6.01 Compared to ECG 04/21/2016 16:26:57 Left-axis deviation now present Incomplete right bundle-branch block now present T-wave abnormality now present ST (T wave) deviation no longer present
[2016-09-19] MEDS ORDERED: NOREPINEPHRIN PREMIX 250 ML IV PRN (16:30)
[2016-09-19] MEDS ORDERED: POTASSIUM CHLORIDE 20MEQ 50 ML IV ONE (16:45)
[2016-09-19 16:53] LABS: HCO3 ABG 23 mmol/L (21-28); PCO2 ABG 47 mmHg (35-46); PH ABG 7.31 (7.35-7.45); PO2 ABG 63 mmHg (75-108); SAT O2 ABG 89 % (92-99)
[2016-09-19 17:01] LABS: FIO2 ABG 40
[2016-09-19] MEDS ORDERED: KETOROLAC TROMETHAMINE 30 MG/ML SYRINGE. IV ONE ×2 (17:15→22:45)
[2016-09-19] MEDS: MORPHINE SULFATE 4 MG/ML DISP.SYRIN. IV PRN ×2 (18:05→19:43)
[2016-09-19 19:58] LABS: HEMATOCRIT 33.3 % (39.0-53.0); HEMOGLOBIN 10.8 g/dL (13.0-17.5)
[2016-09-19] MEDS: ALBUTEROL SULFATE 2.5 MG/3 ML NEBU. NEB PRN ×2 (20:33→23:53)
[2016-09-19] MEDS: CEFAZOLIN 2GM PREMIX 50 ML IV SCH (20:35)
[2016-09-19] MEDS: ONDANSETRON PF 4 MG/2 ML VIAL. IV PRN ×2 (20:40→21:01)
[2016-09-19] MEDS: SENNOSIDES/DOCUSATE 8.6/50MG TABLET. PO SCH (21:00)
[2016-09-19] MEDS: ATORVASTATIN CALCIUM 20 MG TABLET PO SCH (21:00)
[2016-09-19] MEDS: OXYCODONE/APAP 5/325 TABLET. PO PRN (21:07)
[2016-09-19] MEDS ORDERED: FUROSEMIDE 40 MG/4 ML VIAL IVP PRN (22:15)
[2016-09-20] VITALS (16 sets, daily range): BP systolic 93–139; BP diastolic 58–88
[2016-09-20] MEDS: MORPHINE SULFATE 2 MG/ML DISP.SYRIN. IV PRN ×2 (00:05→12:02)
[2016-09-20] MEDS: OXYCODONE/APAP 5/325 TABLET. PO PRN ×5 (03:19→21:00)
[2016-09-20] MEDS: CEFAZOLIN 2GM PREMIX 50 ML IV SCH ×3 (03:30→20:59)
--- NOTE | 2016-09-20 03:44 | EKG ---
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
[2016-09-20] MEDS ORDERED: KETOROLAC TROMETHAMINE 30 MG/ML SYRINGE. IV ONE (06:00)
[2016-09-20 06:13] LABS: CALCIUM 8.5 mg/dL (8.5-10.1); CREATININE 1.3 mg/dL (0.7-1.3); GFR 59.2; MAGNESIUM 2.3 mg/dL (1.8-2.4); POTASSIUM 5.2 mmol/L (3.5-5.1)
[2016-09-20 07:14] LABS: INR 1.2 (0.8-1.1); PROTHROMBIN TIME PATIENT 14.1 SEC (11.7-14.0)
[2016-09-20] MEDS: ASPIRIN ENTERIC COATED 325 MG TABLET.DR. PO SCH (07:51)
[2016-09-20 07:52] LABS: HEMATOCRIT 33.4 % (39.0-53.0); HEMOGLOBIN 10.7 g/dL (13.0-17.5); RED BLOOD COUNT 3.9 x10^6/uL (4.30-5.70); RED CELL DISTRIBUTION WIDTH 14.3 % (11.5-14.5); WHITE BLOOD COUNT 14.3 x10^3/uL (4.0-11.0)
[2016-09-20] MEDS: INSULIN ASPART 300 UNITS/3 ML INSULN.PEN SQ SCH ×3 (08:00→17:00)
--- NOTE | 2016-09-20 08:46 | PDOC ---
PROGRESS NOTES Chief Complaint Chief Complaint 1. 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 hld 3. dm2 with hgba1c 8 4. Htn 5. OBEsity 6. tobaccoism 7. SIRS wo infection History of Present Illness History of Present Illness Seen in ICU POD # 1 CABG Insulin gtt running chest tubes, orosco in h adq UO LAbs reviewed, ok PLAN: CPM Add PT/OT MOnitor reactive leukocytosis Monitor anemia LAbs renetta AM Vitals Vitals Vital Signs Date Time Temp Pulse Resp B/P Pulse Ox O2 Delivery O2 Flow Rate FiO2 09/20/16 08:00 Nasal Cannula 5.0 09/20/16 07:51 17 98 09/20/16 07:00 86 107/71 09/20/16 04:00 98.0 98.0 Physical Exam General: Alert, Oriented X3, No acute distress Heart: Regular rate, Normal S1, Normal S2, No murmurs, Gallops Abdomen: Soft, No tenderness, No masses Extremities: Normal pulses Skin: No significant lesion Labs LABS Laboratory Tests Test 09/19/16 09:30 09/19/16 09:50 09/19/16 10:15 09/19/16 10:52 Bedside Hemoglobin (Calculated) 12.9g/dL (14-18) Bedside Hematocrit 38% (37-52) 36% (37-52) Bedside Arterial pH 7.40 (7.35-7.45) Bedside Arterial pCO2 43mmHg (35-45) Bedside Arterial pO2 197mmHg (75-100) Bedside Arterial HCO3 27mmol/L (21-28) Bedside Arterial Total CO2 28mmol/L (21-32) Arterial Bld O2 Saturation (Measur) 100% (95-99) Bedside Arterial Blood Base Excess 2mmol/L (0-3) Bedside FiO2 100.0 100 Bedside Sodium 140mmol/L (135-145) 140mmol/L (135-145) Bedside Potassium 4.5mmol/L (3.5-5.0) 4.8mmol/L (3.5-5.0) Glucose Level 166mg/dL (70-99) 176mg/dL (70-99) Bedside Ionized Calcium (Yakov) 1.19mmol/L (1.13-1.32) 1.12mmol/L (1.13-1.32) Activated Clotting Time 418SEC (90-125) 452SEC (90-125) Bedside Venous pH 7.32 (7.32-7.42) Bedside Venous pCO2 49mmHg (41-51) Bedside Venous pO2 36mmHg (20-40) Bedside Venous HCO3 25mmol/L (24-28) Bedside Venous Blood Total CO2 26mmol/L (21-32) Bedside Venous Blood O2 Saturation 63% Bedside Venous Blood Base Excess -1mmol/L (0-3) POC Venous Hemoglobin (Calc) 12.2g/dL (14-18) Test 09/19/16 11:35 09/19/16 12:00 09/19/16 12:30 09/19/16 12:37 Activated Clotting Time 453SEC (90-125) 425SEC (90-125) 429SEC (90-125) Bedside Hemoglobin (Calculated) 10.5g/dL (14-18) Bedside Hematocrit 31% (37-52) Bedside Arterial pH 7.32 (7.35-7.45) Bedside Arterial pCO2 46mmHg (35-45) Bedside Arterial pO2 156mmHg (75-100) Bedside Arterial HCO3 24mmol/L (21-28) Bedside Arterial Total CO2 25mmol/L (21-32) Arterial Bld O2 Saturation (Measur) 99% (95-99) Bedside Arterial Blood Base Excess -3mmol/L (0-3) Bedside FiO2 70.0 Bedside Sodium 138mmol/L (135-145) Bedside Potassium 5.8mmol/L (3.5-5.0) Glucose Level 194mg/dL (70-99) Bedside Ionized Calcium (Yakov) 1.05mmol/L (1.13-1.32) Test 09/19/16 13:00 09/19/16 13:03 09/19/16 13:29 09/19/16 13:30 Activated Clotting Time 404SEC (90-125) 410SEC (90-125) Bedside Hemoglobin (Calculated) 10.5g/dL (14-18) 10.5g/dL (14-18) Bedside Hematocrit 31% (37-52) 31% (37-52) Bedside Arterial pH 7.37 (7.35-7.45) 7.36 (7.35-7.45) Bedside Arterial pCO2 43mmHg (35-45) 42mmHg (35-45) Bedside Arterial pO2 202mmHg (75-100) 206mmHg (75-100) Bedside Arterial HCO3 25mmol/L (21-28) 24mmol/L (21-28) Bedside Arterial Total CO2 26mmol/L (21-32) 25mmol/L (21-32) Arterial Bld O2 Saturation (Measur) 100% (95-99) 100% (95-99) Bedside Arterial Blood Base Excess 0mmol/L (0-3) -2mmol/L (0-3) Bedside FiO2 70.0 80.0 Bedside Sodium 141mmol/L (135-145) 141mmol/L (135-145) Bedside Potassium 4.4mmol/L (3.5-5.0) 4.3mmol/L (3.5-5.0) Glucose Level 208mg/dL (70-99) 200mg/dL (70-99) Bedside Ionized Calcium (Yakov) 1.06mmol/L (1.13-1.32) 1.06mmol/L (1.13-1.32) Test 09/19/16 13:47 09/19/16 14:05 09/19/16 14:07 09/19/16 14:31 Activated Clotting Time 126SEC (90-125) White Blood Count 16.3x10^3/uL (4.0-11.0) Hemoglobin 10.7g/dL (13.0-17.5) Hematocrit 32.7% (39.0-53.0) Platelet Count 174x10^3/uL (140-400) Prothrombin Time 16.4SEC (11.7-14.0) Prothromb Time International Ratio 1.4 (0.8-1.1) Activated Partial Thromboplast Time 29SEC (24-38) Fibrinogen 252mg/dL (200-440) Bedside Hemoglobin (Calculated) 9.5g/dL (14-18) 9.5g/dL (14-18) Bedside Hematocrit 28% (37-52) 28% (37-52) Bedside Arterial pH 7.39 (7.35-7.45) 7.37 (7.35-7.45) Bedside Arterial pCO2 42mmHg (35-45) 45mmHg (35-45) Bedside Arterial pO2 229mmHg (75-100) 213mmHg (75-100) Bedside Arterial HCO3 26mmol/L (21-28) 26mmol/L (21-28) Bedside Arterial Total CO2 27mmol/L (21-32) 27mmol/L (21-32) Arterial Bld O2 Saturation (Measur) 100% (95-99) 100% (95-99) Bedside Arterial Blood Base Excess 1mmol/L (0-3) 1mmol/L (0-3) Bedside FiO2 85.0 85.0 Bedside Sodium 140mmol/L (135-145) 141mmol/L (135-145) Bedside Potassium 4.2mmol/L (3.5-5.0) 4.1mmol/L (3.5-5.0) Glucose Level 176mg/dL (70-99) 166mg/dL (70-99) Bedside Ionized Calcium (Yakov) 1.36mmol/L (1.13-1.32) 1.61mmol/L (1.13-1.32) Test 09/19/16 14:46 09/19/16 14:48 09/19/16 15:38 09/19/16 15:50 O2 Saturation 97% (92-99) Arterial Blood pH 7.33 (7.35-7.45) Arterial Blood pCO2 at Patient Temp 49mmHg (35-46) Arterial Blood pO2 at Patient Temp 97mmHg (75-108) Arterial Blood HCO3 25mmol/L (21-28) Arterial Blood Base Excess -1mmol/L (-3-3) Oxyhemoglobin 95.9% Methemoglobin 0.3% (0.0-1.9) Carbon Monoxide, Quantitative 0.3% (0.0-1.9) FiO2 100 Bedside Hemoglobin (Calculated) 9.9g/dL (14-18) Bedside Hematocrit 29% (37-52) Bedside Arterial pH 7.34 (7.35-7.45) Bedside Arterial pCO2 44mmHg (35-45) Bedside Arterial pO2 55mmHg (75-100) Bedside Arterial HCO3 24mmol/L (21-28) Bedside Arterial Total CO2 25mmol/L (21-32) Arterial Bld O2 Saturation (Measur) 86% (95-99) Bedside Arterial Blood Base Excess -2mmol/L (0-3) Bedside FiO2 100.0 Bedside Sodium 142mmol/L (135-145) Bedside Potassium 3.7mmol/L (3.5-5.0) Glucose Level 151mg/dL (70-99) 123mg/dL (70-99) Bedside Ionized Calcium (Yakov) 1.48mmol/L (1.13-1.32) Glucose (Fingerstick) 103mg/dL (70-99) White Blood Count 17.6x10^3/uL (4.0-11.0) Red Blood Count 4.27x10^6/uL (4.30-5.70) Hemoglobin 11.8g/dL (13.0-17.5) Hematocrit 36.0% (39.0-53.0) Mean Corpuscular Volume 84fL (79-100) Mean Corpuscular Hemoglobin 28pg (25-35) Mean Corpuscular Hemoglobin Concent 33g/dL (31-37) Red Cell Distribution Width 14.3% (11.5-14.5) Platelet Count 206x10^3/uL (140-400) Prothrombin Time 15.4SEC (11.7-14.0) Prothromb Time International Ratio 1.3 (0.8-1.1) Activated Partial Thromboplast Time 31SEC (24-38) Sodium Level 144mmol/L (136-145) Potassium Level 4.0mmol/L (3.5-5.1) Chloride Level 109mmol/L (98-107) Carbon Dioxide Level 27mmol/L (21-32) Anion Gap 8 (6-14) Blood Urea Nitrogen 21mg/dL (8-26) Creatinine 1.2mg/dL (0.7-1.3) Estimated GFR (Cockcroft-Gault) 64.9 Calcium Level 9.1mg/dL (8.5-10.1) Ionized Calcium 1.37mmol/L (1.13-1.32) Magnesium Level 2.2mg/dL (1.8-2.4) Test 09/19/16 16:46 09/19/16 16:50 09/19/16 17:39 09/19/16 19:07 Glucose (Fingerstick) 131mg/dL (70-99) 153mg/dL (70-99) 149mg/dL (70-99) O2 Saturation 89% (92-99) Arterial Blood pH 7.31 (7.35-7.45) Arterial Blood pCO2 at Patient Temp 47mmHg (35-46) Arterial Blood pO2 at Patient Temp 63mmHg (75-108) Arterial Blood HCO3 23mmol/L (21-28) Arterial Blood Base Excess -3mmol/L (-3-3) FiO2 40 Test 09/19/16 19:50 09/19/16 20:21 09/19/16 21:26 09/19/16 23:24 Hemoglobin 10.8g/dL (13.0-17.5) Hematocrit 33.3% (39.0-53.0) Mean Corpuscular Hemoglobin Concent 32g/dL (31-37) Potassium Level 5.3mmol/L (3.5-5.1) Glucose (Fingerstick) 150mg/dL (70-99) 159mg/dL (70-99) 162mg/dL (70-99) Test 09/20/16 01:27 09/20/16 02:34 09/20/16 03:27 09/20/16 04:30 Glucose (Fingerstick) 164mg/dL (70-99) 157mg/dL (70-99) 153mg/dL (70-99) 152mg/dL (70-99) Test 09/20/16 05:30 09/20/16 05:32 09/20/16 06:33 09/20/16 08:36 White Blood Count 14.3x10^3/uL (4.0-11.0) Red Blood Count 3.90x10^6/uL (4.30-5.70) Hemoglobin 10.7g/dL (13.0-17.5) Hematocrit 33.4% (39.0-53.0) Mean Corpuscular Volume 86fL (79-100) Mean Corpuscular Hemoglobin 27pg (25-35) Mean Corpuscular Hemoglobin Concent 32g/dL (31-37) Red Cell Distribution Width 14.3% (11.5-14.5) Platelet Count 189x10^3/uL (140-400) Prothrombin Time 14.1SEC (11.7-14.0) Prothromb Time International Ratio 1.2 (0.8-1.1) Sodium Level 141mmol/L (136-145) Potassium Level 5.2mmol/L (3.5-5.1) Chloride Level 107mmol/L (98-107) Carbon Dioxide Level 26mmol/L (21-32) Anion Gap 8 (6-14) Blood Urea Nitrogen 22mg/dL (8-26) Creatinine 1.3mg/dL (0.7-1.3) Estimated GFR (Cockcroft-Gault) 59.2 Glucose Level 170mg/dL (70-99) Calcium Level 8.5mg/dL (8.5-10.1) Magnesium Level 2.3mg/dL (1.8-2.4) Glucose (Fingerstick) 149mg/dL (70-99) 154mg/dL (70-99) 174mg/dL (70-99) Assessment and Plan Assessmemt and Plan Problems Medical Problems: (1) Chest pain Status: Acute (2) NSTEMI (non-ST elevated myocardial infarction) Status: Acute Problems: Comment Review of Relevant I have reviewed the following items amber (where applicable) has been applied. Labs Laboratory Tests Test 09/18/16 11:44 09/18/16 17:15 09/18/16 20:41 09/19/16 04:08 Glucose (Fingerstick) 150mg/dL (70-99) 101mg/dL (70-99) 146mg/dL (70-99) 133mg/dL (70-99) Test 09/19/16 04:12 09/19/16 04:47 09/19/16 08:29 09/19/16 09:30 Nasal Screen MRSA (PCR) Negative (Negative) White Blood Count 10.8x10^3/uL (4.0-11.0) Red Blood Count 5.03x10^6/uL (4.30-5.70) Hemoglobin 13.9g/dL (13.0-17.5) Hematocrit 42.7% (39.0-53.0) Mean Corpuscular Volume 85fL (79-100) Mean Corpuscular Hemoglobin 28pg (25-35) Mean Corpuscular Hemoglobin Concent 33g/dL (31-37) Red Cell Distribution Width 14.4% (11.5-14.5) Platelet Count 288x10^3/uL (140-400) Neutrophils (%) (Auto) 52% (31-73) Lymphocytes (%) (Auto) 36% (24-48) Monocytes (%) (Auto) 10% (0-9) Eosinophils (%) (Auto) 2% (0-3) Basophils (%) (Auto) 1% (0-3) Neutrophils # (Auto) 5.6x10^3uL (1.8-7.7) Lymphocytes # (Auto) 3.9x10^3/uL (1.0-4.8) Monocytes # (Auto) 1.0x10^3/uL (0.0-1.1) Eosinophils # (Auto) 0.2x10^3/uL (0.0-0.7) Basophils # (Auto) 0.1x10^3/uL (0.0-0.2) Prothrombin Time 12.1SEC (11.7-14.0) Prothromb Time International Ratio 1.0 (0.8-1.1) Heparin Anti-Xa Act, Unfractionated < 0.10IU/mL (0.30-0.70) Sodium Level 141mmol/L (136-145) Potassium Level 4.1mmol/L (3.5-5.1) Chloride Level 104mmol/L (98-107) Carbon Dioxide Level 29mmol/L (21-32) Anion Gap 8 (6-14) Blood Urea Nitrogen 19mg/dL (8-26) Creatinine 1.1mg/dL (0.7-1.3) Estimated GFR (Cockcroft-Gault) 71.8 Glucose Level 147mg/dL (70-99) 166mg/dL (70-99) Calcium Level 8.9mg/dL (8.5-10.1) Activated Clotting Time 117SEC (90-125) Bedside Hemoglobin (Calculated) 12.9g/dL (14-18) Bedside Hematocrit 38% (37-52) Bedside Arterial pH 7.40 (7.35-7.45) Bedside Arterial pCO2 43mmHg (35-45) Bedside Arterial pO2 197mmHg (75-100) Bedside Arterial HCO3 27mmol/L (21-28) Bedside Arterial Total CO2 28mmol/L (21-32) Arterial Bld O2 Saturation (Measur) 100% (95-99) Bedside Arterial Blood Base Excess 2mmol/L (0-3) Bedside FiO2 100.0 Bedside Sodium 140mmol/L (135-145) Bedside Potassium 4.5mmol/L (3.5-5.0) Bedside Ionized Calcium (Yakov) 1.19mmol/L (1.13-1.32) Test 09/19/16 09:50 09/19/16 10:15 09/19/16 10:52 09/19/16 11:35 Activated Clotting Time 418SEC (90-125) 452SEC (90-125) 453SEC (90-125) Bedside Hematocrit 36% (37-52) Bedside Venous pH 7.32 (7.32-7.42) Bedside Venous pCO2 49mmHg (41-51) Bedside Venous pO2 36mmHg (20-40) Bedside Venous HCO3 25mmol/L (24-28) Bedside Venous Blood Total CO2 26mmol/L (21-32) Bedside Venous Blood O2 Saturation 63% Bedside Venous Blood Base Excess -1mmol/L (0-3) POC Venous Hemoglobin (Calc) 12.2g/dL (14-18) Bedside FiO2 100 Bedside Sodium 140mmol/L (135-145) Bedside Potassium 4.8mmol/L (3.5-5.0) Glucose Level 176mg/dL (70-99) Bedside Ionized Calcium (Yakov) 1.12mmol/L (1.13-1.32) Test 09/19/16 12:00 09/19/16 12:30 09/19/16 12:37 09/19/16 13:00 Activated Clotting Time 425SEC (90-125) 429SEC (90-125) 404SEC (90-125) Bedside Hemoglobin (Calculated) 10.5g/dL (14-18) Bedside Hematocrit 31% (37-52) Bedside Arterial pH 7.32 (7.35-7.45) Bedside Arterial pCO2 46mmHg (35-45) Bedside Arterial pO2 156mmHg (75-100) Bedside Arterial HCO3 24mmol/L (21-28) Bedside Arterial Total CO2 25mmol/L (21-32) Arterial Bld O2 Saturation (Measur) 99% (95-99) Bedside Arterial Blood Base Excess -3mmol/L (0-3) Bedside FiO2 70.0 Bedside Sodium 138mmol/L (135-145) Bedside Potassium 5.8mmol/L (3.5-5.0) Glucose Level 194mg/dL (70-99) Bedside Ionized Calcium (Yakov) 1.05mmol/L (1.13-1.32) Test 09/19/16 13:03 09/19/16 13:29 09/19/16 13:30 09/19/16 13:47 Bedside Hemoglobin (Calculated) 10.5g/dL (14-18) 10.5g/dL (14-18) Bedside Hematocrit 31% (37-52) 31% (37-52) Bedside Arterial pH 7.37 (7.35-7.45) 7.36 (7.35-7.45) Bedside Arterial pCO2 43mmHg (35-45) 42mmHg (35-45) Bedside Arterial pO2 202mmHg (75-100) 206mmHg (75-100) Bedside Arterial HCO3 25mmol/L (21-28) 24mmol/L (21-28) Bedside Arterial Total CO2 26mmol/L (21-32) 25mmol/L (21-32) Arterial Bld O2 Saturation (Measur) 100% (95-99) 100% (95-99) Bedside Arterial Blood Base Excess 0mmol/L (0-3) -2mmol/L (0-3) Bedside FiO2 70.0 80.0 Bedside Sodium 141mmol/L (135-145) 141mmol/L (135-145) Bedside Potassium 4.4mmol/L (3.5-5.0) 4.3mmol/L (3.5-5.0) Glucose Level 208mg/dL (70-99) 200mg/dL (70-99) Bedside Ionized Calcium (Yakov) 1.06mmol/L (1.13-1.32) 1.06mmol/L (1.13-1.32) Activated Clotting Time 410SEC (90-125) 126SEC (90-125) Test 09/19/16 14:05 09/19/16 14:07 09/19/16 14:31 09/19/16 14:46 White Blood Count 16.3x10^3/uL (4.0-11.0) Hemoglobin 10.7g/dL (13.0-17.5) Hematocrit 32.7% (39.0-53.0) Platelet Count 174x10^3/uL (140-400) Prothrombin Time 16.4SEC (11.7-14.0) Prothromb Time International Ratio 1.4 (0.8-1.1) Activated Partial Thromboplast Time 29SEC (24-38) Fibrinogen 252mg/dL (200-440) Bedside Hemoglobin (Calculated) 9.5g/dL (14-18) 9.5g/dL (14-18) Bedside Hematocrit 28% (37-52) 28% (37-52) Bedside Arterial pH 7.39 (7.35-7.45) 7.37 (7.35-7.45) Bedside Arterial pCO2 42mmHg (35-45) 45mmHg (35-45) Bedside Arterial pO2 229mmHg (75-100) 213mmHg (75-100) Bedside Arterial HCO3 26mmol/L (21-28) 26mmol/L (21-28) Bedside Arterial Total CO2 27mmol/L (21-32) 27mmol/L (21-32) Arterial Bld O2 Saturation (Measur) 100% (95-99) 100% (95-99) Bedside Arterial Blood Base Excess 1mmol/L (0-3) 1mmol/L (0-3) Bedside FiO2 85.0 85.0 Bedside Sodium 140mmol/L (135-145) 141mmol/L (135-145) Bedside Potassium 4.2mmol/L (3.5-5.0) 4.1mmol/L (3.5-5.0) Glucose Level 176mg/dL (70-99) 166mg/dL (70-99) Bedside Ionized Calcium (Yakov) 1.36mmol/L (1.13-1.32) 1.61mmol/L (1.13-1.32) O2 Saturation 97% (92-99) Arterial Blood pH 7.33 (7.35-7.45) Arterial Blood pCO2 at Patient Temp 49mmHg (35-46) Arterial Blood pO2 at Patient Temp 97mmHg (75-108) Arterial Blood HCO3 25mmol/L (21-28) Arterial Blood Base Excess -1mmol/L (-3-3) Oxyhemoglobin 95.9% Methemoglobin 0.3% (0.0-1.9) Carbon Monoxide, Quantitative 0.3% (0.0-1.9) FiO2 100 Test 09/19/16 14:48 09/19/16 15:38 09/19/16 15:50 09/19/16 16:46 Bedside Hemoglobin (Calculated) 9.9g/dL (14-18) Bedside Hematocrit 29% (37-52) Bedside Arterial pH 7.34 (7.35-7.45) Bedside Arterial pCO2 44mmHg (35-45) Bedside Arterial pO2 55mmHg (75-100) Bedside Arterial HCO3 24mmol/L (21-28) Bedside Arterial Total CO2 25mmol/L (21-32) Arterial Bld O2 Saturation (Measur) 86% (95-99) Bedside Arterial Blood Base Excess -2mmol/L (0-3) Bedside FiO2 100.0 Bedside Sodium 142mmol/L (135-145) Bedside Potassium 3.7mmol/L (3.5-5.0) Glucose Level 151mg/dL (70-99) 123mg/dL (70-99) Bedside Ionized Calcium (Yakov) 1.48mmol/L (1.13-1.32) Glucose (Fingerstick) 103mg/dL (70-99) 131mg/dL (70-99) White Blood Count 17.6x10^3/uL (4.0-11.0) Red Blood Count 4.27x10^6/uL (4.30-5.70) Hemoglobin 11.8g/dL (13.0-17.5) Hematocrit 36.0% (39.0-53.0) Mean Corpuscular Volume 84fL (79-100) Mean Corpuscular Hemoglobin 28pg (25-35) Mean Corpuscular Hemoglobin Concent 33g/dL (31-37) Red Cell Distribution Width 14.3% (11.5-14.5) Platelet Count 206x10^3/uL (140-400) Prothrombin Time 15.4SEC (11.7-14.0) Prothromb Time International Ratio 1.3 (0.8-1.1) Activated Partial Thromboplast Time 31SEC (24-38) Sodium Level 144mmol/L (136-145) Potassium Level 4.0mmol/L (3.5-5.1) Chloride Level 109mmol/L (98-107) Carbon Dioxide Level 27mmol/L (21-32) Anion Gap 8 (6-14) Blood Urea Nitrogen 21mg/dL (8-26) Creatinine 1.2mg/dL (0.7-1.3) Estimated GFR (Cockcroft-Gault) 64.9 Calcium Level 9.1mg/dL (8.5-10.1) Ionized Calcium 1.37mmol/L (1.13-1.32) Magnesium Level 2.2mg/dL (1.8-2.4) Test 09/19/16 16:50 09/19/16 17:39 09/19/16 19:07 09/19/16 19:50 O2 Saturation 89% (92-99) Arterial Blood pH 7.31 (7.35-7.45) Arterial Blood pCO2 at Patient Temp 47mmHg (35-46) Arterial Blood pO2 at Patient Temp 63mmHg (75-108) Arterial Blood HCO3 23mmol/L (21-28) Arterial Blood Base Excess -3mmol/L (-3-3) FiO2 40 Glucose (Fingerstick) 153mg/dL (70-99) 149mg/dL (70-99) Hemoglobin 10.8g/dL (13.0-17.5) Hematocrit 33.3% (39.0-53.0) Mean Corpuscular Hemoglobin Concent 32g/dL (31-37) Potassium Level 5.3mmol/L (3.5-5.1) Test 09/19/16 20:21 09/19/16 21:26 09/19/16 23:24 09/20/16 01:27 Glucose (Fingerstick) 150mg/dL (70-99) 159mg/dL (70-99) 162mg/dL (70-99) 164mg/dL (70-99) Test 09/20/16 02:34 09/20/16 03:27 09/20/16 04:30 09/20/16 05:30 Glucose (Fingerstick) 157mg/dL (70-99) 153mg/dL (70-99) 152mg/dL (70-99) White Blood Count 14.3x10^3/uL (4.0-11.0) Red Blood Count 3.90x10^6/uL (4.30-5.70) Hemoglobin 10.7g/dL (13.0-17.5) Hematocrit 33.4% (39.0-53.0) Mean Corpuscular Volume 86fL (79-100) Mean Corpuscular Hemoglobin 27pg (25-35) Mean Corpuscular Hemoglobin Concent 32g/dL (31-37) Red Cell Distribution Width 14.3% (11.5-14.5) Platelet Count 189x10^3/uL (140-400) Prothrombin Time 14.1SEC (11.7-14.0) Prothromb Time International Ratio 1.2 (0.8-1.1) Sodium Level 141mmol/L (136-145) Potassium Level 5.2mmol/L (3.5-5.1) Chloride Level 107mmol/L (98-107) Carbon Dioxide Level 26mmol/L (21-32) Anion Gap 8 (6-14) Blood Urea Nitrogen 22mg/dL (8-26) Creatinine 1.3mg/dL (0.7-1.3) Estimated GFR (Cockcroft-Gault) 59.2 Glucose Level 170mg/dL (70-99) Calcium Level 8.5mg/dL (8.5-10.1) Magnesium Level 2.3mg/dL (1.8-2.4) Test 09/20/16 05:32 09/20/16 06:33 09/20/16 08:36 Glucose (Fingerstick) 149mg/dL (70-99) 154mg/dL (70-99) 174mg/dL (70-99) Laboratory Tests Test 09/19/16 09:30 09/19/16 09:50 09/19/16 10:15 09/19/16 10:52 Bedside Hemoglobin (Calculated) 12.9g/dL (14-18) Bedside Hematocrit 38% (37-52) 36% (37-52) Bedside Arterial pH 7.40 (7.35-7.45) Bedside Arterial pCO2 43mmHg (35-45) Bedside Arterial pO2 197mmHg (75-100) Bedside Arterial HCO3 27mmol/L (21-28) Bedside Arterial Total CO2 28mmol/L (21-32) Arterial Bld O2 Saturation (Measur) 100% (95-99) Bedside Arterial Blood Base Excess 2mmol/L (0-3) Bedside FiO2 100.0 100 Bedside Sodium 140mmol/L (135-145) 140mmol/L (135-145) Bedside Potassium 4.5mmol/L (3.5-5.0) 4.8mmol/L (3.5-5.0) Glucose Level 166mg/dL (70-99) 176mg/dL (70-99) Bedside Ionized Calcium (Yakov) 1.19mmol/L (1.13-1.32) 1.12mmol/L (1.13-1.32) Activated Clotting Time 418SEC (90-125) 452SEC (90-125) Bedside Venous pH 7.32 (7.32-7.42) Bedside Venous pCO2 49mmHg (41-51) Bedside Venous pO2 36mmHg (20-40) Bedside Venous HCO3 25mmol/L (24-28) Bedside Venous Blood Total CO2 26mmol/L (21-32) Bedside Venous Blood O2 Saturation 63% Bedside Venous Blood Base Excess -1mmol/L (0-3) POC Venous Hemoglobin (Calc) 12.2g/dL (14-18) Test 09/19/16 11:35 09/19/16 12:00 09/19/16 12:30 09/19/16 12:37 Activated Clotting Time 453SEC (90-125) 425SEC (90-125) 429SEC (90-125) Bedside Hemoglobin (Calculated) 10.5g/dL (14-18) Bedside Hematocrit 31% (37-52) Bedside Arterial pH 7.32 (7.35-7.45) Bedside Arterial pCO2 46mmHg (35-45) Bedside Arterial pO2 156mmHg (75-100) Bedside Arterial HCO3 24mmol/L (21-28) Bedside Arterial Total CO2 25mmol/L (21-32) Arterial Bld O2 Saturation (Measur) 99% (95-99) Bedside Arterial Blood Base Excess -3mmol/L (0-3) Bedside FiO2 70.0 Bedside Sodium 138mmol/L (135-145) Bedside Potassium 5.8mmol/L (3.5-5.0) Glucose Level 194mg/dL (70-99) Bedside Ionized Calcium (Yakov) 1.05mmol/L (1.13-1.32) Test 09/19/16 13:00 09/19/16 13:03 09/19/16 13:29 09/19/16 13:30 Activated Clotting Time 404SEC (90-125) 410SEC (90-125) Bedside Hemoglobin (Calculated) 10.5g/dL (14-18) 10.5g/dL (14-18) Bedside Hematocrit 31% (37-52) 31% (37-52) Bedside Arterial pH 7.37 (7.35-7.45) 7.36 (7.35-7.45) Bedside Arterial pCO2 43mmHg (35-45) 42mmHg (35-45) Bedside Arterial pO2 202mmHg (75-100) 206mmHg (75-100) Bedside Arterial HCO3 25mmol/L (21-28) 24mmol/L (21-28) Bedside Arterial Total CO2 26mmol/L (21-32) 25mmol/L (21-32) Arterial Bld O2 Saturation (Measur) 100% (95-99) 100% (95-99) Bedside Arterial Blood Base Excess 0mmol/L (0-3) -2mmol/L (0-3) Bedside FiO2 70.0 80.0 Bedside Sodium 141mmol/L (135-145) 141mmol/L (135-145) Bedside Potassium 4.4mmol/L (3.5-5.0) 4.3mmol/L (3.5-5.0) Glucose Level 208mg/dL (70-99) 200mg/dL (70-99) Bedside Ionized Calcium (Yakov) 1.06mmol/L (1.13-1.32) 1.06mmol/L (1.13-1.32) Test 09/19/16 13:47 09/19/16 14:05 09/19/16 14:07 09/19/16 14:31 Activated Clotting Time 126SEC (90-125) White Blood Count 16.3x10^3/uL (4.0-11.0) Hemoglobin 10.7g/dL (13.0-17.5) Hematocrit 32.7% (39.0-53.0) Platelet Count 174x10^3/uL (140-400) Prothrombin Time 16.4SEC (11.7-14.0) Prothromb Time International Ratio 1.4 (0.8-1.1) Activated Partial Thromboplast Time 29SEC (24-38) Fibrinogen 252mg/dL (200-440) Bedside Hemoglobin (Calculated) 9.5g/dL (14-18) 9.5g/dL (14-18) Bedside Hematocrit 28% (37-52) 28% (37-52) Bedside Arterial pH 7.39 (7.35-7.45) 7.37 (7.35-7.45) Bedside Arterial pCO2 42mmHg (35-45) 45mmHg (35-45) Bedside Arterial pO2 229mmHg (75-100) 213mmHg (75-100) Bedside Arterial HCO3 26mmol/L (21-28) 26mmol/L (21-28) Bedside Arterial Total CO2 27mmol/L (21-32) 27mmol/L (21-32) Arterial Bld O2 Saturation (Measur) 100% (95-99) 100% (95-99) Bedside Arterial Blood Base Excess 1mmol/L (0-3) 1mmol/L (0-3) Bedside FiO2 85.0 85.0 Bedside Sodium 140mmol/L (135-145) 141mmol/L (135-145) Bedside Potassium 4.2mmol/L (3.5-5.0) 4.1mmol/L (3.5-5.0) Glucose Level 176mg/dL (70-99) 166mg/dL (70-99) Bedside Ionized Calcium (Yakov) 1.36mmol/L (1.13-1.32) 1.61mmol/L (1.13-1.32) Test 09/19/16 14:46 09/19/16 14:48 09/19/16 15:38 09/19/16 15:50 O2 Saturation 97% (92-99) Arterial Blood pH 7.33 (7.35-7.45) Arterial Blood pCO2 at Patient Temp 49mmHg (35-46) Arterial Blood pO2 at Patient Temp 97mmHg (75-108) Arterial Blood HCO3 25mmol/L (21-28) Arterial Blood Base Excess -1mmol/L (-3-3) Oxyhemoglobin 95.9% Methemoglobin 0.3% (0.0-1.9) Carbon Monoxide, Quantitative 0.3% (0.0-1.9) FiO2 100 Bedside Hemoglobin (Calculated) 9.9g/dL (14-18) Bedside Hematocrit 29% (37-52) Bedside Arterial pH 7.34 (7.35-7.45) Bedside Arterial pCO2 44mmHg (35-45) Bedside Arterial pO2 55mmHg (75-100) Bedside Arterial HCO3 24mmol/L (21-28) Bedside Arterial Total CO2 25mmol/L (21-32) Arterial Bld O2 Saturation (Measur) 86% (95-99) Bedside Arterial Blood Base Excess -2mmol/L (0-3) Bedside FiO2 100.0 Bedside Sodium 142mmol/L (135-145) Bedside Potassium 3.7mmol/L (3.5-5.0) Glucose Level 151mg/dL (70-99) 123mg/dL (70-99) Bedside Ionized Calcium (Yakov) 1.48mmol/L (1.13-1.32) Glucose (Fingerstick) 103mg/dL (70-99) White Blood Count 17.6x10^3/uL (4.0-11.0) Red Blood Count 4.27x10^6/uL (4.30-5.70) Hemoglobin 11.8g/dL (13.0-17.5) Hematocrit 36.0% (39.0-53.0) Mean Corpuscular Volume 84fL (79-100) Mean Corpuscular Hemoglobin 28pg (25-35) Mean Corpuscular Hemoglobin Concent 33g/dL (31-37) Red Cell Distribution Width 14.3% (11.5-14.5) Platelet Count 206x10^3/uL (140-400) Prothrombin Time 15.4SEC (11.7-14.0) Prothromb Time International Ratio 1.3 (0.8-1.1) Activated Partial Thromboplast Time 31SEC (24-38) Sodium Level 144mmol/L (136-145) Potassium Level 4.0mmol/L (3.5-5.1) Chloride Level 109mmol/L (98-107) Carbon Dioxide Level 27mmol/L (21-32) Anion Gap 8 (6-14) Blood Urea Nitrogen 21mg/dL (8-26) Creatinine 1.2mg/dL (0.7-1.3) Estimated GFR (Cockcroft-Gault) 64.9 Calcium Level 9.1mg/dL (8.5-10.1) Ionized Calcium 1.37mmol/L (1.13-1.32) Magnesium Level 2.2mg/dL (1.8-2.4) Test 09/19/16 16:46 09/19/16 16:50 09/19/16 17:39 09/19/16 19:07 Glucose (Fingerstick) 131mg/dL (70-99) 153mg/dL (70-99) 149mg/dL (70-99) O2 Saturation 89% (92-99) Arterial Blood pH 7.31 (7.35-7.45) Arterial Blood pCO2 at Patient Temp 47mmHg (35-46) Arterial Blood pO2 at Patient Temp 63mmHg (75-108) Arterial Blood HCO3 23mmol/L (21-28) Arterial Blood Base Excess -3mmol/L (-3-3) FiO2 40 Test 09/19/16 19:50 09/19/16 20:21 09/19/16 21:26 09/19/16 23:24 Hemoglobin 10.8g/dL (13.0-17.5) Hematocrit 33.3% (39.0-53.0) Mean Corpuscular Hemoglobin Concent 32g/dL (31-37) Potassium Level 5.3mmol/L (3.5-5.1) Glucose (Fingerstick) 150mg/dL (70-99) 159mg/dL (70-99) 162mg/dL (70-99) Test 09/20/16 01:27 09/20/16 02:34 09/20/16 03:27 09/20/16 04:30 Glucose (Fingerstick) 164mg/dL (70-99) 157mg/dL (70-99) 153mg/dL (70-99) 152mg/dL (70-99) Test 09/20/16 05:30 09/20/16 05:32 09/20/16 06:33 09/20/16 08:36 White Blood Count 14.3x10^3/uL (4.0-11.0) Red Blood Count 3.90x10^6/uL (4.30-5.70) Hemoglobin 10.7g/dL (13.0-17.5) Hematocrit 33.4% (39.0-53.0) Mean Corpuscular Volume 86fL (79-100) Mean Corpuscular Hemoglobin 27pg (25-35) Mean Corpuscular Hemoglobin Concent 32g/dL (31-37) Red Cell Distribution Width 14.3% (11.5-14.5) Platelet Count 189x10^3/uL (140-400) Prothrombin Time 14.1SEC (11.7-14.0) Prothromb Time International Ratio 1.2 (0.8-1.1) Sodium Level 141mmol/L (136-145) Potassium Level 5.2mmol/L (3.5-5.1) Chloride Level 107mmol/L (98-107) Carbon Dioxide Level 26mmol/L (21-32) Anion Gap 8 (6-14) Blood Urea Nitrogen 22mg/dL (8-26) Creatinine 1.3mg/dL (0.7-1.3) Estimated GFR (Cockcroft-Gault) 59.2 Glucose Level 170mg/dL (70-99) Calcium Level 8.5mg/dL (8.5-10.1) Magnesium Level 2.3mg/dL (1.8-2.4) Glucose (Fingerstick) 149mg/dL (70-99) 154mg/dL (70-99) 174mg/dL (70-99) Medications Current Medications Aspirin (Children'S Aspirin) 324 mg 1X ONCE PO Last administered on at 02:36; Start 09/15/16 at 03:00; Stop 09/15/16 at 03:01; Status DC Nitroglycerin (Nitrostat) 0.4 mg PRN Q5MIN PRN SL CP RATING > 1/10 Last administered on 09/15/16at 02:37; Start 09/15/16 at 02:30; Stop 09/15/16 at 05 :18; Status DC Fentanyl Citrate (Fentanyl 2ml Vial) 25 mcg PRN Q15MIN PRN IV PAIN GREATER THAN 3/10; Start 09/15/16 at 02:30; Stop 09/15/16 at 06:00; Status DC Heparin Sodium (Porcine) 4000 unit 4,000 unit 1X ONCE IV Last administered on 09/15/16at 05:14; Start 09/15/16 at 05:00; Stop 09/15/16 at 05:02; Status DC Heparin Sodium/ Dextrose 500 ml @ 0 mls/hr CONT PRN IV SEE I/O RECORD Last administered on 09/18/16at 04:00; Start 09/15/16 at 04:45; Stop 09/18/16 at 11 :33; Status DC Heparin Sodium (Porcine) 2,850 unit PRN Q6HRS PRN IV FOR UFH LEVEL LESS THAN 0.2 Last administered on 09/15/16at 18:22; Start 09/15/16 at 04:45; Stop 09/19 at 12:55; Status DC Ondansetron HCl (Zofran) 4 mg PRN Q8HRS PRN IV NAUSEA/VOMITING; Start at 05:15; Stop 09/16/16 at 05:14; Status DC Fentanyl Citrate (Fentanyl 2ml Vial) 50 mcg PRN Q2HR PRN IV SEVERE PAIN; Start 09/15/16 at 05:15; Stop 09/16/16 at 05:14; Status DC Acetaminophen (Tylenol) 650 mg PRN Q4HRS PRN PO FEVER; Start 09/15/16 at 05:15 ; Stop 09/16/16 at 05:14; Status DC Nitroglycerin (Nitrostat) 0.4 mg PRN Q5MIN PRN SL CHEST PAIN; Start 09/15/16 at 05:15; Stop 09/16/16 at 05:14; Status DC Insulin Aspart (Novolog) 0-5 UNITS TIDWMEALS SQ Last administered on at 17:26; Start 09/15/16 at 08:00; Stop 09/17/16 at 08:23; Status DC Dextrose 12.5 gm PRN Q15MIN PRN IV SEE COMMENTS; Start 09/15/16 at 05:15; Status Cancel Info (Anti-Coagulation Monitoring By Pharmacy) 1 each PRN DAILY PRN MC SEE COMMENTS Last administered on 09/18/16at 10:20; Start 09/15/16 at 07:45; Stop 09/19/16 at 12:56; Status DC Atorvastatin Calcium (Lipitor) 20 mg QHS PO Last administered on 09/18/16at 20: 38; Start 09/15/16 at 21:00 Glimepiride (Amaryl) 2 mg DAILY PO Last administered on 09/18/16at 09:01; Start 09/15/16 at 11:30; Status Future Hold Non-Formulary Medication 1 tab DAILY PO ; Start 09/16/16 at 09:00; Status UNV Pantoprazole Sodium (Protonix) 40 mg DAILYAC PO Last administered on at 09:01; Start 09/15/16 at 11:30; Stop 09/19/16 at 15:10; Status DC Acetaminophen (Tylenol) 650 mg PRN Q6HRS PRN PO MILD PAIN / TEMP; Start at 10:30; Stop 09/19/16 at 15:32; Status DC Ondansetron HCl (Zofran) 4 mg PRN Q6HRS PRN IV NAUSEA/VOMITING Last administered on 09/16/16at 15:49; Start 09/15/16 at 10:30; Stop 09/19/16 at 15 :36; Status DC Morphine Sulfate 2 mg PRN Q2HR PRN IV PAIN Last administered on 09/19/16at 17: 27; Start 09/15/16 at 10:30 Morphine Sulfate 4 mg PRN Q2HR PRN IV PAIN Last administered on 09/19/16at 19: 43; Start 09/15/16 at 10:30 Losartan Potassium (Cozaar) 100 mg DAILY PO ; Start 09/15/16 at 11:30; Stop at 12:48; Status DC Hydrochlorothiazide (Microzide) 12.5 mg DAILY PO ; Start 09/15/16 at 11:30; Stop 09/15/16 at 12:48; Status DC Aspirin (Ecotrin) 325 mg DAILYWBKFT PO Last administered on 09/18/16at 09:01; Start 09/16/16 at 08:00; Stop 09/19/16 at 15:32; Status DC Metoprolol Tartrate (Lopressor) 12.5 mg BID PO Last administered on 09/18/16at 09:01; Start 09/15/16 at 21:00; Stop 09/18/16 at 11:41; Status DC Influenza Virus Vaccine Quadrival (Fluarix Quad 4951-1947 Syringe) 0.5 ml ONCE ONCE VAX IM ; Start 09/16/16 at 14:00; Stop 09/16/16 at 14:01; Status DC Pneumococcal Polyvalent Vaccine (Pneumovax 23) 0.5 ml ONCE ONCE VAX IM ; Start 09/16/16 at 14:00; Stop 09/16/16 at 14:01; Status DC Famotidine (Pepcid) 20 mg 1X ONCE IVP Last administered on 09/16/16at 07:24; Start 09/16/16 at 08:00; Stop 09/16/16 at 08:01; Status DC Diphenhydramine HCl (Benadryl) 25 mg 1X ONCE IVP Last administered on at 07:24; Start 09/16/16 at 08:00; Stop 09/16/16 at 08:01; Status DC Methylprednisolone Sodium Succinate (Solu-Medrol 125mg Vial) 125 mg 1X ONCE IV Last administered on 09/16/16at 07:24; Start 09/16/16 at 08:00; Stop at 08:01; Status DC Iohexol 100 ml 100 ml STK-MED ONCE .ROUTE ; Start 09/16/16 at 07:00; Stop at 07:01; Status DC Heparin Sodium/ Sodium Chloride 1,000 ml @ As Directed STK-MED ONCE .ROUTE ; Start 09/16/16 at 07:01; Stop 09/16/16 at 07:02; Status DC Lidocaine HCl 20 ml STK-MED ONCE .ROUTE ; Start 09/16/16 at 07:01; Stop at 07:02; Status DC Verapamil HCl (Verapamil) 5 mg STK-MED ONCE .ROUTE ; Start 09/16/16 at 07:45; Stop 09/16/16 at 07:46; Status DC Midazolam HCl (Versed) 5 mg STK-MED ONCE .ROUTE ; Start 09/16/16 at 07:45; Stop 09/16/16 at 07:46; Status DC Nitroglycerin (Nitroglycerin) 200 mcg STK-MED ONCE .ROUTE ; Start 09/16/16 at 07:45; Stop 09/16/16 at 07:46; Status DC Heparin Sodium (Porcine) 10,000 unit STK-MED ONCE .ROUTE ; Start 09/16/16 at 07 :45; Stop 09/16/16 at 07:46; Status DC Fentanyl Citrate (Fentanyl 5ml Vial) 250 mcg STK-MED ONCE .ROUTE ; Start at 07:46; Stop 09/16/16 at 07:47; Status DC Nitroglycerin (Nitroglycerin) 200 mcg 1X ONCE IART Last administered on at 08:21; Start 09/16/16 at 08:15; Stop 09/16/16 at 08:16; Status DC Verapamil HCl (Verapamil) 2.5 mg 1X ONCE IART Last administered on 09/16/16at 08:22; Start 09/16/16 at 08:15; Stop 09/16/16 at 08:16; Status DC Heparin Sodium (Porcine) 2,500 unit 1X ONCE IART Last administered on at 08:22; Start 09/16/16 at 08:15; Stop 09/16/16 at 08:16; Status DC Heparin Sodium/ Sodium Chloride 1,000 unit 1X ONCE IART Last administered on 09/16/16at 08:20; Start 09/16/16 at 08:15; Stop 09/16/16 at 08:16; Status DC Midazolam HCl (Versed) 2 mg 1X ONCE IV Last administered on 09/16/16at 08:21; Start 09/16/16 at 08:15; Stop 09/16/16 at 08:16; Status DC Fentanyl Citrate (Fentanyl 5ml Vial) 100 mcg 1X ONCE IV Last administered on 09/16/16at 08:22; Start 09/16/16 at 08:15; Stop 09/16/16 at 08:16; Status DC Iohexol (Omnipaque 300 Mg/ml) 131 ml 1X ONCE IART Last administered on at 08:21; Start 09/16/16 at 08:15; Stop 09/16/16 at 08:16; Status DC Lidocaine HCl 2 ml 1X ONCE IJ Last administered on 09/16/16at 08:21; Start at 08:15; Stop 09/16/16 at 08:16; Status DC Info 1 each 1 each PRN DAILY PRN MC SEE COMMENTS; Start 09/16/16 at 08:30; Stop 09/18/16 at 08:29; Status DC Sodium Chloride (Iv Sodium Chloride 0.45%) 1,000 ml @ 60 mls/hr [id number] IV Last administered on 09/16/16at 09:00; Start 09/16/16 at 09:00; Stop 09/17/16 at 12:32; Status DC Insulin Aspart (Novolog) 0-9 UNITS TIDWMEALS SQ ; Start 09/16/16 at 12:00; Status UNV Dextrose 12.5 gm 12.5 gm PRN Q15MIN PRN IV SEE COMMENTS; Start 09/16/16 at 09: 00; Status UNV Nitroglycerin/ Dextrose (Nitroglycerin Drip) 250 ml @ 0 mls/hr CONT PRN IV SEE I/O RECORD Last administered on 09/16/16at 16:18; Start 09/16/16 at 16:00; Stop 09/19/16 at 15:10; Status DC Al Hydroxide/Mg Hydroxide (Mylanta Plus Xs) 30 ml PRN Q6HRS PRN PO DYSPEPSIA Last administered on 09/16/16at 23:20; Start 09/16/16 at 22:45 Insulin Aspart (Novolog) 0-9 UNITS TIDWMEALS SQ Last administered on at 12:36; Start 09/17/16 at 09:00 Dextrose 12.5 gm 12.5 gm PRN Q15MIN PRN IV SEE COMMENTS; Start 09/17/16 at 08: 30; Stop 09/19/16 at 15:33; Status DC Cefazolin Sodium/ Dextrose (Ancef 2gm Premix) 50 ml @ 100 mls/hr 1X ONCE IV Last administered on 09/19/16at 08:00; Start 09/19/16 at 06:00; Stop 09/19/16 at 06:29; Status DC Insulin Detemir 10 units 10 units DAILY SQ Last administered on 09/18/16at 09: 08; Start 09/17/16 at 10:30 Heparin Sodium/ Dextrose 500 ml @ 0 mls/hr CONT PRN IV SEE I/O RECORD; Start 09/18/16 at 11:30; Stop 09/18/16 at 23:55; Status DC Metoprolol Tartrate 25 mg 25 mg BID PO Last administered on 09/19/16at 05:59; Start 09/18/16 at 21:00 Cefazolin Sodium 1 gm/Sodium Chloride 500 ml @ 500 mls/hr 1X PERIOP ONCE IRR Last administered on 09/19/16at 08:45; Start 09/19/16 at 06:00; Stop 09/19/16 at 06:59; Status DC Heparin Sodium (Porcine) 16223 unit/Lactated Ringer's 1,020 ml @ 1,020 mls/hr 1X PERIOP ONCE IRR Last administered on 09/19/16at 08:45; Start 09/19/16 at 06:00; Stop 09/19/16 at 06:59; Status DC Potassium Chloride 70 meq/ Sodium Bicarbonate 12.5 meq/Lidocaine HCl 24 ml/ Parenteral Electrolytes 571.5 ml @ 571.5 mls/ hr 1X PERIOP ONCE IRR Last administered on 09/19/16at 11:25; Start 09/19/16 at 06:00; Stop 09/19/16 at 06 :59; Status DC Potassium Chloride/Sodium Bicarbonate/ Parenteral Electrolytes (Isolyte S) 520 ml @ 520 mls/hr 1X PERIOP ONCE IRR Last administered on 09/19/16at 11:25; Start 09/19/16 at 06:00; Stop 09/19/16 at 06:59; Status DC Ondansetron HCl (Zofran) 4 mg PRN Q6HRS PRN IV Nausea; Start 09/19/16 at 07:00 ; Stop 09/19/16 at 19:00; Status DC Fentanyl Citrate (Fentanyl 2ml Vial) 25 mcg PRN Q5MIN PRN IV MILD PAIN; Start 09/19/16 at 07:00; Stop 09/19/16 at 19:00; Status DC Fentanyl Citrate (Fentanyl 2ml Vial) 50 mcg PRN Q5MIN PRN IV MODERATE PAIN; Start 09/19/16 at 07:00; Stop 09/19/16 at 19:00; Status DC Morphine Sulfate 1 mg 1 mg PRN Q10MIN PRN IV SEVERE PAIN; Start 09/19/16 at 07 :00; Stop 09/19/16 at 19:00; Status DC Lactated Ringer's (Iv Lactated Ringers) 1,000 ml @ 30 mls/hr Q24H IV ; Start 09/19/16 at 07:00; Stop 09/19/16 at 15:35; Status DC Lidocaine HCl 2 ml 1X PRN PRN ID IV START; Start 09/19/16 at 07:00; Stop at 19:00; Status DC Hydromorphone HCl (Dilaudid) 0.5 mg PRN Q10MIN PRN IV SEVERE PAIN, Second choice; Start 09/19/16 at 07:00; Stop 09/19/16 at 19:00; Status DC Prochlorperazine Edisylate (Compazine) 5 mg PACU PRN PRN IV NAUSEA; Start at 07:00; Stop 09/19/16 at 19:00; Status DC Zolpidem Tartrate (Ambien) 5 mg PRN QHS PRN PO INSOMNIA; Start 09/18/16 at 17: 00; Stop 09/18/16 at 23:55; Status DC Etomidate (Amidate) 20 mg STK-MED ONCE IV ; Start 09/19/16 at 07:03; Stop at 07:04; Status DC Heparin Sodium (Porcine) 10,000 unit STK-MED ONCE .ROUTE ; Start 09/19/16 at 07 :03; Stop 09/19/16 at 07:04; Status DC Nicardipine HCl (Cardene) 25 mg STK-MED ONCE IV ; Start 09/19/16 at 07:03; Stop 09/19/16 at 07:04; Status DC Phenylephrine HCl (Joseph-Synephrine Inj) 10 mg STK-MED ONCE .ROUTE ; Start at 07:03; Stop 09/19/16 at 07:04; Status DC Rocuronium Glade (Zemuron) 50 mg STK-MED ONCE .ROUTE ; Start 09/19/16 at 07: 03; Stop 09/19/16 at 07:04; Status DC Lidocaine HCl 100 mg STK-MED ONCE .ROUTE ; Start 09/19/16 at 07:03; Stop 09/19 at 07:04; Status DC Aminocaproic Acid (Amicar) 5,000 mg STK-MED ONCE IV ; Start 09/19/16 at 07:03; Stop 09/19/16 at 07:04; Status DC Midazolam HCl (Versed) 2 mg STK-MED ONCE .ROUTE ; Start 09/19/16 at 07:03; Stop 09/19/16 at 07:04; Status DC Sufentanil Citrate (Sufenta) 100 mcg STK-MED ONCE .ROUTE ; Start 09/19/16 at 07 :03; Stop 09/19/16 at 07:04; Status DC Succinylcholine Chloride (Anectine) 200 mg STK-MED ONCE .ROUTE ; Start at 07:04; Stop 09/19/16 at 07:05; Status DC Vancomycin HCl (Vanco) 10 gm 1X ONCE CEMENT Last administered on 09/19/16at 08 :45; Start 09/19/16 at 07:15; Stop 09/19/16 at 07:16; Status DC Cellulose 1 each STK-MED ONCE .ROUTE Last administered on 09/19/16at 08:45; Start 09/19/16 at 07:10; Stop 09/19/16 at 07:11; Status DC Papaverine HCl 60 mg STK-MED ONCE .ROUTE Last administered on 09/19/16at 08:45 ; Start 09/19/16 at 07:10; Stop 09/19/16 at 07:11; Status DC Aspirin (Aspirin) 300 mg STK-MED ONCE .ROUTE Last administered on 09/19/16at 14 :54; Start 09/19/16 at 07:10; Stop 09/19/16 at 07:11; Status DC Sodium Chloride (Sodium Chloride) 50 ml STK-MED ONCE IJ Last administered on at 08:45; Start 09/19/16 at 07:10; Stop 09/19/16 at 07:11; Status DC Midazolam HCl (Versed) 2 mg STK-MED ONCE .ROUTE ; Start 09/19/16 at 07:26; Stop 09/19/16 at 07:27; Status DC Isoflurane (Isoflurane) 90 ml STK-MED ONCE IH ; Start 09/19/16 at 08:16; Stop 09/19/16 at 08:17; Status DC Heparin Sodium (Porcine) 10,000 unit STK-MED ONCE .ROUTE ; Start 09/19/16 at 08 :17; Stop 09/19/16 at 08:18; Status DC Aminocaproic Acid (Amicar) 5,000 mg STK-MED ONCE IV ; Start 09/19/16 at 09:16; Stop 09/19/16 at 09:17; Status DC Protamine Sulfate 250 mg 250 mg STK-MED ONCE IV ; Start 09/19/16 at 10:36; Stop 09/19/16 at 10:37; Status DC Insulin Human Regular/Sodium Chloride (Novolin R Vial/ Iv Normal Saline 150ml) 151.5 ml @ 11.38 mls/ hr CONT PRN IV SEE I/O RECORD; Start 09/19/16 at 11:45 Midazolam HCl (Versed) 2 mg STK-MED ONCE .ROUTE ; Start 09/19/16 at 12:22; Stop 09/19/16 at 12:23; Status DC Protamine Sulfate 250 mg 250 mg STK-MED ONCE IV ; Start 09/19/16 at 12:49; Stop 09/19/16 at 12:50; Status DC Clevidipine (Cleviprex) 100 ml @ 0 mls/hr CONT PRN IV PER PROTOCOL; Start at 13:30; Stop 09/19/16 at 15:33; Status DC Heparin Sodium (Porcine) 10,000 unit STK-MED ONCE .ROUTE ; Start 09/19/16 at 13 :54; Stop 09/19/16 at 13:55; Status DC Lidocaine HCl 100 mg STK-MED ONCE .ROUTE ; Start 09/19/16 at 13:54; Stop 09/19 at 13:55; Status DC Mannitol (Mannitol) 12.5 g STK-MED ONCE .ROUTE ; Start 09/19/16 at 13:54; Stop 09/19/16 at 13:55; Status DC Calcium Chloride 1,000 mg STK-MED ONCE IV ; Start 09/19/16 at 13:54; Stop at 13:55; Status DC Sodium Bicarbonate 50 meq 50 meq STK-MED ONCE .ROUTE ; Start 09/19/16 at 13:54 ; Stop 09/19/16 at 13:55; Status DC Albumin Human (Albuminar) 100 ml @ As Directed STK-MED ONCE IV ; Start at 13:54; Stop 09/19/16 at 13:55; Status DC Heparin Sodium (Porcine) 30,000 unit STK-MED ONCE .ROUTE ; Start 09/19/16 at 13 :54; Stop 09/19/16 at 13:55; Status DC Magnesium Sulfate 5 gm STK-MED ONCE .ROUTE ; Start 09/19/16 at 13:54; Stop at 13:55; Status DC Rocuronium Glade (Zemuron) 50 mg STK-MED ONCE .ROUTE ; Start 09/19/16 at 14: 46; Stop 09/19/16 at 14:47; Status DC Sodium Chloride 3 ml 3 ml PRN Q12HR PRN IV AFTER MEDS AND BLOOD DRAWS; Start 09/19/16 at 15:00 Lactated Ringer's 1,000 ml @ 30 mls/hr Q24H IV Last administered on at 15:30; Start 09/19/16 at 14:46 Albumin Human 250 ml @ 60 mls/hr PRN Q4HRS PRN IV SEE I/O RECORD Last administered on 09/19/16at 18:00; Start 09/19/16 at 15:00 Insulin Human Regular/Sodium Chloride (Novolin R Vial/ Iv Normal Saline 150ml) 151.5 ml @ 0 mls/hr CONT PRN PRN IV SEE I/O RECORD; Start 09/19/16 at 15:00; Stop 09/19/16 at 15:34; Status DC Dextrose 25 gm 25 gm PRN Q15MIN PRN IV LOW BLOOD SUGAR; Start 09/19/16 at 15: 00 Epinephrine HCl 4 mg/Sodium Chloride 254 ml @ 0 mls/hr CONT PRN PRN IV POST CV SURGERY; Start 09/19/16 at 15:00 Amiodarone HCl 150 mg/Dextrose 103 ml @ 0 mls/hr 1X ONCE IV ; Start 09/19/16 at 15:00; Stop 09/19/16 at 15:01; Status UNV Amiodarone HCl/ Dextrose (Cordarone) 518 ml @ 33.33 mls/ hr CONT PRN PRN IV SEE COMMENTS; Start 09/19/16 at 15:00; Status UNV Info 1 ea CONT PRN PRN MC SEE COMMENTS; Start 09/19/16 at 15:00 Info 1 ea 1 ea CONT PRN PRN MC SEE COMMENTS; Start 09/19/16 at 15:00 Magnesium Sulfate/ Dextrose (Magnesium Sulfate PREMIX 1GM) 100 ml @ 100 mls/hr PRN DAILY PRN IV FOR MAG < 2.2; Start 09/19/16 at 15:00 Ondansetron HCl (Zofran) 4 mg PRN Q4HRS PRN IV NAUSEA/VOMITING Last administered on 09/19/16at 21:01; Start 09/19/16 at 15:00 Metoclopramide HCl (Reglan) 10 mg PRN Q6HRS PRN IV NAUSEA/VOMITING; Start at 15:00 Morphine Sulfate 2 mg PRN Q1HR PRN IV PAIN Last administered on 09/20/16at 00: 05; Start 09/19/16 at 15:00 Acetaminophen (Tylenol) 650 mg PRN Q4HRS PRN PO MILD PAIN / TEMP; Start at 15:00 Acetaminophen (Tylenol) 650 mg PRN Q4HRS PRN IN MILD PAIN / TEMP; Start at 15:00 Meperidine HCl 12.5 mg 12.5 mg PRN Q15MIN PRN IV SHIVERING; Start 09/19/16 at 15:00; Stop 09/20/16 at 07:00; Status DC Propofol (Diprivan) 100 ml @ 0 mls/hr CONT PRN PRN IV POSTOP SEDATION UNTIL EXTUBATE Last administered on 09/19/16at 16:13; Start 09/19/16 at 15:00 Senna/Docusate Sodium (Senna Plus) 1 tab BID PO ; Start 09/19/16 at 21:00 Aspirin (Ecotrin) 325 mg DAILYWBKFT PO Last administered on 09/20/16at 07:51; Start 09/20/16 at 08:00 Albuterol Sulfate (Ventolin Neb Soln) 2.5 mg PRN Q4HRS PRN NEB SHORTNESS OF BREATH Last administered on 09/19/16at 23:53; Start 09/19/16 at 15:00 Metoprolol Tartrate 25 mg 25 mg BID PO ; Start 09/20/16 at 09:00; Stop at 09:00; Status DC Clevidipine (Cleviprex) 100 ml @ 0 mls/hr CONT PRN IV PER PROTOCOL; Start at 15:00 Oxycodone/ Acetaminophen (Percocet 5/325) 1 tab PRN Q4HRS PRN PO MILD PAIN; Start 09/19/16 at 15:00 Oxycodone/ Acetaminophen 2 tab 2 tab PRN Q4HRS PRN PO MODERATE PAIN, SEVERE PAIN Last administered on 09/20/16at 07:51; Start 09/19/16 at 15:00 Cefazolin Sodium/ Dextrose 50 ml @ 100 mls/hr Q8H IV Last administered on at 03:30; Start 09/19/16 at 20:00; Stop 09/21/16 at 04:29 Amiodarone HCl 150 mg/Dextrose 103 ml @ 618 mls/hr 1X ONCE IV Last administered on 09/19/16at 16:16; Start 09/19/16 at 15:00; Stop 09/19/16 at 15 :13; Status DC Amiodarone HCl/ Dextrose (Cordarone) 518 ml @ 0 mls/hr CONT PRN IV SEE I/O RECORD; Start 09/19/16 at 15:00 Polyethylene Glycol 17 gm 17 gm PRN BID PRN PO CONSTIPATION; Start 09/20/16 at 17:00 Norepinephrine Bitartrate 250 ml @ 0 mls/hr CONT PRN IV SEE I/O RECORD; Start 09/19/16 at 16:30 Norepinephrine Bitartrate 250 ml @ As Directed STK-MED ONCE IV ; Start at 16:19; Stop 09/19/16 at 16:20; Status DC Potassium Chloride (KCl Premix 20meq) 50 ml @ 50 mls/hr 1X ONCE IV ; Start at 16:45; Stop 09/19/16 at 17:44; Status DC Ketorolac Tromethamine (Toradol) 30 mg 1X ONCE IV Last administered on at 17:15; Start 09/19/16 at 17:15; Stop 09/19/16 at 17:16; Status DC Furosemide (Lasix) 40 mg PRN 1X PRN IVP SEE COMMENTS; Start 09/19/16 at 22:15 ; Stop 09/19/16 at 23:59; Status DC Ketorolac Tromethamine (Toradol) 30 mg 1X ONCE IV Last administered on 12/29/ 16at 22:45; Start 09/19/16 at 22:45; Stop 09/19/16 at 22:46; Status DC Ketorolac Tromethamine (Toradol) 30 mg 1X ONCE IV Last administered on at 06:23; Start 09/20/16 at 06:00; Stop 09/20/16 at 06:01; Status DC Cefazolin Sodium/ Dextrose (Ancef 2gm Premix) 2 gm STK-MED ONCE IV ; Start at 12:00; Stop 09/20/16 at 08:28; Status DC Active Scripts Active Reported Atorvastatin Calcium 10 Mg Tablet 1 Tab PO DAILY Losartan-Hctz 100-12.5 Mg Tab (Losartan/Hydrochlorothiazide) 1 Each Tablet 1 Tab PO DAILY Glimepiride 2 Mg Tablet 1 Tab PO DAILY Metformin Hcl 1,000 Mg Tablet 1 Tab PO BID Omeprazole 20 Mg Capsule.dr Vickers Cap PO BID Vitals/I & O Vital Sign - Last 24 Hours 09/19/16 09/19/16 09/19/16 09/19/16 13:30 14:30 15:20 15:30 Pulse 104 B/P 163/90 Pulse Ox 99 93 98 O2 Delivery Ventilator Ventilator 09/19/16 09/19/16 09/19/16 09/19/16 15:30 15:30 15:45 16:00 Temp 99.0 99.0 Pulse 97 B/P 99/79 72/85 O2 Delivery Mechanical Ventilator 09/19/16 09/19/16 09/19/16 09/19/16 16:00 16:15 16:16 16:30 Temp 99.3 99.3 Pulse 97 104 98 B/P 79/43 92/69 163/90 09/19/16 09/19/16 09/19/16 09/19/16 16:30 16:31 16:45 17:00 Pulse 99 104 100 B/P 95/73 87/65 107/65 Pulse Ox 98 09/19/16 09/19/16 09/19/16 09/19/16 17:00 17:30 17:30 17:35 Temp 100.6 100.6 Pulse 99 B/P 104/62 Pulse Ox 93 91 O2 Delivery Venturi Mask Venturi Mask 09/19/16 09/19/16 09/19/16 09/19/16 18:00 18:00 19:00 19:00 Temp 100.5 100.5 Pulse 100 98 B/P 85/45 89/49 Pulse Ox 92 09/19/16 09/19/16 09/19/16 09/19/16 19:00 20:00 20:00 20:06 Temp 100.5 99.0 100.5 99.0 Pulse Ox 94 95 09/19/16 09/19/16 09/19/16 09/19/16 20:13 20:13 20:30 21:00 Pulse 97 B/P 103/58 Pulse Ox 98 95 O2 Delivery Venturi Mask Nasal Cannula O2 Flow Rate 5.0 09/19/16 09/19/16 09/19/16 09/19/16 21:00 21:00 21:09 21:30 Temp 100.8 100.6 100.8 100.6 Pulse 101 B/P 99/60 O2 Delivery Nasal Cannula O2 Flow Rate 5.0 09/19/16 09/19/16 09/19/16 09/19/16 22:00 22:00 23:00 23:00 Temp 100.8 100.8 Pulse 98 B/P 91/54 100/71 Pulse Ox 93 96 09/19/16 09/19/16 09/19/16 09/19/16 23:00 23:52 23:59 23:59 Temp 98.9 98.9 Pulse 101 101 Resp 16 B/P 116/72 117/70 Pulse Ox 98 98 O2 Delivery Nasal Cannula Nasal Cannula Nasal Cannula O2 Flow Rate 5.0 5.0 5.0 09/19/16 09/20/16 09/20/16 09/20/16 23:59 00:05 00:35 01:00 Pulse 101 107 Resp 16 18 B/P 117/70 128/80 Pulse Ox 98 98 96 O2 Delivery Nasal Cannula Venturi Mask Nasal Cannula O2 Flow Rate 5.0 5.0 5.0 09/20/16 09/20/16 09/20/16 09/20/16 02:00 03:00 03:19 04:00 Temp 98.0 98.0 Pulse 96 95 91 Resp 16 18 16 16 B/P 123/75 128/78 129/74 Pulse Ox 97 97 97 97 O2 Delivery Nasal Cannula Nasal Cannula Nasal Cannula Nasal Cannula O2 Flow Rate 5.0 5.0 4.0 5.0 09/20/16 09/20/16 09/20/16 09/20/16 04:00 04:00 04:15 05:00 Pulse 91 96 Resp 16 14 B/P 129/74 136/76 Pulse Ox 97 96 O2 Delivery Nasal Cannula Nasal Cannula Nasal Cannula O2 Flow Rate 5.0 5.0 5.0 09/20/16 09/20/16 09/20/16 09/20/16 06:00 07:00 07:51 08:00 Pulse 95 86 Resp 18 24 17 B/P 139/79 107/71 Pulse Ox 97 98 98 O2 Delivery Nasal Cannula Nasal Cannula Nasal Cannula O2 Flow Rate 5.0 5.0 5.0 5.0 Intake and Output 09/19/16 09/19/16 09/20/16 15:00 23:00 07:00 Intake Total 50 ml 628 ml Output Total 1447 ml 735 ml Balance -1397 ml -107 ml HO DELA CRUZ MD Sep 20, 2016 08:46
[2016-09-20] MEDS: METOPROLOL TART IMMED RELEASE 25 MG TABLET PO SCH ×2 (09:00→21:00)
[2016-09-20] MEDS: SENNOSIDES/DOCUSATE 8.6/50MG TABLET. PO SCH ×2 (09:00→21:00)
[2016-09-20] MEDS: INSULIN DETEMIR 300 UNITS/3 ML INSULN.PEN. SQ SCH (09:00)
[2016-09-20] MEDS ORDERED: METOPROLOL TART IMMED RELEASE 25 MG TABLET PO SCH (09:00)
--- NOTE | 2016-09-20 09:01 | RAD ---
Portable chest, 09/20/2016: History: Postop shortness of breath Comparison is made to yesterday's study. The ET tube and right jugular Deport-Kate catheter have been removed. Two mediastinal drains and a left chest tube remain in place. The heart size is unchanged. The pulmonary vascularity is within normal limits. There is mild ongoing streaky parahilar atelectasis, left greater than right. There is no evidence of pneumothorax or significant pleural fluid. IMPRESSION: 1. Mild ongoing bilateral parahilar atelectasis. 2. The postoperative chest is otherwise unremarkable.
[2016-09-20] MEDS: ALBUTEROL SULFATE 2.5 MG/3 ML NEBU. NEB PRN ×5 (10:04→23:41)
[2016-09-20] MEDS: FUROSEMIDE 40 MG/4 ML VIAL IVP SCH ×2 (12:02→19:05)
--- NOTE | 2016-09-20 12:02 | PDOC ---
CARDIO Progress Notes Date and Time Date of Service 09/20/2016 Time of Evaluation 1159 Subjective Subjective: No shortness of breath, No Palpitations, No Dizziness, Other ( incisional discomfort) Vitals Vitals Vital Signs Date Time Temp Pulse Resp B/P Pulse Ox O2 Delivery O2 Flow Rate FiO2 09/20/16 10:04 88 Nasal Cannula 7.0 09/20/16 10:00 79 24 98/61 09/20/16 04:00 98.0 98.0 Weight Weight [ ] Input and Output Intake and Output Intake and Output 09/20/16 07:00 Intake Total 678 ml Output Total 2182 ml Balance -1504 ml Intake Oral 300 ml IV Total 378 ml Output Urine Total 1665 ml Chest Tube Drainage Total 517 ml Laboratory Labs Laboratory Tests Test 09/19/16 12:00 09/19/16 12:30 09/19/16 12:37 09/19/16 13:00 Activated Clotting Time 425SEC (90-125) 429SEC (90-125) 404SEC (90-125) Bedside Hemoglobin (Calculated) 10.5g/dL (14-18) Bedside Hematocrit 31% (37-52) Bedside Arterial pH 7.32 (7.35-7.45) Bedside Arterial pCO2 46mmHg (35-45) Bedside Arterial pO2 156mmHg (75-100) Bedside Arterial HCO3 24mmol/L (21-28) Bedside Arterial Total CO2 25mmol/L (21-32) Arterial Bld O2 Saturation (Measur) 99% (95-99) Bedside Arterial Blood Base Excess -3mmol/L (0-3) Bedside FiO2 70.0 Bedside Sodium 138mmol/L (135-145) Bedside Potassium 5.8mmol/L (3.5-5.0) Glucose Level 194mg/dL (70-99) Bedside Ionized Calcium (Yakov) 1.05mmol/L (1.13-1.32) Test 09/19/16 13:03 09/19/16 13:29 09/19/16 13:30 09/19/16 13:47 Bedside Hemoglobin (Calculated) 10.5g/dL (14-18) 10.5g/dL (14-18) Bedside Hematocrit 31% (37-52) 31% (37-52) Bedside Arterial pH 7.37 (7.35-7.45) 7.36 (7.35-7.45) Bedside Arterial pCO2 43mmHg (35-45) 42mmHg (35-45) Bedside Arterial pO2 202mmHg (75-100) 206mmHg (75-100) Bedside Arterial HCO3 25mmol/L (21-28) 24mmol/L (21-28) Bedside Arterial Total CO2 26mmol/L (21-32) 25mmol/L (21-32) Arterial Bld O2 Saturation (Measur) 100% (95-99) 100% (95-99) Bedside Arterial Blood Base Excess 0mmol/L (0-3) -2mmol/L (0-3) Bedside FiO2 70.0 80.0 Bedside Sodium 141mmol/L (135-145) 141mmol/L (135-145) Bedside Potassium 4.4mmol/L (3.5-5.0) 4.3mmol/L (3.5-5.0) Glucose Level 208mg/dL (70-99) 200mg/dL (70-99) Bedside Ionized Calcium (Yakov) 1.06mmol/L (1.13-1.32) 1.06mmol/L (1.13-1.32) Activated Clotting Time 410SEC (90-125) 126SEC (90-125) Test 09/19/16 14:05 09/19/16 14:07 09/19/16 14:31 09/19/16 14:46 White Blood Count 16.3x10^3/uL (4.0-11.0) Hemoglobin 10.7g/dL (13.0-17.5) Hematocrit 32.7% (39.0-53.0) Platelet Count 174x10^3/uL (140-400) Prothrombin Time 16.4SEC (11.7-14.0) Prothromb Time International Ratio 1.4 (0.8-1.1) Activated Partial Thromboplast Time 29SEC (24-38) Fibrinogen 252mg/dL (200-440) Bedside Hemoglobin (Calculated) 9.5g/dL (14-18) 9.5g/dL (14-18) Bedside Hematocrit 28% (37-52) 28% (37-52) Bedside Arterial pH 7.39 (7.35-7.45) 7.37 (7.35-7.45) Bedside Arterial pCO2 42mmHg (35-45) 45mmHg (35-45) Bedside Arterial pO2 229mmHg (75-100) 213mmHg (75-100) Bedside Arterial HCO3 26mmol/L (21-28) 26mmol/L (21-28) Bedside Arterial Total CO2 27mmol/L (21-32) 27mmol/L (21-32) Arterial Bld O2 Saturation (Measur) 100% (95-99) 100% (95-99) Bedside Arterial Blood Base Excess 1mmol/L (0-3) 1mmol/L (0-3) Bedside FiO2 85.0 85.0 Bedside Sodium 140mmol/L (135-145) 141mmol/L (135-145) Bedside Potassium 4.2mmol/L (3.5-5.0) 4.1mmol/L (3.5-5.0) Glucose Level 176mg/dL (70-99) 166mg/dL (70-99) Bedside Ionized Calcium (Yakov) 1.36mmol/L (1.13-1.32) 1.61mmol/L (1.13-1.32) O2 Saturation 97% (92-99) Arterial Blood pH 7.33 (7.35-7.45) Arterial Blood pCO2 at Patient Temp 49mmHg (35-46) Arterial Blood pO2 at Patient Temp 97mmHg (75-108) Arterial Blood HCO3 25mmol/L (21-28) Arterial Blood Base Excess -1mmol/L (-3-3) Oxyhemoglobin 95.9% Methemoglobin 0.3% (0.0-1.9) Carbon Monoxide, Quantitative 0.3% (0.0-1.9) FiO2 100 Test 09/19/16 14:48 09/19/16 15:38 09/19/16 15:50 09/19/16 16:46 Bedside Hemoglobin (Calculated) 9.9g/dL (14-18) Bedside Hematocrit 29% (37-52) Bedside Arterial pH 7.34 (7.35-7.45) Bedside Arterial pCO2 44mmHg (35-45) Bedside Arterial pO2 55mmHg (75-100) Bedside Arterial HCO3 24mmol/L (21-28) Bedside Arterial Total CO2 25mmol/L (21-32) Arterial Bld O2 Saturation (Measur) 86% (95-99) Bedside Arterial Blood Base Excess -2mmol/L (0-3) Bedside FiO2 100.0 Bedside Sodium 142mmol/L (135-145) Bedside Potassium 3.7mmol/L (3.5-5.0) Glucose Level 151mg/dL (70-99) 123mg/dL (70-99) Bedside Ionized Calcium (Yakov) 1.48mmol/L (1.13-1.32) Glucose (Fingerstick) 103mg/dL (70-99) 131mg/dL (70-99) White Blood Count 17.6x10^3/uL (4.0-11.0) Red Blood Count 4.27x10^6/uL (4.30-5.70) Hemoglobin 11.8g/dL (13.0-17.5) Hematocrit 36.0% (39.0-53.0) Mean Corpuscular Volume 84fL (79-100) Mean Corpuscular Hemoglobin 28pg (25-35) Mean Corpuscular Hemoglobin Concent 33g/dL (31-37) Red Cell Distribution Width 14.3% (11.5-14.5) Platelet Count 206x10^3/uL (140-400) Prothrombin Time 15.4SEC (11.7-14.0) Prothromb Time International Ratio 1.3 (0.8-1.1) Activated Partial Thromboplast Time 31SEC (24-38) Sodium Level 144mmol/L (136-145) Potassium Level 4.0mmol/L (3.5-5.1) Chloride Level 109mmol/L (98-107) Carbon Dioxide Level 27mmol/L (21-32) Anion Gap 8 (6-14) Blood Urea Nitrogen 21mg/dL (8-26) Creatinine 1.2mg/dL (0.7-1.3) Estimated GFR (Cockcroft-Gault) 64.9 Calcium Level 9.1mg/dL (8.5-10.1) Ionized Calcium 1.37mmol/L (1.13-1.32) Magnesium Level 2.2mg/dL (1.8-2.4) Test 09/19/16 16:50 09/19/16 17:39 09/19/16 19:07 09/19/16 19:50 O2 Saturation 89% (92-99) Arterial Blood pH 7.31 (7.35-7.45) Arterial Blood pCO2 at Patient Temp 47mmHg (35-46) Arterial Blood pO2 at Patient Temp 63mmHg (75-108) Arterial Blood HCO3 23mmol/L (21-28) Arterial Blood Base Excess -3mmol/L (-3-3) FiO2 40 Glucose (Fingerstick) 153mg/dL (70-99) 149mg/dL (70-99) Hemoglobin 10.8g/dL (13.0-17.5) Hematocrit 33.3% (39.0-53.0) Mean Corpuscular Hemoglobin Concent 32g/dL (31-37) Potassium Level 5.3mmol/L (3.5-5.1) Test 09/19/16 20:21 09/19/16 21:26 09/19/16 23:24 09/20/16 01:27 Glucose (Fingerstick) 150mg/dL (70-99) 159mg/dL (70-99) 162mg/dL (70-99) 164mg/dL (70-99) Test 09/20/16 02:34 09/20/16 03:27 09/20/16 04:30 09/20/16 05:30 Glucose (Fingerstick) 157mg/dL (70-99) 153mg/dL (70-99) 152mg/dL (70-99) White Blood Count 14.3x10^3/uL (4.0-11.0) Red Blood Count 3.90x10^6/uL (4.30-5.70) Hemoglobin 10.7g/dL (13.0-17.5) Hematocrit 33.4% (39.0-53.0) Mean Corpuscular Volume 86fL (79-100) Mean Corpuscular Hemoglobin 27pg (25-35) Mean Corpuscular Hemoglobin Concent 32g/dL (31-37) Red Cell Distribution Width 14.3% (11.5-14.5) Platelet Count 189x10^3/uL (140-400) Prothrombin Time 14.1SEC (11.7-14.0) Prothromb Time International Ratio 1.2 (0.8-1.1) Sodium Level 141mmol/L (136-145) Potassium Level 5.2mmol/L (3.5-5.1) Chloride Level 107mmol/L (98-107) Carbon Dioxide Level 26mmol/L (21-32) Anion Gap 8 (6-14) Blood Urea Nitrogen 22mg/dL (8-26) Creatinine 1.3mg/dL (0.7-1.3) Estimated GFR (Cockcroft-Gault) 59.2 Glucose Level 170mg/dL (70-99) Calcium Level 8.5mg/dL (8.5-10.1) Magnesium Level 2.3mg/dL (1.8-2.4) Test 09/20/16 05:32 09/20/16 06:33 09/20/16 08:36 09/20/16 09:52 Glucose (Fingerstick) 149mg/dL (70-99) 154mg/dL (70-99) 174mg/dL (70-99) 166mg/dL (70-99) Test 09/20/16 10:55 Glucose (Fingerstick) 142mg/dL (70-99) Radiology Rad Impression Comparison is made to yesterday's study. The ET tube and right jugular Ossian-Kate catheter have been removed. Two mediastinal drains and a left chest tube remain in place. The heart size is unchanged. The pulmonary vascularity is within normal limits. There is mild ongoing streaky parahilar atelectasis, left greater than right. There is no evidence of pneumothorax or significant pleural fluid. IMPRESSION: 1. Mild ongoing bilateral parahilar atelectasis. 2. The postoperative chest is otherwise unremarkable. Case Discussion Case Discussed with: Other (RN) Physical Exam HEENT: NO Carotid Bruit, Neck Supple W Full Motion Chest: Symmetric LUNGS: Clear to Auscultation Heart: S1S2, RRR, no murmurs, other (tele: SR) Abdomen: Soft N/T Extremities: No Edema Neurology: alert, oriented, follow commands Assessment Assessment 1. NSTEMI troponin peaked at 1.754 s/p CABG with CHUA to LAD; SVG to RPDA; SVG to OM2; POD#1 management per CTS continue beat-blockers, ASA, statin therapy 2. HTN, benign essential controlled restarting BB 3. mixed hyperlipidemia TG = 358; HDLs = 37 continue statin therapy lifestyle modification and improved control of DM to address TG 4. DM, type II A1C= 8.2 currently with insulin gtt per CTS/IPC 5. tobacco abuse smokes and chews SATNAM BRADFORD APRN Sep 20, 2016 12:02
--- NOTE | 2016-09-20 13:42 | PDOC ---
Progress Note Subjective Subjective Fast track extubation yesterday. Doing very well this morning sitting out of bed to chair. Complains of incisional discomfort and pain around the tube sites. Normotensive and in sinus rhythm. Minimal tube output. Chest x-ray shows small lung volumes. Cardiac index >2.5 ROS ROS No nausea No vomiting No pain No rash Vital Sign Vital Signs Vital Signs Date Time Temp Pulse Resp B/P Pulse Ox O2 Delivery O2 Flow Rate FiO2 09/20/16 12:55 96 Nasal Cannula 5.0 09/20/16 10:00 79 24 98/61 09/20/16 04:00 98.0 98.0 Physical Exam PHYSICAL EXAM GENERAL: NAD, Alert HEENT: PERRL, OC/OP NECK: Supple, no JVD, no LN LUNGS: Clear HEART: S1S2, no gallop, no murmur ABD: Soft, NT, no organomegaly, no rebound EXT: No edema, no cyanosis [employer]: Alert, oriented x 3, no focal neurologic deficit SKIN: No rash IV: ok Labs Lab Laboratory Tests Test 09/19/16 13:47 09/19/16 14:05 09/19/16 14:07 09/19/16 14:31 Activated Clotting Time 126SEC (90-125) White Blood Count 16.3x10^3/uL (4.0-11.0) Hemoglobin 10.7g/dL (13.0-17.5) Hematocrit 32.7% (39.0-53.0) Platelet Count 174x10^3/uL (140-400) Prothrombin Time 16.4SEC (11.7-14.0) Prothromb Time International Ratio 1.4 (0.8-1.1) Activated Partial Thromboplast Time 29SEC (24-38) Fibrinogen 252mg/dL (200-440) Bedside Hemoglobin (Calculated) 9.5g/dL (14-18) 9.5g/dL (14-18) Bedside Hematocrit 28% (37-52) 28% (37-52) Bedside Arterial pH 7.39 (7.35-7.45) 7.37 (7.35-7.45) Bedside Arterial pCO2 42mmHg (35-45) 45mmHg (35-45) Bedside Arterial pO2 229mmHg (75-100) 213mmHg (75-100) Bedside Arterial HCO3 26mmol/L (21-28) 26mmol/L (21-28) Bedside Arterial Total CO2 27mmol/L (21-32) 27mmol/L (21-32) Arterial Bld O2 Saturation (Measur) 100% (95-99) 100% (95-99) Bedside Arterial Blood Base Excess 1mmol/L (0-3) 1mmol/L (0-3) Bedside FiO2 85.0 85.0 Bedside Sodium 140mmol/L (135-145) 141mmol/L (135-145) Bedside Potassium 4.2mmol/L (3.5-5.0) 4.1mmol/L (3.5-5.0) Glucose Level 176mg/dL (70-99) 166mg/dL (70-99) Bedside Ionized Calcium (Yakov) 1.36mmol/L (1.13-1.32) 1.61mmol/L (1.13-1.32) Test 09/19/16 14:46 09/19/16 14:48 09/19/16 15:38 09/19/16 15:50 O2 Saturation 97% (92-99) Arterial Blood pH 7.33 (7.35-7.45) Arterial Blood pCO2 at Patient Temp 49mmHg (35-46) Arterial Blood pO2 at Patient Temp 97mmHg (75-108) Arterial Blood HCO3 25mmol/L (21-28) Arterial Blood Base Excess -1mmol/L (-3-3) Oxyhemoglobin 95.9% Methemoglobin 0.3% (0.0-1.9) Carbon Monoxide, Quantitative 0.3% (0.0-1.9) FiO2 100 Bedside Hemoglobin (Calculated) 9.9g/dL (14-18) Bedside Hematocrit 29% (37-52) Bedside Arterial pH 7.34 (7.35-7.45) Bedside Arterial pCO2 44mmHg (35-45) Bedside Arterial pO2 55mmHg (75-100) Bedside Arterial HCO3 24mmol/L (21-28) Bedside Arterial Total CO2 25mmol/L (21-32) Arterial Bld O2 Saturation (Measur) 86% (95-99) Bedside Arterial Blood Base Excess -2mmol/L (0-3) Bedside FiO2 100.0 Bedside Sodium 142mmol/L (135-145) Bedside Potassium 3.7mmol/L (3.5-5.0) Glucose Level 151mg/dL (70-99) 123mg/dL (70-99) Bedside Ionized Calcium (Yakov) 1.48mmol/L (1.13-1.32) Glucose (Fingerstick) 103mg/dL (70-99) White Blood Count 17.6x10^3/uL (4.0-11.0) Red Blood Count 4.27x10^6/uL (4.30-5.70) Hemoglobin 11.8g/dL (13.0-17.5) Hematocrit 36.0% (39.0-53.0) Mean Corpuscular Volume 84fL (79-100) Mean Corpuscular Hemoglobin 28pg (25-35) Mean Corpuscular Hemoglobin Concent 33g/dL (31-37) Red Cell Distribution Width 14.3% (11.5-14.5) Platelet Count 206x10^3/uL (140-400) Prothrombin Time 15.4SEC (11.7-14.0) Prothromb Time International Ratio 1.3 (0.8-1.1) Activated Partial Thromboplast Time 31SEC (24-38) Sodium Level 144mmol/L (136-145) Potassium Level 4.0mmol/L (3.5-5.1) Chloride Level 109mmol/L (98-107) Carbon Dioxide Level 27mmol/L (21-32) Anion Gap 8 (6-14) Blood Urea Nitrogen 21mg/dL (8-26) Creatinine 1.2mg/dL (0.7-1.3) Estimated GFR (Cockcroft-Gault) 64.9 Calcium Level 9.1mg/dL (8.5-10.1) Ionized Calcium 1.37mmol/L (1.13-1.32) Magnesium Level 2.2mg/dL (1.8-2.4) Test 09/19/16 16:46 09/19/16 16:50 09/19/16 17:39 09/19/16 19:07 Glucose (Fingerstick) 131mg/dL (70-99) 153mg/dL (70-99) 149mg/dL (70-99) O2 Saturation 89% (92-99) Arterial Blood pH 7.31 (7.35-7.45) Arterial Blood pCO2 at Patient Temp 47mmHg (35-46) Arterial Blood pO2 at Patient Temp 63mmHg (75-108) Arterial Blood HCO3 23mmol/L (21-28) Arterial Blood Base Excess -3mmol/L (-3-3) FiO2 40 Test 09/19/16 19:50 09/19/16 20:21 09/19/16 21:26 09/19/16 23:24 Hemoglobin 10.8g/dL (13.0-17.5) Hematocrit 33.3% (39.0-53.0) Mean Corpuscular Hemoglobin Concent 32g/dL (31-37) Potassium Level 5.3mmol/L (3.5-5.1) Glucose (Fingerstick) 150mg/dL (70-99) 159mg/dL (70-99) 162mg/dL (70-99) Test 09/20/16 01:27 09/20/16 02:34 09/20/16 03:27 09/20/16 04:30 Glucose (Fingerstick) 164mg/dL (70-99) 157mg/dL (70-99) 153mg/dL (70-99) 152mg/dL (70-99) Test 09/20/16 05:30 09/20/16 05:32 09/20/16 06:33 09/20/16 08:36 White Blood Count 14.3x10^3/uL (4.0-11.0) Red Blood Count 3.90x10^6/uL (4.30-5.70) Hemoglobin 10.7g/dL (13.0-17.5) Hematocrit 33.4% (39.0-53.0) Mean Corpuscular Volume 86fL (79-100) Mean Corpuscular Hemoglobin 27pg (25-35) Mean Corpuscular Hemoglobin Concent 32g/dL (31-37) Red Cell Distribution Width 14.3% (11.5-14.5) Platelet Count 189x10^3/uL (140-400) Prothrombin Time 14.1SEC (11.7-14.0) Prothromb Time International Ratio 1.2 (0.8-1.1) Sodium Level 141mmol/L (136-145) Potassium Level 5.2mmol/L (3.5-5.1) Chloride Level 107mmol/L (98-107) Carbon Dioxide Level 26mmol/L (21-32) Anion Gap 8 (6-14) Blood Urea Nitrogen 22mg/dL (8-26) Creatinine 1.3mg/dL (0.7-1.3) Estimated GFR (Cockcroft-Gault) 59.2 Glucose Level 170mg/dL (70-99) Calcium Level 8.5mg/dL (8.5-10.1) Magnesium Level 2.3mg/dL (1.8-2.4) Glucose (Fingerstick) 149mg/dL (70-99) 154mg/dL (70-99) 174mg/dL (70-99) Test 09/20/16 09:52 09/20/16 10:55 09/20/16 12:09 Glucose (Fingerstick) 166mg/dL (70-99) 142mg/dL (70-99) 108mg/dL (70-99) Objective Assessment POD#1 s/p CABG x 3 (CHUA to LAD, SVG to RPDA, SVG to OM2). Doing very well. Cardiac index >2.5. Normotensive and in sinus rhythm. Complains of pain. Minimal tube output. Excellent urine output. Chest x-ray shows small lung volumes. Plan Plan of Care D/c Donner D/c cordis D/c a-line D/c mediastinal and pleural tubes Start diuresis with 40 mg Lasix IV ASA, b uzair, statin Amiodarone for A. fib prophylaxis Aggressive pulmonary toilet and ambulation Okay to downgrade to stepdown this evening. NOHEMI WILSON MD Sep 20, 2016 13:42
--- NOTE | 2016-09-20 14:18 | PDOC ---
Provider Note Provider Note left pleural tube discontinued without difficulty. PCXR pending to evaluate for ptx. SATNAM BRADFORD SPEECH CORRECTION CONSULTANT Sep 20, 2016 14:18
[2016-09-20] MEDS: IV RINGERS,LACTATED 1000ML 1,000 ML IV SCH (14:46)
--- NOTE | 2016-09-20 14:53 | RAD ---
Portable chest, 09/20/2016: History: Follow-up pleural tube removal Comparison is made to a study from early the same day. Mediastinal drains and the left chest tube have been removed. The heart size is unchanged. There is mild persistent left parahilar atelectasis. There is no evidence of pneumothorax or significant pleural fluid. No new abnormality is detected. IMPRESSION: Mild ongoing left perihilar atelectasis.
[2016-09-20] MEDS: AMIODARONE HCL 200 MG TABLET PO SCH ×2 (16:48→21:00)
[2016-09-20] MEDS: ATORVASTATIN CALCIUM 20 MG TABLET PO SCH (21:00)
[2016-09-21] MEDS: OXYCODONE/APAP 5/325 TABLET. PO PRN ×3 (01:02→16:53)
[2016-09-21 04:00] VITALS: BP 115/76
[2016-09-21] MEDS: ALBUTEROL SULFATE 2.5 MG/3 ML NEBU. NEB PRN (04:04)
[2016-09-21] MEDS: CEFAZOLIN 2GM PREMIX 50 ML IV SCH (04:14)
[2016-09-21] MEDS: FUROSEMIDE 40 MG/4 ML VIAL IVP SCH ×2 (06:33→08:55)
[2016-09-21] MEDS: INSULIN ASPART 300 UNITS/3 ML INSULN.PEN SQ SCH ×3 (08:00→17:47)
[2016-09-21 08:15] VITALS: BP 113/75
--- NOTE | 2016-09-21 08:27 | RAD ---
Indication: Postoperative evaluation. Technique: AP portable chest radiograph was obtained. Comparison is from one day earlier. Findings: There is increased opacity in the left upper lung field. Left perihilar opacity is similar. Right lung is relatively clear. The heart is not enlarged. Median sternotomy wires are noted. Leads overlie the patient. Impression: Left perihilar opacity again noted with increasing left upper lung field opacity, this may represent atelectasis or developing pneumonia.
[2016-09-21] MEDS: SENNOSIDES/DOCUSATE 8.6/50MG TABLET. PO SCH ×2 (08:53→20:57)
[2016-09-21] MEDS: AMIODARONE HCL 200 MG TABLET PO SCH ×2 (08:53→20:58)
[2016-09-21] MEDS: METOPROLOL TART IMMED RELEASE 25 MG TABLET PO SCH ×2 (08:54→20:57)
[2016-09-21] MEDS: ASPIRIN ENTERIC COATED 325 MG TABLET.DR. PO SCH (08:54)
[2016-09-21] MEDS: INSULIN DETEMIR 300 UNITS/3 ML INSULN.PEN. SQ SCH (09:00)
[2016-09-21 09:29] LABS: CALCIUM 8.8 mg/dL (8.5-10.1); CREATININE 1.2 mg/dL (0.7-1.3); GFR 64.9; POTASSIUM 3.8 mmol/L (3.5-5.1)
[2016-09-21 10:19] LABS: BASO # 0.1 x10^3/uL (0.0-0.2); BASO % 0 % (0-3); EOS % 1 % (0-3); HEMATOCRIT 34.9 % (39.0-53.0); HEMOGLOBIN 11.4 g/dL (13.0-17.5); LYMPH # 1.8 x10^3/uL (1.0-4.8); LYMPH % 10 % (24-48); MEAN CORPUSCULAR HEMOGLOBIN 27 pg (25-35); MEAN CORPUSCULAR HGB CONC 33 g/dL (31-37); MEAN CORPUSCULAR VOLUME 84 fL (79-100); MONO % 9 % (0-9); NEUT % 81 % (31-73); PLATELET COUNT 206 x10^3/uL (140-400); RED BLOOD COUNT 4.16 x10^6/uL (4.30-5.70); WHITE BLOOD COUNT 18.5 x10^3/uL (4.0-11.0)
[2016-09-21 10:49] VITALS: BP 94/62
--- NOTE | 2016-09-21 11:27 | PDOC ---
PROGRESS NOTES Chief Complaint Chief Complaint 1. 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 hld 3. dm2 with hgba1c 8 4. Htn 5. OBEsity 6. tobaccoism 7. SIRS wo infection History of Present Illness History of Present Illness t/o of ICU on POD # 1 post CABG POD # 2 CABG off insulin gtt No more chest tubes Still has orosco Blood tinged urine LAbs reviewed, WBC 14, Hgb 11 CXR shows atelectasis Winded - tired, just worked with PT PLAN: Monitor leukocytosis - cbc renetta IS encouraged Dc orosco Cont PT Cardiac meds per cards Monitor hematuria Dw family and RN Vitals Vitals Vital Signs Date Time Temp Pulse Resp B/P Pulse Ox O2 Delivery O2 Flow Rate FiO2 09/21/16 10:49 98.6 79 20 94/62 98 Nasal Cannula 4.0 98.6 Physical Exam Physical Exam GENERAL: NAD, Alert HEENT: PERRL, OC/OP NECK: Supple, no JVD, no LN LUNGS: Clear HEART: S1S2, no gallop, no murmur ABD: Soft, NT, no organomegaly, no rebound EXT: No edema, no cyanosis PANEL INSTALLER: Alert, oriented x 3, no focal neurologic deficit SKIN: No rash IV: ok General: Alert, Oriented X3, No acute distress Heart: Regular rate, Normal S1, Normal S2, No murmurs, Gallops Abdomen: Soft, No tenderness, No masses Extremities: Normal pulses Skin: No significant lesion Labs LABS Laboratory Tests Test 09/20/16 12:09 09/20/16 16:53 09/20/16 20:51 09/21/16 08:20 Glucose (Fingerstick) 108mg/dL (70-99) 130mg/dL (70-99) 254mg/dL (70-99) 198mg/dL (70-99) Test 09/21/16 08:51 White Blood Count 18.5x10^3/uL (4.0-11.0) Red Blood Count 4.16x10^6/uL (4.30-5.70) Hemoglobin 11.4g/dL (13.0-17.5) Hematocrit 34.9% (39.0-53.0) Mean Corpuscular Volume 84fL (79-100) Mean Corpuscular Hemoglobin 27pg (25-35) Mean Corpuscular Hemoglobin Concent 33g/dL (31-37) Red Cell Distribution Width 14.0% (11.5-14.5) Platelet Count 206x10^3/uL (140-400) Neutrophils (%) (Auto) 81% (31-73) Lymphocytes (%) (Auto) 10% (24-48) Monocytes (%) (Auto) 9% (0-9) Eosinophils (%) (Auto) 1% (0-3) Basophils (%) (Auto) 0% (0-3) Neutrophils # (Auto) 14.9x10^3uL (1.8-7.7) Lymphocytes # (Auto) 1.8x10^3/uL (1.0-4.8) Monocytes # (Auto) 1.6x10^3/uL (0.0-1.1) Eosinophils # (Auto) 0.1x10^3/uL (0.0-0.7) Basophils # (Auto) 0.1x10^3/uL (0.0-0.2) Sodium Level 135mmol/L (136-145) Potassium Level 3.8mmol/L (3.5-5.1) Chloride Level 97mmol/L (98-107) Carbon Dioxide Level 29mmol/L (21-32) Anion Gap 9 (6-14) Blood Urea Nitrogen 16mg/dL (8-26) Creatinine 1.2mg/dL (0.7-1.3) Estimated GFR (Cockcroft-Gault) 64.9 Glucose Level 319mg/dL (70-99) Calcium Level 8.8mg/dL (8.5-10.1) Assessment and Plan Assessmemt and Plan Problems Medical Problems: (1) Chest pain Status: Acute (2) NSTEMI (non-ST elevated myocardial infarction) Status: Acute Problems: Comment Review of Relevant I have reviewed the following items amber (where applicable) has been applied. Labs Laboratory Tests Test 09/19/16 11:35 09/19/16 12:00 09/19/16 12:30 09/19/16 12:37 Activated Clotting Time 453SEC (90-125) 425SEC (90-125) 429SEC (90-125) Bedside Hemoglobin (Calculated) 10.5g/dL (14-18) Bedside Hematocrit 31% (37-52) Bedside Arterial pH 7.32 (7.35-7.45) Bedside Arterial pCO2 46mmHg (35-45) Bedside Arterial pO2 156mmHg (75-100) Bedside Arterial HCO3 24mmol/L (21-28) Bedside Arterial Total CO2 25mmol/L (21-32) Arterial Bld O2 Saturation (Measur) 99% (95-99) Bedside Arterial Blood Base Excess -3mmol/L (0-3) Bedside FiO2 70.0 Bedside Sodium 138mmol/L (135-145) Bedside Potassium 5.8mmol/L (3.5-5.0) Glucose Level 194mg/dL (70-99) Bedside Ionized Calcium (Yakov) 1.05mmol/L (1.13-1.32) Test 09/19/16 13:00 09/19/16 13:03 09/19/16 13:29 09/19/16 13:30 Activated Clotting Time 404SEC (90-125) 410SEC (90-125) Bedside Hemoglobin (Calculated) 10.5g/dL (14-18) 10.5g/dL (14-18) Bedside Hematocrit 31% (37-52) 31% (37-52) Bedside Arterial pH 7.37 (7.35-7.45) 7.36 (7.35-7.45) Bedside Arterial pCO2 43mmHg (35-45) 42mmHg (35-45) Bedside Arterial pO2 202mmHg (75-100) 206mmHg (75-100) Bedside Arterial HCO3 25mmol/L (21-28) 24mmol/L (21-28) Bedside Arterial Total CO2 26mmol/L (21-32) 25mmol/L (21-32) Arterial Bld O2 Saturation (Measur) 100% (95-99) 100% (95-99) Bedside Arterial Blood Base Excess 0mmol/L (0-3) -2mmol/L (0-3) Bedside FiO2 70.0 80.0 Bedside Sodium 141mmol/L (135-145) 141mmol/L (135-145) Bedside Potassium 4.4mmol/L (3.5-5.0) 4.3mmol/L (3.5-5.0) Glucose Level 208mg/dL (70-99) 200mg/dL (70-99) Bedside Ionized Calcium (Yakov) 1.06mmol/L (1.13-1.32) 1.06mmol/L (1.13-1.32) Test 09/19/16 13:47 09/19/16 14:05 09/19/16 14:07 09/19/16 14:31 Activated Clotting Time 126SEC (90-125) White Blood Count 16.3x10^3/uL (4.0-11.0) Hemoglobin 10.7g/dL (13.0-17.5) Hematocrit 32.7% (39.0-53.0) Platelet Count 174x10^3/uL (140-400) Prothrombin Time 16.4SEC (11.7-14.0) Prothromb Time International Ratio 1.4 (0.8-1.1) Activated Partial Thromboplast Time 29SEC (24-38) Fibrinogen 252mg/dL (200-440) Bedside Hemoglobin (Calculated) 9.5g/dL (14-18) 9.5g/dL (14-18) Bedside Hematocrit 28% (37-52) 28% (37-52) Bedside Arterial pH 7.39 (7.35-7.45) 7.37 (7.35-7.45) Bedside Arterial pCO2 42mmHg (35-45) 45mmHg (35-45) Bedside Arterial pO2 229mmHg (75-100) 213mmHg (75-100) Bedside Arterial HCO3 26mmol/L (21-28) 26mmol/L (21-28) Bedside Arterial Total CO2 27mmol/L (21-32) 27mmol/L (21-32) Arterial Bld O2 Saturation (Measur) 100% (95-99) 100% (95-99) Bedside Arterial Blood Base Excess 1mmol/L (0-3) 1mmol/L (0-3) Bedside FiO2 85.0 85.0 Bedside Sodium 140mmol/L (135-145) 141mmol/L (135-145) Bedside Potassium 4.2mmol/L (3.5-5.0) 4.1mmol/L (3.5-5.0) Glucose Level 176mg/dL (70-99) 166mg/dL (70-99) Bedside Ionized Calcium (Yakov) 1.36mmol/L (1.13-1.32) 1.61mmol/L (1.13-1.32) Test 09/19/16 14:46 09/19/16 14:48 09/19/16 15:38 09/19/16 15:50 O2 Saturation 97% (92-99) Arterial Blood pH 7.33 (7.35-7.45) Arterial Blood pCO2 at Patient Temp 49mmHg (35-46) Arterial Blood pO2 at Patient Temp 97mmHg (75-108) Arterial Blood HCO3 25mmol/L (21-28) Arterial Blood Base Excess -1mmol/L (-3-3) Oxyhemoglobin 95.9% Methemoglobin 0.3% (0.0-1.9) Carbon Monoxide, Quantitative 0.3% (0.0-1.9) FiO2 100 Bedside Hemoglobin (Calculated) 9.9g/dL (14-18) Bedside Hematocrit 29% (37-52) Bedside Arterial pH 7.34 (7.35-7.45) Bedside Arterial pCO2 44mmHg (35-45) Bedside Arterial pO2 55mmHg (75-100) Bedside Arterial HCO3 24mmol/L (21-28) Bedside Arterial Total CO2 25mmol/L (21-32) Arterial Bld O2 Saturation (Measur) 86% (95-99) Bedside Arterial Blood Base Excess -2mmol/L (0-3) Bedside FiO2 100.0 Bedside Sodium 142mmol/L (135-145) Bedside Potassium 3.7mmol/L (3.5-5.0) Glucose Level 151mg/dL (70-99) 123mg/dL (70-99) Bedside Ionized Calcium (Yakov) 1.48mmol/L (1.13-1.32) Glucose (Fingerstick) 103mg/dL (70-99) White Blood Count 17.6x10^3/uL (4.0-11.0) Red Blood Count 4.27x10^6/uL (4.30-5.70) Hemoglobin 11.8g/dL (13.0-17.5) Hematocrit 36.0% (39.0-53.0) Mean Corpuscular Volume 84fL (79-100) Mean Corpuscular Hemoglobin 28pg (25-35) Mean Corpuscular Hemoglobin Concent 33g/dL (31-37) Red Cell Distribution Width 14.3% (11.5-14.5) Platelet Count 206x10^3/uL (140-400) Prothrombin Time 15.4SEC (11.7-14.0) Prothromb Time International Ratio 1.3 (0.8-1.1) Activated Partial Thromboplast Time 31SEC (24-38) Sodium Level 144mmol/L (136-145) Potassium Level 4.0mmol/L (3.5-5.1) Chloride Level 109mmol/L (98-107) Carbon Dioxide Level 27mmol/L (21-32) Anion Gap 8 (6-14) Blood Urea Nitrogen 21mg/dL (8-26) Creatinine 1.2mg/dL (0.7-1.3) Estimated GFR (Cockcroft-Gault) 64.9 Calcium Level 9.1mg/dL (8.5-10.1) Ionized Calcium 1.37mmol/L (1.13-1.32) Magnesium Level 2.2mg/dL (1.8-2.4) Test 09/19/16 16:46 09/19/16 16:50 09/19/16 17:39 09/19/16 19:07 Glucose (Fingerstick) 131mg/dL (70-99) 153mg/dL (70-99) 149mg/dL (70-99) O2 Saturation 89% (92-99) Arterial Blood pH 7.31 (7.35-7.45) Arterial Blood pCO2 at Patient Temp 47mmHg (35-46) Arterial Blood pO2 at Patient Temp 63mmHg (75-108) Arterial Blood HCO3 23mmol/L (21-28) Arterial Blood Base Excess -3mmol/L (-3-3) FiO2 40 Test 09/19/16 19:50 09/19/16 20:21 09/19/16 21:26 09/19/16 23:24 Hemoglobin 10.8g/dL (13.0-17.5) Hematocrit 33.3% (39.0-53.0) Mean Corpuscular Hemoglobin Concent 32g/dL (31-37) Potassium Level 5.3mmol/L (3.5-5.1) Glucose (Fingerstick) 150mg/dL (70-99) 159mg/dL (70-99) 162mg/dL (70-99) Test 09/20/16 01:27 09/20/16 02:34 09/20/16 03:27 09/20/16 04:30 Glucose (Fingerstick) 164mg/dL (70-99) 157mg/dL (70-99) 153mg/dL (70-99) 152mg/dL (70-99) Test 09/20/16 05:30 09/20/16 05:32 09/20/16 06:33 09/20/16 08:36 White Blood Count 14.3x10^3/uL (4.0-11.0) Red Blood Count 3.90x10^6/uL (4.30-5.70) Hemoglobin 10.7g/dL (13.0-17.5) Hematocrit 33.4% (39.0-53.0) Mean Corpuscular Volume 86fL (79-100) Mean Corpuscular Hemoglobin 27pg (25-35) Mean Corpuscular Hemoglobin Concent 32g/dL (31-37) Red Cell Distribution Width 14.3% (11.5-14.5) Platelet Count 189x10^3/uL (140-400) Prothrombin Time 14.1SEC (11.7-14.0) Prothromb Time International Ratio 1.2 (0.8-1.1) Sodium Level 141mmol/L (136-145) Potassium Level 5.2mmol/L (3.5-5.1) Chloride Level 107mmol/L (98-107) Carbon Dioxide Level 26mmol/L (21-32) Anion Gap 8 (6-14) Blood Urea Nitrogen 22mg/dL (8-26) Creatinine 1.3mg/dL (0.7-1.3) Estimated GFR (Cockcroft-Gault) 59.2 Glucose Level 170mg/dL (70-99) Calcium Level 8.5mg/dL (8.5-10.1) Magnesium Level 2.3mg/dL (1.8-2.4) Glucose (Fingerstick) 149mg/dL (70-99) 154mg/dL (70-99) 174mg/dL (70-99) Test 09/20/16 09:52 09/20/16 10:55 09/20/16 12:09 09/20/16 16:53 Glucose (Fingerstick) 166mg/dL (70-99) 142mg/dL (70-99) 108mg/dL (70-99) 130mg/dL (70-99) Test 09/20/16 20:51 09/21/16 08:20 09/21/16 08:51 Glucose (Fingerstick) 254mg/dL (70-99) 198mg/dL (70-99) White Blood Count 18.5x10^3/uL (4.0-11.0) Red Blood Count 4.16x10^6/uL (4.30-5.70) Hemoglobin 11.4g/dL (13.0-17.5) Hematocrit 34.9% (39.0-53.0) Mean Corpuscular Volume 84fL (79-100) Mean Corpuscular Hemoglobin 27pg (25-35) Mean Corpuscular Hemoglobin Concent 33g/dL (31-37) Red Cell Distribution Width 14.0% (11.5-14.5) Platelet Count 206x10^3/uL (140-400) Neutrophils (%) (Auto) 81% (31-73) Lymphocytes (%) (Auto) 10% (24-48) Monocytes (%) (Auto) 9% (0-9) Eosinophils (%) (Auto) 1% (0-3) Basophils (%) (Auto) 0% (0-3) Neutrophils # (Auto) 14.9x10^3uL (1.8-7.7) Lymphocytes # (Auto) 1.8x10^3/uL (1.0-4.8) Monocytes # (Auto) 1.6x10^3/uL (0.0-1.1) Eosinophils # (Auto) 0.1x10^3/uL (0.0-0.7) Basophils # (Auto) 0.1x10^3/uL (0.0-0.2) Sodium Level 135mmol/L (136-145) Potassium Level 3.8mmol/L (3.5-5.1) Chloride Level 97mmol/L (98-107) Carbon Dioxide Level 29mmol/L (21-32) Anion Gap 9 (6-14) Blood Urea Nitrogen 16mg/dL (8-26) Creatinine 1.2mg/dL (0.7-1.3) Estimated GFR (Cockcroft-Gault) 64.9 Glucose Level 319mg/dL (70-99) Calcium Level 8.8mg/dL (8.5-10.1) Laboratory Tests Test 09/20/16 12:09 09/20/16 16:53 09/20/16 20:51 09/21/16 08:20 Glucose (Fingerstick) 108mg/dL (70-99) 130mg/dL (70-99) 254mg/dL (70-99) 198mg/dL (70-99) Test 09/21/16 08:51 White Blood Count 18.5x10^3/uL (4.0-11.0) Red Blood Count 4.16x10^6/uL (4.30-5.70) Hemoglobin 11.4g/dL (13.0-17.5) Hematocrit 34.9% (39.0-53.0) Mean Corpuscular Volume 84fL (79-100) Mean Corpuscular Hemoglobin 27pg (25-35) Mean Corpuscular Hemoglobin Concent 33g/dL (31-37) Red Cell Distribution Width 14.0% (11.5-14.5) Platelet Count 206x10^3/uL (140-400) Neutrophils (%) (Auto) 81% (31-73) Lymphocytes (%) (Auto) 10% (24-48) Monocytes (%) (Auto) 9% (0-9) Eosinophils (%) (Auto) 1% (0-3) Basophils (%) (Auto) 0% (0-3) Neutrophils # (Auto) 14.9x10^3uL (1.8-7.7) Lymphocytes # (Auto) 1.8x10^3/uL (1.0-4.8) Monocytes # (Auto) 1.6x10^3/uL (0.0-1.1) Eosinophils # (Auto) 0.1x10^3/uL (0.0-0.7) Basophils # (Auto) 0.1x10^3/uL (0.0-0.2) Sodium Level 135mmol/L (136-145) Potassium Level 3.8mmol/L (3.5-5.1) Chloride Level 97mmol/L (98-107) Carbon Dioxide Level 29mmol/L (21-32) Anion Gap 9 (6-14) Blood Urea Nitrogen 16mg/dL (8-26) Creatinine 1.2mg/dL (0.7-1.3) Estimated GFR (Cockcroft-Gault) 64.9 Glucose Level 319mg/dL (70-99) Calcium Level 8.8mg/dL (8.5-10.1) Medications Current Medications Aspirin (Children'S Aspirin) 324 mg 1X ONCE PO Last administered on at 02:36; Start 09/15/16 at 03:00; Stop 09/15/16 at 03:01; Status DC Nitroglycerin (Nitrostat) 0.4 mg PRN Q5MIN PRN SL CP RATING > 1/10 Last administered on 09/15/16at 02:37; Start 09/15/16 at 02:30; Stop 09/15/16 at 05 :18; Status DC Fentanyl Citrate (Fentanyl 2ml Vial) 25 mcg PRN Q15MIN PRN IV PAIN GREATER THAN 3/10; Start 09/15/16 at 02:30; Stop 09/15/16 at 06:00; Status DC Heparin Sodium (Porcine) 4000 unit 4,000 unit 1X ONCE IV Last administered on 09/15/16at 05:14; Start 09/15/16 at 05:00; Stop 09/15/16 at 05:02; Status DC Heparin Sodium/ Dextrose 500 ml @ 0 mls/hr CONT PRN IV SEE I/O RECORD Last administered on 09/18/16at 04:00; Start 09/15/16 at 04:45; Stop 09/18/16 at 11 :33; Status DC Heparin Sodium (Porcine) 2,850 unit PRN Q6HRS PRN IV FOR UFH LEVEL LESS THAN 0.2 Last administered on 09/15/16at 18:22; Start 09/15/16 at 04:45; Stop 09/19 at 12:55; Status DC Ondansetron HCl (Zofran) 4 mg PRN Q8HRS PRN IV NAUSEA/VOMITING; Start at 05:15; Stop 09/16/16 at 05:14; Status DC Fentanyl Citrate (Fentanyl 2ml Vial) 50 mcg PRN Q2HR PRN IV SEVERE PAIN; Start 09/15/16 at 05:15; Stop 09/16/16 at 05:14; Status DC Acetaminophen (Tylenol) 650 mg PRN Q4HRS PRN PO FEVER; Start 09/15/16 at 05:15 ; Stop 09/16/16 at 05:14; Status DC Nitroglycerin (Nitrostat) 0.4 mg PRN Q5MIN PRN SL CHEST PAIN; Start 09/15/16 at 05:15; Stop 09/16/16 at 05:14; Status DC Insulin Aspart (Novolog) 0-5 UNITS TIDWMEALS SQ Last administered on at 17:26; Start 09/15/16 at 08:00; Stop 09/17/16 at 08:23; Status DC Dextrose 12.5 gm PRN Q15MIN PRN IV SEE COMMENTS; Start 09/15/16 at 05:15; Status Cancel Info (Anti-Coagulation Monitoring By Pharmacy) 1 each PRN DAILY PRN MC SEE COMMENTS Last administered on 09/18/16at 10:20; Start 09/15/16 at 07:45; Stop 09/19/16 at 12:56; Status DC Atorvastatin Calcium (Lipitor) 20 mg QHS PO Last administered on 09/20/16at 21: 00; Start 09/15/16 at 21:00 Glimepiride (Amaryl) 2 mg DAILY PO Last administered on 09/18/16at 09:01; Start 09/15/16 at 11:30; Stop 09/20/16 at 21:29; Status DC Non-Formulary Medication 1 tab DAILY PO ; Start 09/16/16 at 09:00; Status UNV Pantoprazole Sodium (Protonix) 40 mg DAILYAC PO Last administered on at 09:01; Start 09/15/16 at 11:30; Stop 09/19/16 at 15:10; Status DC Acetaminophen (Tylenol) 650 mg PRN Q6HRS PRN PO MILD PAIN / TEMP; Start at 10:30; Stop 09/19/16 at 15:32; Status DC Ondansetron HCl (Zofran) 4 mg PRN Q6HRS PRN IV NAUSEA/VOMITING Last administered on 09/16/16at 15:49; Start 09/15/16 at 10:30; Stop 09/19/16 at 15 :36; Status DC Morphine Sulfate 2 mg PRN Q2HR PRN IV PAIN Last administered on 09/19/16at 17: 27; Start 09/15/16 at 10:30 Morphine Sulfate 4 mg PRN Q2HR PRN IV PAIN Last administered on 09/19/16at 19: 43; Start 09/15/16 at 10:30 Losartan Potassium (Cozaar) 100 mg DAILY PO ; Start 09/15/16 at 11:30; Stop at 12:48; Status DC Hydrochlorothiazide (Microzide) 12.5 mg DAILY PO ; Start 09/15/16 at 11:30; Stop 09/15/16 at 12:48; Status DC Aspirin (Ecotrin) 325 mg DAILYWBKFT PO Last administered on 09/18/16at 09:01; Start 09/16/16 at 08:00; Stop 09/19/16 at 15:32; Status DC Metoprolol Tartrate (Lopressor) 12.5 mg BID PO Last administered on 09/18/16at 09:01; Start 09/15/16 at 21:00; Stop 09/18/16 at 11:41; Status DC Influenza Virus Vaccine Quadrival (Fluarix Quad 7543-1851 Syringe) 0.5 ml ONCE ONCE VAX IM ; Start 09/16/16 at 14:00; Stop 09/16/16 at 14:01; Status DC Pneumococcal Polyvalent Vaccine (Pneumovax 23) 0.5 ml ONCE ONCE VAX IM ; Start 09/16/16 at 14:00; Stop 09/16/16 at 14:01; Status DC Famotidine (Pepcid) 20 mg 1X ONCE IVP Last administered on 09/16/16at 07:24; Start 09/16/16 at 08:00; Stop 09/16/16 at 08:01; Status DC Diphenhydramine HCl (Benadryl) 25 mg 1X ONCE IVP Last administered on at 07:24; Start 09/16/16 at 08:00; Stop 09/16/16 at 08:01; Status DC Methylprednisolone Sodium Succinate (Solu-Medrol 125mg Vial) 125 mg 1X ONCE IV Last administered on 09/16/16at 07:24; Start 09/16/16 at 08:00; Stop at 08:01; Status DC Iohexol 100 ml 100 ml STK-MED ONCE .ROUTE ; Start 09/16/16 at 07:00; Stop at 07:01; Status DC Heparin Sodium/ Sodium Chloride 1,000 ml @ As Directed STK-MED ONCE .ROUTE ; Start 09/16/16 at 07:01; Stop 09/16/16 at 07:02; Status DC Lidocaine HCl 20 ml STK-MED ONCE .ROUTE ; Start 09/16/16 at 07:01; Stop at 07:02; Status DC Verapamil HCl (Verapamil) 5 mg STK-MED ONCE .ROUTE ; Start 09/16/16 at 07:45; Stop 09/16/16 at 07:46; Status DC Midazolam HCl (Versed) 5 mg STK-MED ONCE .ROUTE ; Start 09/16/16 at 07:45; Stop 09/16/16 at 07:46; Status DC Nitroglycerin (Nitroglycerin) 200 mcg STK-MED ONCE .ROUTE ; Start 09/16/16 at 07:45; Stop 09/16/16 at 07:46; Status DC Heparin Sodium (Porcine) 10,000 unit STK-MED ONCE .ROUTE ; Start 09/16/16 at 07 :45; Stop 09/16/16 at 07:46; Status DC Fentanyl Citrate (Fentanyl 5ml Vial) 250 mcg STK-MED ONCE .ROUTE ; Start at 07:46; Stop 09/16/16 at 07:47; Status DC Nitroglycerin (Nitroglycerin) 200 mcg 1X ONCE IART Last administered on at 08:21; Start 09/16/16 at 08:15; Stop 09/16/16 at 08:16; Status DC Verapamil HCl (Verapamil) 2.5 mg 1X ONCE IART Last administered on 09/16/16at 08:22; Start 09/16/16 at 08:15; Stop 09/16/16 at 08:16; Status DC Heparin Sodium (Porcine) 2,500 unit 1X ONCE IART Last administered on at 08:22; Start 09/16/16 at 08:15; Stop 09/16/16 at 08:16; Status DC Heparin Sodium/ Sodium Chloride 1,000 unit 1X ONCE IART Last administered on 09/16/16at 08:20; Start 09/16/16 at 08:15; Stop 09/16/16 at 08:16; Status DC Midazolam HCl (Versed) 2 mg 1X ONCE IV Last administered on 09/16/16at 08:21; Start 09/16/16 at 08:15; Stop 09/16/16 at 08:16; Status DC Fentanyl Citrate (Fentanyl 5ml Vial) 100 mcg 1X ONCE IV Last administered on 09/16/16at 08:22; Start 09/16/16 at 08:15; Stop 09/16/16 at 08:16; Status DC Iohexol (Omnipaque 300 Mg/ml) 131 ml 1X ONCE IART Last administered on at 08:21; Start 09/16/16 at 08:15; Stop 09/16/16 at 08:16; Status DC Lidocaine HCl 2 ml 1X ONCE IJ Last administered on 09/16/16at 08:21; Start at 08:15; Stop 09/16/16 at 08:16; Status DC Info 1 each 1 each PRN DAILY PRN MC SEE COMMENTS; Start 09/16/16 at 08:30; Stop 09/18/16 at 08:29; Status DC Sodium Chloride (Iv Sodium Chloride 0.45%) 1,000 ml @ 60 mls/hr [id number] IV Last administered on 09/16/16at 09:00; Start 09/16/16 at 09:00; Stop 09/17/16 at 12:32; Status DC Insulin Aspart (Novolog) 0-9 UNITS TIDWMEALS SQ ; Start 09/16/16 at 12:00; Status UNV Dextrose 12.5 gm 12.5 gm PRN Q15MIN PRN IV SEE COMMENTS; Start 09/16/16 at 09: 00; Status UNV Nitroglycerin/ Dextrose (Nitroglycerin Drip) 250 ml @ 0 mls/hr CONT PRN IV SEE I/O RECORD Last administered on 09/16/16at 16:18; Start 09/16/16 at 16:00; Stop 09/19/16 at 15:10; Status DC Al Hydroxide/Mg Hydroxide (Mylanta Plus Xs) 30 ml PRN Q6HRS PRN PO DYSPEPSIA Last administered on 09/16/16at 23:20; Start 09/16/16 at 22:45 Insulin Aspart (Novolog) 0-9 UNITS TIDWMEALS SQ Last administered on at 12:36; Start 09/17/16 at 09:00 Dextrose 12.5 gm 12.5 gm PRN Q15MIN PRN IV SEE COMMENTS; Start 09/17/16 at 08: 30; Stop 09/19/16 at 15:33; Status DC Cefazolin Sodium/ Dextrose (Ancef 2gm Premix) 50 ml @ 100 mls/hr 1X ONCE IV Last administered on 09/19/16at 08:00; Start 09/19/16 at 06:00; Stop 09/19/16 at 06:29; Status DC Insulin Detemir 10 units 10 units DAILY SQ Last administered on 09/18/16at 09: 08; Start 09/17/16 at 10:30 Heparin Sodium/ Dextrose 500 ml @ 0 mls/hr CONT PRN IV SEE I/O RECORD; Start 09/18/16 at 11:30; Stop 09/18/16 at 23:55; Status DC Metoprolol Tartrate 25 mg 25 mg BID PO Last administered on 09/21/16at 08:54; Start 09/18/16 at 21:00 Cefazolin Sodium 1 gm/Sodium Chloride 500 ml @ 500 mls/hr 1X PERIOP ONCE IRR Last administered on 09/19/16at 08:45; Start 09/19/16 at 06:00; Stop 09/19/16 at 06:59; Status DC Heparin Sodium (Porcine) 91144 unit/Lactated Ringer's 1,020 ml @ 1,020 mls/hr 1X PERIOP ONCE IRR Last administered on 09/19/16at 08:45; Start 09/19/16 at 06:00; Stop 09/19/16 at 06:59; Status DC Potassium Chloride 70 meq/ Sodium Bicarbonate 12.5 meq/Lidocaine HCl 24 ml/ Parenteral Electrolytes 571.5 ml @ 571.5 mls/ hr 1X PERIOP ONCE IRR Last administered on 09/19/16at 11:25; Start 09/19/16 at 06:00; Stop 09/19/16 at 06 :59; Status DC Potassium Chloride/Sodium Bicarbonate/ Parenteral Electrolytes (Isolyte S) 520 ml @ 520 mls/hr 1X PERIOP ONCE IRR Last administered on 09/19/16at 11:25; Start 09/19/16 at 06:00; Stop 09/19/16 at 06:59; Status DC Ondansetron HCl (Zofran) 4 mg PRN Q6HRS PRN IV Nausea; Start 09/19/16 at 07:00 ; Stop 09/19/16 at 19:00; Status DC Fentanyl Citrate (Fentanyl 2ml Vial) 25 mcg PRN Q5MIN PRN IV MILD PAIN; Start 09/19/16 at 07:00; Stop 09/19/16 at 19:00; Status DC Fentanyl Citrate (Fentanyl 2ml Vial) 50 mcg PRN Q5MIN PRN IV MODERATE PAIN; Start 09/19/16 at 07:00; Stop 09/19/16 at 19:00; Status DC Morphine Sulfate 1 mg 1 mg PRN Q10MIN PRN IV SEVERE PAIN; Start 09/19/16 at 07 :00; Stop 09/19/16 at 19:00; Status DC Lactated Ringer's (Iv Lactated Ringers) 1,000 ml @ 30 mls/hr Q24H IV ; Start 09/19/16 at 07:00; Stop 09/19/16 at 15:35; Status DC Lidocaine HCl 2 ml 1X PRN PRN ID IV START; Start 09/19/16 at 07:00; Stop at 19:00; Status DC Hydromorphone HCl (Dilaudid) 0.5 mg PRN Q10MIN PRN IV SEVERE PAIN, Second choice; Start 09/19/16 at 07:00; Stop 09/19/16 at 19:00; Status DC Prochlorperazine Edisylate (Compazine) 5 mg PACU PRN PRN IV NAUSEA; Start at 07:00; Stop 09/19/16 at 19:00; Status DC Zolpidem Tartrate (Ambien) 5 mg PRN QHS PRN PO INSOMNIA; Start 09/18/16 at 17: 00; Stop 09/18/16 at 23:55; Status DC Etomidate (Amidate) 20 mg STK-MED ONCE IV ; Start 09/19/16 at 07:03; Stop at 07:04; Status DC Heparin Sodium (Porcine) 10,000 unit STK-MED ONCE .ROUTE ; Start 09/19/16 at 07 :03; Stop 09/19/16 at 07:04; Status DC Nicardipine HCl (Cardene) 25 mg STK-MED ONCE IV ; Start 09/19/16 at 07:03; Stop 09/19/16 at 07:04; Status DC Phenylephrine HCl (Joseph-Synephrine Inj) 10 mg STK-MED ONCE .ROUTE ; Start at 07:03; Stop 09/19/16 at 07:04; Status DC Rocuronium [place] (Zemuron) 50 mg STK-MED ONCE .ROUTE ; Start 09/19/16 at 07: 03; Stop 09/19/16 at 07:04; Status DC Lidocaine HCl 100 mg STK-MED ONCE .ROUTE ; Start 09/19/16 at 07:03; Stop 09/19 at 07:04; Status DC Aminocaproic Acid (Amicar) 5,000 mg STK-MED ONCE IV ; Start 09/19/16 at 07:03; Stop 09/19/16 at 07:04; Status DC Midazolam HCl (Versed) 2 mg STK-MED ONCE .ROUTE ; Start 09/19/16 at 07:03; Stop 09/19/16 at 07:04; Status DC Sufentanil Citrate (Sufenta) 100 mcg STK-MED ONCE .ROUTE ; Start 09/19/16 at 07 :03; Stop 09/19/16 at 07:04; Status DC Succinylcholine Chloride (Anectine) 200 mg STK-MED ONCE .ROUTE ; Start at 07:04; Stop 09/19/16 at 07:05; Status DC Vancomycin HCl (Vanco) 10 gm 1X ONCE CEMENT Last administered on 09/19/16at 08 :45; Start 09/19/16 at 07:15; Stop 09/19/16 at 07:16; Status DC Cellulose 1 each STK-MED ONCE .ROUTE Last administered on 09/19/16at 08:45; Start 09/19/16 at 07:10; Stop 09/19/16 at 07:11; Status DC Papaverine HCl 60 mg STK-MED ONCE .ROUTE Last administered on 09/19/16at 08:45 ; Start 09/19/16 at 07:10; Stop 09/19/16 at 07:11; Status DC Aspirin (Aspirin) 300 mg STK-MED ONCE .ROUTE Last administered on 09/19/16at 14 :54; Start 09/19/16 at 07:10; Stop 09/19/16 at 07:11; Status DC Sodium Chloride (Sodium Chloride) 50 ml STK-MED ONCE IJ Last administered on at 08:45; Start 09/19/16 at 07:10; Stop 09/19/16 at 07:11; Status DC Midazolam HCl (Versed) 2 mg STK-MED ONCE .ROUTE ; Start 09/19/16 at 07:26; Stop 09/19/16 at 07:27; Status DC Isoflurane (Isoflurane) 90 ml STK-MED ONCE IH ; Start 09/19/16 at 08:16; Stop 09/19/16 at 08:17; Status DC Heparin Sodium (Porcine) 10,000 unit STK-MED ONCE .ROUTE ; Start 09/19/16 at 08 :17; Stop 09/19/16 at 08:18; Status DC Aminocaproic Acid (Amicar) 5,000 mg STK-MED ONCE IV ; Start 09/19/16 at 09:16; Stop 09/19/16 at 09:17; Status DC Protamine Sulfate 250 mg 250 mg STK-MED ONCE IV ; Start 09/19/16 at 10:36; Stop 09/19/16 at 10:37; Status DC Insulin Human Regular/Sodium Chloride (Novolin R Vial/ Iv Normal Saline 150ml) 151.5 ml @ 11.38 mls/ hr CONT PRN IV SEE I/O RECORD; Start 09/19/16 at 11:45 Midazolam HCl (Versed) 2 mg STK-MED ONCE .ROUTE ; Start 09/19/16 at 12:22; Stop 09/19/16 at 12:23; Status DC Protamine Sulfate 250 mg 250 mg STK-MED ONCE IV ; Start 09/19/16 at 12:49; Stop 09/19/16 at 12:50; Status DC Clevidipine (Cleviprex) 100 ml @ 0 mls/hr CONT PRN IV PER PROTOCOL; Start at 13:30; Stop 09/19/16 at 15:33; Status DC Heparin Sodium (Porcine) 10,000 unit STK-MED ONCE .ROUTE ; Start 09/19/16 at 13 :54; Stop 09/19/16 at 13:55; Status DC Lidocaine HCl 100 mg STK-MED ONCE .ROUTE ; Start 09/19/16 at 13:54; Stop 09/19 at 13:55; Status DC Mannitol (Mannitol) 12.5 g STK-MED ONCE .ROUTE ; Start 09/19/16 at 13:54; Stop 09/19/16 at 13:55; Status DC Calcium Chloride 1,000 mg STK-MED ONCE IV ; Start 09/19/16 at 13:54; Stop at 13:55; Status DC Sodium Bicarbonate 50 meq 50 meq STK-MED ONCE .ROUTE ; Start 09/19/16 at 13:54 ; Stop 09/19/16 at 13:55; Status DC Albumin Human (Albuminar) 100 ml @ As Directed STK-MED ONCE IV ; Start at 13:54; Stop 09/19/16 at 13:55; Status DC Heparin Sodium (Porcine) 30,000 unit STK-MED ONCE .ROUTE ; Start 09/19/16 at 13 :54; Stop 09/19/16 at 13:55; Status DC Magnesium Sulfate 5 gm STK-MED ONCE .ROUTE ; Start 09/19/16 at 13:54; Stop at 13:55; Status DC Rocuronium [place] (Zemuron) 50 mg STK-MED ONCE .ROUTE ; Start 09/19/16 at 14: 46; Stop 09/19/16 at 14:47; Status DC Sodium Chloride 3 ml 3 ml PRN Q12HR PRN IV AFTER MEDS AND BLOOD DRAWS; Start 09/19/16 at 15:00 Lactated Ringer's 1,000 ml @ 30 mls/hr Q24H IV Last administered on at 15:30; Start 09/19/16 at 14:46 Albumin Human 250 ml @ 60 mls/hr PRN Q4HRS PRN IV SEE I/O RECORD Last administered on 09/19/16at 18:00; Start 09/19/16 at 15:00 Insulin Human Regular/Sodium Chloride (Novolin R Vial/ Iv Normal Saline 150ml) 151.5 ml @ 0 mls/hr CONT PRN PRN IV SEE I/O RECORD; Start 09/19/16 at 15:00; Stop 09/19/16 at 15:34; Status DC Dextrose 25 gm 25 gm PRN Q15MIN PRN IV LOW BLOOD SUGAR; Start 09/19/16 at 15: 00 Epinephrine HCl 4 mg/Sodium Chloride 254 ml @ 0 mls/hr CONT PRN PRN IV POST CV SURGERY; Start 09/19/16 at 15:00 Amiodarone HCl 150 mg/Dextrose 103 ml @ 0 mls/hr 1X ONCE IV ; Start 09/19/16 at 15:00; Stop 09/19/16 at 15:01; Status UNV Amiodarone HCl/ Dextrose (Cordarone) 518 ml @ 33.33 mls/ hr CONT PRN PRN IV SEE COMMENTS; Start 09/19/16 at 15:00; Status UNV Info 1 ea CONT PRN PRN MC SEE COMMENTS; Start 09/19/16 at 15:00 Info 1 ea 1 ea CONT PRN PRN MC SEE COMMENTS; Start 09/19/16 at 15:00; Stop at 20:06; Status DC Magnesium Sulfate/ Dextrose (Magnesium Sulfate PREMIX 1GM) 100 ml @ 100 mls/hr PRN DAILY PRN IV FOR MAG < 2.2; Start 09/19/16 at 15:00 Ondansetron HCl (Zofran) 4 mg PRN Q4HRS PRN IV NAUSEA/VOMITING Last administered on 09/19/16at 21:01; Start 09/19/16 at 15:00 Metoclopramide HCl (Reglan) 10 mg PRN Q6HRS PRN IV NAUSEA/VOMITING; Start at 15:00 Morphine Sulfate 2 mg PRN Q1HR PRN IV PAIN Last administered on 09/20/16at 12: 02; Start 09/19/16 at 15:00 Acetaminophen (Tylenol) 650 mg PRN Q4HRS PRN PO MILD PAIN / TEMP; Start at 15:00 Acetaminophen (Tylenol) 650 mg PRN Q4HRS PRN MT MILD PAIN / TEMP; Start at 15:00 Meperidine HCl 12.5 mg 12.5 mg PRN Q15MIN PRN IV SHIVERING; Start 09/19/16 at 15:00; Stop 09/20/16 at 07:00; Status DC Propofol (Diprivan) 100 ml @ 0 mls/hr CONT PRN PRN IV POSTOP SEDATION UNTIL EXTUBATE Last administered on 09/19/16at 16:13; Start 09/19/16 at 15:00 Senna/Docusate Sodium (Senna Plus) 1 tab BID PO Last administered on at 08:53; Start 09/19/16 at 21:00 Aspirin (Ecotrin) 325 mg DAILYWBKFT PO Last administered on 09/21/16at 08:54; Start 09/20/16 at 08:00 Albuterol Sulfate (Ventolin Neb Soln) 2.5 mg PRN Q4HRS PRN NEB SHORTNESS OF BREATH Last administered on 09/21/16at 04:04; Start 09/19/16 at 15:00 Metoprolol Tartrate 25 mg 25 mg BID PO ; Start 09/20/16 at 09:00; Stop at 09:00; Status DC Clevidipine (Cleviprex) 100 ml @ 0 mls/hr CONT PRN IV PER PROTOCOL; Start at 15:00 Oxycodone/ Acetaminophen (Percocet 5/325) 1 tab PRN Q4HRS PRN PO MILD PAIN; Start 09/19/16 at 15:00 Oxycodone/ Acetaminophen 2 tab 2 tab PRN Q4HRS PRN PO MODERATE PAIN, SEVERE PAIN Last administered on 09/21/16at 08:52; Start 09/19/16 at 15:00 Cefazolin Sodium/ Dextrose 50 ml @ 100 mls/hr Q8H IV Last administered on at 04:14; Start 09/19/16 at 20:00; Stop 09/21/16 at 04:29; Status DC Amiodarone HCl 150 mg/Dextrose 103 ml @ 618 mls/hr 1X ONCE IV Last administered on 09/19/16at 16:16; Start 09/19/16 at 15:00; Stop 12/29/16 at 15 :13; Status DC Amiodarone HCl/ Dextrose (Cordarone) 518 ml @ 0 mls/hr CONT PRN IV SEE I/O RECORD; Start 09/19/16 at 15:00 Polyethylene Glycol 17 gm 17 gm PRN BID PRN PO CONSTIPATION; Start 09/20/16 at 17:00 Norepinephrine Bitartrate 250 ml @ 0 mls/hr CONT PRN IV SEE I/O RECORD; Start 09/19/16 at 16:30; Status Cancel Norepinephrine Bitartrate 250 ml @ As Directed STK-MED ONCE IV ; Start at 16:19; Stop 09/19/16 at 16:20; Status DC Potassium Chloride (KCl Premix 20meq) 50 ml @ 50 mls/hr 1X ONCE IV ; Start at 16:45; Stop 09/19/16 at 17:44; Status DC Ketorolac Tromethamine (Toradol) 30 mg 1X ONCE IV Last administered on at 17:15; Start 09/19/16 at 17:15; Stop 09/19/16 at 17:16; Status DC Furosemide (Lasix) 40 mg PRN 1X PRN IVP SEE COMMENTS; Start 09/19/16 at 22:15 ; Stop 09/19/16 at 23:59; Status DC Ketorolac Tromethamine (Toradol) 30 mg 1X ONCE IV Last administered on at 22:45; Start 09/19/16 at 22:45; Stop 09/19/16 at 22:46; Status DC Ketorolac Tromethamine (Toradol) 30 mg 1X ONCE IV Last administered on at 06:23; Start 09/20/16 at 06:00; Stop 09/20/16 at 06:01; Status DC Cefazolin Sodium/ Dextrose (Ancef 2gm Premix) 2 gm STK-MED ONCE IV ; Start at 12:00; Stop 09/20/16 at 08:28; Status DC Norepinephrine Bitartrate (Levophed 8mg/ 250ml Premix Drip) 8 mg STK-MED ONCE IV ; Start 09/19/16 at 16:00; Stop 09/20/16 at 08:46; Status DC Furosemide (Lasix) 40 mg [id number] IVP Last administered on 09/21/16at 08:55; Start 09/20/16 at 11:45 Amiodarone HCl (Cordarone) 400 mg BID PO Last administered on 09/21/16at 08:53 ; Start 09/20/16 at 13:00 Active Scripts Active Reported Atorvastatin Calcium 10 Mg Tablet 1 Tab PO DAILY Losartan-Hctz 100-12.5 Mg Tab (Losartan/Hydrochlorothiazide) 1 Each Tablet 1 Tab PO DAILY Glimepiride 2 Mg Tablet 1 Tab PO DAILY Metformin Hcl 1,000 Mg Tablet 1 Tab PO BID Omeprazole 20 Mg Capsule. 1 Cap PO BID Vitals/I & O Vital Sign - Last 24 Hours 09/20/16 09/20/16 09/20/16 09/20/16 12:00 12:00 12:02 12:03 Pulse 77 Resp 24 B/P 93/63 Pulse Ox 97 97 97 O2 Delivery Nasal Cannula Nasal Cannula Nasal Cannula Nasal Cannula O2 Flow Rate 5.0 5.0 5.0 5.0 09/20/16 09/20/16 09/20/16 09/20/16 12:32 12:55 13:00 14:00 Pulse 77 77 Resp 24 24 B/P 100/65 97/58 Pulse Ox 94 96 97 97 O2 Delivery Nasal Cannula Nasal Cannula Nasal Cannula Nasal Cannula O2 Flow Rate 5.0 5.0 5.0 5.0 09/20/16 09/20/16 09/20/16 09/20/16 15:00 16:31 16:47 16:48 Pulse 77 97 Resp 24 17 B/P 103/65 115/67 Pulse Ox 97 97 94 O2 Delivery Nasal Cannula Nasal Cannula Nasal Cannula O2 Flow Rate 5.0 7.0 5.0 09/20/16 09/20/16 09/20/16 09/20/16 20:00 20:06 20:53 21:00 Temp 98.1 98.1 Pulse 89 89 Resp 24 B/P 138/88 138/88 Pulse Ox 86 96 O2 Delivery Nasal Cannula Nasal Cannula Nasal Cannula O2 Flow Rate 5.0 5.0 5.0 09/20/16 09/20/16 09/20/16 09/20/16 21:00 21:00 23:13 23:42 Temp 98.5 98.5 Pulse 89 76 Resp 22 B/P 138/88 104/64 Pulse Ox 96 96 97 O2 Delivery Nasal Cannula Nasal Cannula Nasal Cannula O2 Flow Rate 5.0 5.0 5.0 09/21/16 09/21/16 09/21/16 09/21/16 01:02 02:01 04:00 04:05 Temp 98.7 98.7 Pulse 81 Resp 20 16 20 B/P 115/76 Pulse Ox 95 98 97 96 O2 Delivery Nasal Cannula Nasal Cannula Nasal Cannula Nasal Cannula O2 Flow Rate 5.0 5.0 5.0 5.0 09/21/16 09/21/16 09/21/16 09/21/16 08:15 08:52 08:53 08:54 Pulse 89 89 89 Resp 20 18 B/P 113/75 113/75 113/75 Pulse Ox 95 O2 Delivery Nasal Cannula Nasal Cannula O2 Flow Rate 4.0 4.0 09/21/16 10:49 Temp 98.6 98.6 Pulse 79 Resp 20 B/P 94/62 Pulse Ox 98 O2 Delivery Nasal Cannula O2 Flow Rate 4.0 Intake and Output 09/20/16 09/20/16 09/21/16 15:00 23:00 07:00 Intake Total 50 ml Output Total 1660 ml 1750 ml 700 ml Balance -1660 ml -1700 ml -700 ml HO DELA CRUZ MD Sep 21, 2016 11:27
[2016-09-21] MEDS: OXYCODONE/APAP 7.5/325 TABLET. PO PRN ×2 (12:37→20:58)
--- NOTE | 2016-09-21 12:37 | PDOC ---
Progress Note Subjective Subjective Doing very well. Transferred to stepdown yesterday, POD#1. Normotensive and in sinus rhythm. Incisional discomfort. CXR shows small lung volumes. Mild hematuria ROS ROS No nausea No vomiting Moderate pain No rash Vital Sign Vital Signs Vital Signs Date Time Temp Pulse Resp B/P Pulse Ox O2 Delivery O2 Flow Rate FiO2 09/21/16 10:49 98.6 79 20 94/62 98 Nasal Cannula 4.0 98.6 Physical Exam PHYSICAL EXAM GENERAL: NAD, Alert HEENT: PERRL, OC/OP NECK: Supple, no JVD, no LN LUNGS: Clear HEART: S1S2, no gallop, no murmur ABD: Soft, NT, no organomegaly, no rebound EXT: No edema, no cyanosis ELEVATOR RUNNER: Alert, oriented x 3, no focal neurologic deficit SKIN: No rash IV: ok Labs Lab Laboratory Tests Test 09/20/16 16:53 09/20/16 20:51 09/21/16 08:20 09/21/16 08:51 Glucose (Fingerstick) 130mg/dL (70-99) 254mg/dL (70-99) 198mg/dL (70-99) White Blood Count 18.5x10^3/uL (4.0-11.0) Red Blood Count 4.16x10^6/uL (4.30-5.70) Hemoglobin 11.4g/dL (13.0-17.5) Hematocrit 34.9% (39.0-53.0) Mean Corpuscular Volume 84fL (79-100) Mean Corpuscular Hemoglobin 27pg (25-35) Mean Corpuscular Hemoglobin Concent 33g/dL (31-37) Red Cell Distribution Width 14.0% (11.5-14.5) Platelet Count 206x10^3/uL (140-400) Neutrophils (%) (Auto) 81% (31-73) Lymphocytes (%) (Auto) 10% (24-48) Monocytes (%) (Auto) 9% (0-9) Eosinophils (%) (Auto) 1% (0-3) Basophils (%) (Auto) 0% (0-3) Neutrophils # (Auto) 14.9x10^3uL (1.8-7.7) Lymphocytes # (Auto) 1.8x10^3/uL (1.0-4.8) Monocytes # (Auto) 1.6x10^3/uL (0.0-1.1) Eosinophils # (Auto) 0.1x10^3/uL (0.0-0.7) Basophils # (Auto) 0.1x10^3/uL (0.0-0.2) Sodium Level 135mmol/L (136-145) Potassium Level 3.8mmol/L (3.5-5.1) Chloride Level 97mmol/L (98-107) Carbon Dioxide Level 29mmol/L (21-32) Anion Gap 9 (6-14) Blood Urea Nitrogen 16mg/dL (8-26) Creatinine 1.2mg/dL (0.7-1.3) Estimated GFR (Cockcroft-Gault) 64.9 Glucose Level 319mg/dL (70-99) Calcium Level 8.8mg/dL (8.5-10.1) Test 09/21/16 11:45 Glucose (Fingerstick) 238mg/dL (70-99) Objective Assessment POD#2 s/p CABG x 3 (CHUA to LAD, SVG to RPDA, SVG to OM2). Doing very well. Normotensive and in sinus rhythm. Complains of pain. Chest x-ray shows small lung volumes. Orosco removed, has some hematuria-most likely traumatic, will resolve Plan Plan of Care Send UA / orosco d/c'd Diuresis, lasix 40mg iv Q12 Aggressive pulmonary toilet and ambulation Analgesia NOHEMI WILSON MD Sep 21, 2016 12:37
[2016-09-21 14:40] VITALS: BP 106/59
[2016-09-21] MEDS: IV RINGERS,LACTATED 1000ML 1,000 ML IV SCH (14:46)
[2016-09-21 19:12] VITALS: BP 127/65
[2016-09-21] MEDS: ATORVASTATIN CALCIUM 20 MG TABLET PO SCH (20:56)
[2016-09-21 21:00] LABS: BILIRUBIN,URINE NEGATIVE (NEG); GLUCOSE,URINE NEGATIVE (NEG); NITRITE,URINE NEGATIVE (NEG); PH,URINE 5.5; UROBILINOGEN,URINE 0.2 mg/dL (0.2 mg/dL)
[2016-09-21 21:04] LABS: PROTEIN,URINE 30 mg/dL (NEG-TRACE)
[2016-09-21 21:05] LABS: BACTERIA,URINE FEW /HPF (0-FEW); RBC,URINE TNTC /HPF (0-2)
[2016-09-21 21:06] LABS: SQUAMOUS EPITHELIAL CELL,UR FEW /LPF
[2016-09-21 22:39] VITALS: BP 104/71
[2016-09-22] MEDS: OXYCODONE/APAP 7.5/325 TABLET. PO PRN ×5 (01:26→20:46)
[2016-09-22 03:13] VITALS: BP 106/65
[2016-09-22] MEDS: FUROSEMIDE 40 MG/4 ML VIAL IVP SCH ×2 (06:11→18:07)
[2016-09-22 06:46] LABS: BASO # 0.1 x10^3/uL (0.0-0.2); BASO % 1 % (0-3); EOS % 3 % (0-3); HEMATOCRIT 32.9 % (39.0-53.0); LYMPH # 2.8 x10^3/uL (1.0-4.8); LYMPH % 16 % (24-48); MEAN CORPUSCULAR HEMOGLOBIN 28 pg (25-35); MEAN CORPUSCULAR HGB CONC 34 g/dL (31-37); MEAN CORPUSCULAR VOLUME 83 fL (79-100); MONO % 12 % (0-9); NEUT % 69 % (31-73); PLATELET COUNT 226 x10^3/uL (140-400); RED BLOOD COUNT 3.96 x10^6/uL (4.30-5.70); RED CELL DISTRIBUTION WIDTH 14.3 % (11.5-14.5)
[2016-09-22 07:03] LABS: CALCIUM 9.1 mg/dL (8.5-10.1); GFR 80.1; POTASSIUM 3.9 mmol/L (3.5-5.1)
[2016-09-22 07:26] VITALS: BP 115/79
[2016-09-22] MEDS: INSULIN ASPART 300 UNITS/3 ML INSULN.PEN SQ SCH ×3 (08:00→17:00)
--- NOTE | 2016-09-22 08:05 | RAD ---
Indication: Post CABG. Technique: Upright portable chest radiograph was obtained. Comparison is from one day earlier. Findings: Left-sided opacities persist although are slightly improved. Heart is not enlarged. There is no definite heart failure. Median sternotomy wires are noted. Leads overlie the patient. Impression: Decreasing opacities on the left, likely improving atelectasis.
[2016-09-22] MEDS: SENNOSIDES/DOCUSATE 8.6/50MG TABLET. PO SCH ×2 (08:23→21:42)
[2016-09-22] MEDS: METOPROLOL TART IMMED RELEASE 25 MG TABLET PO SCH ×2 (08:23→21:42)
[2016-09-22] MEDS: AMIODARONE HCL 200 MG TABLET PO SCH ×2 (08:24→21:42)
[2016-09-22] MEDS: ASPIRIN ENTERIC COATED 325 MG TABLET.DR. PO SCH (08:24)
[2016-09-22] MEDS: INSULIN DETEMIR 300 UNITS/3 ML INSULN.PEN. SQ SCH (08:28)
--- NOTE | 2016-09-22 09:53 | PDOC ---
PROGRESS NOTES Chief Complaint Chief Complaint 1. 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 hld 3. dm2 with hgba1c 8 4. Htn 5. OBEsity 6. tobaccoism 7. SIRS wo infection 8. Leukocytosis, likely reactive 9. Traumatic orosco - hematuria, resolved 10. Improving atelectasis History of Present Illness History of Present Illness POD # 3 post CABG t/o ICU POD # 1 Extubated pOD # 1 cabg WBC 17, (18 yesterday) not onsteroids NO fevers CXR today shows improving atelectasis \UA shows no UTI at bedside GEts tired with PT PLAn: MOnitor leukocytosis off insulin gtt No more chest tubes Planned for home on Friday (POD # 5) Start bowel regimen ROS: NO inc in SOA, no CP no abd pain NO BM yest but has not been eating too like baseline Vitals Vitals Vital Signs Date Time Temp Pulse Resp B/P Pulse Ox O2 Delivery O2 Flow Rate FiO2 09/22/16 08:24 91 115/79 09/22/16 07:26 98.1 20 97 Nasal Cannula 5.0 98.1 Physical Exam Physical Exam GENERAL: NAD, Alert HEENT: PERRL, OC/OP NECK: Supple, no JVD, no LN LUNGS: Clear HEART: S1S2, no gallop, no murmur ABD: Soft, NT, no organomegaly, no rebound EXT: No edema, no cyanosis [employer]ER: Alert, oriented x 3, no focal neurologic deficit SKIN: No rash IV: ok General: Alert, Oriented X3, No acute distress Heart: Regular rate, Normal S1, Normal S2, No murmurs, Gallops Abdomen: Soft, No tenderness, No masses Extremities: Normal pulses Skin: No significant lesion Labs LABS Laboratory Tests Test 09/21/16 11:45 09/21/16 16:57 09/21/16 20:14 09/21/16 20:27 Glucose (Fingerstick) 238mg/dL (70-99) 153mg/dL (70-99) 174mg/dL (70-99) Urine Collection Type Unknown Urine Color Karol Urine Clarity Turbid Urine pH 5.5 Urine Specific Folcroft >=1.030 Urine Protein 30mg/dL (NEG-TRACE) Urine Glucose (UA) Negativemg/dL (NEG) Urine Ketones (Stick) Negativemg/dL (NEG) Urine Blood Large (NEG) Urine Nitrite Negative (NEG) Urine Bilirubin Negative (NEG) Urine Urobilinogen Dipstick 0.2mg/dL (0.2 mg/dL) Urine Leukocyte Esterase Small (NEG) Urine RBC Tntc/HPF (0-2) Urine WBC 1-4/HPF (0-4) Urine Squamous Epithelial Cells Few/LPF Urine Bacteria Few/HPF (0-FEW) Urine Mucus Mod/LPF Test 09/22/16 04:45 09/22/16 07:29 White Blood Count 17.0x10^3/uL (4.0-11.0) Red Blood Count 3.96x10^6/uL (4.30-5.70) Hemoglobin 11.0g/dL (13.0-17.5) Hematocrit 32.9% (39.0-53.0) Mean Corpuscular Volume 83fL (79-100) Mean Corpuscular Hemoglobin 28pg (25-35) Mean Corpuscular Hemoglobin Concent 34g/dL (31-37) Red Cell Distribution Width 14.3% (11.5-14.5) Platelet Count 226x10^3/uL (140-400) Neutrophils (%) (Auto) 69% (31-73) Lymphocytes (%) (Auto) 16% (24-48) Monocytes (%) (Auto) 12% (0-9) Eosinophils (%) (Auto) 3% (0-3) Basophils (%) (Auto) 1% (0-3) Neutrophils # (Auto) 11.7x10^3uL (1.8-7.7) Lymphocytes # (Auto) 2.8x10^3/uL (1.0-4.8) Monocytes # (Auto) 1.9x10^3/uL (0.0-1.1) Eosinophils # (Auto) 0.4x10^3/uL (0.0-0.7) Basophils # (Auto) 0.1x10^3/uL (0.0-0.2) Sodium Level 140mmol/L (136-145) Potassium Level 3.9mmol/L (3.5-5.1) Chloride Level 100mmol/L (98-107) Carbon Dioxide Level 32mmol/L (21-32) Anion Gap 8 (6-14) Blood Urea Nitrogen 23mg/dL (8-26) Creatinine 1.0mg/dL (0.7-1.3) Estimated GFR (Cockcroft-Gault) 80.1 Glucose Level 163mg/dL (70-99) Calcium Level 9.1mg/dL (8.5-10.1) Glucose (Fingerstick) 166mg/dL (70-99) Assessment and Plan Assessmemt and Plan Problems Medical Problems: (1) Chest pain Status: Acute (2) NSTEMI (non-ST elevated myocardial infarction) Status: Acute Problems: Comment Review of Relevant I have reviewed the following items amber (where applicable) has been applied. Labs Laboratory Tests Test 09/20/16 09:52 09/20/16 10:55 09/20/16 12:09 09/20/16 16:53 Glucose (Fingerstick) 166mg/dL (70-99) 142mg/dL (70-99) 108mg/dL (70-99) 130mg/dL (70-99) Test 09/20/16 20:51 09/21/16 08:20 09/21/16 08:51 09/21/16 11:45 Glucose (Fingerstick) 254mg/dL (70-99) 198mg/dL (70-99) 238mg/dL (70-99) White Blood Count 18.5x10^3/uL (4.0-11.0) Red Blood Count 4.16x10^6/uL (4.30-5.70) Hemoglobin 11.4g/dL (13.0-17.5) Hematocrit 34.9% (39.0-53.0) Mean Corpuscular Volume 84fL (79-100) Mean Corpuscular Hemoglobin 27pg (25-35) Mean Corpuscular Hemoglobin Concent 33g/dL (31-37) Red Cell Distribution Width 14.0% (11.5-14.5) Platelet Count 206x10^3/uL (140-400) Neutrophils (%) (Auto) 81% (31-73) Lymphocytes (%) (Auto) 10% (24-48) Monocytes (%) (Auto) 9% (0-9) Eosinophils (%) (Auto) 1% (0-3) Basophils (%) (Auto) 0% (0-3) Neutrophils # (Auto) 14.9x10^3uL (1.8-7.7) Lymphocytes # (Auto) 1.8x10^3/uL (1.0-4.8) Monocytes # (Auto) 1.6x10^3/uL (0.0-1.1) Eosinophils # (Auto) 0.1x10^3/uL (0.0-0.7) Basophils # (Auto) 0.1x10^3/uL (0.0-0.2) Sodium Level 135mmol/L (136-145) Potassium Level 3.8mmol/L (3.5-5.1) Chloride Level 97mmol/L (98-107) Carbon Dioxide Level 29mmol/L (21-32) Anion Gap 9 (6-14) Blood Urea Nitrogen 16mg/dL (8-26) Creatinine 1.2mg/dL (0.7-1.3) Estimated GFR (Cockcroft-Gault) 64.9 Glucose Level 319mg/dL (70-99) Calcium Level 8.8mg/dL (8.5-10.1) Test 09/21/16 16:57 09/21/16 20:14 09/21/16 20:27 09/22/16 04:45 Glucose (Fingerstick) 153mg/dL (70-99) 174mg/dL (70-99) Urine Collection Type Unknown Urine Color Karol Urine Clarity Turbid Urine pH 5.5 Urine Specific Folcroft >=1.030 Urine Protein 30mg/dL (NEG-TRACE) Urine Glucose (UA) Negativemg/dL (NEG) Urine Ketones (Stick) Negativemg/dL (NEG) Urine Blood Large (NEG) Urine Nitrite Negative (NEG) Urine Bilirubin Negative (NEG) Urine Urobilinogen Dipstick 0.2mg/dL (0.2 mg/dL) Urine Leukocyte Esterase Small (NEG) Urine RBC Tntc/HPF (0-2) Urine WBC 1-4/HPF (0-4) Urine Squamous Epithelial Cells Few/LPF Urine Bacteria Few/HPF (0-FEW) Urine Mucus Mod/LPF White Blood Count 17.0x10^3/uL (4.0-11.0) Red Blood Count 3.96x10^6/uL (4.30-5.70) Hemoglobin 11.0g/dL (13.0-17.5) Hematocrit 32.9% (39.0-53.0) Mean Corpuscular Volume 83fL (79-100) Mean Corpuscular Hemoglobin 28pg (25-35) Mean Corpuscular Hemoglobin Concent 34g/dL (31-37) Red Cell Distribution Width 14.3% (11.5-14.5) Platelet Count 226x10^3/uL (140-400) Neutrophils (%) (Auto) 69% (31-73) Lymphocytes (%) (Auto) 16% (24-48) Monocytes (%) (Auto) 12% (0-9) Eosinophils (%) (Auto) 3% (0-3) Basophils (%) (Auto) 1% (0-3) Neutrophils # (Auto) 11.7x10^3uL (1.8-7.7) Lymphocytes # (Auto) 2.8x10^3/uL (1.0-4.8) Monocytes # (Auto) 1.9x10^3/uL (0.0-1.1) Eosinophils # (Auto) 0.4x10^3/uL (0.0-0.7) Basophils # (Auto) 0.1x10^3/uL (0.0-0.2) Sodium Level 140mmol/L (136-145) Potassium Level 3.9mmol/L (3.5-5.1) Chloride Level 100mmol/L (98-107) Carbon Dioxide Level 32mmol/L (21-32) Anion Gap 8 (6-14) Blood Urea Nitrogen 23mg/dL (8-26) Creatinine 1.0mg/dL (0.7-1.3) Estimated GFR (Cockcroft-Gault) 80.1 Glucose Level 163mg/dL (70-99) Calcium Level 9.1mg/dL (8.5-10.1) Test 09/22/16 07:29 Glucose (Fingerstick) 166mg/dL (70-99) Laboratory Tests Test 09/21/16 11:45 09/21/16 16:57 09/21/16 20:14 09/21/16 20:27 Glucose (Fingerstick) 238mg/dL (70-99) 153mg/dL (70-99) 174mg/dL (70-99) Urine Collection Type Unknown Urine Color Karol Urine Clarity Turbid Urine pH 5.5 Urine Specific Folcroft >=1.030 Urine Protein 30mg/dL (NEG-TRACE) Urine Glucose (UA) Negativemg/dL (NEG) Urine Ketones (Stick) Negativemg/dL (NEG) Urine Blood Large (NEG) Urine Nitrite Negative (NEG) Urine Bilirubin Negative (NEG) Urine Urobilinogen Dipstick 0.2mg/dL (0.2 mg/dL) Urine Leukocyte Esterase Small (NEG) Urine RBC Tntc/HPF (0-2) Urine WBC 1-4/HPF (0-4) Urine Squamous Epithelial Cells Few/LPF Urine Bacteria Few/HPF (0-FEW) Urine Mucus Mod/LPF Test 09/22/16 04:45 09/22/16 07:29 White Blood Count 17.0x10^3/uL (4.0-11.0) Red Blood Count 3.96x10^6/uL (4.30-5.70) Hemoglobin 11.0g/dL (13.0-17.5) Hematocrit 32.9% (39.0-53.0) Mean Corpuscular Volume 83fL (79-100) Mean Corpuscular Hemoglobin 28pg (25-35) Mean Corpuscular Hemoglobin Concent 34g/dL (31-37) Red Cell Distribution Width 14.3% (11.5-14.5) Platelet Count 226x10^3/uL (140-400) Neutrophils (%) (Auto) 69% (31-73) Lymphocytes (%) (Auto) 16% (24-48) Monocytes (%) (Auto) 12% (0-9) Eosinophils (%) (Auto) 3% (0-3) Basophils (%) (Auto) 1% (0-3) Neutrophils # (Auto) 11.7x10^3uL (1.8-7.7) Lymphocytes # (Auto) 2.8x10^3/uL (1.0-4.8) Monocytes # (Auto) 1.9x10^3/uL (0.0-1.1) Eosinophils # (Auto) 0.4x10^3/uL (0.0-0.7) Basophils # (Auto) 0.1x10^3/uL (0.0-0.2) Sodium Level 140mmol/L (136-145) Potassium Level 3.9mmol/L (3.5-5.1) Chloride Level 100mmol/L (98-107) Carbon Dioxide Level 32mmol/L (21-32) Anion Gap 8 (6-14) Blood Urea Nitrogen 23mg/dL (8-26) Creatinine 1.0mg/dL (0.7-1.3) Estimated GFR (Cockcroft-Gault) 80.1 Glucose Level 163mg/dL (70-99) Calcium Level 9.1mg/dL (8.5-10.1) Glucose (Fingerstick) 166mg/dL (70-99) Medications Current Medications Aspirin (Children'S Aspirin) 324 mg 1X ONCE PO Last administered on at 02:36; Start 09/15/16 at 03:00; Stop 09/15/16 at 03:01; Status DC Nitroglycerin (Nitrostat) 0.4 mg PRN Q5MIN PRN SL CP RATING > 1/10 Last administered on 09/15/16at 02:37; Start 09/15/16 at 02:30; Stop 09/15/16 at 05 :18; Status DC Fentanyl Citrate (Fentanyl 2ml Vial) 25 mcg PRN Q15MIN PRN IV PAIN GREATER THAN 3/10; Start 09/15/16 at 02:30; Stop 09/15/16 at 06:00; Status DC Heparin Sodium (Porcine) 4000 unit 4,000 unit 1X ONCE IV Last administered on 09/15/16at 05:14; Start 09/15/16 at 05:00; Stop 09/15/16 at 05:02; Status DC Heparin Sodium/ Dextrose 500 ml @ 0 mls/hr CONT PRN IV SEE I/O RECORD Last administered on 09/18/16at 04:00; Start 09/15/16 at 04:45; Stop 09/18/16 at 11 :33; Status DC Heparin Sodium (Porcine) 2,850 unit PRN Q6HRS PRN IV FOR UFH LEVEL LESS THAN 0.2 Last administered on 09/15/16at 18:22; Start 09/15/16 at 04:45; Stop 09/19 at 12:55; Status DC Ondansetron HCl (Zofran) 4 mg PRN Q8HRS PRN IV NAUSEA/VOMITING; Start at 05:15; Stop 09/16/16 at 05:14; Status DC Fentanyl Citrate (Fentanyl 2ml Vial) 50 mcg PRN Q2HR PRN IV SEVERE PAIN; Start 09/15/16 at 05:15; Stop 09/16/16 at 05:14; Status DC Acetaminophen (Tylenol) 650 mg PRN Q4HRS PRN PO FEVER; Start 09/15/16 at 05:15 ; Stop 09/16/16 at 05:14; Status DC Nitroglycerin (Nitrostat) 0.4 mg PRN Q5MIN PRN SL CHEST PAIN; Start 09/15/16 at 05:15; Stop 09/16/16 at 05:14; Status DC Insulin Aspart (Novolog) 0-5 UNITS TIDWMEALS SQ Last administered on at 17:26; Start 09/15/16 at 08:00; Stop 09/17/16 at 08:23; Status DC Dextrose 12.5 gm PRN Q15MIN PRN IV SEE COMMENTS; Start 09/15/16 at 05:15; Status Cancel Info (Anti-Coagulation Monitoring By Pharmacy) 1 each PRN DAILY PRN MC SEE COMMENTS Last administered on 09/18/16at 10:20; Start 09/15/16 at 07:45; Stop 09/19/16 at 12:56; Status DC Atorvastatin Calcium (Lipitor) 20 mg QHS PO Last administered on 09/21/16at 20: 56; Start 09/15/16 at 21:00 Glimepiride (Amaryl) 2 mg DAILY PO Last administered on 09/18/16at 09:01; Start 09/15/16 at 11:30; Stop 09/20/16 at 21:29; Status DC Non-Formulary Medication 1 tab DAILY PO ; Start 09/16/16 at 09:00; Status UNV Pantoprazole Sodium (Protonix) 40 mg DAILYAC PO Last administered on at 09:01; Start 09/15/16 at 11:30; Stop 09/19/16 at 15:10; Status DC Acetaminophen (Tylenol) 650 mg PRN Q6HRS PRN PO MILD PAIN / TEMP; Start at 10:30; Stop 09/19/16 at 15:32; Status DC Ondansetron HCl (Zofran) 4 mg PRN Q6HRS PRN IV NAUSEA/VOMITING Last administered on 09/16/16at 15:49; Start 09/15/16 at 10:30; Stop 09/19/16 at 15 :36; Status DC Morphine Sulfate 2 mg PRN Q2HR PRN IV PAIN Last administered on 09/19/16at 17: 27; Start 09/15/16 at 10:30 Morphine Sulfate 4 mg PRN Q2HR PRN IV PAIN Last administered on 09/19/16at 19: 43; Start 09/15/16 at 10:30 Losartan Potassium (Cozaar) 100 mg DAILY PO ; Start 09/15/16 at 11:30; Stop at 12:48; Status DC Hydrochlorothiazide (Microzide) 12.5 mg DAILY PO ; Start 09/15/16 at 11:30; Stop 09/15/16 at 12:48; Status DC Aspirin (Ecotrin) 325 mg [id number] PO Last administered on 09/18/16at 09:01; Start 09/16/16 at 08:00; Stop 09/19/16 at 15:32; Status DC Metoprolol Tartrate (Lopressor) 12.5 mg BID PO Last administered on 09/18/16at 09:01; Start 09/15/16 at 21:00; Stop 09/18/16 at 11:41; Status DC Influenza Virus Vaccine Quadrival (Fluarix Quad 1022-2206 Syringe) 0.5 ml ONCE ONCE VAX IM ; Start 09/16/16 at 14:00; Stop 09/16/16 at 14:01; Status DC Pneumococcal Polyvalent Vaccine (Pneumovax 23) 0.5 ml ONCE ONCE VAX IM ; Start 09/16/16 at 14:00; Stop 09/16/16 at 14:01; Status DC Famotidine (Pepcid) 20 mg 1X ONCE IVP Last administered on 09/16/16at 07:24; Start 09/16/16 at 08:00; Stop 09/16/16 at 08:01; Status DC Diphenhydramine HCl (Benadryl) 25 mg 1X ONCE IVP Last administered on at 07:24; Start 09/16/16 at 08:00; Stop 09/16/16 at 08:01; Status DC Methylprednisolone Sodium Succinate (Solu-Medrol 125mg Vial) 125 mg 1X ONCE IV Last administered on 09/16/16at 07:24; Start 09/16/16 at 08:00; Stop at 08:01; Status DC Iohexol 100 ml 100 ml STK-MED ONCE .ROUTE ; Start 09/16/16 at 07:00; Stop at 07:01; Status DC Heparin Sodium/ Sodium Chloride 1,000 ml @ As Directed STK-MED ONCE .ROUTE ; Start 09/16/16 at 07:01; Stop 09/16/16 at 07:02; Status DC Lidocaine HCl 20 ml STK-MED ONCE .ROUTE ; Start 09/16/16 at 07:01; Stop at 07:02; Status DC Verapamil HCl (Verapamil) 5 mg STK-MED ONCE .ROUTE ; Start 09/16/16 at 07:45; Stop 09/16/16 at 07:46; Status DC Midazolam HCl (Versed) 5 mg STK-MED ONCE .ROUTE ; Start 09/16/16 at 07:45; Stop 09/16/16 at 07:46; Status DC Nitroglycerin (Nitroglycerin) 200 mcg STK-MED ONCE .ROUTE ; Start 09/16/16 at 07:45; Stop 09/16/16 at 07:46; Status DC Heparin Sodium (Porcine) 10,000 unit STK-MED ONCE .ROUTE ; Start 09/16/16 at 07 :45; Stop 09/16/16 at 07:46; Status DC Fentanyl Citrate (Fentanyl 5ml Vial) 250 mcg STK-MED ONCE .ROUTE ; Start at 07:46; Stop 09/16/16 at 07:47; Status DC Nitroglycerin (Nitroglycerin) 200 mcg 1X ONCE IART Last administered on at 08:21; Start 09/16/16 at 08:15; Stop 09/16/16 at 08:16; Status DC Verapamil HCl (Verapamil) 2.5 mg 1X ONCE IART Last administered on 09/16/16at 08:22; Start 09/16/16 at 08:15; Stop 09/16/16 at 08:16; Status DC Heparin Sodium (Porcine) 2,500 unit 1X ONCE IART Last administered on at 08:22; Start 09/16/16 at 08:15; Stop 09/16/16 at 08:16; Status DC Heparin Sodium/ Sodium Chloride 1,000 unit 1X ONCE IART Last administered on 09/16/16at 08:20; Start 09/16/16 at 08:15; Stop 09/16/16 at 08:16; Status DC Midazolam HCl (Versed) 2 mg 1X ONCE IV Last administered on 09/16/16at 08:21; Start 09/16/16 at 08:15; Stop 09/16/16 at 08:16; Status DC Fentanyl Citrate (Fentanyl 5ml Vial) 100 mcg 1X ONCE IV Last administered on 09/16/16at 08:22; Start 09/16/16 at 08:15; Stop 09/16/16 at 08:16; Status DC Iohexol (Omnipaque 300 Mg/ml) 131 ml 1X ONCE IART Last administered on at 08:21; Start 09/16/16 at 08:15; Stop 09/16/16 at 08:16; Status DC Lidocaine HCl 2 ml 1X ONCE IJ Last administered on 09/16/16at 08:21; Start at 08:15; Stop 09/16/16 at 08:16; Status DC Info 1 each 1 each PRN DAILY PRN MC SEE COMMENTS; Start 09/16/16 at 08:30; Stop 09/18/16 at 08:29; Status DC Sodium Chloride (Iv Sodium Chloride 0.45%) 1,000 ml @ 60 mls/hr [id number] IV Last administered on 09/16/16at 09:00; Start 09/16/16 at 09:00; Stop 09/17/16 at 12:32; Status DC Insulin Aspart (Novolog) 0-9 UNITS TIDWMEALS SQ ; Start 09/16/16 at 12:00; Status UNV Dextrose 12.5 gm 12.5 gm PRN Q15MIN PRN IV SEE COMMENTS; Start 09/16/16 at 09: 00; Status UNV Nitroglycerin/ Dextrose (Nitroglycerin Drip) 250 ml @ 0 mls/hr CONT PRN IV SEE I/O RECORD Last administered on 09/16/16at 16:18; Start 09/16/16 at 16:00; Stop 09/19/16 at 15:10; Status DC Al Hydroxide/Mg Hydroxide (Mylanta Plus Xs) 30 ml PRN Q6HRS PRN PO DYSPEPSIA Last administered on 09/16/16at 23:20; Start 09/16/16 at 22:45 Insulin Aspart (Novolog) 0-9 UNITS TIDWMEALS SQ Last administered on 09/22/16 08:00; Start 09/17/16 at 09:00 Dextrose 12.5 gm 12.5 gm PRN Q15MIN PRN IV SEE COMMENTS; Start 09/17/16 at 08: 30; Stop 09/19/16 at 15:33; Status DC Cefazolin Sodium/ Dextrose (Ancef 2gm Premix) 50 ml @ 100 mls/hr 1X ONCE IV Last administered on 09/19/16at 08:00; Start 09/19/16 at 06:00; Stop 09/19/16 at 06:29; Status DC Insulin Detemir 10 units 10 units DAILY SQ Last administered on 09/22/16 08:28 ; Start 09/17/16 at 10:30 Heparin Sodium/ Dextrose 500 ml @ 0 mls/hr CONT PRN IV SEE I/O RECORD; Start 09/18/16 at 11:30; Stop 09/18/16 at 23:55; Status DC Metoprolol Tartrate 25 mg 25 mg BID PO Last administered on 09/22/16 08:23; Start 09/18/16 at 21:00 Cefazolin Sodium 1 gm/Sodium Chloride 500 ml @ 500 mls/hr 1X PERIOP ONCE IRR Last administered on 09/19/16at 08:45; Start 09/19/16 at 06:00; Stop 09/19/16 at 06:59; Status DC Heparin Sodium (Porcine) 03778 unit/Lactated Ringer's 1,020 ml @ 1,020 mls/hr 1X PERIOP ONCE IRR Last administered on 09/19/16at 08:45; Start 09/19/16 at 06:00; Stop 09/19/16 at 06:59; Status DC Potassium Chloride 70 meq/ Sodium Bicarbonate 12.5 meq/Lidocaine HCl 24 ml/ Parenteral Electrolytes 571.5 ml @ 571.5 mls/ hr 1X PERIOP ONCE IRR Last administered on 09/19/16at 11:25; Start 09/19/16 at 06:00; Stop 09/19/16 at 06 :59; Status DC Potassium Chloride/Sodium Bicarbonate/ Parenteral Electrolytes (Isolyte S) 520 ml @ 520 mls/hr 1X PERIOP ONCE IRR Last administered on 09/19/16at 11:25; Start 09/19/16 at 06:00; Stop 09/19/16 at 06:59; Status DC Ondansetron HCl (Zofran) 4 mg PRN Q6HRS PRN IV Nausea; Start 09/19/16 at 07:00 ; Stop 09/19/16 at 19:00; Status DC Fentanyl Citrate (Fentanyl 2ml Vial) 25 mcg PRN Q5MIN PRN IV MILD PAIN; Start 09/19/16 at 07:00; Stop 09/19/16 at 19:00; Status DC Fentanyl Citrate (Fentanyl 2ml Vial) 50 mcg PRN Q5MIN PRN IV MODERATE PAIN; Start 09/19/16 at 07:00; Stop 09/19/16 at 19:00; Status DC Morphine Sulfate 1 mg 1 mg PRN Q10MIN PRN IV SEVERE PAIN; Start 09/19/16 at 07 :00; Stop 09/19/16 at 19:00; Status DC Lactated Ringer's (Iv Lactated Ringers) 1,000 ml @ 30 mls/hr Q24H IV ; Start 09/19/16 at 07:00; Stop 09/19/16 at 15:35; Status DC Lidocaine HCl 2 ml 1X PRN PRN ID IV START; Start 09/19/16 at 07:00; Stop at 19:00; Status DC Hydromorphone HCl (Dilaudid) 0.5 mg PRN Q10MIN PRN IV SEVERE PAIN, Second choice; Start 09/19/16 at 07:00; Stop 09/19/16 at 19:00; Status DC Prochlorperazine Edisylate (Compazine) 5 mg PACU PRN PRN IV NAUSEA; Start at 07:00; Stop 09/19/16 at 19:00; Status DC Zolpidem Tartrate (Ambien) 5 mg PRN QHS PRN PO INSOMNIA; Start 09/18/16 at 17: 00; Stop 09/18/16 at 23:55; Status DC Etomidate (Amidate) 20 mg STK-MED ONCE IV ; Start 09/19/16 at 07:03; Stop at 07:04; Status DC Heparin Sodium (Porcine) 10,000 unit STK-MED ONCE .ROUTE ; Start 09/19/16 at 07 :03; Stop 09/19/16 at 07:04; Status DC Nicardipine HCl (Cardene) 25 mg STK-MED ONCE IV ; Start 09/19/16 at 07:03; Stop 09/19/16 at 07:04; Status DC Phenylephrine HCl (Joseph-Synephrine Inj) 10 mg STK-MED ONCE .ROUTE ; Start at 07:03; Stop 09/19/16 at 07:04; Status DC Rocuronium [place] (Zemuron) 50 mg STK-MED ONCE .ROUTE ; Start 09/19/16 at 07: 03; Stop 09/19/16 at 07:04; Status DC Lidocaine HCl 100 mg STK-MED ONCE .ROUTE ; Start 09/19/16 at 07:03; Stop 09/19 at 07:04; Status DC Aminocaproic Acid (Amicar) 5,000 mg STK-MED ONCE IV ; Start 09/19/16 at 07:03; Stop 09/19/16 at 07:04; Status DC Midazolam HCl (Versed) 2 mg STK-MED ONCE .ROUTE ; Start 09/19/16 at 07:03; Stop 09/19/16 at 07:04; Status DC Sufentanil Citrate (Sufenta) 100 mcg STK-MED ONCE .ROUTE ; Start 09/19/16 at 07 :03; Stop 09/19/16 at 07:04; Status DC Succinylcholine Chloride (Anectine) 200 mg STK-MED ONCE .ROUTE ; Start at 07:04; Stop 09/19/16 at 07:05; Status DC Vancomycin HCl (Vanco) 10 gm 1X ONCE CEMENT Last administered on 09/19/16at 08 :45; Start 09/19/16 at 07:15; Stop 09/19/16 at 07:16; Status DC Cellulose 1 each STK-MED ONCE .ROUTE Last administered on 09/19/16at 08:45; Start 09/19/16 at 07:10; Stop 09/19/16 at 07:11; Status DC Papaverine HCl 60 mg STK-MED ONCE .ROUTE Last administered on 09/19/16at 08:45 ; Start 09/19/16 at 07:10; Stop 09/19/16 at 07:11; Status DC Aspirin (Aspirin) 300 mg STK-MED ONCE .ROUTE Last administered on 09/19/16at 14 :54; Start 09/19/16 at 07:10; Stop 09/19/16 at 07:11; Status DC Sodium Chloride (Sodium Chloride) 50 ml STK-MED ONCE IJ Last administered on at 08:45; Start 09/19/16 at 07:10; Stop 09/19/16 at 07:11; Status DC Midazolam HCl (Versed) 2 mg STK-MED ONCE .ROUTE ; Start 09/19/16 at 07:26; Stop 09/19/16 at 07:27; Status DC Isoflurane (Isoflurane) 90 ml STK-MED ONCE IH ; Start 09/19/16 at 08:16; Stop 09/19/16 at 08:17; Status DC Heparin Sodium (Porcine) 10,000 unit STK-MED ONCE .ROUTE ; Start 09/19/16 at 08 :17; Stop 09/19/16 at 08:18; Status DC Aminocaproic Acid (Amicar) 5,000 mg STK-MED ONCE IV ; Start 09/19/16 at 09:16; Stop 09/19/16 at 09:17; Status DC Protamine Sulfate 250 mg 250 mg STK-MED ONCE IV ; Start 09/19/16 at 10:36; Stop 09/19/16 at 10:37; Status DC Insulin Human Regular/Sodium Chloride (Novolin R Vial/ Iv Normal Saline 150ml) 151.5 ml @ 11.38 mls/ hr CONT PRN IV SEE I/O RECORD; Start 09/19/16 at 11:45 ; Stop 09/21/16 at 17:28; Status DC Midazolam HCl (Versed) 2 mg STK-MED ONCE .ROUTE ; Start 09/19/16 at 12:22; Stop 09/19/16 at 12:23; Status DC Protamine Sulfate 250 mg 250 mg STK-MED ONCE IV ; Start 09/19/16 at 12:49; Stop 09/19/16 at 12:50; Status DC Clevidipine (Cleviprex) 100 ml @ 0 mls/hr CONT PRN IV PER PROTOCOL; Start at 13:30; Stop 09/19/16 at 15:33; Status DC Heparin Sodium (Porcine) 10,000 unit STK-MED ONCE .ROUTE ; Start 09/19/16 at 13 :54; Stop 09/19/16 at 13:55; Status DC Lidocaine HCl 100 mg STK-MED ONCE .ROUTE ; Start 09/19/16 at 13:54; Stop 09/19 at 13:55; Status DC Mannitol (Mannitol) 12.5 g STK-MED ONCE .ROUTE ; Start 09/19/16 at 13:54; Stop 09/19/16 at 13:55; Status DC Calcium Chloride 1,000 mg STK-MED ONCE IV ; Start 09/19/16 at 13:54; Stop at 13:55; Status DC Sodium Bicarbonate 50 meq 50 meq STK-MED ONCE .ROUTE ; Start 09/19/16 at 13:54 ; Stop 09/19/16 at 13:55; Status DC Albumin Human (Albuminar) 100 ml @ As Directed STK-MED ONCE IV ; Start at 13:54; Stop 09/19/16 at 13:55; Status DC Heparin Sodium (Porcine) 30,000 unit STK-MED ONCE .ROUTE ; Start 09/19/16 at 13 :54; Stop 09/19/16 at 13:55; Status DC Magnesium Sulfate 5 gm STK-MED ONCE .ROUTE ; Start 09/19/16 at 13:54; Stop at 13:55; Status DC Rocuronium [place] (Zemuron) 50 mg STK-MED ONCE .ROUTE ; Start 09/19/16 at 14: 46; Stop 09/19/16 at 14:47; Status DC Sodium Chloride 3 ml 3 ml PRN Q12HR PRN IV AFTER MEDS AND BLOOD DRAWS; Start 09/19/16 at 15:00 Lactated Ringer's 1,000 ml @ 30 mls/hr Q24H IV Last administered on at 15:30; Start 09/19/16 at 14:46; Stop 09/21/16 at 17:28; Status DC Albumin Human 250 ml @ 60 mls/hr PRN Q4HRS PRN IV SEE I/O RECORD Last administered on 09/19/16at 18:00; Start 09/19/16 at 15:00; Stop 09/21/16 at 17 :28; Status DC Insulin Human Regular/Sodium Chloride (Novolin R Vial/ Iv Normal Saline 150ml) 151.5 ml @ 0 mls/hr CONT PRN PRN IV SEE I/O RECORD; Start 09/19/16 at 15:00; Stop 09/19/16 at 15:34; Status DC Dextrose 25 gm 25 gm PRN Q15MIN PRN IV LOW BLOOD SUGAR; Start 09/19/16 at 15: 00 Epinephrine HCl 4 mg/Sodium Chloride 254 ml @ 0 mls/hr CONT PRN PRN IV POST CV SURGERY; Start 09/19/16 at 15:00; Stop 09/21/16 at 12:00; Status DC Amiodarone HCl 150 mg/Dextrose 103 ml @ 0 mls/hr 1X ONCE IV ; Start 09/19/16 at 15:00; Stop 09/19/16 at 15:01; Status UNV Amiodarone HCl/ Dextrose (Cordarone) 518 ml @ 33.33 mls/ hr CONT PRN PRN IV SEE COMMENTS; Start 09/19/16 at 15:00; Status UNV Info 1 ea CONT PRN PRN MC SEE COMMENTS; Start 09/19/16 at 15:00 Info 1 ea 1 ea CONT PRN PRN MC SEE COMMENTS; Start 09/19/16 at 15:00; Stop at 20:06; Status DC Magnesium Sulfate/ Dextrose (Magnesium Sulfate PREMIX 1GM) 100 ml @ 100 mls/hr PRN DAILY PRN IV FOR MAG < 2.2; Start 09/19/16 at 15:00 Ondansetron HCl (Zofran) 4 mg PRN Q4HRS PRN IV NAUSEA/VOMITING Last administered on 09/19/16at 21:01; Start 09/19/16 at 15:00 Metoclopramide HCl (Reglan) 10 mg PRN Q6HRS PRN IV NAUSEA/VOMITING; Start at 15:00 Morphine Sulfate 2 mg PRN Q1HR PRN IV PAIN Last administered on 09/20/16at 12: 02; Start 09/19/16 at 15:00 Acetaminophen (Tylenol) 650 mg PRN Q4HRS PRN PO MILD PAIN / TEMP; Start at 15:00 Acetaminophen (Tylenol) 650 mg PRN Q4HRS PRN MN MILD PAIN / TEMP; Start at 15:00 Meperidine HCl 12.5 mg 12.5 mg PRN Q15MIN PRN IV SHIVERING; Start 09/19/16 at 15:00; Stop 09/20/16 at 07:00; Status DC Propofol (Diprivan) 100 ml @ 0 mls/hr CONT PRN PRN IV POSTOP SEDATION UNTIL EXTUBATE Last administered on 09/19/16at 16:13; Start 09/19/16 at 15:00; Stop 09/21/16 at 12:00; Status DC Senna/Docusate Sodium (Senna Plus) 1 tab BID PO Last administered on 09/22/16 08:23; Start 09/19/16 at 21:00 Aspirin (Ecotrin) 325 mg [id number] PO Last administered on 09/22/16 08:24; Start 09/20/16 at 08:00 Albuterol Sulfate (Ventolin Neb Soln) 2.5 mg PRN Q4HRS PRN NEB SHORTNESS OF BREATH Last administered on 09/21/16at 04:04; Start 09/19/16 at 15:00 Metoprolol Tartrate 25 mg 25 mg BID PO ; Start 09/20/16 at 09:00; Stop at 09:00; Status DC Clevidipine (Cleviprex) 100 ml @ 0 mls/hr CONT PRN IV PER PROTOCOL; Start at 15:00 Oxycodone/ Acetaminophen (Percocet 5/325) 1 tab PRN Q4HRS PRN PO MILD PAIN; Start 09/19/16 at 15:00 Oxycodone/ Acetaminophen 2 tab 2 tab PRN Q4HRS PRN PO MODERATE PAIN, SEVERE PAIN Last administered on 09/21/16at 16:53; Start 09/19/16 at 15:00 Cefazolin Sodium/ Dextrose 50 ml @ 100 mls/hr Q8H IV Last administered on at 04:14; Start 09/19/16 at 20:00; Stop 09/21/16 at 04:29; Status DC Amiodarone HCl 150 mg/Dextrose 103 ml @ 618 mls/hr 1X ONCE IV Last administered on 09/19/16at 16:16; Start 09/19/16 at 15:00; Stop 09/19/16 at 15 :13; Status DC Amiodarone HCl/ Dextrose (Cordarone) 518 ml @ 0 mls/hr CONT PRN IV SEE I/O RECORD; Start 09/19/16 at 15:00 Polyethylene Glycol 17 gm 17 gm PRN BID PRN PO CONSTIPATION; Start 09/20/16 at 17:00 Norepinephrine Bitartrate 250 ml @ 0 mls/hr CONT PRN IV SEE I/O RECORD; Start 09/19/16 at 16:30; Status Cancel Norepinephrine Bitartrate 250 ml @ As Directed STK-MED ONCE IV ; Start at 16:19; Stop 09/19/16 at 16:20; Status DC Potassium Chloride (KCl Premix 20meq) 50 ml @ 50 mls/hr 1X ONCE IV ; Start at 16:45; Stop 09/19/16 at 17:44; Status DC Ketorolac Tromethamine (Toradol) 30 mg 1X ONCE IV Last administered on at 17:15; Start 09/19/16 at 17:15; Stop 09/19/16 at 17:16; Status DC Furosemide (Lasix) 40 mg PRN 1X PRN IVP SEE COMMENTS; Start 09/19/16 at 22:15 ; Stop 09/19/16 at 23:59; Status DC Ketorolac Tromethamine (Toradol) 30 mg 1X ONCE IV Last administered on at 22:45; Start 09/19/16 at 22:45; Stop 09/19/16 at 22:46; Status DC Ketorolac Tromethamine (Toradol) 30 mg 1X ONCE IV Last administered on at 06:23; Start 09/20/16 at 06:00; Stop 09/20/16 at 06:01; Status DC Cefazolin Sodium/ Dextrose (Ancef 2gm Premix) 2 gm STK-MED ONCE IV ; Start at 12:00; Stop 09/20/16 at 08:28; Status DC Norepinephrine Bitartrate (Levophed 8mg/ 250ml Premix Drip) 8 mg STK-MED ONCE IV ; Start 09/19/16 at 16:00; Stop 09/20/16 at 08:46; Status DC Furosemide (Lasix) 40 mg [id number] IVP Last administered on 09/22/16 06:11; Start 09/20/16 at 11:45 Amiodarone HCl (Cordarone) 400 mg BID PO Last administered on 09/22/16 08:24; Start 09/20/16 at 13:00 Oxycodone/ Acetaminophen (Percocet 7.5/ 325) 2 tab PRN Q4HRS PRN PO PAIN Last administered on 09/22/16 06:15; Start 09/21/16 at 12:30 Active Scripts Active Reported Atorvastatin Calcium 10 Mg Tablet 1 Tab PO DAILY Losartan-Hctz 100-12.5 Mg Tab (Losartan/Hydrochlorothiazide) 1 Each Tablet 1 Tab PO DAILY Glimepiride 2 Mg Tablet 1 Tab PO DAILY Metformin Hcl 1,000 Mg Tablet 1 Tab PO BID Omeprazole 20 Mg Capsule.dr 1 Cap PO BID Vitals/I & O Vital Sign - Last 24 Hours 09/21/16 09/21/16 09/21/16 09/21/16 10:49 12:37 14:40 16:53 Temp 98.6 98.3 98.6 98.3 Pulse 79 77 Resp 20 18 20 18 B/P 94/62 106/59 Pulse Ox 98 98 93 O2 Delivery Nasal Cannula Nasal Cannula Nasal Cannula Nasal Cannula O2 Flow Rate 4.0 4.0 4.0 5.0 09/21/16 09/21/16 09/21/16 09/21/16 19:12 19:22 19:44 20:57 Temp 98.7 98.7 Pulse 85 85 Resp 18 16 B/P 127/65 127/65 Pulse Ox 98 94 O2 Delivery Nasal Cannula Nasal Cannula Nasal Cannula O2 Flow Rate 5.0 5.0 5.0 09/21/16 09/21/16 09/21/16 09/21/16 20:58 20:58 22:32 22:39 Temp 98.2 98.2 Pulse 85 74 Resp 18 16 B/P 127/65 104/71 Pulse Ox 97 99 O2 Delivery Nasal Cannula Nasal Cannula O2 Flow Rate 5.0 5.0 09/22/16 09/22/16 09/22/16 09/22/16 01:26 03:00 03:13 06:15 Temp 97.8 97.8 Pulse 82 Resp 18 16 18 16 B/P 106/65 Pulse Ox 96 96 98 97 O2 Delivery Nasal Cannula Nasal Cannula Nasal Cannula O2 Flow Rate 5.0 5.0 5.0 5.0 09/22/16 09/22/16 09/22/16 07:26 08:23 08:24 Temp 98.1 98.1 Pulse 91 91 91 Resp 20 B/P 115/79 115/79 115/79 Pulse Ox 97 O2 Delivery Nasal Cannula O2 Flow Rate 5.0 Intake and Output 09/21/16 09/21/16 09/22/16 15:00 23:00 07:00 Intake Total 300 ml 350 ml Output Total 175 ml 200 ml Balance 125 ml 150 ml HO DELA CRUZ MD Sep 22, 2016 09:53
[2016-09-22 10:14] VITALS: BP 103/67
--- NOTE | 2016-09-22 12:58 | PDOC ---
PROGRESS NOTES Subjective Subjective The patient reports feeling better. Objective Objective Vital Signs Date Time Temp Pulse Resp B/P Pulse Ox O2 Delivery O2 Flow Rate FiO2 09/22/16 11:11 20 98 4.0 09/22/16 10:14 97.5 72 103/67 Nasal Cannula 97.5 Intake and Output 09/22/16 07:00 Intake Total 650 ml Output Total 375 ml Balance 275 ml Intake Oral 650 ml Output Urine Total 375 ml # Voids 1 Physical Exam Abdomen: Normal bowel sounds Heart: Regular rate General: mild distress Lungs: Other (slightly decreased breath sounds at the bases.) Assessment Assessment Problems Medical Problems: (1) Chest pain Status: Acute (2) NSTEMI (non-ST elevated myocardial infarction) Status: Acute Assessment 1. NSTEMI troponin peaked at 1.754 s/p CABG with CHUA to LAD; SVG to RPDA; SVG to OM2; POD#3 management per CTS continue beat-blockers, ASA, statin therapy 2. HTN, benign essential controlled 3. mixed hyperlipidemia TG = 358; HDLs = 37 continue statin therapy lifestyle modification and improved control of DM to address TG 4. DM, type II A1C= 8.2 per CTS/IPC Comment Review of Relevant I have reviewed the following items amber (where applicable) has been applied. Labs Laboratory Tests Test 09/20/16 16:53 09/20/16 20:51 09/21/16 08:20 09/21/16 08:51 Glucose (Fingerstick) 130mg/dL (70-99) 254mg/dL (70-99) 198mg/dL (70-99) White Blood Count 18.5x10^3/uL (4.0-11.0) Red Blood Count 4.16x10^6/uL (4.30-5.70) Hemoglobin 11.4g/dL (13.0-17.5) Hematocrit 34.9% (39.0-53.0) Mean Corpuscular Volume 84fL (79-100) Mean Corpuscular Hemoglobin 27pg (25-35) Mean Corpuscular Hemoglobin Concent 33g/dL (31-37) Red Cell Distribution Width 14.0% (11.5-14.5) Platelet Count 206x10^3/uL (140-400) Neutrophils (%) (Auto) 81% (31-73) Lymphocytes (%) (Auto) 10% (24-48) Monocytes (%) (Auto) 9% (0-9) Eosinophils (%) (Auto) 1% (0-3) Basophils (%) (Auto) 0% (0-3) Neutrophils # (Auto) 14.9x10^3uL (1.8-7.7) Lymphocytes # (Auto) 1.8x10^3/uL (1.0-4.8) Monocytes # (Auto) 1.6x10^3/uL (0.0-1.1) Eosinophils # (Auto) 0.1x10^3/uL (0.0-0.7) Basophils # (Auto) 0.1x10^3/uL (0.0-0.2) Sodium Level 135mmol/L (136-145) Potassium Level 3.8mmol/L (3.5-5.1) Chloride Level 97mmol/L (98-107) Carbon Dioxide Level 29mmol/L (21-32) Anion Gap 9 (6-14) Blood Urea Nitrogen 16mg/dL (8-26) Creatinine 1.2mg/dL (0.7-1.3) Estimated GFR (Cockcroft-Gault) 64.9 Glucose Level 319mg/dL (70-99) Calcium Level 8.8mg/dL (8.5-10.1) Test 09/21/16 11:45 09/21/16 16:57 09/21/16 20:14 09/21/16 20:27 Glucose (Fingerstick) 238mg/dL (70-99) 153mg/dL (70-99) 174mg/dL (70-99) Urine Collection Type Unknown Urine Color Karol Urine Clarity Turbid Urine pH 5.5 Urine Specific [place] >=1.030 Urine Protein 30mg/dL (NEG-TRACE) Urine Glucose (UA) Negativemg/dL (NEG) Urine Ketones (Stick) Negativemg/dL (NEG) Urine Blood Large (NEG) Urine Nitrite Negative (NEG) Urine Bilirubin Negative (NEG) Urine Urobilinogen Dipstick 0.2mg/dL (0.2 mg/dL) Urine Leukocyte Esterase Small (NEG) Urine RBC Tntc/HPF (0-2) Urine WBC 1-4/HPF (0-4) Urine Squamous Epithelial Cells Few/LPF Urine Bacteria Few/HPF (0-FEW) Urine Mucus Mod/LPF Test 09/22/16 04:45 09/22/16 07:29 09/22/16 10:17 White Blood Count 17.0x10^3/uL (4.0-11.0) Red Blood Count 3.96x10^6/uL (4.30-5.70) Hemoglobin 11.0g/dL (13.0-17.5) Hematocrit 32.9% (39.0-53.0) Mean Corpuscular Volume 83fL (79-100) Mean Corpuscular Hemoglobin 28pg (25-35) Mean Corpuscular Hemoglobin Concent 34g/dL (31-37) Red Cell Distribution Width 14.3% (11.5-14.5) Platelet Count 226x10^3/uL (140-400) Neutrophils (%) (Auto) 69% (31-73) Lymphocytes (%) (Auto) 16% (24-48) Monocytes (%) (Auto) 12% (0-9) Eosinophils (%) (Auto) 3% (0-3) Basophils (%) (Auto) 1% (0-3) Neutrophils # (Auto) 11.7x10^3uL (1.8-7.7) Lymphocytes # (Auto) 2.8x10^3/uL (1.0-4.8) Monocytes # (Auto) 1.9x10^3/uL (0.0-1.1) Eosinophils # (Auto) 0.4x10^3/uL (0.0-0.7) Basophils # (Auto) 0.1x10^3/uL (0.0-0.2) Sodium Level 140mmol/L (136-145) Potassium Level 3.9mmol/L (3.5-5.1) Chloride Level 100mmol/L (98-107) Carbon Dioxide Level 32mmol/L (21-32) Anion Gap 8 (6-14) Blood Urea Nitrogen 23mg/dL (8-26) Creatinine 1.0mg/dL (0.7-1.3) Estimated GFR (Cockcroft-Gault) 80.1 Glucose Level 163mg/dL (70-99) Calcium Level 9.1mg/dL (8.5-10.1) Glucose (Fingerstick) 166mg/dL (70-99) 177mg/dL (70-99) Laboratory Tests Test 09/21/16 16:57 09/21/16 20:14 09/21/16 20:27 09/22/16 04:45 Glucose (Fingerstick) 153mg/dL (70-99) 174mg/dL (70-99) Urine Collection Type Unknown Urine Color Karol Urine Clarity Turbid Urine pH 5.5 Urine Specific [place] >=1.030 Urine Protein 30mg/dL (NEG-TRACE) Urine Glucose (UA) Negativemg/dL (NEG) Urine Ketones (Stick) Negativemg/dL (NEG) Urine Blood Large (NEG) Urine Nitrite Negative (NEG) Urine Bilirubin Negative (NEG) Urine Urobilinogen Dipstick 0.2mg/dL (0.2 mg/dL) Urine Leukocyte Esterase Small (NEG) Urine RBC Tntc/HPF (0-2) Urine WBC 1-4/HPF (0-4) Urine Squamous Epithelial Cells Few/LPF Urine Bacteria Few/HPF (0-FEW) Urine Mucus Mod/LPF White Blood Count 17.0x10^3/uL (4.0-11.0) Red Blood Count 3.96x10^6/uL (4.30-5.70) Hemoglobin 11.0g/dL (13.0-17.5) Hematocrit 32.9% (39.0-53.0) Mean Corpuscular Volume 83fL (79-100) Mean Corpuscular Hemoglobin 28pg (25-35) Mean Corpuscular Hemoglobin Concent 34g/dL (31-37) Red Cell Distribution Width 14.3% (11.5-14.5) Platelet Count 226x10^3/uL (140-400) Neutrophils (%) (Auto) 69% (31-73) Lymphocytes (%) (Auto) 16% (24-48) Monocytes (%) (Auto) 12% (0-9) Eosinophils (%) (Auto) 3% (0-3) Basophils (%) (Auto) 1% (0-3) Neutrophils # (Auto) 11.7x10^3uL (1.8-7.7) Lymphocytes # (Auto) 2.8x10^3/uL (1.0-4.8) Monocytes # (Auto) 1.9x10^3/uL (0.0-1.1) Eosinophils # (Auto) 0.4x10^3/uL (0.0-0.7) Basophils # (Auto) 0.1x10^3/uL (0.0-0.2) Sodium Level 140mmol/L (136-145) Potassium Level 3.9mmol/L (3.5-5.1) Chloride Level 100mmol/L (98-107) Carbon Dioxide Level 32mmol/L (21-32) Anion Gap 8 (6-14) Blood Urea Nitrogen 23mg/dL (8-26) Creatinine 1.0mg/dL (0.7-1.3) Estimated GFR (Cockcroft-Gault) 80.1 Glucose Level 163mg/dL (70-99) Calcium Level 9.1mg/dL (8.5-10.1) Test 09/22/16 07:29 09/22/16 10:17 Glucose (Fingerstick) 166mg/dL (70-99) 177mg/dL (70-99) Medications Current Medications Aspirin (Children'S Aspirin) 324 mg 1X ONCE PO Last administered on at 02:36; Start 09/15/16 at 03:00; Stop 09/15/16 at 03:01; Status DC Nitroglycerin (Nitrostat) 0.4 mg PRN Q5MIN PRN SL CP RATING > 1/10 Last administered on 09/15/16at 02:37; Start 09/15/16 at 02:30; Stop 09/15/16 at 05 :18; Status DC Fentanyl Citrate (Fentanyl 2ml Vial) 25 mcg PRN Q15MIN PRN IV PAIN GREATER THAN 3/10; Start 09/15/16 at 02:30; Stop 09/15/16 at 06:00; Status DC Heparin Sodium (Porcine) 4000 unit 4,000 unit 1X ONCE IV Last administered on 09/15/16at 05:14; Start 09/15/16 at 05:00; Stop 09/15/16 at 05:02; Status DC Heparin Sodium/ Dextrose 500 ml @ 0 mls/hr CONT PRN IV SEE I/O RECORD Last administered on 09/18/16at 04:00; Start 09/15/16 at 04:45; Stop 09/18/16 at 11 :33; Status DC Heparin Sodium (Porcine) 2,850 unit PRN Q6HRS PRN IV FOR UFH LEVEL LESS THAN 0.2 Last administered on 09/15/16at 18:22; Start 09/15/16 at 04:45; Stop 09/19 at 12:55; Status DC Ondansetron HCl (Zofran) 4 mg PRN Q8HRS PRN IV NAUSEA/VOMITING; Start at 05:15; Stop 09/16/16 at 05:14; Status DC Fentanyl Citrate (Fentanyl 2ml Vial) 50 mcg PRN Q2HR PRN IV SEVERE PAIN; Start 09/15/16 at 05:15; Stop 09/16/16 at 05:14; Status DC Acetaminophen (Tylenol) 650 mg PRN Q4HRS PRN PO FEVER; Start 09/15/16 at 05:15 ; Stop 09/16/16 at 05:14; Status DC Nitroglycerin (Nitrostat) 0.4 mg PRN Q5MIN PRN SL CHEST PAIN; Start 09/15/16 at 05:15; Stop 09/16/16 at 05:14; Status DC Insulin Aspart (Novolog) 0-5 UNITS TIDWMEALS SQ Last administered on at 17:26; Start 09/15/16 at 08:00; Stop 09/17/16 at 08:23; Status DC Dextrose 12.5 gm PRN Q15MIN PRN IV SEE COMMENTS; Start 09/15/16 at 05:15; Status Cancel Info (Anti-Coagulation Monitoring By Pharmacy) 1 each PRN DAILY PRN MC SEE COMMENTS Last administered on 09/18/16at 10:20; Start 09/15/16 at 07:45; Stop 09/19/16 at 12:56; Status DC Atorvastatin Calcium (Lipitor) 20 mg QHS PO Last administered on 09/21/16at 20: 56; Start 09/15/16 at 21:00 Glimepiride (Amaryl) 2 mg DAILY PO Last administered on 09/18/16at 09:01; Start 09/15/16 at 11:30; Stop 09/20/16 at 21:29; Status DC Non-Formulary Medication 1 tab DAILY PO ; Start 09/16/16 at 09:00; Status UNV Pantoprazole Sodium (Protonix) 40 mg DAILYAC PO Last administered on at 09:01; Start 09/15/16 at 11:30; Stop 09/19/16 at 15:10; Status DC Acetaminophen (Tylenol) 650 mg PRN Q6HRS PRN PO MILD PAIN / TEMP; Start at 10:30; Stop 09/19/16 at 15:32; Status DC Ondansetron HCl (Zofran) 4 mg PRN Q6HRS PRN IV NAUSEA/VOMITING Last administered on 09/16/16at 15:49; Start 09/15/16 at 10:30; Stop 09/19/16 at 15 :36; Status DC Morphine Sulfate 2 mg PRN Q2HR PRN IV PAIN Last administered on 09/19/16at 17: 27; Start 09/15/16 at 10:30 Morphine Sulfate 4 mg PRN Q2HR PRN IV PAIN Last administered on 09/19/16at 19: 43; Start 09/15/16 at 10:30 Losartan Potassium (Cozaar) 100 mg DAILY PO ; Start 09/15/16 at 11:30; Stop at 12:48; Status DC Hydrochlorothiazide (Microzide) 12.5 mg DAILY PO ; Start 09/15/16 at 11:30; Stop 09/15/16 at 12:48; Status DC Aspirin (Ecotrin) 325 mg [id number] PO Last administered on 09/18/16at 09:01; Start 09/16/16 at 08:00; Stop 09/19/16 at 15:32; Status DC Metoprolol Tartrate (Lopressor) 12.5 mg BID PO Last administered on 09/18/16at 09:01; Start 09/15/16 at 21:00; Stop 09/18/16 at 11:41; Status DC Influenza Virus Vaccine Quadrival (Fluarix Quad 9162-9014 Syringe) 0.5 ml ONCE ONCE VAX IM ; Start 09/16/16 at 14:00; Stop 09/16/16 at 14:01; Status DC Pneumococcal Polyvalent Vaccine (Pneumovax 23) 0.5 ml ONCE ONCE VAX IM ; Start 09/16/16 at 14:00; Stop 09/16/16 at 14:01; Status DC Famotidine (Pepcid) 20 mg 1X ONCE IVP Last administered on 09/16/16at 07:24; Start 09/16/16 at 08:00; Stop 09/16/16 at 08:01; Status DC Diphenhydramine HCl (Benadryl) 25 mg 1X ONCE IVP Last administered on at 07:24; Start 09/16/16 at 08:00; Stop 09/16/16 at 08:01; Status DC Methylprednisolone Sodium Succinate (Solu-Medrol 125mg Vial) 125 mg 1X ONCE IV Last administered on 09/16/16at 07:24; Start 09/16/16 at 08:00; Stop at 08:01; Status DC Iohexol 100 ml 100 ml STK-MED ONCE .ROUTE ; Start 09/16/16 at 07:00; Stop at 07:01; Status DC Heparin Sodium/ Sodium Chloride 1,000 ml @ As Directed STK-MED ONCE .ROUTE ; Start 09/16/16 at 07:01; Stop 09/16/16 at 07:02; Status DC Lidocaine HCl 20 ml STK-MED ONCE .ROUTE ; Start 09/16/16 at 07:01; Stop at 07:02; Status DC Verapamil HCl (Verapamil) 5 mg STK-MED ONCE .ROUTE ; Start 09/16/16 at 07:45; Stop 09/16/16 at 07:46; Status DC Midazolam HCl (Versed) 5 mg STK-MED ONCE .ROUTE ; Start 09/16/16 at 07:45; Stop 09/16/16 at 07:46; Status DC Nitroglycerin (Nitroglycerin) 200 mcg STK-MED ONCE .ROUTE ; Start 09/16/16 at 07:45; Stop 09/16/16 at 07:46; Status DC Heparin Sodium (Porcine) 10,000 unit STK-MED ONCE .ROUTE ; Start 09/16/16 at 07 :45; Stop 09/16/16 at 07:46; Status DC Fentanyl Citrate (Fentanyl 5ml Vial) 250 mcg STK-MED ONCE .ROUTE ; Start at 07:46; Stop 09/16/16 at 07:47; Status DC Nitroglycerin (Nitroglycerin) 200 mcg 1X ONCE IART Last administered on at 08:21; Start 09/16/16 at 08:15; Stop 09/16/16 at 08:16; Status DC Verapamil HCl (Verapamil) 2.5 mg 1X ONCE IART Last administered on 09/16/16at 08:22; Start 09/16/16 at 08:15; Stop 09/16/16 at 08:16; Status DC Heparin Sodium (Porcine) 2,500 unit 1X ONCE IART Last administered on at 08:22; Start 09/16/16 at 08:15; Stop 09/16/16 at 08:16; Status DC Heparin Sodium/ Sodium Chloride 1,000 unit 1X ONCE IART Last administered on 09/16/16at 08:20; Start 09/16/16 at 08:15; Stop 09/16/16 at 08:16; Status DC Midazolam HCl (Versed) 2 mg 1X ONCE IV Last administered on 09/16/16at 08:21; Start 09/16/16 at 08:15; Stop 09/16/16 at 08:16; Status DC Fentanyl Citrate (Fentanyl 5ml Vial) 100 mcg 1X ONCE IV Last administered on 09/16/16at 08:22; Start 09/16/16 at 08:15; Stop 09/16/16 at 08:16; Status DC Iohexol (Omnipaque 300 Mg/ml) 131 ml 1X ONCE IART Last administered on at 08:21; Start 09/16/16 at 08:15; Stop 09/16/16 at 08:16; Status DC Lidocaine HCl 2 ml 1X ONCE IJ Last administered on 09/16/16at 08:21; Start at 08:15; Stop 09/16/16 at 08:16; Status DC Info 1 each 1 each PRN DAILY PRN MC SEE COMMENTS; Start 09/16/16 at 08:30; Stop 09/18/16 at 08:29; Status DC Sodium Chloride (Iv Sodium Chloride 0.45%) 1,000 ml @ 60 mls/hr [id number] IV Last administered on 09/16/16at 09:00; Start 09/16/16 at 09:00; Stop 09/17/16 at 12:32; Status DC Insulin Aspart (Novolog) 0-9 UNITS TIDWMEALS SQ ; Start 09/16/16 at 12:00; Status UNV Dextrose 12.5 gm 12.5 gm PRN Q15MIN PRN IV SEE COMMENTS; Start 09/16/16 at 09: 00; Status UNV Nitroglycerin/ Dextrose (Nitroglycerin Drip) 250 ml @ 0 mls/hr CONT PRN IV SEE I/O RECORD Last administered on 09/16/16at 16:18; Start 09/16/16 at 16:00; Stop 09/19/16 at 15:10; Status DC Al Hydroxide/Mg Hydroxide (Mylanta Plus Xs) 30 ml PRN Q6HRS PRN PO DYSPEPSIA Last administered on 09/16/16at 23:20; Start 09/16/16 at 22:45 Insulin Aspart (Novolog) 0-9 UNITS TIDWMEALS SQ Last administered on 09/22/16 08:00; Start 09/17/16 at 09:00 Dextrose 12.5 gm 12.5 gm PRN Q15MIN PRN IV SEE COMMENTS; Start 09/17/16 at 08: 30; Stop 09/19/16 at 15:33; Status DC Cefazolin Sodium/ Dextrose (Ancef 2gm Premix) 50 ml @ 100 mls/hr 1X ONCE IV Last administered on 09/19/16at 08:00; Start 09/19/16 at 06:00; Stop 09/19/16 at 06:29; Status DC Insulin Detemir 10 units 10 units DAILY SQ Last administered on 09/22/16 08:28 ; Start 09/17/16 at 10:30 Heparin Sodium/ Dextrose 500 ml @ 0 mls/hr CONT PRN IV SEE I/O RECORD; Start 09/18/16 at 11:30; Stop 09/18/16 at 23:55; Status DC Metoprolol Tartrate 25 mg 25 mg BID PO Last administered on 09/22/16 08:23; Start 09/18/16 at 21:00 Cefazolin Sodium 1 gm/Sodium Chloride 500 ml @ 500 mls/hr 1X PERIOP ONCE IRR Last administered on 09/19/16at 08:45; Start 09/19/16 at 06:00; Stop 09/19/16 at 06:59; Status DC Heparin Sodium (Porcine) 97567 unit/Lactated Ringer's 1,020 ml @ 1,020 mls/hr 1X PERIOP ONCE IRR Last administered on 09/19/16at 08:45; Start 09/19/16 at 06:00; Stop 09/19/16 at 06:59; Status DC Potassium Chloride 70 meq/ Sodium Bicarbonate 12.5 meq/Lidocaine HCl 24 ml/ Parenteral Electrolytes 571.5 ml @ 571.5 mls/ hr 1X PERIOP ONCE IRR Last administered on 09/19/16at 11:25; Start 09/19/16 at 06:00; Stop 09/19/16 at 06 :59; Status DC Potassium Chloride/Sodium Bicarbonate/ Parenteral Electrolytes (Isolyte S) 520 ml @ 520 mls/hr 1X PERIOP ONCE IRR Last administered on 09/19/16at 11:25; Start 09/19/16 at 06:00; Stop 09/19/16 at 06:59; Status DC Ondansetron HCl (Zofran) 4 mg PRN Q6HRS PRN IV Nausea; Start 09/19/16 at 07:00 ; Stop 09/19/16 at 19:00; Status DC Fentanyl Citrate (Fentanyl 2ml Vial) 25 mcg PRN Q5MIN PRN IV MILD PAIN; Start 09/19/16 at 07:00; Stop 09/19/16 at 19:00; Status DC Fentanyl Citrate (Fentanyl 2ml Vial) 50 mcg PRN Q5MIN PRN IV MODERATE PAIN; Start 09/19/16 at 07:00; Stop 09/19/16 at 19:00; Status DC Morphine Sulfate 1 mg 1 mg PRN Q10MIN PRN IV SEVERE PAIN; Start 09/19/16 at 07 :00; Stop 09/19/16 at 19:00; Status DC Lactated Ringer's (Iv Lactated Ringers) 1,000 ml @ 30 mls/hr Q24H IV ; Start 09/19/16 at 07:00; Stop 09/19/16 at 15:35; Status DC Lidocaine HCl 2 ml 1X PRN PRN ID IV START; Start 09/19/16 at 07:00; Stop at 19:00; Status DC Hydromorphone HCl (Dilaudid) 0.5 mg PRN Q10MIN PRN IV SEVERE PAIN, Second choice; Start 12/29/16 at 07:00; Stop 09/19/16 at 19:00; Status DC Prochlorperazine Edisylate (Compazine) 5 mg PACU PRN PRN IV NAUSEA; Start at 07:00; Stop 09/19/16 at 19:00; Status DC Zolpidem Tartrate (Ambien) 5 mg PRN QHS PRN PO INSOMNIA; Start 09/18/16 at 17: 00; Stop 09/18/16 at 23:55; Status DC Etomidate (Amidate) 20 mg STK-MED ONCE IV ; Start 09/19/16 at 07:03; Stop at 07:04; Status DC Heparin Sodium (Porcine) 10,000 unit STK-MED ONCE .ROUTE ; Start 09/19/16 at 07 :03; Stop 09/19/16 at 07:04; Status DC Nicardipine HCl (Cardene) 25 mg STK-MED ONCE IV ; Start 09/19/16 at 07:03; Stop 09/19/16 at 07:04; Status DC Phenylephrine HCl (Joseph-Synephrine Inj) 10 mg STK-MED ONCE .ROUTE ; Start at 07:03; Stop 09/19/16 at 07:04; Status DC Rocuronium Cochrane (Zemuron) 50 mg STK-MED ONCE .ROUTE ; Start 09/19/16 at 07: 03; Stop 09/19/16 at 07:04; Status DC Lidocaine HCl 100 mg STK-MED ONCE .ROUTE ; Start 09/19/16 at 07:03; Stop 09/19 at 07:04; Status DC Aminocaproic Acid (Amicar) 5,000 mg STK-MED ONCE IV ; Start 09/19/16 at 07:03; Stop 09/19/16 at 07:04; Status DC Midazolam HCl (Versed) 2 mg STK-MED ONCE .ROUTE ; Start 09/19/16 at 07:03; Stop 09/19/16 at 07:04; Status DC Sufentanil Citrate (Sufenta) 100 mcg STK-MED ONCE .ROUTE ; Start 09/19/16 at 07 :03; Stop 09/19/16 at 07:04; Status DC Succinylcholine Chloride (Anectine) 200 mg STK-MED ONCE .ROUTE ; Start at 07:04; Stop 09/19/16 at 07:05; Status DC Vancomycin HCl (Vanco) 10 gm 1X ONCE CEMENT Last administered on 09/19/16at 08 :45; Start 09/19/16 at 07:15; Stop 09/19/16 at 07:16; Status DC Cellulose 1 each STK-MED ONCE .ROUTE Last administered on 09/19/16at 08:45; Start 09/19/16 at 07:10; Stop 09/19/16 at 07:11; Status DC Papaverine HCl 60 mg STK-MED ONCE .ROUTE Last administered on 09/19/16at 08:45 ; Start 09/19/16 at 07:10; Stop 09/19/16 at 07:11; Status DC Aspirin (Aspirin) 300 mg STK-MED ONCE .ROUTE Last administered on 09/19/16at 14 :54; Start 09/19/16 at 07:10; Stop 09/19/16 at 07:11; Status DC Sodium Chloride (Sodium Chloride) 50 ml STK-MED ONCE IJ Last administered on at 08:45; Start 09/19/16 at 07:10; Stop 09/19/16 at 07:11; Status DC Midazolam HCl (Versed) 2 mg STK-MED ONCE .ROUTE ; Start 09/19/16 at 07:26; Stop 09/19/16 at 07:27; Status DC Isoflurane (Isoflurane) 90 ml STK-MED ONCE IH ; Start 09/19/16 at 08:16; Stop 09/19/16 at 08:17; Status DC Heparin Sodium (Porcine) 10,000 unit STK-MED ONCE .ROUTE ; Start 09/19/16 at 08 :17; Stop 09/19/16 at 08:18; Status DC Aminocaproic Acid (Amicar) 5,000 mg STK-MED ONCE IV ; Start 09/19/16 at 09:16; Stop 09/19/16 at 09:17; Status DC Protamine Sulfate 250 mg 250 mg STK-MED ONCE IV ; Start 09/19/16 at 10:36; Stop 09/19/16 at 10:37; Status DC Insulin Human Regular/Sodium Chloride (Novolin R Vial/ Iv Normal Saline 150ml) 151.5 ml @ 11.38 mls/ hr CONT PRN IV SEE I/O RECORD; Start 09/19/16 at 11:45 ; Stop 09/21/16 at 17:28; Status DC Midazolam HCl (Versed) 2 mg STK-MED ONCE .ROUTE ; Start 09/19/16 at 12:22; Stop 09/19/16 at 12:23; Status DC Protamine Sulfate 250 mg 250 mg STK-MED ONCE IV ; Start 09/19/16 at 12:49; Stop 09/19/16 at 12:50; Status DC Clevidipine (Cleviprex) 100 ml @ 0 mls/hr CONT PRN IV PER PROTOCOL; Start at 13:30; Stop 09/19/16 at 15:33; Status DC Heparin Sodium (Porcine) 10,000 unit STK-MED ONCE .ROUTE ; Start 09/19/16 at 13 :54; Stop 09/19/16 at 13:55; Status DC Lidocaine HCl 100 mg STK-MED ONCE .ROUTE ; Start 09/19/16 at 13:54; Stop 09/19 at 13:55; Status DC Mannitol (Mannitol) 12.5 g STK-MED ONCE .ROUTE ; Start 09/19/16 at 13:54; Stop 09/19/16 at 13:55; Status DC Calcium Chloride 1,000 mg STK-MED ONCE IV ; Start 09/19/16 at 13:54; Stop at 13:55; Status DC Sodium Bicarbonate 50 meq 50 meq STK-MED ONCE .ROUTE ; Start 09/19/16 at 13:54 ; Stop 09/19/16 at 13:55; Status DC Albumin Human (Albuminar) 100 ml @ As Directed STK-MED ONCE IV ; Start at 13:54; Stop 09/19/16 at 13:55; Status DC Heparin Sodium (Porcine) 30,000 unit STK-MED ONCE .ROUTE ; Start 09/19/16 at 13 :54; Stop 09/19/16 at 13:55; Status DC Magnesium Sulfate 5 gm STK-MED ONCE .ROUTE ; Start 09/19/16 at 13:54; Stop at 13:55; Status DC Rocuronium Cochrane (Zemuron) 50 mg STK-MED ONCE .ROUTE ; Start 09/19/16 at 14: 46; Stop 09/19/16 at 14:47; Status DC Sodium Chloride 3 ml 3 ml PRN Q12HR PRN IV AFTER MEDS AND BLOOD DRAWS; Start 09/19/16 at 15:00 Lactated Ringer's 1,000 ml @ 30 mls/hr Q24H IV Last administered on at 15:30; Start 09/19/16 at 14:46; Stop 09/21/16 at 17:28; Status DC Albumin Human 250 ml @ 60 mls/hr PRN Q4HRS PRN IV SEE I/O RECORD Last administered on 09/19/16at 18:00; Start 09/19/16 at 15:00; Stop 09/21/16 at 17 :28; Status DC Insulin Human Regular/Sodium Chloride (Novolin R Vial/ Iv Normal Saline 150ml) 151.5 ml @ 0 mls/hr CONT PRN PRN IV SEE I/O RECORD; Start 09/19/16 at 15:00; Stop 09/19/16 at 15:34; Status DC Dextrose 25 gm 25 gm PRN Q15MIN PRN IV LOW BLOOD SUGAR; Start 09/19/16 at 15: 00 Epinephrine HCl 4 mg/Sodium Chloride 254 ml @ 0 mls/hr CONT PRN PRN IV POST CV SURGERY; Start 09/19/16 at 15:00; Stop 09/21/16 at 12:00; Status DC Amiodarone HCl 150 mg/Dextrose 103 ml @ 0 mls/hr 1X ONCE IV ; Start 09/19/16 at 15:00; Stop 09/19/16 at 15:01; Status UNV Amiodarone HCl/ Dextrose (Cordarone) 518 ml @ 33.33 mls/ hr CONT PRN PRN IV SEE COMMENTS; Start 09/19/16 at 15:00; Status UNV Info 1 ea CONT PRN PRN MC SEE COMMENTS; Start 09/19/16 at 15:00 Info 1 ea 1 ea CONT PRN PRN MC SEE COMMENTS; Start 09/19/16 at 15:00; Stop at 20:06; Status DC Magnesium Sulfate/ Dextrose (Magnesium Sulfate PREMIX 1GM) 100 ml @ 100 mls/hr PRN DAILY PRN IV FOR MAG < 2.2; Start 09/19/16 at 15:00; Stop 09/22/16 at 09:55 ; Status DC Ondansetron HCl (Zofran) 4 mg PRN Q4HRS PRN IV NAUSEA/VOMITING Last administered on 09/19/16at 21:01; Start 09/19/16 at 15:00 Metoclopramide HCl (Reglan) 10 mg PRN Q6HRS PRN IV NAUSEA/VOMITING; Start at 15:00 Morphine Sulfate 2 mg PRN Q1HR PRN IV PAIN Last administered on 09/20/16at 12: 02; Start 09/19/16 at 15:00 Acetaminophen (Tylenol) 650 mg PRN Q4HRS PRN PO MILD PAIN / TEMP; Start at 15:00 Acetaminophen (Tylenol) 650 mg PRN Q4HRS PRN CO MILD PAIN / TEMP; Start at 15:00 Meperidine HCl 12.5 mg 12.5 mg PRN Q15MIN PRN IV SHIVERING; Start 09/19/16 at 15:00; Stop 09/20/16 at 07:00; Status DC Propofol (Diprivan) 100 ml @ 0 mls/hr CONT PRN PRN IV POSTOP SEDATION UNTIL EXTUBATE Last administered on 09/19/16at 16:13; Start 09/19/16 at 15:00; Stop 09/21/16 at 12:00; Status DC Senna/Docusate Sodium (Senna Plus) 1 tab BID PO Last administered on 09/22/16 08:23; Start 09/19/16 at 21:00 Aspirin (Ecotrin) 325 mg [id number] PO Last administered on 09/22/16 08:24; Start 09/20/16 at 08:00 Albuterol Sulfate (Ventolin Neb Soln) 2.5 mg PRN Q4HRS PRN NEB SHORTNESS OF BREATH Last administered on 09/21/16at 04:04; Start 09/19/16 at 15:00 Metoprolol Tartrate 25 mg 25 mg BID PO ; Start 09/20/16 at 09:00; Stop at 09:00; Status DC Clevidipine (Cleviprex) 100 ml @ 0 mls/hr CONT PRN IV PER PROTOCOL; Start at 15:00; Stop 09/22/16 at 09:55; Status DC Oxycodone/ Acetaminophen (Percocet 5/325) 1 tab PRN Q4HRS PRN PO MILD PAIN; Start 09/19/16 at 15:00 Oxycodone/ Acetaminophen 2 tab 2 tab PRN Q4HRS PRN PO MODERATE PAIN, SEVERE PAIN Last administered on 09/21/16at 16:53; Start 09/19/16 at 15:00 Cefazolin Sodium/ Dextrose 50 ml @ 100 mls/hr Q8H IV Last administered on at 04:14; Start 09/19/16 at 20:00; Stop 09/21/16 at 04:29; Status DC Amiodarone HCl 150 mg/Dextrose 103 ml @ 618 mls/hr 1X ONCE IV Last administered on 09/19/16at 16:16; Start 09/19/16 at 15:00; Stop 09/19/16 at 15 :13; Status DC Amiodarone HCl/ Dextrose (Cordarone) 518 ml @ 0 mls/hr CONT PRN IV SEE I/O RECORD; Start 09/19/16 at 15:00; Stop 09/22/16 at 09:55; Status DC Polyethylene Glycol 17 gm 17 gm PRN BID PRN PO CONSTIPATION; Start 09/20/16 at 17:00 Norepinephrine Bitartrate 250 ml @ 0 mls/hr CONT PRN IV SEE I/O RECORD; Start 09/19/16 at 16:30; Status Cancel Norepinephrine Bitartrate 250 ml @ As Directed STK-MED ONCE IV ; Start at 16:19; Stop 09/19/16 at 16:20; Status DC Potassium Chloride (KCl Premix 20meq) 50 ml @ 50 mls/hr 1X ONCE IV ; Start at 16:45; Stop 09/19/16 at 17:44; Status DC Ketorolac Tromethamine (Toradol) 30 mg 1X ONCE IV Last administered on at 17:15; Start 09/19/16 at 17:15; Stop 09/19/16 at 17:16; Status DC Furosemide (Lasix) 40 mg PRN 1X PRN IVP SEE COMMENTS; Start 09/19/16 at 22:15 ; Stop 09/19/16 at 23:59; Status DC Ketorolac Tromethamine (Toradol) 30 mg 1X ONCE IV Last administered on at 22:45; Start 09/19/16 at 22:45; Stop 09/19/16 at 22:46; Status DC Ketorolac Tromethamine (Toradol) 30 mg 1X ONCE IV Last administered on at 06:23; Start 09/20/16 at 06:00; Stop 09/20/16 at 06:01; Status DC Cefazolin Sodium/ Dextrose (Ancef 2gm Premix) 2 gm STK-MED ONCE IV ; Start at 12:00; Stop 09/20/16 at 08:28; Status DC Norepinephrine Bitartrate (Levophed 8mg/ 250ml Premix Drip) 8 mg STK-MED ONCE IV ; Start 09/19/16 at 16:00; Stop 09/20/16 at 08:46; Status DC Furosemide (Lasix) 40 mg [id number] IVP Last administered on 09/22/16 06:11; Start 09/20/16 at 11:45 Amiodarone HCl (Cordarone) 400 mg BID PO Last administered on 09/22/16 08:24; Start 09/20/16 at 13:00 Oxycodone/ Acetaminophen (Percocet 7.5/ 325) 2 tab PRN Q4HRS PRN PO PAIN Last administered on 09/22/16 11:11; Start 09/21/16 at 12:30 Active Scripts Active Reported Atorvastatin Calcium 10 Mg Tablet 1 Tab PO DAILY Losartan-Hctz 100-12.5 Mg Tab (Losartan/Hydrochlorothiazide) 1 Each Tablet 1 Tab PO DAILY Glimepiride 2 Mg Tablet 1 Tab PO DAILY Metformin Hcl 1,000 Mg Tablet 1 Tab PO BID Omeprazole 20 Mg Capsule.dr 1 Cap PO BID Vitals/I & O Vital Sign - Last 24 Hours 09/21/16 09/21/16 09/21/16 09/21/16 14:40 16:53 19:12 19:22 Temp 98.3 98.7 98.3 98.7 Pulse 77 85 Resp 20 18 18 B/P 106/59 127/65 Pulse Ox 98 93 98 O2 Delivery Nasal Cannula Nasal Cannula Nasal Cannula Nasal Cannula O2 Flow Rate 4.0 5.0 5.0 5.0 09/21/16 09/21/16 09/21/16 09/21/16 19:44 20:57 20:58 20:58 Pulse 85 85 Resp 16 18 B/P 127/65 127/65 Pulse Ox 94 97 O2 Delivery Nasal Cannula O2 Flow Rate 5.0 5.0 09/21/16 09/22/16 09/22/16 09/22/16 22:39 01:26 03:00 03:13 Temp 98.2 97.8 98.2 97.8 Pulse 74 82 Resp 16 18 18 B/P 104/71 106/65 Pulse Ox 99 96 96 98 O2 Delivery Nasal Cannula Nasal Cannula Nasal Cannula O2 Flow Rate 5.0 5.0 5.0 09/22/16 09/22/16 09/22/16 09/22/16 06:15 07:15 07:26 08:23 Temp 98.1 98.1 Pulse 91 91 Resp 16 20 20 B/P 115/79 115/79 Pulse Ox 97 97 O2 Delivery Nasal Cannula Nasal Cannula Nasal Cannula O2 Flow Rate 5.0 4.0 5.0 09/22/16 09/22/16 09/22/16 08:24 10:14 11:11 Temp 97.5 97.5 Pulse 91 72 Resp 19 20 B/P 115/79 103/67 Pulse Ox 99 98 O2 Delivery Nasal Cannula O2 Flow Rate 4.0 Intake and Output 09/21/16 09/21/16 09/22/16 15:00 23:00 07:00 Intake Total 300 ml 350 ml Output Total 175 ml 200 ml Balance 125 ml 150 ml JAKY EVREETT MD Sep 22, 2016 12:58
--- NOTE | 2016-09-22 13:19 | PDOC ---
Progress Note Subjective Subjective Doing very well. Normotensive and in sinus rhythm. Less O2 requirements (2 lit NC). Pain much improved. CXR also looks better. Hematuria resolved. ROS ROS No nausea No vomiting No pain No rash Vital Sign Vital Signs Vital Signs Date Time Temp Pulse Resp B/P Pulse Ox O2 Delivery O2 Flow Rate FiO2 09/22/16 11:11 20 98 4.0 09/22/16 10:14 97.5 72 103/67 Nasal Cannula 97.5 Physical Exam PHYSICAL EXAM GENERAL: NAD, Alert HEENT: PERRL, OC/OP NECK: Supple, no JVD, no LN LUNGS: Clear HEART: S1S2, no gallop, no murmur ABD: Soft, NT, no organomegaly, no rebound EXT: No edema, no cyanosis RN BARIATRIC: Alert, oriented x 3, no focal neurologic deficit SKIN: No rash IV: ok Labs Lab Laboratory Tests Test 09/21/16 16:57 09/21/16 20:14 09/21/16 20:27 09/22/16 04:45 Glucose (Fingerstick) 153mg/dL (70-99) 174mg/dL (70-99) Urine Collection Type Unknown Urine Color Karol Urine Clarity Turbid Urine pH 5.5 Urine Specific [place] >=1.030 Urine Protein 30mg/dL (NEG-TRACE) Urine Glucose (UA) Negativemg/dL (NEG) Urine Ketones (Stick) Negativemg/dL (NEG) Urine Blood Large (NEG) Urine Nitrite Negative (NEG) Urine Bilirubin Negative (NEG) Urine Urobilinogen Dipstick 0.2mg/dL (0.2 mg/dL) Urine Leukocyte Esterase Small (NEG) Urine RBC Tntc/HPF (0-2) Urine WBC 1-4/HPF (0-4) Urine Squamous Epithelial Cells Few/LPF Urine Bacteria Few/HPF (0-FEW) Urine Mucus Mod/LPF White Blood Count 17.0x10^3/uL (4.0-11.0) Red Blood Count 3.96x10^6/uL (4.30-5.70) Hemoglobin 11.0g/dL (13.0-17.5) Hematocrit 32.9% (39.0-53.0) Mean Corpuscular Volume 83fL (79-100) Mean Corpuscular Hemoglobin 28pg (25-35) Mean Corpuscular Hemoglobin Concent 34g/dL (31-37) Red Cell Distribution Width 14.3% (11.5-14.5) Platelet Count 226x10^3/uL (140-400) Neutrophils (%) (Auto) 69% (31-73) Lymphocytes (%) (Auto) 16% (24-48) Monocytes (%) (Auto) 12% (0-9) Eosinophils (%) (Auto) 3% (0-3) Basophils (%) (Auto) 1% (0-3) Neutrophils # (Auto) 11.7x10^3uL (1.8-7.7) Lymphocytes # (Auto) 2.8x10^3/uL (1.0-4.8) Monocytes # (Auto) 1.9x10^3/uL (0.0-1.1) Eosinophils # (Auto) 0.4x10^3/uL (0.0-0.7) Basophils # (Auto) 0.1x10^3/uL (0.0-0.2) Sodium Level 140mmol/L (136-145) Potassium Level 3.9mmol/L (3.5-5.1) Chloride Level 100mmol/L (98-107) Carbon Dioxide Level 32mmol/L (21-32) Anion Gap 8 (6-14) Blood Urea Nitrogen 23mg/dL (8-26) Creatinine 1.0mg/dL (0.7-1.3) Estimated GFR (Cockcroft-Gault) 80.1 Glucose Level 163mg/dL (70-99) Calcium Level 9.1mg/dL (8.5-10.1) Test 09/22/16 07:29 09/22/16 10:17 Glucose (Fingerstick) 166mg/dL (70-99) 177mg/dL (70-99) Objective Assessment POD#3 s/p CABG x 3 (CHUA to LAD, SVG to RPDA, SVG to OM2). Doing very well. Normotensive and in sinus rhythm. Less O2 requirements (2 lit NC). Pain much improved. CXR also looks better. Hematuria resolved. UA negative for UTI. Plan Plan of Care Continue pulmonary toilet and ambulation Analgesia D/c pacing wires tomorrow NOHEMI WILSON MD Sep 22, 2016 13:19
[2016-09-22 14:39] VITALS: BP 106/65
[2016-09-22 19:05] VITALS: BP 122/71
[2016-09-22] MEDS: ATORVASTATIN CALCIUM 20 MG TABLET PO SCH (21:41)
[2016-09-22 23:24] VITALS: BP 118/55
[2016-09-23] MEDS: OXYCODONE/APAP 7.5/325 TABLET. PO PRN ×3 (01:20→09:26)
[2016-09-23 03:28] VITALS: BP 101/58
[2016-09-23] MEDS: FUROSEMIDE 40 MG/4 ML VIAL IVP SCH ×2 (05:20→18:07)
[2016-09-23 07:37] VITALS: BP 116/64
[2016-09-23] MEDS: ASPIRIN ENTERIC COATED 325 MG TABLET.DR. PO SCH (08:14)
[2016-09-23] MEDS: AMIODARONE HCL 200 MG TABLET PO SCH ×2 (08:14→20:29)
[2016-09-23] MEDS: METOPROLOL TART IMMED RELEASE 25 MG TABLET PO SCH ×2 (08:15→20:30)
[2016-09-23] MEDS: INSULIN DETEMIR 300 UNITS/3 ML INSULN.PEN. SQ SCH (08:20)
[2016-09-23] MEDS: INSULIN ASPART 300 UNITS/3 ML INSULN.PEN SQ SCH ×3 (08:21→16:42)
[2016-09-23] MEDS: SENNOSIDES/DOCUSATE 8.6/50MG TABLET. PO SCH ×2 (09:26→20:30)
[2016-09-23 11:01] VITALS: BP 99/62
--- NOTE | 2016-09-23 11:54 | PDOC ---
PROGRESS NOTES Chief Complaint Chief Complaint CAD ASSESSMENT AND PLAN: 1. 3-vessel disease by cardiac cath 09/16 s/p CABG (09/19) POD # 4 2. Tobacco abuse: cessation reinforced 3. DM: HgbA1c = 8. fairly well controlled on current insulin regimen 4. HTN: well controlled on BBB 5. HLD: on statin 5. Obesity: lifestyle changes 6. Leukocytosis: reactive. stable. post surgical? no focal sign of infection 7. Hematuria: 2/2 Brown trauma, resolved 8. Constipation: miralax ATC 9. Dispo: poss D/C home in AM Vitals Vitals Vital Signs Date Time Temp Pulse Resp B/P Pulse Ox O2 Delivery O2 Flow Rate FiO2 09/23/16 11:20 Room Air 09/23/16 11:01 98.5 77 17 99/62 96 98.5 09/23/16 09:26 2.0 Physical Exam Physical Exam GENERAL: NAD, Alert HEENT: PERRL, OC/OP NECK: Supple, no JVD, no LN LUNGS: Clear HEART: S1S2, no gallop, no murmur ABD: Soft, NT, no organomegaly, no rebound EXT: No edema, no cyanosis SR VICE PRESIDENT: Alert, oriented x 3, no focal neurologic deficit SKIN: No rash IV: ok General: Alert, Oriented X3, Cooperative, No acute distress Heart: Regular rate Lungs: Clear Abdomen: Normal bowel sounds Extremities: No clubbing, No edema Skin: No rashes Labs LABS Laboratory Tests Test 09/22/16 17:05 09/22/16 20:52 09/23/16 07:40 Glucose (Fingerstick) 126mg/dL (70-99) 169mg/dL (70-99) 168mg/dL (70-99) Review of Systems Review of Systems able to inhale deeper with help of IS. no CP. no SOB. cough earlier this AM Comment Review of Relevant I have reviewed the following items amber (where applicable) has been applied. Labs Laboratory Tests Test 09/21/16 11:45 09/21/16 16:57 09/21/16 20:14 09/21/16 20:27 Glucose (Fingerstick) 238mg/dL (70-99) 153mg/dL (70-99) 174mg/dL (70-99) Urine Collection Type Unknown Urine Color Karol Urine Clarity Turbid Urine pH 5.5 Urine Specific Imbler >=1.030 Urine Protein 30mg/dL (NEG-TRACE) Urine Glucose (UA) Negativemg/dL (NEG) Urine Ketones (Stick) Negativemg/dL (NEG) Urine Blood Large (NEG) Urine Nitrite Negative (NEG) Urine Bilirubin Negative (NEG) Urine Urobilinogen Dipstick 0.2mg/dL (0.2 mg/dL) Urine Leukocyte Esterase Small (NEG) Urine RBC Tntc/HPF (0-2) Urine WBC 1-4/HPF (0-4) Urine Squamous Epithelial Cells Few/LPF Urine Bacteria Few/HPF (0-FEW) Urine Mucus Mod/LPF Test 09/22/16 04:45 09/22/16 07:29 09/22/16 10:17 09/22/16 17:05 White Blood Count 17.0x10^3/uL (4.0-11.0) Red Blood Count 3.96x10^6/uL (4.30-5.70) Hemoglobin 11.0g/dL (13.0-17.5) Hematocrit 32.9% (39.0-53.0) Mean Corpuscular Volume 83fL (79-100) Mean Corpuscular Hemoglobin 28pg (25-35) Mean Corpuscular Hemoglobin Concent 34g/dL (31-37) Red Cell Distribution Width 14.3% (11.5-14.5) Platelet Count 226x10^3/uL (140-400) Neutrophils (%) (Auto) 69% (31-73) Lymphocytes (%) (Auto) 16% (24-48) Monocytes (%) (Auto) 12% (0-9) Eosinophils (%) (Auto) 3% (0-3) Basophils (%) (Auto) 1% (0-3) Neutrophils # (Auto) 11.7x10^3uL (1.8-7.7) Lymphocytes # (Auto) 2.8x10^3/uL (1.0-4.8) Monocytes # (Auto) 1.9x10^3/uL (0.0-1.1) Eosinophils # (Auto) 0.4x10^3/uL (0.0-0.7) Basophils # (Auto) 0.1x10^3/uL (0.0-0.2) Sodium Level 140mmol/L (136-145) Potassium Level 3.9mmol/L (3.5-5.1) Chloride Level 100mmol/L (98-107) Carbon Dioxide Level 32mmol/L (21-32) Anion Gap 8 (6-14) Blood Urea Nitrogen 23mg/dL (8-26) Creatinine 1.0mg/dL (0.7-1.3) Estimated GFR (Cockcroft-Gault) 80.1 Glucose Level 163mg/dL (70-99) Calcium Level 9.1mg/dL (8.5-10.1) Glucose (Fingerstick) 166mg/dL (70-99) 177mg/dL (70-99) 126mg/dL (70-99) Test 09/22/16 20:52 09/23/16 07:40 Glucose (Fingerstick) 169mg/dL (70-99) 168mg/dL (70-99) Laboratory Tests Test 09/22/16 17:05 09/22/16 20:52 09/23/16 07:40 Glucose (Fingerstick) 126mg/dL (70-99) 169mg/dL (70-99) 168mg/dL (70-99) Medications Current Medications Aspirin (Children'S Aspirin) 324 mg 1X ONCE PO Last administered on at 02:36; Start 09/15/16 at 03:00; Stop 09/15/16 at 03:01; Status DC Nitroglycerin (Nitrostat) 0.4 mg PRN Q5MIN PRN SL CP RATING > 1/10 Last administered on 09/15/16at 02:37; Start 09/15/16 at 02:30; Stop 09/15/16 at 05 :18; Status DC Fentanyl Citrate (Fentanyl 2ml Vial) 25 mcg PRN Q15MIN PRN IV PAIN GREATER THAN 3/10; Start 09/15/16 at 02:30; Stop 09/15/16 at 06:00; Status DC Heparin Sodium (Porcine) 4000 unit 4,000 unit 1X ONCE IV Last administered on 09/15/16at 05:14; Start 09/15/16 at 05:00; Stop 09/15/16 at 05:02; Status DC Heparin Sodium/ Dextrose 500 ml @ 0 mls/hr CONT PRN IV SEE I/O RECORD Last administered on 09/18/16at 04:00; Start 09/15/16 at 04:45; Stop 09/18/16 at 11 :33; Status DC Heparin Sodium (Porcine) 2,850 unit PRN Q6HRS PRN IV FOR UFH LEVEL LESS THAN 0.2 Last administered on 09/15/16at 18:22; Start 09/15/16 at 04:45; Stop 09/19 at 12:55; Status DC Ondansetron HCl (Zofran) 4 mg PRN Q8HRS PRN IV NAUSEA/VOMITING; Start at 05:15; Stop 09/16/16 at 05:14; Status DC Fentanyl Citrate (Fentanyl 2ml Vial) 50 mcg PRN Q2HR PRN IV SEVERE PAIN; Start 09/15/16 at 05:15; Stop 09/16/16 at 05:14; Status DC Acetaminophen (Tylenol) 650 mg PRN Q4HRS PRN PO FEVER; Start 09/15/16 at 05:15 ; Stop 09/16/16 at 05:14; Status DC Nitroglycerin (Nitrostat) 0.4 mg PRN Q5MIN PRN SL CHEST PAIN; Start 09/15/16 at 05:15; Stop 09/16/16 at 05:14; Status DC Insulin Aspart (Novolog) 0-5 UNITS TIDWMEALS SQ Last administered on at 17:26; Start 09/15/16 at 08:00; Stop 09/17/16 at 08:23; Status DC Dextrose 12.5 gm PRN Q15MIN PRN IV SEE COMMENTS; Start 09/15/16 at 05:15; Status Cancel Info (Anti-Coagulation Monitoring By Pharmacy) 1 each PRN DAILY PRN MC SEE COMMENTS Last administered on 09/18/16at 10:20; Start 09/15/16 at 07:45; Stop 09/19/16 at 12:56; Status DC Atorvastatin Calcium (Lipitor) 20 mg QHS PO Last administered on 09/22/16t 21:41 ; Start 09/15/16 at 21:00 Glimepiride (Amaryl) 2 mg DAILY PO Last administered on 09/18/16at 09:01; Start 09/15/16 at 11:30; Stop 09/20/16 at 21:29; Status DC Non-Formulary Medication 1 tab DAILY PO ; Start 09/16/16 at 09:00; Status UNV Pantoprazole Sodium (Protonix) 40 mg DAILYAC PO Last administered on at 09:01; Start 09/15/16 at 11:30; Stop 09/19/16 at 15:10; Status DC Acetaminophen (Tylenol) 650 mg PRN Q6HRS PRN PO MILD PAIN / TEMP; Start at 10:30; Stop 09/19/16 at 15:32; Status DC Ondansetron HCl (Zofran) 4 mg PRN Q6HRS PRN IV NAUSEA/VOMITING Last administered on 09/16/16at 15:49; Start 09/15/16 at 10:30; Stop 09/19/16 at 15 :36; Status DC Morphine Sulfate 2 mg PRN Q2HR PRN IV PAIN Last administered on 09/19/16at 17: 27; Start 09/15/16 at 10:30 Morphine Sulfate 4 mg PRN Q2HR PRN IV PAIN Last administered on 09/19/16at 19: 43; Start 09/15/16 at 10:30 Losartan Potassium (Cozaar) 100 mg DAILY PO ; Start 09/15/16 at 11:30; Stop at 12:48; Status DC Hydrochlorothiazide (Microzide) 12.5 mg DAILY PO ; Start 09/15/16 at 11:30; Stop 09/15/16 at 12:48; Status DC Aspirin (Ecotrin) 325 mg DAILYWBKFT PO Last administered on 09/18/16at 09:01; Start 09/16/16 at 08:00; Stop 09/19/16 at 15:32; Status DC Metoprolol Tartrate (Lopressor) 12.5 mg BID PO Last administered on 09/18/16at 09:01; Start 09/15/16 at 21:00; Stop 09/18/16 at 11:41; Status DC Influenza Virus Vaccine Quadrival (Fluarix Quad [id number] Syringe) 0.5 ml ONCE ONCE VAX IM ; Start 09/16/16 at 14:00; Stop 09/16/16 at 14:01; Status DC Pneumococcal Polyvalent Vaccine (Pneumovax 23) 0.5 ml ONCE ONCE VAX IM ; Start 09/16/16 at 14:00; Stop 09/16/16 at 14:01; Status DC Famotidine (Pepcid) 20 mg 1X ONCE IVP Last administered on 09/16/16at 07:24; Start 09/16/16 at 08:00; Stop 09/16/16 at 08:01; Status DC Diphenhydramine HCl (Benadryl) 25 mg 1X ONCE IVP Last administered on at 07:24; Start 09/16/16 at 08:00; Stop 09/16/16 at 08:01; Status DC Methylprednisolone Sodium Succinate (Solu-Medrol 125mg Vial) 125 mg 1X ONCE IV Last administered on 09/16/16at 07:24; Start 09/16/16 at 08:00; Stop at 08:01; Status DC Iohexol 100 ml 100 ml STK-MED ONCE .ROUTE ; Start 09/16/16 at 07:00; Stop at 07:01; Status DC Heparin Sodium/ Sodium Chloride 1,000 ml @ As Directed STK-MED ONCE .ROUTE ; Start 09/16/16 at 07:01; Stop 09/16/16 at 07:02; Status DC Lidocaine HCl 20 ml STK-MED ONCE .ROUTE ; Start 09/16/16 at 07:01; Stop at 07:02; Status DC Verapamil HCl (Verapamil) 5 mg STK-MED ONCE .ROUTE ; Start 09/16/16 at 07:45; Stop 09/16/16 at 07:46; Status DC Midazolam HCl (Versed) 5 mg STK-MED ONCE .ROUTE ; Start 09/16/16 at 07:45; Stop 09/16/16 at 07:46; Status DC Nitroglycerin (Nitroglycerin) 200 mcg STK-MED ONCE .ROUTE ; Start 09/16/16 at 07:45; Stop 09/16/16 at 07:46; Status DC Heparin Sodium (Porcine) 10,000 unit STK-MED ONCE .ROUTE ; Start 09/16/16 at 07 :45; Stop 09/16/16 at 07:46; Status DC Fentanyl Citrate (Fentanyl 5ml Vial) 250 mcg STK-MED ONCE .ROUTE ; Start at 07:46; Stop 09/16/16 at 07:47; Status DC Nitroglycerin (Nitroglycerin) 200 mcg 1X ONCE IART Last administered on at 08:21; Start 09/16/16 at 08:15; Stop 09/16/16 at 08:16; Status DC Verapamil HCl (Verapamil) 2.5 mg 1X ONCE IART Last administered on 09/16/16at 08:22; Start 09/16/16 at 08:15; Stop 09/16/16 at 08:16; Status DC Heparin Sodium (Porcine) 2,500 unit 1X ONCE IART Last administered on at 08:22; Start 09/16/16 at 08:15; Stop 09/16/16 at 08:16; Status DC Heparin Sodium/ Sodium Chloride 1,000 unit 1X ONCE IART Last administered on 09/16/16at 08:20; Start 09/16/16 at 08:15; Stop 09/16/16 at 08:16; Status DC Midazolam HCl (Versed) 2 mg 1X ONCE IV Last administered on 09/16/16at 08:21; Start 09/16/16 at 08:15; Stop 09/16/16 at 08:16; Status DC Fentanyl Citrate (Fentanyl 5ml Vial) 100 mcg 1X ONCE IV Last administered on 09/16/16at 08:22; Start 09/16/16 at 08:15; Stop 09/16/16 at 08:16; Status DC Iohexol (Omnipaque 300 Mg/ml) 131 ml 1X ONCE IART Last administered on at 08:21; Start 09/16/16 at 08:15; Stop 09/16/16 at 08:16; Status DC Lidocaine HCl 2 ml 1X ONCE IJ Last administered on 09/16/16at 08:21; Start at 08:15; Stop 09/16/16 at 08:16; Status DC Info 1 each 1 each PRN DAILY PRN MC SEE COMMENTS; Start 09/16/16 at 08:30; Stop 09/18/16 at 08:29; Status DC Sodium Chloride (Iv Sodium Chloride 0.45%) 1,000 ml @ 60 mls/hr [id number] IV Last administered on 09/16/16at 09:00; Start 09/16/16 at 09:00; Stop 09/17/16 at 12:32; Status DC Insulin Aspart (Novolog) 0-9 UNITS TIDWMEALS SQ ; Start 09/16/16 at 12:00; Status UNV Dextrose 12.5 gm 12.5 gm PRN Q15MIN PRN IV SEE COMMENTS; Start 09/16/16 at 09: 00; Status UNV Nitroglycerin/ Dextrose (Nitroglycerin Drip) 250 ml @ 0 mls/hr CONT PRN IV SEE I/O RECORD Last administered on 09/16/16at 16:18; Start 09/16/16 at 16:00; Stop 09/19/16 at 15:10; Status DC Al Hydroxide/Mg Hydroxide (Mylanta Plus Xs) 30 ml PRN Q6HRS PRN PO DYSPEPSIA Last administered on 09/16/16at 23:20; Start 09/16/16 at 22:45 Insulin Aspart (Novolog) 0-9 UNITS TIDWMEALS SQ Last administered on 09/23/16 08:21; Start 09/17/16 at 09:00 Dextrose 12.5 gm 12.5 gm PRN Q15MIN PRN IV SEE COMMENTS; Start 09/17/16 at 08: 30; Stop 09/19/16 at 15:33; Status DC Cefazolin Sodium/ Dextrose (Ancef 2gm Premix) 50 ml @ 100 mls/hr 1X ONCE IV Last administered on 09/19/16at 08:00; Start 09/19/16 at 06:00; Stop 09/19/16 at 06:29; Status DC Insulin Detemir 10 units 10 units DAILY SQ Last administered on 09/23/16 08:20 ; Start 09/17/16 at 10:30 Heparin Sodium/ Dextrose 500 ml @ 0 mls/hr CONT PRN IV SEE I/O RECORD; Start 09/18/16 at 11:30; Stop 09/18/16 at 23:55; Status DC Metoprolol Tartrate 25 mg 25 mg BID PO Last administered on 09/23/16 08:15; Start 09/18/16 at 21:00 Cefazolin Sodium 1 gm/Sodium Chloride 500 ml @ 500 mls/hr 1X PERIOP ONCE IRR Last administered on 09/19/16at 08:45; Start 09/19/16 at 06:00; Stop 09/19/16 at 06:59; Status DC Heparin Sodium (Porcine) 43641 unit/Lactated Ringer's 1,020 ml @ 1,020 mls/hr 1X PERIOP ONCE IRR Last administered on 09/19/16at 08:45; Start 09/19/16 at 06:00; Stop 09/19/16 at 06:59; Status DC Potassium Chloride 70 meq/ Sodium Bicarbonate 12.5 meq/Lidocaine HCl 24 ml/ Parenteral Electrolytes 571.5 ml @ 571.5 mls/ hr 1X PERIOP ONCE IRR Last administered on 09/19/16at 11:25; Start 09/19/16 at 06:00; Stop 09/19/16 at 06 :59; Status DC Potassium Chloride/Sodium Bicarbonate/ Parenteral Electrolytes (Isolyte S) 520 ml @ 520 mls/hr 1X PERIOP ONCE IRR Last administered on 09/19/16at 11:25; Start 09/19/16 at 06:00; Stop 09/19/16 at 06:59; Status DC Ondansetron HCl (Zofran) 4 mg PRN Q6HRS PRN IV Nausea; Start 09/19/16 at 07:00 ; Stop 09/19/16 at 19:00; Status DC Fentanyl Citrate (Fentanyl 2ml Vial) 25 mcg PRN Q5MIN PRN IV MILD PAIN; Start 09/19/16 at 07:00; Stop 09/19/16 at 19:00; Status DC Fentanyl Citrate (Fentanyl 2ml Vial) 50 mcg PRN Q5MIN PRN IV MODERATE PAIN; Start 09/19/16 at 07:00; Stop 09/19/16 at 19:00; Status DC Morphine Sulfate 1 mg 1 mg PRN Q10MIN PRN IV SEVERE PAIN; Start 09/19/16 at 07 :00; Stop 09/19/16 at 19:00; Status DC Lactated Ringer's (Iv Lactated Ringers) 1,000 ml @ 30 mls/hr Q24H IV ; Start 09/19/16 at 07:00; Stop 09/19/16 at 15:35; Status DC Lidocaine HCl 2 ml 1X PRN PRN ID IV START; Start 09/19/16 at 07:00; Stop at 19:00; Status DC Hydromorphone HCl (Dilaudid) 0.5 mg PRN Q10MIN PRN IV SEVERE PAIN, Second choice; Start 09/19/16 at 07:00; Stop 09/19/16 at 19:00; Status DC Prochlorperazine Edisylate (Compazine) 5 mg PACU PRN PRN IV NAUSEA; Start at 07:00; Stop 09/19/16 at 19:00; Status DC Zolpidem Tartrate (Ambien) 5 mg PRN QHS PRN PO INSOMNIA; Start 09/18/16 at 17: 00; Stop 09/18/16 at 23:55; Status DC Etomidate (Amidate) 20 mg STK-MED ONCE IV ; Start 09/19/16 at 07:03; Stop at 07:04; Status DC Heparin Sodium (Porcine) 10,000 unit STK-MED ONCE .ROUTE ; Start 09/19/16 at 07 :03; Stop 09/19/16 at 07:04; Status DC Nicardipine HCl (Cardene) 25 mg STK-MED ONCE IV ; Start 09/19/16 at 07:03; Stop 09/19/16 at 07:04; Status DC Phenylephrine HCl (Joseph-Synephrine Inj) 10 mg STK-MED ONCE .ROUTE ; Start at 07:03; Stop 09/19/16 at 07:04; Status DC Rocuronium Constantia (Zemuron) 50 mg STK-MED ONCE .ROUTE ; Start 09/19/16 at 07: 03; Stop 09/19/16 at 07:04; Status DC Lidocaine HCl 100 mg STK-MED ONCE .ROUTE ; Start 09/19/16 at 07:03; Stop 09/19 at 07:04; Status DC Aminocaproic Acid (Amicar) 5,000 mg STK-MED ONCE IV ; Start 09/19/16 at 07:03; Stop 09/19/16 at 07:04; Status DC Midazolam HCl (Versed) 2 mg STK-MED ONCE .ROUTE ; Start 09/19/16 at 07:03; Stop 09/19/16 at 07:04; Status DC Sufentanil Citrate (Sufenta) 100 mcg STK-MED ONCE .ROUTE ; Start 09/19/16 at 07 :03; Stop 09/19/16 at 07:04; Status DC Succinylcholine Chloride (Anectine) 200 mg STK-MED ONCE .ROUTE ; Start at 07:04; Stop 09/19/16 at 07:05; Status DC Vancomycin HCl (Vanco) 10 gm 1X ONCE CEMENT Last administered on 09/19/16at 08 :45; Start 09/19/16 at 07:15; Stop 09/19/16 at 07:16; Status DC Cellulose 1 each STK-MED ONCE .ROUTE Last administered on 09/19/16at 08:45; Start 09/19/16 at 07:10; Stop 09/19/16 at 07:11; Status DC Papaverine HCl 60 mg STK-MED ONCE .ROUTE Last administered on 09/19/16at 08:45 ; Start 09/19/16 at 07:10; Stop 09/19/16 at 07:11; Status DC Aspirin (Aspirin) 300 mg STK-MED ONCE .ROUTE Last administered on 09/19/16at 14 :54; Start 09/19/16 at 07:10; Stop 09/19/16 at 07:11; Status DC Sodium Chloride (Sodium Chloride) 50 ml STK-MED ONCE IJ Last administered on at 08:45; Start 09/19/16 at 07:10; Stop 09/19/16 at 07:11; Status DC Midazolam HCl (Versed) 2 mg STK-MED ONCE .ROUTE ; Start 09/19/16 at 07:26; Stop 09/19/16 at 07:27; Status DC Isoflurane (Isoflurane) 90 ml STK-MED ONCE IH ; Start 09/19/16 at 08:16; Stop 09/19/16 at 08:17; Status DC Heparin Sodium (Porcine) 10,000 unit STK-MED ONCE .ROUTE ; Start 09/19/16 at 08 :17; Stop 09/19/16 at 08:18; Status DC Aminocaproic Acid (Amicar) 5,000 mg STK-MED ONCE IV ; Start 09/19/16 at 09:16; Stop 09/19/16 at 09:17; Status DC Protamine Sulfate 250 mg 250 mg STK-MED ONCE IV ; Start 09/19/16 at 10:36; Stop 09/19/16 at 10:37; Status DC Insulin Human Regular/Sodium Chloride (Novolin R Vial/ Iv Normal Saline 150ml) 151.5 ml @ 11.38 mls/ hr CONT PRN IV SEE I/O RECORD; Start 09/19/16 at 11:45 ; Stop 09/21/16 at 17:28; Status DC Midazolam HCl (Versed) 2 mg STK-MED ONCE .ROUTE ; Start 09/19/16 at 12:22; Stop 09/19/16 at 12:23; Status DC Protamine Sulfate 250 mg 250 mg STK-MED ONCE IV ; Start 09/19/16 at 12:49; Stop 09/19/16 at 12:50; Status DC Clevidipine (Cleviprex) 100 ml @ 0 mls/hr CONT PRN IV PER PROTOCOL; Start at 13:30; Stop 09/19/16 at 15:33; Status DC Heparin Sodium (Porcine) 10,000 unit STK-MED ONCE .ROUTE ; Start 09/19/16 at 13 :54; Stop 09/19/16 at 13:55; Status DC Lidocaine HCl 100 mg STK-MED ONCE .ROUTE ; Start 09/19/16 at 13:54; Stop 09/19 at 13:55; Status DC Mannitol (Mannitol) 12.5 g STK-MED ONCE .ROUTE ; Start 09/19/16 at 13:54; Stop 09/19/16 at 13:55; Status DC Calcium Chloride 1,000 mg STK-MED ONCE IV ; Start 09/19/16 at 13:54; Stop at 13:55; Status DC Sodium Bicarbonate 50 meq 50 meq STK-MED ONCE .ROUTE ; Start 09/19/16 at 13:54 ; Stop 09/19/16 at 13:55; Status DC Albumin Human (Albuminar) 100 ml @ As Directed STK-MED ONCE IV ; Start at 13:54; Stop 09/19/16 at 13:55; Status DC Heparin Sodium (Porcine) 30,000 unit STK-MED ONCE .ROUTE ; Start 09/19/16 at 13 :54; Stop 09/19/16 at 13:55; Status DC Magnesium Sulfate 5 gm STK-MED ONCE .ROUTE ; Start 09/19/16 at 13:54; Stop at 13:55; Status DC Rocuronium Constantia (Zemuron) 50 mg STK-MED ONCE .ROUTE ; Start 09/19/16 at 14: 46; Stop 09/19/16 at 14:47; Status DC Sodium Chloride 3 ml 3 ml PRN Q12HR PRN IV AFTER MEDS AND BLOOD DRAWS; Start 09/19/16 at 15:00 Lactated Ringer's 1,000 ml @ 30 mls/hr Q24H IV Last administered on at 15:30; Start 09/19/16 at 14:46; Stop 09/21/16 at 17:28; Status DC Albumin Human 250 ml @ 60 mls/hr PRN Q4HRS PRN IV SEE I/O RECORD Last administered on 09/19/16at 18:00; Start 09/19/16 at 15:00; Stop 09/21/16 at 17 :28; Status DC Insulin Human Regular/Sodium Chloride (Novolin R Vial/ Iv Normal Saline 150ml) 151.5 ml @ 0 mls/hr CONT PRN PRN IV SEE I/O RECORD; Start 09/19/16 at 15:00; Stop 09/19/16 at 15:34; Status DC Dextrose 25 gm 25 gm PRN Q15MIN PRN IV LOW BLOOD SUGAR; Start 09/19/16 at 15: 00 Epinephrine HCl 4 mg/Sodium Chloride 254 ml @ 0 mls/hr CONT PRN PRN IV POST CV SURGERY; Start 09/19/16 at 15:00; Stop 09/21/16 at 12:00; Status DC Amiodarone HCl 150 mg/Dextrose 103 ml @ 0 mls/hr 1X ONCE IV ; Start 09/19/16 at 15:00; Stop 09/19/16 at 15:01; Status UNV Amiodarone HCl/ Dextrose (Cordarone) 518 ml @ 33.33 mls/ hr CONT PRN PRN IV SEE COMMENTS; Start 09/19/16 at 15:00; Status UNV Info 1 ea CONT PRN PRN MC SEE COMMENTS; Start 09/19/16 at 15:00 Info 1 ea 1 ea CONT PRN PRN MC SEE COMMENTS; Start 09/19/16 at 15:00; Stop at 20:06; Status DC Magnesium Sulfate/ Dextrose (Magnesium Sulfate PREMIX 1GM) 100 ml @ 100 mls/hr PRN DAILY PRN IV FOR MAG < 2.2; Start 09/19/16 at 15:00; Stop 09/22/16 at 09:55 ; Status DC Ondansetron HCl (Zofran) 4 mg PRN Q4HRS PRN IV NAUSEA/VOMITING Last administered on 09/19/16at 21:01; Start 09/19/16 at 15:00 Metoclopramide HCl (Reglan) 10 mg PRN Q6HRS PRN IV NAUSEA/VOMITING; Start at 15:00 Morphine Sulfate 2 mg PRN Q1HR PRN IV PAIN Last administered on 09/20/16at 12: 02; Start 09/19/16 at 15:00 Acetaminophen (Tylenol) 650 mg PRN Q4HRS PRN PO MILD PAIN / TEMP; Start at 15:00 Acetaminophen (Tylenol) 650 mg PRN Q4HRS PRN ND MILD PAIN / TEMP; Start at 15:00 Meperidine HCl 12.5 mg 12.5 mg PRN Q15MIN PRN IV SHIVERING; Start 09/19/16 at 15:00; Stop 09/20/16 at 07:00; Status DC Propofol (Diprivan) 100 ml @ 0 mls/hr CONT PRN PRN IV POSTOP SEDATION UNTIL EXTUBATE Last administered on 09/19/16at 16:13; Start 09/19/16 at 15:00; Stop 09/21/16 at 12:00; Status DC Senna/Docusate Sodium (Senna Plus) 1 tab BID PO Last administered on 09/23/16 09:26; Start 09/19/16 at 21:00 Aspirin (Ecotrin) 325 mg DAILYWBKFT PO Last administered on 09/23/16 08:14; Start 09/20/16 at 08:00 Albuterol Sulfate (Ventolin Neb Soln) 2.5 mg PRN Q4HRS PRN NEB SHORTNESS OF BREATH Last administered on 09/21/16at 04:04; Start 09/19/16 at 15:00 Metoprolol Tartrate 25 mg 25 mg BID PO ; Start 09/20/16 at 09:00; Stop at 09:00; Status DC Clevidipine (Cleviprex) 100 ml @ 0 mls/hr CONT PRN IV PER PROTOCOL; Start at 15:00; Stop 09/22/16 at 09:55; Status DC Oxycodone/ Acetaminophen (Percocet 5/325) 1 tab PRN Q4HRS PRN PO MILD PAIN; Start 09/19/16 at 15:00 Oxycodone/ Acetaminophen 2 tab 2 tab PRN Q4HRS PRN PO MODERATE PAIN, SEVERE PAIN Last administered on 09/21/16at 16:53; Start 09/19/16 at 15:00 Cefazolin Sodium/ Dextrose 50 ml @ 100 mls/hr Q8H IV Last administered on at 04:14; Start 09/19/16 at 20:00; Stop 09/21/16 at 04:29; Status DC Amiodarone HCl 150 mg/Dextrose 103 ml @ 618 mls/hr 1X ONCE IV Last administered on 09/19/16at 16:16; Start 09/19/16 at 15:00; Stop 09/19/16 at 15 :13; Status DC Amiodarone HCl/ Dextrose (Cordarone) 518 ml @ 0 mls/hr CONT PRN IV SEE I/O RECORD; Start 09/19/16 at 15:00; Stop 09/22/16 at 09:55; Status DC Polyethylene Glycol 17 gm 17 gm PRN BID PRN PO CONSTIPATION; Start 09/20/16 at 17:00 Norepinephrine Bitartrate 250 ml @ 0 mls/hr CONT PRN IV SEE I/O RECORD; Start 09/19/16 at 16:30; Status Cancel Norepinephrine Bitartrate 250 ml @ As Directed STK-MED ONCE IV ; Start at 16:19; Stop 09/19/16 at 16:20; Status DC Potassium Chloride (KCl Premix 20meq) 50 ml @ 50 mls/hr 1X ONCE IV ; Start at 16:45; Stop 09/19/16 at 17:44; Status DC Ketorolac Tromethamine (Toradol) 30 mg 1X ONCE IV Last administered on at 17:15; Start 09/19/16 at 17:15; Stop 09/19/16 at 17:16; Status DC Furosemide (Lasix) 40 mg PRN 1X PRN IVP SEE COMMENTS; Start 09/19/16 at 22:15 ; Stop 09/19/16 at 23:59; Status DC Ketorolac Tromethamine (Toradol) 30 mg 1X ONCE IV Last administered on at 22:45; Start 09/19/16 at 22:45; Stop 09/19/16 at 22:46; Status DC Ketorolac Tromethamine (Toradol) 30 mg 1X ONCE IV Last administered on at 06:23; Start 09/20/16 at 06:00; Stop 09/20/16 at 06:01; Status DC Cefazolin Sodium/ Dextrose (Ancef 2gm Premix) 2 gm STK-MED ONCE IV ; Start at 12:00; Stop 09/20/16 at 08:28; Status DC Norepinephrine Bitartrate (Levophed 8mg/ 250ml Premix Drip) 8 mg STK-MED ONCE IV ; Start 09/19/16 at 16:00; Stop 09/20/16 at 08:46; Status DC Furosemide (Lasix) 40 mg [id number] IVP Last administered on 09/23/16 05:20; Start 09/20/16 at 11:45 Amiodarone HCl (Cordarone) 400 mg BID PO Last administered on 09/23/16 08:14; Start 09/20/16 at 13:00 Oxycodone/ Acetaminophen (Percocet 7.5/ 325) 2 tab PRN Q4HRS PRN PO PAIN Last administered on 09/23/16 09:26; Start 09/21/16 at 12:30 Active Scripts Active Reported Atorvastatin Calcium 10 Mg Tablet 1 Tab PO DAILY Losartan-Hctz 100-12.5 Mg Tab (Losartan/Hydrochlorothiazide) 1 Each Tablet 1 Tab PO DAILY Glimepiride 2 Mg Tablet 1 Tab PO DAILY Metformin Hcl 1,000 Mg Tablet 1 Tab PO BID Omeprazole 20 Mg Capsule.dr 1 Cap PO BID Vitals/I & O Vital Sign - Last 24 Hours 09/22/16 09/22/16 09/22/16 09/22/16 14:39 15:19 15:24 16:24 Temp 98.0 98.0 Pulse 77 Resp 20 18 B/P 106/65 Pulse Ox 99 95 O2 Delivery Nasal Cannula Nasal Cannula Nasal Cannula O2 Flow Rate 2.0 2.0 3.0 09/22/16 09/22/16 09/22/16 09/22/16 19:05 20:00 20:46 21:42 Temp 98.0 98.0 Pulse 84 89 Resp 18 20 B/P 122/71 118/55 Pulse Ox 96 O2 Delivery Nasal Cannula Nasal Cannula O2 Flow Rate 2.0 2.0 09/22/16 09/22/16 09/23/16 09/23/16 21:42 23:24 01:20 03:28 Temp 98.5 98.6 98.5 98.6 Pulse 88 73 76 Resp 20 20 18 B/P 118/55 118/55 101/58 Pulse Ox 96 96 O2 Delivery Nasal Cannula Nasal Cannula O2 Flow Rate 2.0 2.0 09/23/16 09/23/16 09/23/16 09/23/16 05:20 06:20 07:37 08:14 Temp 98.4 98.4 Pulse 82 84 Resp 20 20 17 B/P 116/64 116/64 Pulse Ox 96 O2 Delivery Nasal Cannula O2 Flow Rate 2.0 09/23/16 09/23/16 09/23/16 09/23/16 08:15 09:26 11:01 11:20 Temp 98.5 98.5 Pulse 87 77 Resp 17 B/P 116/64 99/62 Pulse Ox 93 96 O2 Delivery Nasal Cannula Room Air Room Air O2 Flow Rate 2.0 Intake and Output 09/22/16 09/22/16 09/23/16 15:00 23:00 07:00 Intake Total 1000 ml 350 ml 600 ml Output Total 1050 ml 550 ml 200 ml Balance -50 ml -200 ml 400 ml CRESENCIO LIM MD Sep 23, 2016 11:54
[2016-09-23] MEDS: POLYETHYLENE GLYCOL 3350 17 GM PACKET. PO PRN (12:17)
--- NOTE | 2016-09-23 14:35 | PDOC ---
SATNAM BRADFORD LEGAL TRANSCRIBER 09/23/16 1435: PROGRESS NOTES Subjective Subjective tired no incisional pain, rash, N & V, dyspnea Objective Objective Vital Signs Date Time Temp Pulse Resp B/P Pulse Ox O2 Delivery O2 Flow Rate FiO2 09/23/16 11:20 Room Air 09/23/16 11:01 98.5 77 17 99/62 96 98.5 09/23/16 09:26 2.0 Intake and Output 09/23/16 07:00 Intake Total 1950 ml Output Total 1800 ml Balance 150 ml Intake Oral 1950 ml Output Urine Total 1800 ml Physical Exam Abdomen: Normal bowel sounds, Soft, No tenderness Heart: Regular rate, Normal S1, Normal S2, Other (tele: SR; no atrial dysrhythmias) Extremities: No edema, Normal pulses General: Alert, Oriented X3, Cooperative HEENT: Atraumatic, PERRLA Lungs: Clear to auscultation, Normal air movement MUSCULOSKELETAL: No deformity Neck: Supple, No JVD Neuro: Normal speech Psych/Mental Status: Mental status NL, Mood NL Skin: Other (incisions healing; mild ecchymosis at harvest site medial Lt upper leg) Assessment Assessment Problems Medical Problems: (1) Chest pain Status: Acute (2) NSTEMI (non-ST elevated myocardial infarction) Status: Acute POD#4 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 continue O2 use - try to wean today Plan Plan of Care 1. pacing wires d/c - may shower today 2. wean O2 3. increase activity 4. ? home tomorrow Comment Review of Relevant I have reviewed the following items amber (where applicable) has been applied. Labs Laboratory Tests Test 09/21/16 16:57 09/21/16 20:14 09/21/16 20:27 09/22/16 04:45 Glucose (Fingerstick) 153mg/dL (70-99) 174mg/dL (70-99) Urine Collection Type Unknown Urine Color Karol Urine Clarity Turbid Urine pH 5.5 Urine Specific [place] >=1.030 Urine Protein 30mg/dL (NEG-TRACE) Urine Glucose (UA) Negativemg/dL (NEG) Urine Ketones (Stick) Negativemg/dL (NEG) Urine Blood Large (NEG) Urine Nitrite Negative (NEG) Urine Bilirubin Negative (NEG) Urine Urobilinogen Dipstick 0.2mg/dL (0.2 mg/dL) Urine Leukocyte Esterase Small (NEG) Urine RBC Tntc/HPF (0-2) Urine WBC 1-4/HPF (0-4) Urine Squamous Epithelial Cells Few/LPF Urine Bacteria Few/HPF (0-FEW) Urine Mucus Mod/LPF White Blood Count 17.0x10^3/uL (4.0-11.0) Red Blood Count 3.96x10^6/uL (4.30-5.70) Hemoglobin 11.0g/dL (13.0-17.5) Hematocrit 32.9% (39.0-53.0) Mean Corpuscular Volume 83fL (79-100) Mean Corpuscular Hemoglobin 28pg (25-35) Mean Corpuscular Hemoglobin Concent 34g/dL (31-37) Red Cell Distribution Width 14.3% (11.5-14.5) Platelet Count 226x10^3/uL (140-400) Neutrophils (%) (Auto) 69% (31-73) Lymphocytes (%) (Auto) 16% (24-48) Monocytes (%) (Auto) 12% (0-9) Eosinophils (%) (Auto) 3% (0-3) Basophils (%) (Auto) 1% (0-3) Neutrophils # (Auto) 11.7x10^3uL (1.8-7.7) Lymphocytes # (Auto) 2.8x10^3/uL (1.0-4.8) Monocytes # (Auto) 1.9x10^3/uL (0.0-1.1) Eosinophils # (Auto) 0.4x10^3/uL (0.0-0.7) Basophils # (Auto) 0.1x10^3/uL (0.0-0.2) Sodium Level 140mmol/L (136-145) Potassium Level 3.9mmol/L (3.5-5.1) Chloride Level 100mmol/L (98-107) Carbon Dioxide Level 32mmol/L (21-32) Anion Gap 8 (6-14) Blood Urea Nitrogen 23mg/dL (8-26) Creatinine 1.0mg/dL (0.7-1.3) Estimated GFR (Cockcroft-Gault) 80.1 Glucose Level 163mg/dL (70-99) Calcium Level 9.1mg/dL (8.5-10.1) Test 09/22/16 07:29 09/22/16 10:17 09/22/16 17:05 09/22/16 20:52 Glucose (Fingerstick) 166mg/dL (70-99) 177mg/dL (70-99) 126mg/dL (70-99) 169mg/dL (70-99) Test 09/23/16 07:40 09/23/16 11:46 Glucose (Fingerstick) 168mg/dL (70-99) 190mg/dL (70-99) Laboratory Tests Test 09/22/16 17:05 09/22/16 20:52 09/23/16 07:40 09/23/16 11:46 Glucose (Fingerstick) 126mg/dL (70-99) 169mg/dL (70-99) 168mg/dL (70-99) 190mg/dL (70-99) Medications Current Medications Aspirin (Children'S Aspirin) 324 mg 1X ONCE PO Last administered on at 02:36; Start 09/15/16 at 03:00; Stop 09/15/16 at 03:01; Status DC Nitroglycerin (Nitrostat) 0.4 mg PRN Q5MIN PRN SL CP RATING > 1/10 Last administered on 09/15/16at 02:37; Start 09/15/16 at 02:30; Stop 09/15/16 at 05 :18; Status DC Fentanyl Citrate (Fentanyl 2ml Vial) 25 mcg PRN Q15MIN PRN IV PAIN GREATER THAN 3/10; Start 09/15/16 at 02:30; Stop 09/15/16 at 06:00; Status DC Heparin Sodium (Porcine) 4000 unit 4,000 unit 1X ONCE IV Last administered on 09/15/16at 05:14; Start 09/15/16 at 05:00; Stop 09/15/16 at 05:02; Status DC Heparin Sodium/ Dextrose 500 ml @ 0 mls/hr CONT PRN IV SEE I/O RECORD Last administered on 09/18/16at 04:00; Start 09/15/16 at 04:45; Stop 09/18/16 at 11 :33; Status DC Heparin Sodium (Porcine) 2,850 unit PRN Q6HRS PRN IV FOR UFH LEVEL LESS THAN 0.2 Last administered on 09/15/16at 18:22; Start 09/15/16 at 04:45; Stop 09/19 at 12:55; Status DC Ondansetron HCl (Zofran) 4 mg PRN Q8HRS PRN IV NAUSEA/VOMITING; Start at 05:15; Stop 09/16/16 at 05:14; Status DC Fentanyl Citrate (Fentanyl 2ml Vial) 50 mcg PRN Q2HR PRN IV SEVERE PAIN; Start 09/15/16 at 05:15; Stop 09/16/16 at 05:14; Status DC Acetaminophen (Tylenol) 650 mg PRN Q4HRS PRN PO FEVER; Start 09/15/16 at 05:15 ; Stop 09/16/16 at 05:14; Status DC Nitroglycerin (Nitrostat) 0.4 mg PRN Q5MIN PRN SL CHEST PAIN; Start 09/15/16 at 05:15; Stop 09/16/16 at 05:14; Status DC Insulin Aspart (Novolog) 0-5 UNITS TIDWMEALS SQ Last administered on at 17:26; Start 09/15/16 at 08:00; Stop 09/17/16 at 08:23; Status DC Dextrose 12.5 gm PRN Q15MIN PRN IV SEE COMMENTS; Start 09/15/16 at 05:15; Status Cancel Info (Anti-Coagulation Monitoring By Pharmacy) 1 each PRN DAILY PRN MC SEE COMMENTS Last administered on 09/18/16at 10:20; Start 09/15/16 at 07:45; Stop 09/19/16 at 12:56; Status DC Atorvastatin Calcium (Lipitor) 20 mg QHS PO Last administered on 09/22/16t 21:41 ; Start 09/15/16 at 21:00 Glimepiride (Amaryl) 2 mg DAILY PO Last administered on 09/18/16at 09:01; Start 09/15/16 at 11:30; Stop 09/20/16 at 21:29; Status DC Non-Formulary Medication 1 tab DAILY PO ; Start 09/16/16 at 09:00; Status UNV Pantoprazole Sodium (Protonix) 40 mg DAILYAC PO Last administered on at 09:01; Start 09/15/16 at 11:30; Stop 09/19/16 at 15:10; Status DC Acetaminophen (Tylenol) 650 mg PRN Q6HRS PRN PO MILD PAIN / TEMP; Start at 10:30; Stop 09/19/16 at 15:32; Status DC Ondansetron HCl (Zofran) 4 mg PRN Q6HRS PRN IV NAUSEA/VOMITING Last administered on 09/16/16at 15:49; Start 09/15/16 at 10:30; Stop 09/19/16 at 15 :36; Status DC Morphine Sulfate 2 mg PRN Q2HR PRN IV PAIN Last administered on 09/19/16at 17: 27; Start 09/15/16 at 10:30 Morphine Sulfate 4 mg PRN Q2HR PRN IV PAIN Last administered on 09/19/16at 19: 43; Start 09/15/16 at 10:30 Losartan Potassium (Cozaar) 100 mg DAILY PO ; Start 09/15/16 at 11:30; Stop at 12:48; Status DC Hydrochlorothiazide (Microzide) 12.5 mg DAILY PO ; Start 09/15/16 at 11:30; Stop 09/15/16 at 12:48; Status DC Aspirin (Ecotrin) 325 mg DAILYWBKFT PO Last administered on 09/18/16at 09:01; Start 09/16/16 at 08:00; Stop 09/19/16 at 15:32; Status DC Metoprolol Tartrate (Lopressor) 12.5 mg BID PO Last administered on 09/18/16at 09:01; Start 09/15/16 at 21:00; Stop 09/18/16 at 11:41; Status DC Influenza Virus Vaccine Quadrival (Fluarix Quad 1693-2097 Syringe) 0.5 ml ONCE ONCE VAX IM ; Start 09/16/16 at 14:00; Stop 09/16/16 at 14:01; Status DC Pneumococcal Polyvalent Vaccine (Pneumovax 23) 0.5 ml ONCE ONCE VAX IM ; Start 09/16/16 at 14:00; Stop 09/16/16 at 14:01; Status DC Famotidine (Pepcid) 20 mg 1X ONCE IVP Last administered on 09/16/16at 07:24; Start 09/16/16 at 08:00; Stop 09/16/16 at 08:01; Status DC Diphenhydramine HCl (Benadryl) 25 mg 1X ONCE IVP Last administered on at 07:24; Start 09/16/16 at 08:00; Stop 09/16/16 at 08:01; Status DC Methylprednisolone Sodium Succinate (Solu-Medrol 125mg Vial) 125 mg 1X ONCE IV Last administered on 09/16/16at 07:24; Start 09/16/16 at 08:00; Stop at 08:01; Status DC Iohexol 100 ml 100 ml STK-MED ONCE .ROUTE ; Start 09/16/16 at 07:00; Stop at 07:01; Status DC Heparin Sodium/ Sodium Chloride 1,000 ml @ As Directed STK-MED ONCE .ROUTE ; Start 09/16/16 at 07:01; Stop 09/16/16 at 07:02; Status DC Lidocaine HCl 20 ml STK-MED ONCE .ROUTE ; Start 09/16/16 at 07:01; Stop at 07:02; Status DC Verapamil HCl (Verapamil) 5 mg STK-MED ONCE .ROUTE ; Start 09/16/16 at 07:45; Stop 09/16/16 at 07:46; Status DC Midazolam HCl (Versed) 5 mg STK-MED ONCE .ROUTE ; Start 09/16/16 at 07:45; Stop 09/16/16 at 07:46; Status DC Nitroglycerin (Nitroglycerin) 200 mcg STK-MED ONCE .ROUTE ; Start 09/16/16 at 07:45; Stop 09/16/16 at 07:46; Status DC Heparin Sodium (Porcine) 10,000 unit STK-MED ONCE .ROUTE ; Start 09/16/16 at 07 :45; Stop 09/16/16 at 07:46; Status DC Fentanyl Citrate (Fentanyl 5ml Vial) 250 mcg STK-MED ONCE .ROUTE ; Start at 07:46; Stop 09/16/16 at 07:47; Status DC Nitroglycerin (Nitroglycerin) 200 mcg 1X ONCE IART Last administered on at 08:21; Start 09/16/16 at 08:15; Stop 09/16/16 at 08:16; Status DC Verapamil HCl (Verapamil) 2.5 mg 1X ONCE IART Last administered on 09/16/16at 08:22; Start 09/16/16 at 08:15; Stop 09/16/16 at 08:16; Status DC Heparin Sodium (Porcine) 2,500 unit 1X ONCE IART Last administered on at 08:22; Start 09/16/16 at 08:15; Stop 09/16/16 at 08:16; Status DC Heparin Sodium/ Sodium Chloride 1,000 unit 1X ONCE IART Last administered on 09/16/16at 08:20; Start 09/16/16 at 08:15; Stop 09/16/16 at 08:16; Status DC Midazolam HCl (Versed) 2 mg 1X ONCE IV Last administered on 09/16/16at 08:21; Start 09/16/16 at 08:15; Stop 09/16/16 at 08:16; Status DC Fentanyl Citrate (Fentanyl 5ml Vial) 100 mcg 1X ONCE IV Last administered on 09/16/16at 08:22; Start 09/16/16 at 08:15; Stop 09/16/16 at 08:16; Status DC Iohexol (Omnipaque 300 Mg/ml) 131 ml 1X ONCE IART Last administered on at 08:21; Start 09/16/16 at 08:15; Stop 09/16/16 at 08:16; Status DC Lidocaine HCl 2 ml 1X ONCE IJ Last administered on 09/16/16at 08:21; Start at 08:15; Stop 09/16/16 at 08:16; Status DC Info 1 each 1 each PRN DAILY PRN MC SEE COMMENTS; Start 09/16/16 at 08:30; Stop 09/18/16 at 08:29; Status DC Sodium Chloride (Iv Sodium Chloride 0.45%) 1,000 ml @ 60 mls/hr [id number] IV Last administered on 09/16/16at 09:00; Start 09/16/16 at 09:00; Stop 09/17/16 at 12:32; Status DC Insulin Aspart (Novolog) 0-9 UNITS TIDWMEALS SQ ; Start 09/16/16 at 12:00; Status UNV Dextrose 12.5 gm 12.5 gm PRN Q15MIN PRN IV SEE COMMENTS; Start 09/16/16 at 09: 00; Status UNV Nitroglycerin/ Dextrose (Nitroglycerin Drip) 250 ml @ 0 mls/hr CONT PRN IV SEE I/O RECORD Last administered on 09/16/16at 16:18; Start 09/16/16 at 16:00; Stop 09/19/16 at 15:10; Status DC Al Hydroxide/Mg Hydroxide (Mylanta Plus Xs) 30 ml PRN Q6HRS PRN PO DYSPEPSIA Last administered on 09/16/16at 23:20; Start 09/16/16 at 22:45 Insulin Aspart (Novolog) 0-9 UNITS TIDWMEALS SQ Last administered on 09/23/16 12:22; Start 09/17/16 at 09:00 Dextrose 12.5 gm 12.5 gm PRN Q15MIN PRN IV SEE COMMENTS; Start 09/17/16 at 08: 30; Stop 09/19/16 at 15:33; Status DC Cefazolin Sodium/ Dextrose (Ancef 2gm Premix) 50 ml @ 100 mls/hr 1X ONCE IV Last administered on 09/19/16at 08:00; Start 09/19/16 at 06:00; Stop 09/19/16 at 06:29; Status DC Insulin Detemir 10 units 10 units DAILY SQ Last administered on 09/23/16 08:20 ; Start 09/17/16 at 10:30 Heparin Sodium/ Dextrose 500 ml @ 0 mls/hr CONT PRN IV SEE I/O RECORD; Start 09/18/16 at 11:30; Stop 09/18/16 at 23:55; Status DC Metoprolol Tartrate 25 mg 25 mg BID PO Last administered on 09/23/16 08:15; Start 09/18/16 at 21:00 Cefazolin Sodium 1 gm/Sodium Chloride 500 ml @ 500 mls/hr 1X PERIOP ONCE IRR Last administered on 09/19/16at 08:45; Start 09/19/16 at 06:00; Stop 09/19/16 at 06:59; Status DC Heparin Sodium (Porcine) 44270 unit/Lactated Ringer's 1,020 ml @ 1,020 mls/hr 1X PERIOP ONCE IRR Last administered on 09/19/16at 08:45; Start 09/19/16 at 06:00; Stop 09/19/16 at 06:59; Status DC Potassium Chloride 70 meq/ Sodium Bicarbonate 12.5 meq/Lidocaine HCl 24 ml/ Parenteral Electrolytes 571.5 ml @ 571.5 mls/ hr 1X PERIOP ONCE IRR Last administered on 09/19/16at 11:25; Start 09/19/16 at 06:00; Stop 09/19/16 at 06 :59; Status DC Potassium Chloride/Sodium Bicarbonate/ Parenteral Electrolytes (Isolyte S) 520 ml @ 520 mls/hr 1X PERIOP ONCE IRR Last administered on 09/19/16at 11:25; Start 09/19/16 at 06:00; Stop 09/19/16 at 06:59; Status DC Ondansetron HCl (Zofran) 4 mg PRN Q6HRS PRN IV Nausea; Start 09/19/16 at 07:00 ; Stop 09/19/16 at 19:00; Status DC Fentanyl Citrate (Fentanyl 2ml Vial) 25 mcg PRN Q5MIN PRN IV MILD PAIN; Start 09/19/16 at 07:00; Stop 09/19/16 at 19:00; Status DC Fentanyl Citrate (Fentanyl 2ml Vial) 50 mcg PRN Q5MIN PRN IV MODERATE PAIN; Start 09/19/16 at 07:00; Stop 09/19/16 at 19:00; Status DC Morphine Sulfate 1 mg 1 mg PRN Q10MIN PRN IV SEVERE PAIN; Start 09/19/16 at 07 :00; Stop 09/19/16 at 19:00; Status DC Lactated Ringer's (Iv Lactated Ringers) 1,000 ml @ 30 mls/hr Q24H IV ; Start 09/19/16 at 07:00; Stop 09/19/16 at 15:35; Status DC Lidocaine HCl 2 ml 1X PRN PRN ID IV START; Start 09/19/16 at 07:00; Stop at 19:00; Status DC Hydromorphone HCl (Dilaudid) 0.5 mg PRN Q10MIN PRN IV SEVERE PAIN, Second choice; Start 09/19/16 at 07:00; Stop 09/19/16 at 19:00; Status DC Prochlorperazine Edisylate (Compazine) 5 mg PACU PRN PRN IV NAUSEA; Start at 07:00; Stop 09/19/16 at 19:00; Status DC Zolpidem Tartrate (Ambien) 5 mg PRN QHS PRN PO INSOMNIA; Start 09/18/16 at 17: 00; Stop 09/18/16 at 23:55; Status DC Etomidate (Amidate) 20 mg STK-MED ONCE IV ; Start 09/19/16 at 07:03; Stop at 07:04; Status DC Heparin Sodium (Porcine) 10,000 unit STK-MED ONCE .ROUTE ; Start 09/19/16 at 07 :03; Stop 09/19/16 at 07:04; Status DC Nicardipine HCl (Cardene) 25 mg STK-MED ONCE IV ; Start 09/19/16 at 07:03; Stop 09/19/16 at 07:04; Status DC Phenylephrine HCl (Joseph-Synephrine Inj) 10 mg STK-MED ONCE .ROUTE ; Start at 07:03; Stop 09/19/16 at 07:04; Status DC Rocuronium [place] (Zemuron) 50 mg STK-MED ONCE .ROUTE ; Start 09/19/16 at 07: 03; Stop 09/19/16 at 07:04; Status DC Lidocaine HCl 100 mg STK-MED ONCE .ROUTE ; Start 09/19/16 at 07:03; Stop 09/19 at 07:04; Status DC Aminocaproic Acid (Amicar) 5,000 mg STK-MED ONCE IV ; Start 09/19/16 at 07:03; Stop 09/19/16 at 07:04; Status DC Midazolam HCl (Versed) 2 mg STK-MED ONCE .ROUTE ; Start 09/19/16 at 07:03; Stop 09/19/16 at 07:04; Status DC Sufentanil Citrate (Sufenta) 100 mcg STK-MED ONCE .ROUTE ; Start 09/19/16 at 07 :03; Stop 09/19/16 at 07:04; Status DC Succinylcholine Chloride (Anectine) 200 mg STK-MED ONCE .ROUTE ; Start at 07:04; Stop 09/19/16 at 07:05; Status DC Vancomycin HCl (Vanco) 10 gm 1X ONCE CEMENT Last administered on 09/19/16at 08 :45; Start 09/19/16 at 07:15; Stop 09/19/16 at 07:16; Status DC Cellulose 1 each STK-MED ONCE .ROUTE Last administered on 09/19/16at 08:45; Start 09/19/16 at 07:10; Stop 09/19/16 at 07:11; Status DC Papaverine HCl 60 mg STK-MED ONCE .ROUTE Last administered on 09/19/16at 08:45 ; Start 09/19/16 at 07:10; Stop 09/19/16 at 07:11; Status DC Aspirin (Aspirin) 300 mg STK-MED ONCE .ROUTE Last administered on 09/19/16at 14 :54; Start 09/19/16 at 07:10; Stop 09/19/16 at 07:11; Status DC Sodium Chloride (Sodium Chloride) 50 ml STK-MED ONCE IJ Last administered on at 08:45; Start 09/19/16 at 07:10; Stop 09/19/16 at 07:11; Status DC Midazolam HCl (Versed) 2 mg STK-MED ONCE .ROUTE ; Start 09/19/16 at 07:26; Stop 09/19/16 at 07:27; Status DC Isoflurane (Isoflurane) 90 ml STK-MED ONCE IH ; Start 09/19/16 at 08:16; Stop 09/19/16 at 08:17; Status DC Heparin Sodium (Porcine) 10,000 unit STK-MED ONCE .ROUTE ; Start 09/19/16 at 08 :17; Stop 09/19/16 at 08:18; Status DC Aminocaproic Acid (Amicar) 5,000 mg STK-MED ONCE IV ; Start 09/19/16 at 09:16; Stop 09/19/16 at 09:17; Status DC Protamine Sulfate 250 mg 250 mg STK-MED ONCE IV ; Start 09/19/16 at 10:36; Stop 09/19/16 at 10:37; Status DC Insulin Human Regular/Sodium Chloride (Novolin R Vial/ Iv Normal Saline 150ml) 151.5 ml @ 11.38 mls/ hr CONT PRN IV SEE I/O RECORD; Start 09/19/16 at 11:45 ; Stop 09/21/16 at 17:28; Status DC Midazolam HCl (Versed) 2 mg STK-MED ONCE .ROUTE ; Start 09/19/16 at 12:22; Stop 09/19/16 at 12:23; Status DC Protamine Sulfate 250 mg 250 mg STK-MED ONCE IV ; Start 09/19/16 at 12:49; Stop 09/19/16 at 12:50; Status DC Clevidipine (Cleviprex) 100 ml @ 0 mls/hr CONT PRN IV PER PROTOCOL; Start at 13:30; Stop 09/19/16 at 15:33; Status DC Heparin Sodium (Porcine) 10,000 unit STK-MED ONCE .ROUTE ; Start 09/19/16 at 13 :54; Stop 09/19/16 at 13:55; Status DC Lidocaine HCl 100 mg STK-MED ONCE .ROUTE ; Start 09/19/16 at 13:54; Stop 09/19 at 13:55; Status DC Mannitol (Mannitol) 12.5 g STK-MED ONCE .ROUTE ; Start 09/19/16 at 13:54; Stop 09/19/16 at 13:55; Status DC Calcium Chloride 1,000 mg STK-MED ONCE IV ; Start 09/19/16 at 13:54; Stop at 13:55; Status DC Sodium Bicarbonate 50 meq 50 meq STK-MED ONCE .ROUTE ; Start 09/19/16 at 13:54 ; Stop 09/19/16 at 13:55; Status DC Albumin Human (Albuminar) 100 ml @ As Directed STK-MED ONCE IV ; Start at 13:54; Stop 09/19/16 at 13:55; Status DC Heparin Sodium (Porcine) 30,000 unit STK-MED ONCE .ROUTE ; Start 09/19/16 at 13 :54; Stop 09/19/16 at 13:55; Status DC Magnesium Sulfate 5 gm STK-MED ONCE .ROUTE ; Start 09/19/16 at 13:54; Stop at 13:55; Status DC Rocuronium [place] (Zemuron) 50 mg STK-MED ONCE .ROUTE ; Start 09/19/16 at 14: 46; Stop 09/19/16 at 14:47; Status DC Sodium Chloride 3 ml 3 ml PRN Q12HR PRN IV AFTER MEDS AND BLOOD DRAWS; Start 09/19/16 at 15:00 Lactated Ringer's 1,000 ml @ 30 mls/hr Q24H IV Last administered on at 15:30; Start 09/19/16 at 14:46; Stop 09/21/16 at 17:28; Status DC Albumin Human 250 ml @ 60 mls/hr PRN Q4HRS PRN IV SEE I/O RECORD Last administered on 09/19/16at 18:00; Start 09/19/16 at 15:00; Stop 09/21/16 at 17 :28; Status DC Insulin Human Regular/Sodium Chloride (Novolin R Vial/ Iv Normal Saline 150ml) 151.5 ml @ 0 mls/hr CONT PRN PRN IV SEE I/O RECORD; Start 09/19/16 at 15:00; Stop 09/19/16 at 15:34; Status DC Dextrose 25 gm 25 gm PRN Q15MIN PRN IV LOW BLOOD SUGAR; Start 09/19/16 at 15: 00 Epinephrine HCl 4 mg/Sodium Chloride 254 ml @ 0 mls/hr CONT PRN PRN IV POST CV SURGERY; Start 09/19/16 at 15:00; Stop 09/21/16 at 12:00; Status DC Amiodarone HCl 150 mg/Dextrose 103 ml @ 0 mls/hr 1X ONCE IV ; Start 09/19/16 at 15:00; Stop 09/19/16 at 15:01; Status UNV Amiodarone HCl/ Dextrose (Cordarone) 518 ml @ 33.33 mls/ hr CONT PRN PRN IV SEE COMMENTS; Start 09/19/16 at 15:00; Status UNV Info 1 ea CONT PRN PRN MC SEE COMMENTS; Start 09/19/16 at 15:00 Info 1 ea 1 ea CONT PRN PRN MC SEE COMMENTS; Start 09/19/16 at 15:00; Stop at 20:06; Status DC Magnesium Sulfate/ Dextrose (Magnesium Sulfate PREMIX 1GM) 100 ml @ 100 mls/hr PRN DAILY PRN IV FOR MAG < 2.2; Start 09/19/16 at 15:00; Stop 09/22/16 at 09:55 ; Status DC Ondansetron HCl (Zofran) 4 mg PRN Q4HRS PRN IV NAUSEA/VOMITING Last administered on 09/19/16at 21:01; Start 09/19/16 at 15:00 Metoclopramide HCl (Reglan) 10 mg PRN Q6HRS PRN IV NAUSEA/VOMITING; Start at 15:00 Morphine Sulfate 2 mg PRN Q1HR PRN IV PAIN Last administered on 09/20/16at 12: 02; Start 09/19/16 at 15:00 Acetaminophen (Tylenol) 650 mg PRN Q4HRS PRN PO MILD PAIN / TEMP; Start at 15:00 Acetaminophen (Tylenol) 650 mg PRN Q4HRS PRN [place] MILD PAIN / TEMP; Start at 15:00 Meperidine HCl 12.5 mg 12.5 mg PRN Q15MIN PRN IV SHIVERING; Start 09/19/16 at 15:00; Stop 09/20/16 at 07:00; Status DC Propofol (Diprivan) 100 ml @ 0 mls/hr CONT PRN PRN IV POSTOP SEDATION UNTIL EXTUBATE Last administered on 09/19/16at 16:13; Start 09/19/16 at 15:00; Stop 09/21/16 at 12:00; Status DC Senna/Docusate Sodium (Senna Plus) 1 tab BID PO Last administered on 09/23/16 09:26; Start 09/19/16 at 21:00 Aspirin (Ecotrin) 325 mg DAILYWBKFT PO Last administered on 09/23/16 08:14; Start 09/20/16 at 08:00 Albuterol Sulfate (Ventolin Neb Soln) 2.5 mg PRN Q4HRS PRN NEB SHORTNESS OF BREATH Last administered on 09/21/16at 04:04; Start 09/19/16 at 15:00 Metoprolol Tartrate 25 mg 25 mg BID PO ; Start 09/20/16 at 09:00; Stop at 09:00; Status DC Clevidipine (Cleviprex) 100 ml @ 0 mls/hr CONT PRN IV PER PROTOCOL; Start at 15:00; Stop 09/22/16 at 09:55; Status DC Oxycodone/ Acetaminophen (Percocet 5/325) 1 tab PRN Q4HRS PRN PO MILD PAIN; Start 09/19/16 at 15:00 Oxycodone/ Acetaminophen 2 tab 2 tab PRN Q4HRS PRN PO MODERATE PAIN, SEVERE PAIN Last administered on 09/21/16at 16:53; Start 09/19/16 at 15:00 Cefazolin Sodium/ Dextrose 50 ml @ 100 mls/hr Q8H IV Last administered on at 04:14; Start 09/19/16 at 20:00; Stop 09/21/16 at 04:29; Status DC Amiodarone HCl 150 mg/Dextrose 103 ml @ 618 mls/hr 1X ONCE IV Last administered on 09/19/16at 16:16; Start 09/19/16 at 15:00; Stop 09/19/16 at 15 :13; Status DC Amiodarone HCl/ Dextrose (Cordarone) 518 ml @ 0 mls/hr CONT PRN IV SEE I/O RECORD; Start 09/19/16 at 15:00; Stop 09/22/16 at 09:55; Status DC Polyethylene Glycol 17 gm 17 gm PRN BID PRN PO CONSTIPATION Last administered on 09/23/16t 12:17; Start 09/20/16 at 17:00 Norepinephrine Bitartrate 250 ml @ 0 mls/hr CONT PRN IV SEE I/O RECORD; Start 09/19/16 at 16:30; Status Cancel Norepinephrine Bitartrate 250 ml @ As Directed STK-MED ONCE IV ; Start at 16:19; Stop 09/19/16 at 16:20; Status DC Potassium Chloride (KCl Premix 20meq) 50 ml @ 50 mls/hr 1X ONCE IV ; Start at 16:45; Stop 09/19/16 at 17:44; Status DC Ketorolac Tromethamine (Toradol) 30 mg 1X ONCE IV Last administered on at 17:15; Start 09/19/16 at 17:15; Stop 09/19/16 at 17:16; Status DC Furosemide (Lasix) 40 mg PRN 1X PRN IVP SEE COMMENTS; Start 09/19/16 at 22:15 ; Stop 09/19/16 at 23:59; Status DC Ketorolac Tromethamine (Toradol) 30 mg 1X ONCE IV Last administered on at 22:45; Start 09/19/16 at 22:45; Stop 09/19/16 at 22:46; Status DC Ketorolac Tromethamine (Toradol) 30 mg 1X ONCE IV Last administered on at 06:23; Start 09/20/16 at 06:00; Stop 09/20/16 at 06:01; Status DC Cefazolin Sodium/ Dextrose (Ancef 2gm Premix) 2 gm STK-MED ONCE IV ; Start at 12:00; Stop 09/20/16 at 08:28; Status DC Norepinephrine Bitartrate (Levophed 8mg/ 250ml Premix Drip) 8 mg STK-MED ONCE IV ; Start 09/19/16 at 16:00; Stop 09/20/16 at 08:46; Status DC Furosemide (Lasix) 40 mg [id number] IVP Last administered on 09/23/16 05:20; Start 09/20/16 at 11:45 Amiodarone HCl (Cordarone) 400 mg BID PO Last administered on 09/23/16 08:14; Start 09/20/16 at 13:00 Oxycodone/ Acetaminophen (Percocet 7.5/ 325) 2 tab PRN Q4HRS PRN PO PAIN Last administered on 09/23/16 09:26; Start 09/21/16 at 12:30 Active Scripts Active Reported Atorvastatin Calcium 10 Mg Tablet 1 Tab PO DAILY Losartan-Hctz 100-12.5 Mg Tab (Losartan/Hydrochlorothiazide) 1 Each Tablet 1 Tab PO DAILY Glimepiride 2 Mg Tablet 1 Tab PO DAILY Metformin Hcl 1,000 Mg Tablet 1 Tab PO BID Omeprazole 20 Mg Capsule.dr 1 Cap PO BID Vitals/I & O Vital Sign - Last 24 Hours 09/22/16 09/22/16 09/22/16 09/22/16 14:39 15:19 15:24 16:24 Temp 98.0 98.0 Pulse 77 Resp 20 18 B/P 106/65 Pulse Ox 99 95 O2 Delivery Nasal Cannula Nasal Cannula Nasal Cannula O2 Flow Rate 2.0 2.0 3.0 09/22/16 09/22/16 09/22/16 09/22/16 19:05 20:00 20:46 21:42 Temp 98.0 98.0 Pulse 84 89 Resp 18 20 B/P 122/71 118/55 Pulse Ox 96 O2 Delivery Nasal Cannula Nasal Cannula O2 Flow Rate 2.0 2.0 09/22/16 09/22/16 09/23/16 09/23/16 21:42 23:24 01:20 03:28 Temp 98.5 98.6 98.5 98.6 Pulse 88 73 76 Resp 20 20 18 B/P 118/55 118/55 101/58 Pulse Ox 96 96 O2 Delivery Nasal Cannula Nasal Cannula O2 Flow Rate 2.0 2.0 09/23/16 09/23/16 09/23/16 09/23/16 05:20 06:20 07:37 08:14 Temp 98.4 98.4 Pulse 82 84 Resp 20 20 17 B/P 116/64 116/64 Pulse Ox 96 O2 Delivery Nasal Cannula O2 Flow Rate 2.0 09/23/16 09/23/16 09/23/16 09/23/16 08:15 09:26 11:01 11:20 Temp 98.5 98.5 Pulse 87 77 Resp 17 B/P 116/64 99/62 Pulse Ox 93 96 O2 Delivery Nasal Cannula Room Air Room Air O2 Flow Rate 2.0 Intake and Output 09/22/16 09/22/16 09/23/16 15:00 23:00 07:00 Intake Total 1000 ml 350 ml 600 ml Output Total 1050 ml 550 ml 200 ml Balance -50 ml -200 ml 400 ml JAKY EVERETT MD 09/23/16 1700: PROGRESS NOTES Assessment Assessment The patient continues to look and feel better. Activity is increasing. Pacer wires to be removed today. Continue present medical treatment. Possibly home tomorrow. SATNAM BRADFORD APRN Sep 23, 2016 14:35 JAKY EVERETT MD Sep 23, 2016 17:00
[2016-09-23 14:53] VITALS: BP 104/70
[2016-09-23] MEDS: OXYCODONE/APAP 5/325 TABLET. PO PRN ×2 (16:43→20:47)
[2016-09-23 19:10] VITALS: BP 116/72
[2016-09-23] MEDS: ATORVASTATIN CALCIUM 20 MG TABLET PO SCH (20:28)
[2016-09-23 23:08] VITALS: BP 102/69
[2016-09-24] MEDS: OXYCODONE/APAP 7.5/325 TABLET. PO PRN (01:07)
[2016-09-24 03:05] VITALS: BP 102/64
[2016-09-24] MEDS: FUROSEMIDE 40 MG/4 ML VIAL IVP SCH (05:56)
[2016-09-24] MEDS: OXYCODONE/APAP 5/325 TABLET. PO PRN (06:15)
[2016-09-24 07:06] VITALS: BP 111/69
[2016-09-24] MEDS: ASPIRIN ENTERIC COATED 325 MG TABLET.DR. PO SCH (08:43)
[2016-09-24] MEDS: METOPROLOL TART IMMED RELEASE 25 MG TABLET PO SCH (08:44)
[2016-09-24] MEDS: SENNOSIDES/DOCUSATE 8.6/50MG TABLET. PO SCH (08:44)
[2016-09-24] MEDS: AMIODARONE HCL 200 MG TABLET PO SCH (08:44)
[2016-09-24] MEDS: POLYETHYLENE GLYCOL 3350 17 GM PACKET. PO PRN (08:45)
[2016-09-24] MEDS: INSULIN ASPART 300 UNITS/3 ML INSULN.PEN SQ SCH ×2 (08:54→12:42)
[2016-09-24] MEDS: INSULIN DETEMIR 300 UNITS/3 ML INSULN.PEN. SQ SCH (08:56)
[2016-09-24 11:38] VITALS: BP 100/60
--- NOTE | 2016-09-24 13:00 | PDOC ---
MYADAVIDSATNAM Madeleine HAND DRAWER IN HELPER 09/24/16 1259: CARDIO Progress Notes Date and Time Date of Service 09/24/2016 Time of Evaluation 1257 Subjective Subjective: No shortness of breath, No Palpitations, No Dizziness, Other ( incisional discomfort) Vitals Vitals Vital Signs Date Time Temp Pulse Resp B/P Pulse Ox O2 Delivery O2 Flow Rate FiO2 09/24/16 12:37 20 Room Air 09/24/16 11:38 98.2 71 100/60 93 98.2 09/24/16 03:05 2.0 Weight Weight [ ] Input and Output Intake and Output Intake and Output 09/24/16 07:00 Intake Total 890 ml Output Total 3000 ml Balance -2110 ml Intake Oral 890 ml Output Urine Total 3000 ml Laboratory Labs Laboratory Tests Test 09/23/16 16:39 09/23/16 20:40 09/24/16 07:55 09/24/16 12:15 Glucose (Fingerstick) 131mg/dL (70-99) 171mg/dL (70-99) 162mg/dL (70-99) 223mg/dL (70-99) Microbiology Micro Microbiology 09/21/16 Urine Culture - Preliminary, Resulted 09/21/16 Urine Culture Result 1 (LENCHO) - Preliminary, Resulted Case Discussion Case Discussed with: Other (RN) Physical Exam HEENT: NO Carotid Bruit, Neck Supple W Full Motion Chest: Symmetric LUNGS: Clear to Auscultation Heart: S1S2, RRR, no murmurs, other (tele: SR) Abdomen: Soft N/T Extremities: No Edema Neurology: alert, oriented, follow commands Assessment Assessment 1. NSTEMI troponin peaked at 1.754 s/p CABG with CHUA to LAD; SVG to RPDA; SVG to OM2; POD# 5 management per CTS continue beat-blockers, ASA, statin therapy 2. HTN, benign essential controlled 3. mixed hyperlipidemia TG = 358; HDLs = 37 continue statin therapy lifestyle modification and improved control of DM to address TG 4. DM, type II A1C= 8.2 currently with insulin gtt 5. tobacco abuse smokes and chews LOS DUNBAR MD 09/25/16 0818: CARDIO Progress Notes Assessment Assessment Patient seen and examined. Agree with chief wellness officer assessment and plan.s/p CABG, presently doing well. Telemetry did not show any significant arrhythmias. Continue current medications. Continue PT/OT. SATNAM BRADFORD APRN Sep 24, 2016 12:59 LOS DUNBAR MD Sep 25, 2016 08:18
[2016-09-24] MEDS ORDERED: OXYC1TAB7 PO (13:12)
[2016-09-24] MEDS ORDERED: FURO40TA4 PO (13:12)
[2016-09-24] MEDS ORDERED: ASPI325T11 PO (13:13)
[2016-09-24] MEDS ORDERED: METO25TA4 PO (13:13)
[2016-09-24] MEDS ORDERED: ATOR20TA58 PO (13:18)
--- NOTE | 2016-09-24 13:26 | PDOC ---
Progress Note Subjective Subjective Doing very well. No issues. ROS ROS No nausea No vomiting No pain No rash Vital Sign Vital Signs Vital Signs Date Time Temp Pulse Resp B/P Pulse Ox O2 Delivery O2 Flow Rate FiO2 09/24/16 12:37 20 Room Air 09/24/16 11:38 98.2 71 100/60 93 98.2 09/24/16 03:05 2.0 Physical Exam PHYSICAL EXAM GENERAL: NAD, Alert HEENT: PERRL, OC/OP NECK: Supple, no JVD, no LN LUNGS: Clear HEART: S1S2, no gallop, no murmur ABD: Soft, NT, no organomegaly, no rebound EXT: No edema, no cyanosis ELIGIBILITY SPECIALIST: Alert, oriented x 3, no focal neurologic deficit SKIN: No rash IV: ok Labs Lab Laboratory Tests Test 09/23/16 16:39 09/23/16 20:40 09/24/16 07:55 09/24/16 12:15 Glucose (Fingerstick) 131mg/dL (70-99) 171mg/dL (70-99) 162mg/dL (70-99) 223mg/dL (70-99) Objective Assessment POD#5 s/p CABG x 3 (CHUA to LAD, SVG to RPDA, SVG to OM2). Doing very well. Uneventful postoperative recovery Plan Plan of Care DC home Follow-up in clinic in 3 weeks with chest x-ray beforehand NOHEMI WILSON MD Sep 24, 2016 13:26
--- NOTE | 2016-09-24 13:30 | DISCH ---
DISCHARGE INSTRUCTIONS Condition on Discharge Condition on Discharge: Stable Activity After Discharge Activity Instructions for Disc: Other, see below Lifting Instructions after Dis: No heavy lifting, No pulling or pushing Diet after Discharge Diet after Discharge: Cardiac, Diabetic No Calorie Level Contacting the DR. after DC Call your doctor for: If your condition worsens CRESENCIO LIM MD Sep 24, 2016 13:30
--- NOTE | 2016-09-24 23:08 | DS ---
DATE OF DISCHARGE: 09/24/2016 CHIEF COMPLAINT: CAD. HOSPITAL COURSE: The patient is a 46-year-old gentleman who presented with heart disease, which was determined by cardiac catheterization on 09/16/2016 to be 3-vessel disease requiring CABG. This was undertaken on the . He recovered appropriately from his surgery and no complications were noted. Other medical issues included diabetes mellitus for which he was started on insulin regimen with good control. He was started on beta blockers as well as a statin post-surgery. No other significant medical issues arose and he was deemed ready from a cardiac as well as cardiothoracic surgery standpoint on 09/24/2016. PHYSICAL EXAMINATION: VITAL SIGNS: Stable. GENERAL: This is a 46-year-old gentleman, alert and oriented, in no acute distress. LUNGS: Fairly clear bilaterally. HEART: Regular rate and rhythm. sternal incision well healing. ABDOMEN: Has positive bowel sounds, soft, nontender. EXTREMITIES: Show no edema. DISCHARGE DATE: 09/24/2016 DISCHARGE DISPOSITION: To home. DISCHARGE CONDITION: Improved. DISCHARGE DIAGNOSIS: Coronary artery disease, status post coronary artery bypass graft, 09/19/2016. DISCHARGE INSTRUCTIONS: The patient will follow up with Dr. Roach on 10/15/2016 at 1:00 p.m. after obtaining chest x-ray an hour earlier. He will follow up with Dr. Uribe on 10/17/2016 at 9:30. CRESENCIO LIM MD DR: UR/nts JOB#: [id number] / [id number] LAYNE Santos MD
--- NOTE | 2016-09-25 20:25 | RESP ---
DATE OF SERVICE: The patient underwent full pulmonary function testing pre and post bronchodilator. The FEV1 to FVC ratio was 76%. FEV1 was 2.81 liters or 70% of predicted. FVC was 3.65 liters or 71% of predicted. There was no significant bronchodilator response. Total lung capacity was preserved. Residual volume was slightly elevated. Diffusion capacity was preserved. IMPRESSION: 1. Moderate airflow limitation. 2. No significant bronchodilator response. 3. Diffusion capacity preserved. BRAULIO IRELAND MD DR: FARTUN/yenny JOB#: [id number] / [id number]
== END 2016-09-24 14:45 | disposition home or self-care (01) | DRG 234 ==
LOC: ER 01:56 → ED HOLD 04:52 → 2 NORTH 07:11 → 1 WEST ICU 09-19 12:21 → 2 SOUTH 09-20 20:04
PROVIDERS: ADMIT Internal Medicine; ATTEND Internal Medicine
PROC: 4A023N7 Measurement of Cardiac Sampling and Pressure, Left Heart, Percutaneous Approach (ICD-10-PCS; principal; 2016-09-16)
PROC: B2151ZZ Fluoroscopy of Left Heart using Low Osmolar Contrast (ICD-10-PCS; 2016-09-16)
PROC: 021109W Bypass Coronary Artery, Two Arteries from Aorta with Autologous Venous Tissue, Open Approach (ICD-10-PCS; 2016-09-16)
PROC: 30233N1 Transfusion of Nonautologous Red Blood Cells into Peripheral Vein, Percutaneous Approach (ICD-10-PCS; 2016-09-18)
PROC: B2111ZZ Fluoroscopy of Multiple Coronary Arteries using Low Osmolar Contrast (ICD-10-PCS; 2016-09-19)
PROC: 02100Z9 Bypass Coronary Artery, One Artery from Left Internal Mammary, Open Approach (ICD-10-PCS; 2016-09-19)
PROC: 06BQ4ZZ Excision of Left Saphenous Vein, Percutaneous Endoscopic Approach (ICD-10-PCS; 2016-09-19)
PROC: 5A1221Z Performance of Cardiac Output, Continuous (ICD-10-PCS; 2016-09-19)
DX: I21.4 Non-ST elevation (NSTEMI) myocardial infarction (principal); R65.10 Systemic inflammatory response syndrome (SIRS) of non-infectious origin without acute organ dysfunction; J98.11 Atelectasis; T83.83XA Hemorrhage due to genitourinary prosthetic devices, implants and grafts, initial encounter; E11.9 Type 2 diabetes mellitus without complications; E66.01 Morbid (severe) obesity due to excess calories; E78.2 Mixed hyperlipidemia; F17.200 Nicotine dependence, unspecified, uncomplicated; I10 Essential (primary) hypertension; I25.119 Atherosclerotic heart disease of native coronary artery with unspecified angina pectoris; K21.9 Gastro-esophageal reflux disease without esophagitis; K59.00 Constipation, unspecified; Z82.49 Family history of ischemic heart disease and other diseases of the circulatory system; Z91.041 Radiographic dye allergy status; Z68.34 Body mass index [BMI] 34.0-34.9, adult; Z79.82 Long term (current) use of aspirin
CPT/HCPCS: 36415; 36600; 71010; 71020; 71250; 80048; 80053; 80061; 81001; 82310; 82553; 82803; 82805; 82947; 83036; 83690; 83735; 83880; 84132; 84443; 84484; 85014; 85018; 85027; 85347; 85384; 85520; 85610; 85730; 86850; 86900; 86901; 86920; 87086; 87641; 93005; 93306; 93458; 93880; 93970; 94002; 94060; 94250; 94640; 94729; 96374; C1769; C1781; C1892; G0481; J0282; J0330; J0690; J1200; J1644; J1815; J1885; J1940; J2150; J2250; J2270; J2405; J2440; J2704; J2930; J3010; J3370; J3475; J3490; J7040; J7120; P9041; P9046; Q9967; S0028; 97001; 97003-GO; 97116; 99285-25

== ENCOUNTER → 2016-10-21 | Outpatient (CLI) | payer BC ==
[2016-09-24 11:38] VITALS: BP 100/60
[~2016-10-21] MED LIST changes: +ASPI325T11 PO; +ATOR10TA60 PO; +ATOR20TA58 PO; +FURO40TA4 PO; +GLIM2TAB2 PO; +LOSA1TAB18 PO; +METF10002 PO; +METO25TA4 PO; +OMEP20TA PO; +OXYC1TAB7 PO
--- NOTE | 2016-10-21 13:02 | RAD ---
Chest, 2 views, 10/21/2016: History: Postop CABG Comparison is made to a study from 09/22/2016. There has been a previous median sternotomy. The heart size and pulmonary vascularity are normal. No pulmonary infiltrates are seen. There is no evidence of pleural fluid. Mild spurring is present in the spine. IMPRESSION: No significant postoperative abnormality is detected.
== END | disposition home or self-care (01) ==
LOC: RAD 12:25
PROVIDERS: ATTEND Thoracic Surgery (Cardiothoracic Vascular Surgery)
DX: Z95.1 Presence of aortocoronary bypass graft (principal)
CPT/HCPCS: 71020

== ENCOUNTER → 2018-03-18 | Outpatient (CLI) | payer BC | END | disposition home or self-care (01) | LOC: ECHO 07:48 | DX: I25.810 Atherosclerosis of coronary artery bypass graft(s) without angina pectoris (principal); I11.0 Hypertensive heart disease with heart failure; I50.9 Heart failure, unspecified; E11.9 Type 2 diabetes mellitus without complications | CPT/HCPCS: 93306 ==

== ENCOUNTER → 2019-03-30 | Outpatient (CLI) | payer BC ==
[~2019-03-30] MED LIST changes: -LOSA1TAB18 PO; +LOSA1TAB25 PO; -METF10002 PO; +METF10007 PO; +METF500T16 PO; -METF500T4 PO; +OMEP20CA10 PO; -OMEP20CA9 PO; -OMEP20TA PO; +OMEP20TA8 PO
--- NOTE | 2019-03-30 10:52 | CARD ---
MR#: [id number] Date of Study: 03/30/2019 Ordering Physician: LOS URIBE, Referring Physician: LOS URIBE, Tech: Dyan Holbrook APPROVED REPORT EXAM: Two-dimensional and M-mode echocardiogram with Doppler and color Doppler. Other Information Quality : AverageHR: 67bpm INDICATION CAD Surgery/Intervention CABG: RISK FACTORS Hyperlipidemia Diabetes Previous smoker 2D DIMENSIONS RVDd2.7 (2.9-3.5cm)Left Atrium(2D)3.2 (1.6-4.0cm) IVSd1.3 (0.7-1.1cm)Aortic Root(2D)3.4 (2.0-3.7cm) LVDd5.2 (3.9-5.9cm)LVOT Diameter2.0 (1.8-2.4cm) PWd0.9 (0.7-1.1cm)LVDs3.3 (2.5-4.0cm) FS (%) 37.5 %SV88.9 ml LVEF(%)67.2 (>50%) Aortic Valve AoV Peak Marvin.103.4cm/sAoV VTI18.4cm AO Peak GR.4.3mmHgLVOT Peak Marvin.93.1cm/s LVOT VTI 20.34cmAO Mean GR.2mmHg BRIT (VMAX)2.12pf4WOR (VTI)3.54cm2 Mitral Valve MV E Urcjsbhy43.7cm/sMV DECEL [id number] MV A Shzvpidk64.8cm/sMV BBC06cl E/A Ratio1.5MVA (PHT)3.43cm2 TDI E/Lateral E'8.3E/Medial E'11.5 Tricuspid Valve RAP [id number] Pulmonary Vein S1 Uogmrbbe91.7cm/sD2 Ydguzvea02.8cm/s LEFT VENTRICLE The left ventricle is normal size. There is mild to moderate concentric left ventricular hypertrophy. The left ventricular systolic function is normal. The Ejection Fraction is 50-55% Septal motion cons istent with post-operative state. Transmitral Doppler flow pattern is Grade II-pseudonormal filling d ynamics. RIGHT VENTRICLE The right ventricle is normal size. There is normal right ventricular wall thickness. The right ventr icular systolic function is normal. ATRIA The left atrium size is normal. The right atrium size is normal. The interatrial septum is intact wit h no evidence for an atrial septal defect or patent foramen ovale as noted on 2-D or Doppler imaging. AORTIC VALVE The aortic valve is thickened but opens well. Doppler and Color Flow revealed trace aortic regurgitat ion. There is no significant aortic valvular stenosis. MITRAL VALVE The mitral valve is normal in structure and function. There is no evidence of mitral valve prolapse. There is no mitral valve stenosis. Doppler and Color-flow revealed trace mitral regurgitation. TRICUSPID VALVE The tricuspid valve is normal in structure and function. Doppler and Color Flow revealed no tricuspid valve regurgitation noted. There is no tricuspid valve stenosis. PULMONIC VALVE The pulmonary valve is normal in structure and function. Doppler and Color Flow revealed trace pulmon ic valvular regurgitation. GREAT VESSELS The aortic root is normal in size. The IVC is normal in size and collapses >50% with inspiration. PERICARDIAL EFFUSION There is no evidence of significant pericardial effusion. Critical Notification Critical Value: No <Conclusion> The left ventricular systolic function is normal. The Ejection Fraction is 50-55% Transmitral Doppler flow pattern is Grade II-pseudonormal filling dynamics. Doppler and Color-flow revealed trace mitral regurgitation. There is no evidence of significant pericardial effusion. Signed by : Los Uribe, Electronically Approved : 03/30/2019 10:52:06
== END | disposition home or self-care (01) ==
LOC: ECHO 07:40
PROVIDERS: ATTEND Internal Medicine Cardiovascular Disease
DX: I51.7 Cardiomegaly (principal); I25.810 Atherosclerosis of coronary artery bypass graft(s) without angina pectoris; E78.5 Hyperlipidemia, unspecified; E11.9 Type 2 diabetes mellitus without complications; Z87.891 Personal history of nicotine dependence
CPT/HCPCS: 93306

== ENCOUNTER 2019-08-20 04:53 | Emergency (ER) | payer BC ==
[~2019-08-20] VITALS: Ht 175.3 cm; Wt 108.9 kg
[~2019-08-20 04:53] MED LIST changes: -GLIM2TAB2 PO; +GLIM2TAB3 PO; +LISI1TAB19 PO; -LISI1TAB5 PO; +OMEP-229 PO; -OMEP20CA10 PO
[2019-08-20] MEDS ORDERED: IV NORMAL SALINE 1000ML BAG 1,000 ML IV ONE (05:15)
[2019-08-20 05:19] LABS: BILIRUBIN,URINE SMALL (NEG); CLARITY,URINE CLEAR; COLOR,URINE ORANGE; NITRITE,URINE NEGATIVE (NEG); PH,URINE 5.5; PROTEIN,URINE >=300 mg/dL (NEG-TRACE)
[2019-08-20 05:22] LABS: BASO # 0.1 x10^3/uL (0.0-0.2); BASO % 1 % (0-3); EOS # 0.2 x10^3/uL (0.0-0.7); EOS % 1 % (0-3); HEMATOCRIT 44.7 % (39.0-53.0); HEMOGLOBIN 14.8 g/dL (13.0-17.5); LYMPH # 2.4 x10^3/uL (1.0-4.8); LYMPH % 15 % (24-48); MEAN CORPUSCULAR HEMOGLOBIN 28 pg (25-35); MEAN CORPUSCULAR HGB CONC 33 g/dL (31-37); MEAN CORPUSCULAR VOLUME 84 fL (79-100); MONO # 1.9 x10^3/uL (0.0-1.1); MONO % 12 % (0-9); NEUT # 10.8 x10^3/uL (1.8-7.7); NEUT % 70 % (31-73); PLATELET COUNT 245 x10^3/uL (140-400); RED BLOOD COUNT 5.34 x10^6/uL (4.30-5.70); RED CELL DISTRIBUTION WIDTH 13.8 % (11.5-14.5); WHITE BLOOD COUNT 15.3 x10^3/uL (4.0-11.0)
--- NOTE | 2019-08-20 05:29 | PHYS DOC ---
Past Medical History Past Medical History: CAD, Diabetes-Type II, GERD, High Cholesterol, Hypertension (LIZZY SOLARES DO) Past Surgical History: Other Additional Past Surgical Histo: SKIN GRAFT, KNEE SX, L5-S1 BACK SX (LIZZY SOLARES DO) Smoking: Quit Greater Than 1 Year (3 years, smoked for 35 years) Alcohol Use: None Drug Use: None (LIZZY SOLARES DO) Adult General Chief Complaint Chief Complaint: ABDOMINAL PAIN HPI HPI Patient is a 49 y/o male with a history of NSTEMI, HLD, HTN, DM type 2 who presents to the ED with abdominal pain for the past 2 days. He states initially he had an episode of shakes, chills, and sweats and then went to sleep. After waking up he went to work and his abdominal pain returned. Pain is described as a constant rolling/knotting pain. He reports he has only been eating apples and bagels and drinking water the past couple days. Pt endorses pain when trying to defecate and only produces "mucous" like material when he goes. Associated nausea. Denies vomiting, diarrhea, and dysuria. Pain is rated at a 7/10. (LIZZY SOLARES DO) Review of Systems Review of Systems Constitutional: Denies fever or chills Respiratory: Denies cough or shortness of breath Cardiovascular: Denies chest pain or palpitations GI: Reports abdominal pain and nausea. Denies vomiting and diarrhea. : Denies dysuria or hematuria Musculoskeletal: Denies back pain or joint pain Integument: Denies rash or skin lesions Neurologic: Denies headache, focal weakness or sensory changes Complete systems were reviewed and found to be within normal limits, except as documented in this note. (LIZZY SOLARES DO) Current Medications Current Medications Current Medications Medications (Trade) Dose Ordered Sig/Shiv Start Time Stop Time Status Last Admin Dose Admin Famotidine (Pepcid Vial) 20 mg 1X ONCE 08/20/19 05:30 08/20/19 05:31 DC 08/20/19 05:35 20 MG Fentanyl Citrate (Fentanyl 2ml Vial) 50 mcg 1X ONCE 08/20/19 06:15 08/20/19 06:16 DC 08/20/19 06:23 50 MCG Hydromorphone HCl (Dilaudid) 1 mg 1X ONCE 08/20/19 07:45 08/20/19 07:46 Ketorolac Tromethamine (Toradol 15mg Vial) 15 mg 1X ONCE 08/20/19 05:30 08/20/19 05:31 DC 08/20/19 05:35 15 MG Magnesium Sulfate 50 ml @ 25 mls/hr 1X ONCE 08/20/19 07:00 08/20/19 08:59 08/20/19 07:31 25 MLS/HR Metoclopramide HCl (Reglan Vial) 10 mg 1X ONCE 08/20/19 05:30 08/20/19 05:31 DC 08/20/19 05:36 10 MG Piperacillin Sod/ Tazobactam Sod 3.375 gm/Sodium Chloride 50 ml @ 100 mls/hr 1X ONCE 08/20/19 06:30 08/20/19 06:59 DC 08/20/19 06:36 100 MLS/HR Sodium Chloride 1,000 ml @ 1,000 mls/hr 1X ONCE 08/20/19 05:15 08/20/19 06:14 DC 08/20/19 05:33 1,000 MLS/HR (SALMA BELLO MD) Allergies Allergies Allergies Coded Allergies Type Severity Reaction Last Updated Verified Iodinated Contrast- Oral and IV Dye Allergy Intermediate 09/19/16 Yes (SALMA BELLO MD) Physical Exam Physical Exam Constitutional: Well developed, well nourished, mild acute distress, non-toxic appearance Neck: Normal range of motion, no tenderness, supple Cardiovascular: Heart rate tachycardic, regular rhythm Lungs & Thorax: Bilateral expiratory wheeze Abdomen: Soft, tenderness to palpation on suprapubic region Skin: Warm, dry, no erythema, no rash Back: No tenderness, no CVA tenderness Extremities: No tenderness, ROM intact, no edema Neurologic: Alert and oriented X 3, normal motor function, normal sensory function, no focal deficits noted Psychologic: Affect normal, judgement normal, mood normal (LIZZY SOLARES DO) Current Patient Data Vital Signs Vital Signs Date Time Temp Pulse Resp B/P (MAP) Pulse Ox O2 Delivery O2 Flow Rate FiO2 08/20/19 06:30 86 10 130/61 (84) 93 Room Air 08/20/19 04:53 98.0 98.0 (SALMA BELLO MD) Lab Values Laboratory Tests Test 08/20/19 04:56 08/20/19 04:57 Urine Collection Type Unknown Urine Color [place] Urine Clarity Clear Urine pH 5.5 Urine Specific [place] >=1.030 Urine Protein >=300 mg/dL (NEG-TRACE) Urine Glucose (UA) Negative mg/dL (NEG) Urine Ketones (Stick) Trace mg/dL (NEG) Urine Blood Small (NEG) Urine Nitrite Negative (NEG) Urine Bilirubin Small (NEG) Urine Urobilinogen Dipstick 1.0 mg/dL (0.2 mg/dL) Urine Leukocyte Esterase Trace (NEG) Urine RBC 1-2 /HPF (0-2) Urine WBC 5-10 /HPF (0-4) Urine Bacteria Moderate /HPF (0-FEW) Urine Mucus Mod /LPF White Blood Count 15.3 x10^3/uL (4.0-11.0) H Red Blood Count 5.34 x10^6/uL (4.30-5.70) Hemoglobin 14.8 g/dL (13.0-17.5) Hematocrit 44.7 % (39.0-53.0) Mean Corpuscular Volume 84 fL (79-100) Mean Corpuscular Hemoglobin 28 pg (25-35) Mean Corpuscular Hemoglobin Concent 33 g/dL (31-37) Red Cell Distribution Width 13.8 % (11.5-14.5) Platelet Count 245 x10^3/uL (140-400) Neutrophils (%) (Auto) 70 % (31-73) Lymphocytes (%) (Auto) 15 % (24-48) L Monocytes (%) (Auto) 12 % (0-9) H Eosinophils (%) (Auto) 1 % (0-3) Basophils (%) (Auto) 1 % (0-3) Neutrophils # (Auto) 10.8 x10^3/uL (1.8-7.7) H Lymphocytes # (Auto) 2.4 x10^3/uL (1.0-4.8) Monocytes # (Auto) 1.9 x10^3/uL (0.0-1.1) H Eosinophils # (Auto) 0.2 x10^3/uL (0.0-0.7) Basophils # (Auto) 0.1 x10^3/uL (0.0-0.2) Segmented Neutrophils % 79 % (35-66) H Band Neutrophils % 2 % (0-9) Lymphocytes % 12 % (24-48) L Monocytes % 6 % (0-10) Basophils % 1 % (0-3) Platelet Estimate Adequate (ADEQUATE) Sodium Level 135 mmol/L (136-145) L Potassium Level 3.6 mmol/L (3.5-5.1) Chloride Level 97 mmol/L (98-107) L Carbon Dioxide Level 29 mmol/L (21-32) Anion Gap 9 (6-14) Blood Urea Nitrogen 13 mg/dL (8-26) Creatinine 1.1 mg/dL (0.7-1.3) Estimated GFR (Cockcroft-Gault) 70.9 BUN/Creatinine Ratio 12 (6-20) Glucose Level 204 mg/dL (70-99) H Lactic Acid Level 1.1 mmol/L (0.4-2.0) Calcium Level 9.2 mg/dL (8.5-10.1) Magnesium Level 1.6 mg/dL (1.8-2.4) L Total Bilirubin 1.3 mg/dL (0.2-1.0) H Aspartate Amino Transferase (AST) 16 U/L (15-37) Alanine Aminotransferase (ALT) 32 U/L (16-63) Alkaline Phosphatase 85 U/L (46-116) Total Protein 7.8 g/dL (6.4-8.2) Albumin 3.3 g/dL (3.4-5.0) L Albumin/Globulin Ratio 0.7 (1.0-1.7) L Lipase 153 U/L (73-393) Laboratory Tests 08/20/19 04:57 Laboratory Tests 08/20/19 04:57 (SALMA BELLO MD) Lab Values Laboratory Tests Test 08/20/19 04:56 08/20/19 04:57 Urine Collection Type Unknown Urine Color [place] Urine Clarity Clear Urine pH 5.5 Urine Specific [place] >=1.030 Urine Protein >=300 mg/dL (NEG-TRACE) Urine Glucose (UA) Negative mg/dL (NEG) Urine Ketones (Stick) Trace mg/dL (NEG) Urine Blood Small (NEG) Urine Nitrite Negative (NEG) Urine Bilirubin Small (NEG) Urine Urobilinogen Dipstick 1.0 mg/dL (0.2 mg/dL) Urine Leukocyte Esterase Trace (NEG) Urine RBC 1-2 /HPF (0-2) Urine WBC 5-10 /HPF (0-4) Urine Bacteria Moderate /HPF (0-FEW) Urine Mucus Mod /LPF White Blood Count 15.3 x10^3/uL (4.0-11.0) H Red Blood Count 5.34 x10^6/uL (4.30-5.70) Hemoglobin 14.8 g/dL (13.0-17.5) Hematocrit 44.7 % (39.0-53.0) Mean Corpuscular Volume 84 fL (79-100) Mean Corpuscular Hemoglobin 28 pg (25-35) Mean Corpuscular Hemoglobin Concent 33 g/dL (31-37) Red Cell Distribution Width 13.8 % (11.5-14.5) Platelet Count 245 x10^3/uL (140-400) Neutrophils (%) (Auto) 70 % (31-73) Lymphocytes (%) (Auto) 15 % (24-48) L Monocytes (%) (Auto) 12 % (0-9) H Eosinophils (%) (Auto) 1 % (0-3) Basophils (%) (Auto) 1 % (0-3) Neutrophils # (Auto) 10.8 x10^3/uL (1.8-7.7) H Lymphocytes # (Auto) 2.4 x10^3/uL (1.0-4.8) Monocytes # (Auto) 1.9 x10^3/uL (0.0-1.1) H Eosinophils # (Auto) 0.2 x10^3/uL (0.0-0.7) Basophils # (Auto) 0.1 x10^3/uL (0.0-0.2) Segmented Neutrophils % 79 % (35-66) H Band Neutrophils % 2 % (0-9) Lymphocytes % 12 % (24-48) L Monocytes % 6 % (0-10) Basophils % 1 % (0-3) Platelet Estimate Adequate (ADEQUATE) Sodium Level 135 mmol/L (136-145) L Potassium Level 3.6 mmol/L (3.5-5.1) Chloride Level 97 mmol/L (98-107) L Carbon Dioxide Level 29 mmol/L (21-32) Anion Gap 9 (6-14) Blood Urea Nitrogen 13 mg/dL (8-26) Creatinine 1.1 mg/dL (0.7-1.3) Estimated GFR (Cockcroft-Gault) 70.9 BUN/Creatinine Ratio 12 (6-20) Glucose Level 204 mg/dL (70-99) H Lactic Acid Level 1.1 mmol/L (0.4-2.0) Calcium Level 9.2 mg/dL (8.5-10.1) Magnesium Level 1.6 mg/dL (1.8-2.4) L Total Bilirubin 1.3 mg/dL (0.2-1.0) H Aspartate Amino Transferase (AST) 16 U/L (15-37) Alanine Aminotransferase (ALT) 32 U/L (16-63) Alkaline Phosphatase 85 U/L (46-116) Total Protein 7.8 g/dL (6.4-8.2) Albumin 3.3 g/dL (3.4-5.0) L Albumin/Globulin Ratio 0.7 (1.0-1.7) L Lipase 153 U/L (73-393) Laboratory Tests 08/20/19 04:57 Laboratory Tests 08/20/19 04:57 (LIZZY SOLARES DO) EKG EKG [] (LIZZY SOLARES DO) Radiology/Procedures Radiology/Procedures PROCEDURE: CT ABDOMEN PELVIS WO CONTRAST INDICATION: Abdomen pain COMPARISON: None. TECHNIQUE: Axial CT images obtained through the abdomen and pelvis without contrast. Limited assessment of solid organ structures and vasculature secondary to lack of intravenous contrast.. One or more of the following individualized dose reduction techniques were utilized for this examination: 1. Automated exposure control; 2. Adjustment of the mA and/or kV according to patient size; 3. Use of iterative reconstruction technique. FINDINGS: Partial visualization of poststernotomy changes. Moderate calcific atherosclerosis. No intrahepatic bile duct dilation. No peripancreatic fluid collection. Splenic calcified granulomas. There is some nodular thickening of the left adrenal gland. No hydronephrosis. The urinary bladder is decompressed but appears thick-walled with adjacent edema to the fat. No right-sided hydronephrosis. There is a large amount of edema seen within the pelvis. This is seen both adjacent to the urinary bladder as well as the sigmoid colon. The sigmoid colon has masslike wall thickening. There is a tract of suspected extraluminal air and fluid extending from the colon towards the urinary bladder. Colonic diverticulosis. The appendix does appear enlarged and elongated measuring up to about 8 mm in thickness but the inflammation is centered around the bladder and sigmoid colon rather than the appendix therefore this may be the patient's baseline appearance of the appendix.. Degenerative changes of the spine with multilevel central canal and neural foraminal stenosis. At L5 superior endplate on the right there is a lucency with surrounding sclerosis identified with sclerotic component measuring up to about 23 mm. IMPRESSION: * Masslike wall thickening of the sigmoid colon with a large amount of adjacent edema. Differential considerations include colonic neoplasm or diverticulitis. There is a tract seen adjacent to the sigmoid colon masslike region extending towards the urinary bladder which could be secondary to fistula formation within the area or microperforation given the neelam of air within the region. * Urinary bladder is decompressed but appears thick-walled with adjacent edema to the fat. This can be seen with cystitis with other causes such as bladder neoplasm not excluded. Given the proximity to the colonic findings this could be secondary involvement from the colonic process. * Degenerative changes the spine are identified. Region of sclerosis and lucency at L5 but given that this is along the endplate is possible that this is degenerative in nature but follow-up could be obtained to ensure no increase. Report called to the ER at 6:10 AM on date of exam Electronically signed by: Bandar Sharma MD (08/20/2019 6:18 AM) [facility] (LIZZY SOLARES DO) Course & Med Decision Making Course & Med Decision Making Pt is a 49 y/o male with a history of NSTEMI, HLD, HTN, CABG x3, DM type 2 who presents with lower abdominal pain for the past 2 days. Associated nausea and pain with defecation but produces mucous like stool. Pain addressed. IVF hydration given. Labs obtained and posted to chart. WBC elevated. Lactic acid WNL. CT abd/pelvis with findings concerning for masslike lesion vs severe diverticulitis of sigmoid colon with findings concerning for fistula tract toward bladder. UA with signs of infection. SIRS criteria met with confirmed infection. Sepsis criteria met. Severe Sepsis/Septic shock criteria not met. Given findings concern for need for urology consultation. Discussed case with Dr. Muro (general surgery) who recommends need for transfer to facility with urology capability. Utilized [facility] transfer line, who auto accepted transfer to [facility]. Awaiting accepting physicians name and location of transfer to [facility]. Discussed findings and plan with patient and family, who acknowledge understanding and agreement. 0710- Sign out given to Dr. Bello for follow up on accepting physician. Transfer paperwork previously written by myself with exception of accepting physician. (LIZZY SOLARES DO) Course & Med Decision Making Accepting physician - Jaycee [place] MD [facility] - patient to be transferred via ambulance to room number 4817A (SALMA BELLO MD) Dragon Disclaimer Dragon Disclaimer This electronic medical record was generated, in whole or in part, using a voice recognition dictation system. (LIZZY SOLARES DO) Departure Departure Impression: Primary Impression: Sepsis Additional Impressions: Diverticulitis Fistula Disposition: 05 TRANSFER OTHER ([facility]) Condition: STABLE Referrals: CHRISTIANE CORTEZ MD (PCP) Problem Qualifiers Primary Impression: Sepsis Sepsis type: sepsis due to unspecified organism Sepsis acute organ dysfunction status: without acute organ dysfunction Qualified Codes: A41.9 - Sepsis, unspecified organism LIZZY SOLARES DO Aug 20, 2019 05:29 SALMA BELLO MD Aug 20, 2019 07:46
[2019-08-20] MEDS ORDERED: METOCLOPRAMIDE HCL 10 MG/2 ML VIAL. IVP ONE (05:30)
[2019-08-20] MEDS ORDERED: FAMOTIDINE 20 MG/2 ML VIAL IVP ONE (05:30)
[2019-08-20] MEDS ORDERED: KETOROLAC 15 MG/ML VIAL. IVP ONE (05:30)
[2019-08-20 05:31] LABS: BACTERIA,URINE MODERATE /HPF (0-FEW)
[2019-08-20 05:45] LABS: CALCIUM 9.2 mg/dL (8.5-10.1); CREATININE 1.1 mg/dL (0.7-1.3); GFR 70.9; POTASSIUM 3.6 mmol/L (3.5-5.1)
[2019-08-20 05:50] LABS: ALBUMIN 3.3 g/dL (3.4-5.0); ALBUMIN/GLOBULIN RATIO 0.7 (1.0-1.7); MAGNESIUM 1.6 mg/dL (1.8-2.4); TOTAL BILIRUBIN 1.3 mg/dL (0.2-1.0); TOTAL PROTEIN 7.8 g/dL (6.4-8.2)
[2019-08-20] MEDS ORDERED: fentaNYL PF VIAL 100 MCG/2 ML VIAL IV ONE (06:15)
--- NOTE | 2019-08-20 06:21 | RAD ---
INDICATION: Abdomen pain COMPARISON: None. TECHNIQUE: Axial CT images obtained through the abdomen and pelvis without contrast. Limited assessment of solid organ structures and vasculature secondary to lack of intravenous contrast.. One or more of the following individualized dose reduction techniques were utilized for this examination: 1. Automated exposure control; 2. Adjustment of the mA and/or kV according to patient size; 3. Use of iterative reconstruction technique. FINDINGS: Partial visualization of poststernotomy changes. Moderate calcific atherosclerosis. No intrahepatic bile duct dilation. No peripancreatic fluid collection. Splenic calcified granulomas. There is some nodular thickening of the left adrenal gland. No hydronephrosis. The urinary bladder is decompressed but appears thick-walled with adjacent edema to the fat. No right-sided hydronephrosis. There is a large amount of edema seen within the pelvis. This is seen both adjacent to the urinary bladder as well as the sigmoid colon. The sigmoid colon has masslike wall thickening. There is a tract of suspected extraluminal air and fluid extending from the colon towards the urinary bladder. Colonic diverticulosis. The appendix does appear enlarged and elongated measuring up to about 8 mm in thickness but the inflammation is centered around the bladder and sigmoid colon rather than the appendix therefore this may be the patient's baseline appearance of the appendix.. Degenerative changes of the spine with multilevel central canal and neural foraminal stenosis. At L5 superior endplate on the right there is a lucency with surrounding sclerosis identified with sclerotic component measuring up to about 23 mm. IMPRESSION: * Masslike wall thickening of the sigmoid colon with a large amount of adjacent edema. Differential considerations include colonic neoplasm or diverticulitis. There is a tract seen adjacent to the sigmoid colon masslike region extending towards the urinary bladder which could be secondary to fistula formation within the area or microperforation given the neelam of air within the region. * Urinary bladder is decompressed but appears thick-walled with adjacent edema to the fat. This can be seen with cystitis with other causes such as bladder neoplasm not excluded. Given the proximity to the colonic findings this could be secondary involvement from the colonic process. * Degenerative changes the spine are identified. Region of sclerosis and lucency at L5 but given that this is along the endplate is possible that this is degenerative in nature but follow-up could be obtained to ensure no increase. Report called to the ER at 6:10 AM on date of exam Electronically signed by: Bandar Sharma MD (08/20/2019 6:18 AM) [id number]
[2019-08-20] MEDS ORDERED: PIPERACILLIN/TAZOBACTAM 3.375 GM in IV NORMAL SALINE 50ML 50 ML IV ONE (06:30)
[2019-08-20] MEDS ORDERED: MAGNESIUM SULFATE 2GM 50 ML IV ONE (07:00)
[2019-08-20 07:05] LABS: % BANDS 2 % (0-9); % BASOS 1 % (0-3); % LYMPHS 12 % (24-48); % MONOS 6 % (0-10); % SEGS 79 % (35-66); PLT ESTIMATE ADEQUATE (ADEQUATE)
[2019-08-20] MEDS ORDERED: HYDROmorphone 2 MG/ML VIAL IV ONE (07:45)
[2019-08-20 08:30] VITALS: BP 132/74
== END 2019-08-20 08:56 | disposition short-term general hospital (02) ==
LOC: ER 04:53
DX: A41.9 Sepsis, unspecified organism (principal); K57.92 Diverticulitis of intestine, part unspecified, without perforation or abscess without bleeding; L98.8 Other specified disorders of the skin and subcutaneous tissue; E11.9 Type 2 diabetes mellitus without complications; I25.2 Old myocardial infarction; K21.9 Gastro-esophageal reflux disease without esophagitis; E78.00 Pure hypercholesterolemia, unspecified; I10 Essential (primary) hypertension; T86.821 Skin graft (allograft) (autograft) failure; M23.90 Unspecified internal derangement of unspecified knee; E78.5 Hyperlipidemia, unspecified; Z91.041 Radiographic dye allergy status; Z87.891 Personal history of nicotine dependence
CPT/HCPCS: 36415; 74176; 80053; 81001; 83605; 83690; 83735; 85007; 85025; 87086; 96365; 96367; 96375; 99285; J1170; J1885; J2543; J2765; J3010; J3475; J3490; J7030

== ENCOUNTER → 2020-05-01 | Outpatient (CLI) | payer BC ==
[~2020-05-01] MED LIST changes: -GLIM2TAB3 PO; +GLIM2TAB7 PO; -LISI1TAB19 PO; +LISI1TAB37 PO; -OMEP-229 PO; +OMEP20CA16 PO
--- NOTE | 2020-05-01 15:33 | CARD ---
MR#: [id number] Date of Study: 05/01/2020 Ordering Physician: LOS DUNBAR, Referring Physician: LOS DUNBAR, Tech: Dyan Holbrook APPROVED REPORT EXAM: Two-dimensional and M-mode echocardiogram with Doppler and color Doppler. Other Information Quality : AverageHR: 78bpm INDICATION Cardiac Disease: CAD Surgery/Intervention CABG: Date: 2015 Site: [facility] RISK FACTORS Hypertension Hyperlipidemia Diabetes 2D DIMENSIONS RVDd3.4 (2.9-3.5cm)Left Atrium(2D)2.9 (1.6-4.0cm) IVSd1.1 (0.7-1.1cm)Aortic Root(2D)3.0 (2.0-3.7cm) LVDd5.0 (3.9-5.9cm)LVOT Diameter1.9 (1.8-2.4cm) PWd1.1 (0.7-1.1cm)LVDs3.2 (2.5-4.0cm) FS (%) 36.7 %SV79.5 ml LVEF(%)66.2 (>50%) Aortic Valve AoV Peak Marvin.113.7cm/sAoV VTI21.4cm AO Peak GR.5.2mmHgLVOT Peak Marvin.98.8cm/s LVOT VTI 22.21cmAO Mean GR.3mmHg BRIT (VMAX)1.40ja5QLF (VTI)2.79cm2 Mitral Valve MV E Cztgwxiz87.8cm/sMV DECEL TASB698oy MV A Nnnxvljj97.3cm/sMV E Mean Gr.1mmHg MV JCA65fwO/A Ratio1.2 MVA (PHT)3.14cm2 TDI E/Lateral E'6.9E/Medial E'11.2 Pulmonary Valve PV Peak Hjdxjdqw57.4cm/sPV Peak Grad.3mmHg Pulmonary Vein S1 Vryctcze50.9cm/sD2 Rezgsqex13.6cm/s PVa grdcymro979givc LEFT VENTRICLE The left ventricle is normal size. There is mild concentric left ventricular hypertrophy. The left ve ntricular systolic function is normal and the ejection fraction is within normal range. The Ejection Fraction is 50-55%. There is normal LV segmental wall motion. Septal motion suggestive of prior CABG Transmitral Doppler flow pattern is Grade II-pseudonormal filling dynamics. RIGHT VENTRICLE The right ventricle is normal size. There is normal right ventricular wall thickness. The right ventr icular systolic function is normal. ATRIA The left atrium size is normal. The right atrium size is normal. The interatrial septum is intact wit h no evidence for an atrial septal defect or patent foramen ovale as noted on 2-D or Doppler imaging. AORTIC VALVE The aortic valve is thickened but opens well. Doppler and Color Flow revealed no significant aortic r egurgitation. There is no significant aortic valvular stenosis. Calculated aortic valve area is 2.61 cm2 with maximum pressure gradient of 6 mmHg and mean pressure gradient of 4 mmHg. MITRAL VALVE The mitral valve is normal in structure and function. There is no evidence of mitral valve prolapse. There is no mitral valve stenosis. Doppler and Color Flow revealed no mitral valve regurgitation note d. TRICUSPID VALVE The tricuspid valve is normal in structure and function. Doppler and Color Flow revealed no tricuspid valve regurgitation noted. There is no tricuspid valve stenosis. PULMONIC VALVE The pulmonic valve is not well visualized. Doppler and Color Flow revealed trace pulmonic valvular re gurgitation. There is no pulmonic valvular stenosis. GREAT VESSELS The aortic root is normal in size. The ascending aorta is normal in size. The IVC is normal in size a nd collapses >50% with inspiration. PERICARDIAL EFFUSION There is no evidence of significant pericardial effusion. Critical Notification Critical Value: No <Conclusion> The left ventricular systolic function is normal and the ejection fraction is within normal range. Th e Ejection Fraction is 50-55%. There is normal LV segmental wall motion. Septal motion suggestive of prior CABG Signed by : Emery Henao, Electronically Approved : 05/01/2020 15:32:51
== END | disposition home or self-care (01) ==
LOC: ECHO 09:42
PROVIDERS: ATTEND Internal Medicine Cardiovascular Disease
DX: I25.810 Atherosclerosis of coronary artery bypass graft(s) without angina pectoris (principal); I51.7 Cardiomegaly
CPT/HCPCS: 93306

== ENCOUNTER → 2020-11-07 | Outpatient (CLI) | payer BC ==
--- NOTE | 2020-11-07 16:29 | RAD ---
MR#: [id number] Date of Study: 11/07/2020 Ordering Physician: LOS DUNBAR, Referring Physician: ROSEMARIE BYRD Tech: RT Leonard (Brittany) (N) APPROVED REPORT Test Type: Exercise Stress Nurse/Tech: ELIZABETH ERIC Test Indications: CAD Cardiac History: CAD, CABG, HTN, SEE EMR Medications: SEE EMR Medical History: SEE EMR Resting ECG: SR Resting Heart Rate: 85 bpm Resting Blood Pressure: 130/92mmHg Pretest Chest Pain: No chest pain Nurse/Tech Notes S1S2, LUNGS CTA, DENIED CP OR SOA. VSS NO COMPLAINTS Consent: The procedure was explained to the patient in lay terms. Informed consent was witnessed. Jonny eout was entered into [employer]. History and Stress Test performed by PANTERA Thornton Stress Symptoms PT TOLERATED THE TREADMILL TEST WITHOUT C/O CHEST PAIN. PT HAD SLIGHT SOA, MOSTLY DUE TO WEARING HIS MASK. TARGET HEART RATE REACHED. BP ELEVATED DURING TESTING, BUT RETURNED WNL. POST EXERCISE Reason for Termination: Reached target heart rate Target HR: 143 Max HR: 150 bpm 89% of Maximum Predicted HR: 169 bpm Exercise duration: 6:29 min:sec, 3 Stage Exercise capacity: 10.0METs Max Blood Pressure: 164/102mmHg Blood Pressure response to exercise: Normal blood pressure response during stress. Heart Rate response to exercise: WNL Chest Pain: No. Arrhythmia: No. NO SIGNIFICANT CHANGES NOTED FROM BASELINE, DIFFICULT AT TIMES, DUE TO ARTIFACT. ST Change: No. INTERPRETATION Stress EKG Conclusion: The resting EKG showed a sinus rhythm with nonspecific ST-T wave changes. The stress EKG showed no significant changes from baseline. No EKG evidence of stress-induced ischemia. Imaging Protocol IMAGE PROTOCOL: Rest Tc-99m/stress Tc-99m 1 day Rest: Stress: Viability: Radiopharm.Tc99m HbldayosqGu27b Sestamibi Nbpm09vVa 32.1mCi Duration 15min. 10min. Img Date 11/07/2020 11/07/2020 Inj-Img Euhv96wqo. 60min. Rest Admin Site:IV - Right HandAdministrator:PANTERA Thornton Stress Admin Site: IV - Right HandAdministrator: PANTERA Thornton STRESS DATA End Diast. Vol.77.0mlAv. Heart Cpjp521.0bpm End Syst. Vol.10.0mlCO Index BSA0.0L/min Myocardial Yhaz489.0gEject. Extnqtop39.0% Stress Rates Pk. Fill Rate6.17EDV/secLVtime Pk. Fill 167.56msec Pk. Empty Rate7.09ESV/secLVtime Pk. Eject90.56msec 1/3 Pk. Fill1.21EDV/sec Stress Scores Regional WT0.00Summed WT2.00 Regional WM0.00Summed WM0.00 LV Perfusion The stress scans showed no significant defects. The rest scans showed no significant defects. Nuclear imaging shows no reversible ischemia or infarct. Wall Motion Left ventricular systolic function is normal with no regional wall motion abnormalities and an ejecti on fraction of greater than 70%. LV Perf. Quant 17 Seg. SSS1.00 17 Seg. SRS4.00 17 Seg. SDS0.00 Stress Defect Extent (% LAD)0.00Rest Defect Extent (% LAD)0.00Rev. Defect Extent (% LAD)0.00 Stress Defect Extent (% LCX) 6.30Rest Defect Extent (% LCX)22.50Rev. Defect Extent (% LCX)0.00 Stress Defect Extent (% RCA)0.00Rest Defect Extent (% RCA)0.00Rev. Defect Extent (% RCA)0.00 Stress Defect Extent (% JERARDO)1.10Rest Defect Extent (% JERARDO)6.10Rev. Defect Extent (% JERARDO)0.00 Conclusion 1. Good exercise tolerance with the patient walking for 6 minutes and 29 seconds on a [place] protocol. 2. No EKG evidence of stress-induced ischemia or arrhythmias. 3. Nuclear imaging shows no reversible ischemia or infarct. 4. Normal left ventricular systolic function with an ejection fraction of greater than 70%. 5. Low risk treadmill nuclear stress test. Signed by : Ralph Rivera MD Electronically Approved : 11/07/2020 16:29:13
== END ==
LOC: NM 11:08
PROVIDERS: ATTEND Internal Medicine Cardiovascular Disease
DX: I25.810 Atherosclerosis of coronary artery bypass graft(s) without angina pectoris (principal)
CPT/HCPCS: 78452; 93017; A9500